=== PATIENT | male | born 1940 | race Caucasian/White ===

== ENCOUNTER → 2018-05-14 14:04 | Outpatient (CLI) | payer MEDICARE ==
[2016-05-23 10:10] VITALS: BMI 33.2
[~2018-05-14 14:04] MED LIST: COZAAR50 MG PO; FISH OIL 1,0001 CA1 PO; FLOMAX0.4 MG PO; HCTZ25 MG PO; LORTAB 7.5/5001 TA1 PO; LYRICA75 MG PO; MOBIC7.5 MG PO; MONISTAT 31 EACH; MUCINEX600 MG PO; NORCO 10/325 TA1 TA1 PO; PLAVIX75 MG PO; PRINIVIL10 MG PO; STRESS TABS PO; VITAMIN B-1000 MCG/M IM; VITAMIN B-121000 MC3 NG; [UNRECOGNIZED DRUG - OTHER] PO
== END | disposition home or self-care (01) ==
LOC: D.MRI 14:04
DX: M54.16 Radiculopathy, lumbar region (principal)

== ENCOUNTER → 2019-04-08 12:07 | Outpatient (CLI) | payer MEDICARE ==
[2016-05-23 10:10] VITALS: BMI 33.2
== END | disposition home or self-care (01) ==
LOC: D.CT 12:07
PROVIDERS: ATTEND Internal Medicine Cardiovascular Disease
DX: I70.213 Atherosclerosis of native arteries of extremities with intermittent claudication, bilateral legs (principal)

== ENCOUNTER 2019-05-30 07:52 | Outpatient (CLI) | payer MEDICARE ==
[~2019-05-30] VITALS: Ht 180.3 cm; Wt 100.0 kg
--- NOTE | ~2019-05-30 | HEMODYNAMI ---
PATIENT:ZAYRA MAO MEDICAL RECORD: [id number] : 38 [id number] ADMISSION DATE: 05/30/19 Generatedon:05/30/201911:36 Patient name: ZAYRA MAO Patient #: [id number] SSN: : Date of study: 05/30/2019 Page: Of Hemodynamic Procedure Report Patient Data Patient Demographics Procedure consent was obtained First Name: ZAYRA Gender: Male Last Name: MAYCO : 1940 [facility] Initial: LG Age: 78 year(s) Patient #: [id number] Race: Unknown Additional ID: [id number] Contact details Address: [facility] [address] State: [place] City: [place] Zip code: [address] Admission Admission Data Admission Date: 05/30/2019 Admission Time: 7:52 Procedure Procedure Types Cath Procedure Peripheral Cath Diagnostic Procedure Abd/Extremity Renal Renal Angiogram Bilateral w/ Branch Procedure Description Procedure Date Procedure Date: 05/30/2019 Procedure Start Time: 10:35 Procedure Staff Name Function Tucker Herrera MD Performing Physician Garland Dumas RT Monitor RICK MALLOY RT Scrub Michelle Jessica RN Nurse Procedure Data Cath Procedure Fluoroscopy Diagnostic fluoroscopy Total fluoroscopy Time: 6.6 time: 6.6 min min Diagnostic fluoroscopy Total fluoroscopy dose: 908 dose: 908 mGy mGy Contrast Material Contrast Material Type Amount (ml) Isovue 300 70 Entry Location Entry Primary Successful Side Size Upsize 1 Upsize Entry Closure Jean Baptiste ccessful Closure Location (Fr) (Fr) 2 (Fr) Remarks Device Remarks Femoral Right 5 Fr 6 Fr Exoseal artery Mid-Length Procedure Medications Medication Administration Route Dosage Heparin Flush Bag added to field 3 bags (1000units/500ml NS) Lidocaine 1% added to field 20 Versed I.V. 0.5 mg Fentanyl I.V. 25 mcg Heparin Bolus I.V. 5000 units Fentanyl I.V. 25 mcg Versed I.V. 0.5 mg Fentanyl I.V. 25 mcg Versed I.V. 0.5 mg Hemodynamics Rest Heart Rate: 63 (bpm) Pressure Samples Time Site Value (mmHg) Purpose Heart Use Rate(bpm) 10:53 R RENAL 48/35(41) Snapshot 64 ART 10:53 R RENAL 48/34(41) Snapshot 63 ART 10:55 AAO 135/52(83) Snapshot 67 10:55 AAO 137/52(83) Snapshot 64 10:55 AAO 136/51(81) Snapshot 62 Snapshots Pre Cath Intra NCS Post Cath Vital Signs Time Heart Resp SPO2 etCO2 NIBP (mmHg) Rhythm Pain Sedation Rate (ipm) (%) (mmHg) Status Level (bpm) 10:14:06 63 9 100 32.2 124/65(100) NSR 0 (11) 10(A) , No pain 10:19:05 63 9 100 37.5 Auto NIBP NSR 0 (11) 10(A) off , No pain 10:24:04 64 10 99 36 Auto NIBP NSR 0 (11) 10(A) off , No pain 10:27:15 64 9 99 36.7 122/57(101) NSR 0 (11) 10(A) , No pain 10:32:14 58 8 99 34.5 Auto NIBP NSR 0 (11) 10(A) off , No pain 10:37:13 63 8 98 37.5 Auto NIBP NSR 0 (11) 10(A) off , No pain 10:37:48 62 9 99 33.7 127/58(105) NSR 0 (11) 10(A) , No pain 10:40:56 62 12 97 36.7 119/54(99) NSR 0 (11) 8(A) , No pain 10:45:55 65 10 97 37.5 Auto NIBP NSR 0 (11) 8(A) off , No pain 10:47:40 66 10 97 30.7 Auto NIBP NSR 0 (11) 8(A) off , No pain 10:48:25 62 9 95 37.5 109/54(90) NSR 0 (11) 8(A) , No pain 10:53:24 61 11 96 39 Auto NIBP NSR 0 (11) 8(A) off , No pain 10:55:02 62 10 97 37.5 114/55(90) NSR 0 (11) 8(A) , No pain 10:58:58 59 9 97 33 114/58(94) NSR 0 (11) 8(A) , No pain 11:03:57 60 10 96 33.7 Auto NIBP NSR 0 (11) 8(A) off , No pain 11:05:56 62 10 98 33 110/56(88) NSR 0 (11) 8(A) , No pain 11:10:54 61 11 96 33 Auto NIBP NSR 0 (11) 8(A) off , No pain 11:11:44 63 10 93 36.7 110/53(91) NSR 0 (11) 8(A) , No pain 11:15:27 63 11 96 36.7 105/50(83) NSR 0 (11) 8(A) , No pain 11:20:26 63 11 97 34.4 Auto NIBP NSR 0 (11) 8(A) off , No pain 11:20:28 63 11 97 34.5 112/52(84) NSR 0 (11) 8(A) , No pain 11:25:27 65 10 96 38.9 Auto NIBP NSR 0 (11) 8(A) off , No pain 11:29:49 62 10 92 39 108/53(90) NSR 0 (11) 8(A) , No pain 11:34:48 0 Auto NIBP NSR 0 (11) 8(A) off , No pain Medications Time Medication Route Dose Verified Delivered Reason Notes Effec tiveness by by 10:27:56 Heparin Flush added 3 Tucker Ceballos used for Bag to bags Javier Herrera MD procedure (1000units/500ml field TALBERT NS) 10:28:36 Lidocaine 1% added 20ml Tucker Ceballos used for to vial Javier Herrera MD procedure field TALBERT 10:39:21 Versed I.V. 0.5 Tucker Martinez used for mg Jaskaran Herrera RN procedure 10:39:36 Fentanyl I.V. 25 Tucker Martinez used for mcg Jaskaran Herrera RN procedure 11:00:17 Heparin Bolus I.V. 5000 Tucker Martinez used for units Jaskaran Herrera RN procedure 11:04:36 Fentanyl I.V. 25 Tucker Martinez used for mcg BurdJaskaran nunez RN, MD 11:04:45 Versed I.V. 0.5 Tucker Martinez used for mg Jaskaran Herrera RN, MD 11:18:57 Fentanyl I.V. 25 Tucker Martinez used for mcg Jaskaran Herrera RN, MD 11:19:08 Versed I.V. 0.5 Tucker Haquei used for mg Jaskaran Herrera RN, MD Procedure Log Time Note 10:01:16 Michelle Jessica RN sent for patient. Start room use. 10:01:47 Time tracking: Regular hours (M-F 7:00 - 5:00) 10:01:53 Plan of Care:Hemodynamics will remain stable., Cardiac rhythm will remain stable., Comfort level will be maintained., Respiratory function will remain adequate., Patient/ family verbilizes understanding of procedure., Procedure tolerated without complication., Recovers from procedure without complications.. 10:01:57 Use device set IR Diagnostic 10:01:58 ACIST Syringe (55029) opened to sterile field. 10:01:59 ACIST Hand Control (71106) opened to sterile field. 10:01:59 ACIST Manifold (61185) opened to sterile field. 10:01:59 Bag Decanter (2002S) opened to sterile field. 10:02:00 Sterile Angiographic Pack opened to sterile field. 10:02:01 Tegaderm 4 x 4 (1626W) opened to sterile field. 10:02:10 Patient received from Outpatients to IR Alert and oriented. Tansferred to table in Supine position. 10:02:11 Correct patient and procedure confirmed by team. 10:02:13 Signed procedure consent form obtained from patient. 10:02:15 ECG and BP/O2 sat monitors applied to patient. 10:02:16 Full Disclosure recording started 10:02:16 - 10:02:21 H&P Date Dictated: 05/30/2019 H&P Addendum completed by physician on day of procedure. (MUST COMPLETE FOR ALL OUTPATIENTS). 10:02:21 Pre-procedure instructions explained to patient. 10:02:22 Pre-op teaching completed and patient verbalized understanding. 10:02:23 Family in waiting room. 10:02:27 Patient NPO since Midnight. 10:02:30 Is the patient allergic to Iodine/contrast media? No. 10:02:32 Is patient on blood thinner?Yes 10:02:44 ACC The patient was administered the following blood thiners within the last 24 hours: ACCAspirin 10:02:49 Patient diabetic? Yes. 10:02:55 - 10:02:56 ----Pre-sedation anethsthesia assessment.---- 10:02:59 Previous problem with sedation/anesthesia? No ? 10:03:00 Snore? Yes 10:03:02 Sleep apnea? No 10:03:03 Deviated septum? No 10:03:05 Opens mouth fully? Yes 10:03:06 Sticks out tongue? Yes 10:03:14 Dentures? Yes patial out 10:12:45 Pre procedure: right dorsailis pedis pulse Doppler 10:12:51 Pre procedure: right posterior tibial pulse Doppler 10:12:57 Patient pain scale 0/10 no pain. 10:13:12 Vital chart was started 10:13:34 IV patent on arrival in left antecubital with 0.9% NaCl at O. 10:25:46 Baseline sample Acquired. 10:25:50 Sharps counted by scrub and verified by R.N. 10:25:54 Right groin area was prepped with chlora-prep and draped in sterile fashion 10:27:56 Heparin Flush Bag (1000units/500ml NS) 3 bags added to field was administered by Tucker Herrera MD; used for procedure; 10:28:36 Lidocaine 1% 20ml vial added to field was administered by Tucker Herrera MD; used for procedure; 10:34:07 Physician arrived 10:34:08 --------ALL STOP TIME OUT------ 10:34:08 Final Timeout: patient, procedure, and site verified with staff and physician. All members of the team are in agreement. 10:34:10 Right groin site verified by team. 10:34:14 Fire Safety Assessment: A--An alcohol-based skin anteseptic being used preoperatively., C--Open oxygen or nitrous oxide is being used. 10:34:25 Sedation plan: IV Moderate Sedation Medication:Versed, Fentanyl 10:35:02 Procedure started. 10:35:07 Local anesthetic to right femoral artery with Lidocaine 1% by Tucker Herrera MD.INITIAL ACCESS ONLY 10:35:42 Micropuncture VSI 4FR kit opened to sterile field. 10:35:42 SHEATH 5FR Dunreith (JQG005) opened to sterile field. 10:35:43 DOC .035 wire (W99693) opened to sterile field. 10:35:43 Angiodynamics Omniflush 5Fr 65cm (77472711) opened to sterile field. 10:35:49 Access obtained with 4Fr micropunture. 10:35:58 A 5 Fr sheath was inserted into the Right Femoral artery 10:39:21 Versed 0.5 mg I.V. was administered by Michelle Jessica RN; used for procedure; 10:39:36 Fentanyl 25 mcg I.V. was administered by Michelle Jessica RN; used for procedure; 10:44:50 GLIDE CATHETER 5FR ANGLED 65cm (CG507) opened to sterile field. 10:44:50 GLIDE WIRE ANGLE 180cm (TR2044) opened to sterile field. 10:45:02 TORQUE DEVICE PLASTIC .038 ( TD01) opened to sterile field. 10:45:35 GLIDE CATHETER 5FR COBRA 65cm (CG502) opened to sterile field. 10:49:34 BENTSON 145cm wire (N99607) opened to sterile field. 10:50:[address] 1 6FR. Guide sheath opened to sterile field. 10:50:27 Sheath upsized to a 6 Fr Mid-Length. 10:53:08 Zero performed for pressure channel P1 10:55:01 Zero performed for pressure channel P1 10:55:07 Zero performed for pressure channel P1 11:00:17 Heparin Bolus 5000 units I.V. was administered by Michelle Jessica RN; used for procedure; 11:04:36 Fentanyl 25 mcg I.V. was administered by Michelle Jessica RN; used for procedure; 11:04:45 Versed 0.5 mg I.V. was administered by Michelle Jessica RN; used for procedure; 11:06:52 Inflate balloon Inflation number: 1 A Evercross 3 x 2 x 135 Balloon ([id number]) was prepped and advanced across the Undefined1 , then inflated to 8 BIANCA for 0:01 (min:sec) . 11:13:04 BOJORQUEZ 260 wire (H46061) opened to sterile field. 11:13:33 Place stent Inflation Number: 2 A Visipro 6 x 27 x 135 Stent ([id number]) was prepped and advanced across the Undefined1 . The stent was deployed at 8 BIANCA for 0:03 (min:sec) . 11:17:06 SHEATH 6FR Dunreith (FBZ903) opened to sterile field. 11:18:57 Fentanyl 25 mcg I.V. was administered by Michelle Jessica RN; used for procedure; 11:19:08 Versed 0.5 mg I.V. was administered by Michelle Jessica RN; used for procedure; 11:21:19 EXOSEAL 6Fr (EX600) opened to sterile field. 11:21:29 Sheath removed intact; hemostasis achieved with Exoseal to the Right Femoral artery. 11:21:32 Procedure ended.(Physican Out) 11:22:01 Fluoroscopy time 06.60 minutes. 11:26:34 Fluoroscopy dose: 908 mGy 11::34 Flurop Dose total: 908 11:26:37 Sharps counted by scrub and verified by R.N. 11:26:38 Insertion/operative site no bleeding no hematoma. 11:26:46 Contrast amount:Isovue 300 70ml. 11:28:18 Post-op/insertion site Right Femoral artery dressed using a 4 x 4 and Tegaderm. 11:28:29 Post right femoral artery:stable 11:28:31 Post Procedure Pulses reassessed and unchanged 11:35:32 Post procedure instruction explained to patient.Patient verbalizes understanding. 11:35:33 Procedure and supply charges have been captured, reviewed, submitted an d are correct. 11:35:37 Report given to Outpatients. 11:35:42 Patient transfered to Outpatients with Stretcher. 11:36:16 Vital chart was stopped Intervention Summary Intervention Notes Time ActionType Lesion and Equipment Used Action# Pressure Duration Attributes 11:06:52 Inflate Undefined1 Evercross 3 x 2 x 1 8 00:01 balloon 135 Balloon ([id number]) 11:13:33 Place stent Undefined1 Visipro 6 x 27 x 2 8 00:03 135 Stent ([id number]) Device Usage Item Name Manufacture Quantity Catalog Number Hospital Part Curr ent Minimal Lot# / Charge Number Stock Stock Serial# Code ACIST Syringe Acist Medical 1 09342 641889 013938 0070 98 20 (11498) Systems Inc ACIST Hand Acist Medical 1 55374 230577 243663 0017 26 5 Control (59693) Systems Inc ACIST Manifold Acist Medical 1 56533 328984 530403 0415 43 5 (94010) Systems Inc Bag Decanter Microtek 1 2001S 401055 74610 9865 68 5 (2001S) Medical Inc. Sterile Cardinal 1 [id number] 792216 1098 94 5 Angiographic Pack Health Tegaderm 4 x 4 3M 1 1626W 666938 984719 2906 45 5 (1626W) Micropuncture VSI VSI VASCULAR 1 7266V 624365 0879 95 5 4FR kit SOLUTIONS SHEATH 5FR Terumo 1 FTO784 855212 606054 1525 26 5 Dunreith (UHD079) DOC .035 wire Cook Medical 1 H14131 194243 3729 69 5 (R97722) Angiodynamics Angiodynamics 1 75411064 864401 388634 2863 35 5 Omniflush 5Fr 65cm (68253294) GLIDE CATHETER Terumo 1 CG507 474794 3394 03 5 5FR ANGLED 65cm (CG507) GLIDE WIRE ANGLE Terumo 1 GV4799 160000 884376 7684 03 5 180cm (ES3003) TORQUE DEVICE Windsor 1 TD01 910568 557037 5099 13 5 PLASTIC .038 ( Scientific TD01) GLIDE CATHETER Terumo 1 CG502 899992 6292 15 5 5FR COBRA 65cm (CG502) BENTSON 145cm Cook Medical 1 A27767 436405 2619 65 5 wire (R17680) Cook KEY 1 6FR. Pledge51 Medical 1 F46070 041594 5500 68 5 0146769 Guide sheath Evercross 3 x 2 x Medtronic 1 [id number] 558447 488735 4561 94 5 S368208 135 Balloon ([id number]) BOJORQUEZ 260 wire Cook Medical 1 N27228 609617 66648 9995 63 5 (I14700) Visipro 6 x 27 x Medtronic 1 [id number] 624016 524848 6824 97 5 F224177 135 Stent ([id number]) SHEATH 6FR Terumo 1 VYD440 265098 051538 8863 22 40 Dunreith (UDP472) EXOSEAL 6Fr Cardinal 1 EX600 715943 626318 1603 74 10 [id number] (EX600) Health Signature Audit [place] Stage Time Signature Unsigned Intra-Procedure 05/30/2019 Garland 11:36:12 AM Alesia RT (R) (CV) Signatures Monitor : Garland Signature : Alesia RT Date : Time : [address] [address]
[2019-05-30 08:27] LABS: EOSINOPHILS 6.5 % (0-7); HEMATOCRIT 30.5 % (42.0-54.0); HEMOGLOBIN 10.2 g/dL (13.5-17.5); IMMATURE GRANULOCYTES 0.2 % (0-5); MCH 29.7 pg (26.0-34.0); MCHC 33.4 g/dL (31.0-37.0); MCV 88.7 fL (80.0-100.0); MEAN PLATELET VOLUME 8.9 fL (7.4-10.4); MONOCYTES 11.8 % (2-11); NEUTROPHILS 66.5 % (40-80); PLATELET COUNT 137 10x3/uL (130-400); RBC 3.44 10x6/uL (4.20-6.10); RDW 22.6 % (11.5-14.5); WBC 4.9 10x3/uL (4.8-10.8)
[2019-05-30 08:31] LABS: ANION GAP 10.1 mmol/L (8-16); CALCIUM 9.5 mg/dL (8.5-10.1); CARBON DIOXIDE 28.6 mmol/L (21.0-32.0); CREATININE - SERUM 1.4 mg/dL (0.6-1.3); POTASSIUM - SERUM 4.7 mmol/L (3.5-5.1)
[2019-05-30 08:37] LABS: APTT 27.4 SECONDS (22.8-39.4); INR 1.17 (0.85-1.17); PROTIME 14.4 SECONDS (11.6-15.0)
--- NOTE | 2019-05-30 08:43 | NUR ---
0811-ARRIVED TO OUTPATIENT, SQE WITH PATIENT. HE IS DEAF/HEARING IMPAIRED.
[2019-05-30] MEDS ORDERED: BAYER CHEWABLE81 MG PO (09:41)
[2019-05-30 09:42] VITALS: BP 130/56; Ht 180.3 cm; Wt 100.0 kg
--- NOTE | 2019-05-30 14:39 | NUR ---
1145 VITAL SIGNS ARE BEING RECORDED ON POST PROCEDURE CHECKLIST AND IN PAPER CHART.
--- NOTE | 2019-05-30 15:17 | NUR ---
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 TATA SANCHEZ HERE TO ADDRESS THOSE QUESTIONS USING THE INTERPETOR TO RELAY THE INFORMATION. NOTHING OVER 5 LBS FOR 5 DAYS.
--- NOTE | 2019-05-30 15:19 | NUR ---
1430 IV DC'D. CATHETER INTACT. NO BLEEDING AT SITE. BANDAID APPLIED.
== END 2019-05-30 14:50 | disposition home or self-care (01) ==
LOC: D.SP 07:52 → D.RAD 10:00 → D.SP 14:50
PROVIDERS: ATTEND General Practice
DX: I70.1 Atherosclerosis of renal artery (principal); Z01.812 Encounter for preprocedural laboratory examination; I12.9 Hypertensive chronic kidney disease with stage 1 through stage 4 chronic kidney disease, or unspecified chronic kidney disease; N18.9 Chronic kidney disease, unspecified

== ENCOUNTER → 2019-07-19 08:00 | Outpatient (CLI) | payer MEDICARE ==
[2019-05-30 09:42] VITALS: BMI 30.7
[~2019-07-19 08:00] MED LIST changes: +BAYER CHEWABLE81 MG PO
== END | disposition home or self-care (01) ==
LOC: D.CT 08:00
PROVIDERS: ATTEND General Practice
DX: I73.9 Peripheral vascular disease, unspecified (principal)

== ENCOUNTER → 2019-08-26 09:05 | Outpatient (CLI) | payer MEDICARE ==
[2019-05-30 09:42] VITALS: BMI 30.7
[~2019-08-26 09:05] MED LIST changes: +ALDACTONE25 MG PO; +GABAPENTIN100 MG PO; +GLUCOTROL ER2.5 MG PO; +LASIX40 MG PO; +REQUIP0.25 MG PO; +SINGULAIR10 MG PO; +TOPROL XL25 MG PO; +ZOFRAN4 MG PO
== END | disposition home or self-care (01) ==
LOC: D.MRI 09:05
PROVIDERS: ATTEND Internal Medicine Cardiovascular Disease
DX: K76.89 Other specified diseases of liver (principal)

== ENCOUNTER 2019-10-24 13:18 | Inpatient (IN) | payer MEDICARE ==
[~2019-10-24] VITALS: Ht 180.3 cm; Wt 104.3 kg
[~2019-10-24 13:18] MED LIST changes: -ALDACTONE25 MG PO; -GABAPENTIN100 MG PO; -GLUCOTROL ER2.5 MG PO; -LASIX40 MG PO; -REQUIP0.25 MG PO; -SINGULAIR10 MG PO; -TOPROL XL25 MG PO; -ZOFRAN4 MG PO
[2019-10-24] MEDS ORDERED: GABAPENTIN100 MG PO (14:07)
[2019-10-24] MEDS ORDERED: GLUCOTROL ER2.5 MG PO (14:09)
[2019-10-24] MEDS ORDERED: TOPROL XL25 MG PO (14:10)
[2019-10-24] MEDS ORDERED: SINGULAIR10 MG PO (14:12)
[2019-10-24] MEDS ORDERED: ZOFRAN4 MG PO (14:14)
[2019-10-24] MEDS ORDERED: REQUIP0.25 MG PO (14:15)
[2019-10-24 14:23] LABS: BASOPHILS 0.4 % (0-2); EOSINOPHILS 3.6 % (0-7); HEMATOCRIT 28.2 % (42.0-54.0); HEMOGLOBIN 9.1 g/dL (13.5-17.5); IMMATURE GRANULOCYTES 0.2 % (0-5); LYMPHOCYTES 14.5 % (15-50); MCH 30.2 pg (26.0-34.0); MCHC 32.3 g/dL (31.0-37.0); MCV 93.7 fL (80.0-100.0); MONOCYTES 13.9 % (2-11); NEUTROPHILS 67.4 % (40-80); RBC 3.01 10x6/uL (4.20-6.10); RDW 18.8 % (11.5-14.5); WBC 5.3 10x3/uL (4.8-10.8)
[2019-10-24 14:24] LABS: PLATELET COUNT 174 10x3/uL (130-400)
[2019-10-24 14:32] LABS: ANION GAP 11.4 mmol/L (8-16); CALCIUM 9.3 mg/dL (8.5-10.1); CARBON DIOXIDE 25.3 mmol/L (21.0-32.0); CREATININE - SERUM 1.6 mg/dL (0.6-1.3); POTASSIUM - SERUM 3.7 mmol/L (3.5-5.1)
[2019-10-24 14:38] LABS: ALBUMIN 2.8 g/dL (3.4-5.0); BILIRUBIN - TOTAL 1.22 mg/dL (0.2-1.3); PROTEIN - SERUM 7.7 g/dL (6.4-8.2)
[2019-10-24 16:39] LABS: INR 1.26 (0.85-1.17); PROTIME 15.2 SECONDS (11.6-15.0)
[2019-10-24 16:43] VITALS: BP 118/50
[2019-10-24 16:50] LABS: % SATURATION 23 % (15-55); IRON 39 ug/dl (35-150); TOTAL IRON BIND CAPACITY 163 ug/dl (260-445); UNSAT IRON BIND CAPACITY 124 ug/dl (150-375)
[2019-10-24 18:50] VITALS: BP 115/50; BMI 32.1
[2019-10-24 20:20] VITALS: BP 120/53
--- NOTE | 2019-10-24 23:23 | NUR ---
PT IS DEAF/HARD OF HEARING. NOTED PAD AND PEN SET IN ROOM TO FACILITATE COMMUNICATION. PTs ABDOMEN IS DISTENDED, BUT PT DENIES PAIN/NEEDS AT THIS TIME, WILL CONTINUE TO MONITOR.
[2019-10-25] VITALS (10 sets, daily range): BP systolic 97–125; BP diastolic 40–66; Ht 180.3 cm; Wt 104.3 kg
[2019-10-25 01:44] LABS: APPEARANCE CLEAR (CLEAR); BILIRUBIN NEGATIVE (NEGATIVE); COLOR YELLOW (YELLOW); GLUCOSE NEGATIVE (NEGATIVE); KETONE NEGATIVE (NEGATIVE); NITRITE NEGATIVE (NEGATIVE); PROTEIN NEGATIVE (NEGATIVE); SPECIFIC GRAVITY 1.015 (1.005-1.020); UROBILINOGEN NORMAL (NORMAL)
--- NOTE | 2019-10-25 04:36 | NUR ---
I have reviewed this patient and I concur with the Shift Assessment completed by the Licensed Practical Nurse today this shift.
[2019-10-25 06:47] LABS: BASOPHILS 0.3 % (0-2); EOSINOPHILS 4.6 % (0-7); HEMATOCRIT 25.7 % (42.0-54.0); HEMOGLOBIN 8.2 g/dL (13.5-17.5); LYMPHOCYTES 15.5 % (15-50); MCH 29.3 pg (26.0-34.0); MCHC 31.9 g/dL (31.0-37.0); MCV 91.8 fL (80.0-100.0); MEAN PLATELET VOLUME 9.4 fL (7.4-10.4); MONOCYTES 15.8 % (2-11); NEUTROPHILS 63.8 % (40-80); PLATELET COUNT 153 10x3/uL (130-400); RDW 18.5 % (11.5-14.5)
[2019-10-25 07:05] LABS: INR 1.31 (0.85-1.17); PROTIME 15.8 SECONDS (11.6-15.0)
[2019-10-25 07:22] LABS: ALBUMIN 2.6 g/dL (3.4-5.0); ANION GAP 12.1 mmol/L (8-16); BILIRUBIN - TOTAL 1.01 mg/dL (0.2-1.3); CALCIUM 9.2 mg/dL (8.5-10.1); CARBON DIOXIDE 25.9 mmol/L (21.0-32.0); CREATININE - SERUM 1.4 mg/dL (0.6-1.3); PROTEIN - SERUM 6.8 g/dL (6.4-8.2)
--- NOTE | 2019-10-25 07:30 | NUR ---
PT RESTING IN BED WITH SPOUSE AT BEDSIDE. PT AWAKE ALERT AND ORIENTED X 4. PT IS ABLE TO COMMUNICATE WITH STAFF HE IS ABLE TO READ LIPS AND WRITE NOTES AND IS ABLE TO VERBALIZE ORALLY NEEDS. PT REPORTS PAIN 4/10 AT THIS TIME IN HIS BACK "FROM THE BED". HE VOICES ANTICIPATIONS OF UPCOMING PROCEDURE. PT VOICES BEING NPO SINCE MIDNIGHT. SALINE LOC TO LEFT WRIST, SITE WITHOUT REDNESS OR EDEMA. ABDOMEN DISTENDED AND FIRM, BS ACTIVE X 4. DENIES FURTHER NEEDS AT THIS TIME. CL WITHIN REACH. ENCOURAGED TO CALL WITH NEEDS. CONTINUE POC
[2019-10-25 07:55] LABS: WBC 3.5 10x3/uL (4.8-10.8)
--- NOTE | 2019-10-25 13:05 | NUR ---
PT TAKEN VIA BED TO IR FOR PROCEDURE.
--- NOTE | 2019-10-25 13:26 | MORECARE ---
CASE MANAGEMENT DISCHARGE SUMMARY PATIENT: ZAYRA MAO LG UNIT: [id number] ADM DATE: 10/24/19 AGE: 78 : 39 SEX: M ROOM/BED: D.2233 AUTHOR: FREDY COBURN PHYSICIAN: REFERRING PHYSICIAN: OCTAVIA GALLAGHER MD DATE OF SERVICE: 10/25/19 Discharge Plan Patient Name: ZAYRA MAO [facility] [facility] 1940 Planned Disposition: Inpatient Rehab Anticipated Discharge Date: Discharge Date: Expected LOS: Initial Reviewer: [email or web address] Initial Review Date: 10/25/2019 Generated: 10/25/19 2:25 pm Patient Name: ZAYRA AMO Page 66352 at 1326 All edits/amendments must be made on the electronic document DICTATION DATE: 10/25/19 1325 ICU STAFF NURSE: SUJIT 10/25/19 1325 RPT#: [id number] DC DATE: STATUS: ADM IN [facility] [address] [place] [address] END OF REPORT
--- NOTE | 2019-10-25 13:36 | MORECARE ---
CASE MANAGEMENT DISCHARGE SUMMARY PATIENT: ZAYRA CASTELLANOS LG UNIT: [id number] ADM DATE: 10/24/19 AGE: 78 : 39 SEX: M ROOM/BED: D.2233 AUTHOR: FREDY COBURN PHYSICIAN: REFERRING PHYSICIAN: OCTAVIA GALLAGHER MD DATE OF SERVICE: 10/25/19 Discharge Plan Patient Name: ZAYRA CASTELLANOS [facility] [facility] 1940 Planned Disposition: Inpatient Rehab Anticipated Discharge Date: Discharge Date: Expected LOS: Initial Reviewer: [email or web address] Initial Review Date: 10/25/2019 Generated: 10/25/19 2:35 pm DCPIA - Discharge Planning Initial Assessment Updated by [email or web address]: Emilee Lilly on 10/25/19 1:34 pm * Is the patient Alert and Oriented? Yes * How many steps to enter\exit or inside your home? Ramp/0 * PCP Karen Proctor * [facility] * Preadmission Environment Home with Family * ADLs Partial Dependent * Partial ADLs (Assistance needed) Ambulation * Equipment Grab Bars Shower Chair Walker * Other Equipment Rollator Walker * List name and contact numbers for known caregivers / representatives who currently or will assist patient after discharge: Jade Castellanos - spouse - [phone] - Must text...she is deaf * Verbal permission to speak to the caregivers and representatives has been obtained from the patient. Yes * Community resources currently utilized None * Additional services required to return to the preadmission environment? Yes * Can the patient safely return to the preadmission environment? Yes * Has this patient been hospitalized within the prior 30 days at any hospital? No Last DP export: 10/25/19 12:26 p Patient Name: ZAYRA CASTELLANOS Page 59259 at 1336 All edits/amendments must be made on the electronic document DICTATION DATE: 10/25/19 1335 TOBACCO CONDITIONER: SUJIT 10/25/19 1335 RPT#: [id number] DC DATE: STATUS: ADM IN [facility] [address] [place] [address] END OF REPORT
--- NOTE | 2019-10-25 13:51 | MORECARE ---
CASE MANAGEMENT DISCHARGE SUMMARY PATIENT: ZAYRA CASTELLANOS UNIT: [id number] ADM DATE: 10/24/19 AGE: 78 : 39 SEX: M ROOM/BED: D.2233 AUTHOR: FREDY COBURN PHYSICIAN: REFERRING PHYSICIAN: OCTAVIA GALLAGHER MD DATE OF SERVICE: 10/25/19 Discharge Plan Patient Name: ZAYRA CASTELLANOS Facility: [facility]:[place] : 1940 Planned Disposition: Inpatient Rehab Anticipated Discharge Date: Discharge Date: Expected LOS: Initial Reviewer: [email or web address] Initial Review Date: 10/25/2019 Generated: 10/25/19 2:51 pm Comments DCP- Discharge Planning Updated by [email or web address]: Emilee Lilly on 10/25/19 12:[address] Patient Name: ZAYRA CASTELLANOS Admission Status: Elective Accout number: [id number] Admission Date: 10-24-2019 : 1940 Admission Diagnosis: Attending: OCTAVIA GALLAGHER Current LOS: 1 Anticipated DC Date: Planned Disposition: Inpatient Rehab Primary Insurance: [employer] CHO[employer] PPO MCR ADVANT Discharge Planning Comments: CM met with patient and his spouse to discuss discharge planning/needs. drama critic is present in the room for assessment. He lives with his in a one level mobile home. He has a ramp to get into the home. He has a rollator walker in the room that is his. He states he has become very weak. He states he would like some rehab prior to going home. I gave him the [facility] list for inpatient rehab and SNF and explained the differences. He would like to stay here and have inpatient rehab if possible. He states his choice for SNF would be [facility] if insurance does not authorize inpatient rehab. I will get an PT and OT eval to see what referral may be more appropriate. I discussed the availability of home health and DME as well, denies need for DME at this time. CM will continue to follow and assist with discharge planning/needs. Senior Technical Architect: Emilee Lilly DCPIA - Discharge Planning Initial Assessment Updated by [email or web address]: Emilee Lilly on 10/25/19 1:34 pm * Is the patient Alert and Oriented? Yes * How many steps to enter\exit or inside your home? Ramp/0 * PCP Karen Proctor * [facility] * Preadmission Environment Home with Family * ADLs Partial Dependent * Partial ADLs (Assistance needed) Ambulation * Equipment Grab Bars Shower Chair Walker * Other Equipment Rollator Walker * List name and contact numbers for known caregivers / representatives who currently or will assist patient after discharge: Jade Castellanos - spouse - [phone] - Must text...she is deaf * Verbal permission to speak to the caregivers and representatives has been obtained from the patient. Yes * Community resources currently utilized None * Additional services required to return to the preadmission environment? Yes * Can the patient safely return to the preadmission environment? Yes * Has this patient been hospitalized within the prior 30 days at any hospital? No Coverage Notice Reviewer: [email or web address] Dale Lilly Notice Issued Date-Time: 10/25/2019 13:44 Notice Type: Patient Choice Letter Notice Delivered To: Patient Relationship to Patient: Self Photograph Inspector Name: Delivery Method: HAND - Hand Delivered Vita Days: Prior Verbal Notification: Recipient Understood Notice: Yes Recipient Signature: Yes Med Rec Note Co-signed by Attending: Coverage Notice Comment: [facility] for Inpatient rehab at [facility] and [place] for SNF Last DP export: 10/25/19 12:36 p Patient Name: ZAYRA CASTELLANOS Page 05789 at 1351 All edits/amendments must be made on the electronic document DICTATION DATE: 10/25/19 1351 OYSTER CULLER: SUJIT 10/25/19 1351 RPT#: [id number] DC DATE: STATUS: ADM IN [facility] [address] [place] [address] END OF REPORT
[2019-10-25 17:19] LABS: PROTEIN - BODY FLUID 2.3 G/DL
[2019-10-25 19:27] LABS: EOS BF 1 %; MACROPHAGES BF 48 %; MESOTHELIALS BF 3 %; NEUT - BF 16 %
--- NOTE | 2019-10-25 23:17 | NUR ---
LYING IN BED WITH EYES CLOSED, AROUSED TO TOUCH. PLEASANTRIES EXCHANGED VIA GESTURES AND LIP READING, NO S/S OF ANY ACUTE DISTRESS. ABLE TO MAKE ALL NEEDS. KNOWN. WILL NOTE ANY CHANGE.
--- NOTE | 2019-10-25 23:19 | NUR ---
I have reviewed this patient and I concur with the Shift Assessment completed by the Licensed Practical Nurse today this shift.
[2019-10-26 01:04] VITALS: BP 112/50
[2019-10-26 05:50] VITALS: BP 151/80
[2019-10-26 06:41] LABS: CALCIUM 9.3 mg/dL (8.5-10.1); CARBON DIOXIDE 25.1 mmol/L (21.0-32.0); CREATININE - SERUM 1.1 mg/dL (0.6-1.3); POTASSIUM - SERUM 4.1 mmol/L (3.5-5.1)
[2019-10-26 06:50] LABS: BASOPHILS 0.6 % (0-2); EOSINOPHILS 5.3 % (0-7); HEMATOCRIT 25.2 % (42.0-54.0); HEMOGLOBIN 8.2 g/dL (13.5-17.5); LYMPHOCYTES 17.6 % (15-50); MCH 29.6 pg (26.0-34.0); MCHC 32.5 g/dL (31.0-37.0); MEAN PLATELET VOLUME 9.1 fL (7.4-10.4); MONOCYTES 13.8 % (2-11); NEUTROPHILS 62.7 % (40-80); PLATELET COUNT 132 10x3/uL (130-400); RBC 2.77 10x6/uL (4.20-6.10); RDW 18.4 % (11.5-14.5); WBC 3.2 10x3/uL (4.8-10.8)
--- NOTE | 2019-10-26 08:00 | NUR ---
PT IS WITHOUT NEEDS.CALL LIGHT IN REACH
[2019-10-26 08:36] VITALS: BP 113/56
[2019-10-26 12:32] VITALS: BP 118/62
--- NOTE | 2019-10-26 13:11 | NUR ---
PT SITTING UP WITH FAMILY AT BEDSIDE, PT IS EATING LUNCH, QUESTIONED LUNG BIOPSY RESULTS ADVISED WILL RELAY MESSAGE TO OR TEJAS. NO OTHER NEEDS VOICED, CONTINUE WITH PLAN OF CARE
[2019-10-26 14:09] LABS: SPE - A/G RATIO 0.8 (0.7-1.7); SPE - ALBUMIN 2.8 g/dL (2.9-4.4); SPE - ALPHA-1 GLOBULIN 0.3 g/dL (0.0-0.4); SPE - ALPHA-2 GLOBULIN 0.7 g/dL (0.4-1.0); SPE - BETA GLOBULIN 0.7 g/dL (0.7-1.3); SPE - M-SPIKE 1.6 g/dL (Not Observed); SPE - TOTAL PROTEIN 6.5 g/dL (6.0-8.5)
--- NOTE | 2019-10-26 15:24 | NUR ---
Rehab Note- Acute Inpatient Rehab prescreen order received. The patient has [employer] insurance and will require a PreAuth. OT Eval is pending, will need for PreAuth process. Will begin the PreAuth process & follow at this time. Thank you for this referral! Alena Schulz RN Clinical Liaison, [facility] Rehab
[2019-10-26 15:33] LABS: CEA 1.7 ng/mL (0.0-4.7)
[2019-10-26 16:28] VITALS: BP 113/41
--- NOTE | 2019-10-26 18:54 | NUR ---
OT NOTE: PT COMPLETED BED MOB TASKS WITH CGA. PT COMPLETED SIT TO STAND WITH CGA. PT COMPLETED BUE AROM EXS. PT COMPLETED HYGIENE TASK WITH SET UP. PT IS MOTIVATED. THANK YOU,MEHDI CHENG
--- NOTE | 2019-10-26 19:35 | NUR ---
LYING IN BED WITH TELEVISION ON, MOOD AND AFFECT PLEASANT, CRACKING JOKES WITH STAFF, ABLE TO COMMUNICATE ALL NEEDS. DENIES ANY PAIN AT THIS TIME. WILL NOTE ANY CHANGE.
[2019-10-26 20:00] VITALS: BP 117/46
--- NOTE | 2019-10-27 01:44 | NUR ---
I have reviewed this patient and I concur with the Shift Assessment completed by the Licensed Practical Nurse today this shift.
[2019-10-27 04:00] VITALS: BP 117/78
[2019-10-27 06:39] LABS: INR 1.3 (0.85-1.17); PROTIME 15.6 SECONDS (11.6-15.0)
[2019-10-27 06:41] LABS: ALBUMIN 2.7 g/dL (3.4-5.0); ANION GAP 9.4 mmol/L (8-16); BILIRUBIN - TOTAL 0.94 mg/dL (0.2-1.3); CALCIUM 9.3 mg/dL (8.5-10.1); CARBON DIOXIDE 25.6 mmol/L (21.0-32.0); CREATININE - SERUM 1.1 mg/dL (0.6-1.3); PROTEIN - SERUM 6.8 g/dL (6.4-8.2)
[2019-10-27 07:10] LABS: HEMATOCRIT 25.4 % (42.0-54.0); HEMOGLOBIN 8.3 g/dL (13.5-17.5); LYMPHOCYTES 19.4 % (15-50); MCH 30.4 pg (26.0-34.0); MCHC 32.7 g/dL (31.0-37.0); MEAN PLATELET VOLUME 8.9 fL (7.4-10.4); PLATELET COUNT 114 10x3/uL (130-400); RBC 2.73 10x6/uL (4.20-6.10); RDW 19.7 % (11.5-14.5)
--- NOTE | 2019-10-27 07:52 | NUR ---
PT CURRENTLY IN SHOWER. WILL COME BACK AND ASSESS.
[2019-10-27 08:36] VITALS: BP 124/57; BP 134/70
--- NOTE | 2019-10-27 11:27 | NUR ---
Rehab Note- Per OT & PT Evals the patient is noted to be too physically functional for the need of inpatient acute rehab. Discussed in IDT meeting. Thank you for this referral! Alena Schulz RN Clinical Liaison, [facility] Rehab
--- NOTE | 2019-10-27 14:19 | NUR ---
PT RTECIEVED FROM BIOPSY VIA BED. RR EVEN AND UNLABORED. DIET SPRITE GIVEN PER REQUEST. DENIES FURTHER NEEDS OR PAIN AT THIS TIME. VSS. RESTING COMFORTABLY. SOFTWARE APPLICATIONS ARCHITECT @ BEDSIDE.
[2019-10-27 14:44] VITALS: BP 107/55
[2019-10-27 16:36] VITALS: BP 122/49
--- NOTE | 2019-10-27 17:24 | NUR ---
I have reviewed this patient and I concur with the Shift Assessment completed by the Licensed Practical Nurse today this shift.
--- NOTE | 2019-10-27 19:20 | NUR ---
IN BED WITH TV ON, SHOWS NO S/S OF ANY ACUTE DISTRESS. DENIES PAIN AT THIS TIME. WILL NOTE ANY CHANGE.
[2019-10-27 21:00] VITALS: BP 106/50
--- NOTE | 2019-10-28 01:16 | NUR ---
I have reviewed this patient and I concur with the Shift Assessment completed by the Licensed Practical Nurse today this shift.
[2019-10-28 05:14] VITALS: BP 104/54
[2019-10-28 07:13] LABS: ALBUMIN 2.6 g/dL (3.4-5.0); ANION GAP 11.2 mmol/L (8-16); BILIRUBIN - DIRECT 0.24 mg/dL (0.00-0.30); BILIRUBIN - INDIRECT 0.6 mg/dL (0.00-1.00); BILIRUBIN - TOTAL 0.84 mg/dL (0.2-1.3); CARBON DIOXIDE 26.7 mmol/L (21.0-32.0); CREATININE - SERUM 1.2 mg/dL (0.6-1.3); POTASSIUM - SERUM 3.9 mmol/L (3.5-5.1); PROTEIN - SERUM 6.8 g/dL (6.4-8.2)
[2019-10-28 07:24] LABS: BASOPHILS 0.6 % (0-2); EOSINOPHILS 5.2 % (0-7); HEMATOCRIT 26.8 % (42.0-54.0); HEMOGLOBIN 8.6 g/dL (13.5-17.5); LYMPHOCYTES 14.5 % (15-50); MCH 29.4 pg (26.0-34.0); MCHC 32.1 g/dL (31.0-37.0); MCV 91.5 fL (80.0-100.0); MEAN PLATELET VOLUME 9.4 fL (7.4-10.4); MONOCYTES 13.4 % (2-11); NEUTROPHILS 66.3 % (40-80); RBC 2.93 10x6/uL (4.20-6.10); RDW 18.5 % (11.5-14.5); WBC 3.4 10x3/uL (4.8-10.8)
[2019-10-28 07:25] LABS: PLATELET COUNT 143 10x3/uL (130-400)
[2019-10-28 08:46] VITALS: BP 122/51
--- NOTE | 2019-10-28 10:00 | NUR ---
ALERT AND ORIENTED X4. PT IS HEARING IMPAIRED BUT CAN READ LIPS. DENIES ANY PAIN OR DISCOMFORT AT THIS TIME.IV S/L TO LEFT HAND WITH NO S/S OF INFECTION/INFILTRATION. LUNGS DIMINISHED TO BLQ POSTERIOR W/O DYSPNEA. DENEIS ANY PAIN OR DISCOMFORT AND ENCOURAGED TO USE CALL LIGHT FOR ASSIST.
--- NOTE | 2019-10-28 12:21 | MORECARE ---
CASE MANAGEMENT DISCHARGE SUMMARY PATIENT: ZAYRA CASTELLANOS UNIT: [id number] ADM DATE: 10/24/19 AGE: 78 : 39 SEX: M ROOM/BED: D.2233 AUTHOR: FREDY COBURN PHYSICIAN: REFERRING PHYSICIAN: OCTAVIA GALLAGHER MD DATE OF SERVICE: 10/28/19 Discharge Plan Patient Name: ZAYRA CASTELLANOS Facility: [facility]:[place] : 1940 Planned Disposition: Inpatient Rehab Anticipated Discharge Date: Discharge Date: Expected LOS: Initial Reviewer: [id number] Initial Review Date: 10/25/2019 Generated: 10/28/19 1:21 pm Comments DCP- Discharge Planning Updated by [id number]: Emilee Lilly on 10/28/19 11:[address] CM met with patient to discuss home health. He declines home health. States "I don't need it." States is walking well, "I just get a catch in my hip sometimes." States he has received a walker 2 weeks ago from insurance. Denies need for rehab or home health. Anticipate discharge home today. CM will continue to follow and assist with discharge planning/needs. DCP- Discharge Planning Updated by [id number]: Emilee Lilly on 10/25/19 12:[address] Patient Name: ZAYRA CASTELLANOS Admission Status: Elective Accout number: [id number] Admission Date: 10-24-2019 : 1940 Admission Diagnosis: Attending: OCTAVIA GALLAGHER Current LOS: 1 Anticipated DC Date: Planned Disposition: Inpatient Rehab Primary Insurance: HUMANA CHOICE PPO [facility] Discharge Planning Comments: CM met with patient and his spouse to discuss discharge planning/needs. hospital nurse liaison is present in the room for assessment. He lives with his in a one level mobile home. He has a ramp to get into the home. He has a rollator walker in the room that is his. He states he has become very weak. He states he would like some rehab prior to going home. I gave him the KARELY list for inpatient rehab and SNF and explained the differences. He would like to stay here and have inpatient rehab if possible. He states his choice for SNF would be [facility] if insurance does not authorize inpatient rehab. I will get an PT and OT eval to see what referral may be more appropriate. I discussed the availability of home health and DME as well, denies need for DME at this time. CM will continue to follow and assist with discharge planning/needs. Medical Director/Head Team Physician: Emilee Lilly DCPIA - Discharge Planning Initial Assessment Updated by [email or web address]: Emilee Lilly on 10/25/19 1:34 pm * Is the patient Alert and Oriented? Yes * How many steps to enter\\exit or inside your home? Ramp/0 * PCP Karen Proctor * [facility] * Preadmission Environment Home with Family * ADLs Partial Dependent * Partial ADLs (Assistance needed) Ambulation * Equipment Grab Bars Shower Chair Walker * Other Equipment Rollator Walker * List name and contact numbers for known caregivers / representatives who currently or will assist patient after discharge: Jade Castellanos - spouse - [phone] - Must text...she is deaf * Verbal permission to speak to the caregivers and representatives has been obtained from the patient. Yes * Community resources currently utilized None * Additional services required to return to the preadmission environment? Yes * Can the patient safely return to the preadmission environment? Yes * Has this patient been hospitalized within the prior 30 days at any hospital? No Coverage Notice Reviewer: [id number] Dale Lilly Notice Issued Date-Time: 10/25/2019 13:44 Notice Type: Patient Choice Letter Notice Delivered To: Patient Relationship to Patient: Self Counselor At Law Name: Delivery Method: HAND - Hand Delivered Vita Days: Prior Verbal Notification: Recipient Understood Notice: Yes Recipient Signature: Yes Med Rec Note Co-signed by Attending: Coverage Notice Comment: [facility] for Inpatient rehab at [facility] and [place] for SNF Reviewer: [id number] Dale Lilly Notice Issued Date-Time: 10/28/2019 12:15 Notice Type: IM Discharge Notice Notice Delivered To: Patient Relationship to Patient: Self Counselor At Law Name: Delivery Method: HAND - Hand Delivered Vita Days: Prior Verbal Notification: Recipient Understood Notice: Yes Recipient Signature: Yes Med Rec Note Co-signed by Attending: Coverage Notice Comment: IMM delivered, explained, signed, copy placed in MR Reviewer: [id number] Dale Lilly Notice Issued Date-Time: 10/28/2019 12:16 Notice Type: Patient Choice Letter Notice Delivered To: Patient Relationship to Patient: Self Counselor At Law Name: Delivery Method: HAND - Hand Delivered Vita Days: Prior Verbal Notification: Recipient Understood Notice: Yes Recipient Signature: Yes Med Rec Note Co-signed by Attending: Coverage Notice Comment: Signed refusal for home health. Last DP export: 10/25/19 12:51 p Patient Name: ZAYRA CASTELLANOS Page [phone] at 1221 All edits/amendments must be made on the electronic document DICTATION DATE: 10/28/19 1221 MACHINE ADJUSTER LEADER: SUJIT 10/28/19 1221 RPT#: [id number] DC DATE: STATUS: ADM IN [facility] [address] [place] [address] END OF REPORT
[2019-10-28] MEDS ORDERED: ALDACTONE25 MG PO (12:47)
[2019-10-28] MEDS ORDERED: LASIX40 MG PO (12:48)
--- NOTE | 2019-10-28 13:58 | NUR ---
PATIENT TO REFUSE FLU SHOT WHEN ASKED IF HE WANTED ONE BY WRITING ON PAPER, HE IS DEAF.
[2019-10-28 14:03] VITALS: BP 117/55
--- NOTE | 2019-10-28 15:13 | NUR ---
OT NOTE: PT COMPLETED ADL MOB WIT SPV.PT COMPLETED ORAL HYGIENE AND HAND WASHING WHILE STANDING AT SINK WITH SPV. PT COMPLETED BED MOB TASKS WTIH MOD I. THANK YOU, MEHDI CHENG
--- NOTE | 2019-10-28 15:30 | NUR ---
IV DISCONTINUED AND VERBALIZED UNDERSTANDING OF DISCHARGE INSTRUCTIONS. STABLE AT TIME OF DISCHARGE.
--- NOTE | 2019-10-31 13:54 | MORECARE ---
CASE MANAGEMENT DISCHARGE SUMMARY PATIENT: ZAYRA CASTELLANOS UNIT: [id number] ADM DATE: 10/24/19 AGE: 78 : 39 SEX: M ROOM/BED: D.2233 AUTHOR: FREDY COBURN PHYSICIAN: REFERRING PHYSICIAN: OCTAVIA GALLAGHER MD DATE OF SERVICE: 10/31/19 Discharge Plan Patient Name: ZAYRA CASTELLANOS Facility: [facility]:[place] : 1940 Planned Disposition: Inpatient Rehab Anticipated Discharge Date: Discharge Date: 10/28/2019 Expected LOS: Initial Reviewer: [email or web address] Initial Review Date: 10/25/2019 Generated: 10/31/19 2:54 pm Comments DCP- Discharge Planning Updated by [id number]: Emilee Lilly on 10/28/19 11:[address] CM met with patient to discuss home health. He declines home health. States "I don't need it." States is walking well, "I just get a catch in my hip sometimes." States he has received a walker 2 weeks ago from insurance. Denies need for rehab or home health. Anticipate discharge home today. CM will continue to follow and assist with discharge planning/needs. DCP- Discharge Planning Updated by [id number]: Emilee Lilly on 10/25/19 12:[address] Patient Name: ZAYRA CASTELLANOS Admission Status: Elective Accout number: [id number] Admission Date: 10-24-2019 : 1940 Admission Diagnosis: Attending: OCTAVIA GALLAGHER Current LOS: 1 Anticipated DC Date: Planned Disposition: Inpatient Rehab Primary Insurance: HUMANA CHOICE PPO [facility] Discharge Planning Comments: CM met with patient and his spouse to discuss discharge planning/needs. warehouse delivery manager is present in the room for assessment. He lives with his in a one level mobile home. He has a ramp to get into the home. He has a rollator walker in the room that is his. He states he has become very weak. He states he would like some rehab prior to going home. I gave him the [facility]AR[facility] list for inpatient rehab and SNF and explained the differences. He would like to stay here and have inpatient rehab if possible. He states his choice for SNF [facility] if insurance does not authorize inpatient rehab. I will get an PT and OT eval to see what referral may be more appropriate. I discussed the availability of home health and DME as well, denies need for DME at this time. CM will continue to follow and assist with discharge planning/needs. Baby Sitter: Emilee Lilly DCPIA - Discharge Planning Initial Assessment Updated by [id number]: Emilee Lilly on 10/25/19 1:34 pm * Is the patient Alert and Oriented? Yes * How many steps to enter\\exit or inside your home? Ramp/0 * PCP Karen Proctor * [facility] * Preadmission Environment Home with Family * ADLs Partial Dependent * Partial ADLs (Assistance needed) Ambulation * Equipment Grab Bars Shower Chair Walker * Other Equipment Rollator Walker * List name and contact numbers for known caregivers / representatives who currently or will assist patient after discharge: Jade Castellanos - spouse - [phone] - Must text...she is deaf * Verbal permission to speak to the caregivers and representatives has been obtained from the patient. Yes * Community resources currently utilized None * Additional services required to return to the preadmission environment? Yes * Can the patient safely return to the preadmission environment? Yes * Has this patient been hospitalized within the prior 30 days at any hospital? No Coverage Notice Reviewer: [id number] Dale Lilly Notice Issued Date-Time: 10/25/2019 13:44 Notice Type: Patient Choice Letter Notice Delivered To: Patient Relationship to Patient: Self Senior Foreman Name: Delivery Method: HAND - Hand Delivered Vita Days: Prior Verbal Notification: Recipient Understood Notice: Yes Recipient Signature: Yes Med Rec Note Co-signed by Attending: Coverage Notice Comment: [facility]ELY for Inpatient rehab at [facility] and [place] for SNF Reviewer: [email or web address] Dale Lilly Notice Issued Date-Time: 10/28/2019 12:15 Notice Type: IM Discharge Notice Notice Delivered To: Patient Relationship to Patient: Self Senior Foreman Name: Delivery Method: HAND - Hand Delivered Vita Days: Prior Verbal Notification: Recipient Understood Notice: Yes Recipient Signature: Yes Med Rec Note Co-signed by Attending: Coverage Notice Comment: IMM delivered, explained, signed, copy placed in MR Reviewer: [id number] Dale Lilly Notice Issued Date-Time: 10/28/2019 12:16 Notice Type: Patient Choice Letter Notice Delivered To: Patient Relationship to Patient: Self Senior Foreman Name: Delivery Method: HAND - Hand Delivered Vita Days: Prior Verbal Notification: Recipient Understood Notice: Yes Recipient Signature: Yes Med Rec Note Co-signed by Attending: Coverage Notice Comment: Signed refusal for home health. Last DP export: 10/28/19 11:21 a Patient Name: ZAYRA CASTELLANOS Page [phone] at 1354 All edits/amendments must be made on the electronic document DICTATION DATE: 10/31/19 1354 TUNNELING MACHINE OPERATOR: SUJIT 10/31/19 1354 RPT#: [id number] DC DATE:10/28/19 STATUS: DIS IN [facility] [address] [place] [address] END OF REPORT
--- NOTE | 2019-11-03 10:39 | EC ---
PATIENT:ZAYRA MAO DATE OF SERVICE: 10/24/19 SEX: M MEDICAL RECORD: [id number] DATE OF : [birth year] LOCATION:D.MS Perez223 AGE OF PATIENT: 78 ADMISSION DATE: 10/24/19 REFERRING PHYSICIAN: INTERPRETING PHYSICIAN: HUMBERTO REVELES MD ECHOCARDIOGRAM REPORT ECHO CHARGES 4 ECHO COMPLETE Date: 10/25/19 CLINICAL DIAGNOSIS: WEAKNESS/ SOB/ ASCITES, H/O HTN ECHOCARDIOGRAPHIC MEASUREMENTS (adult normal given) AC root (d.<3.7cm) 3.4 cm LV Septum d (<1.2 cm> 0.9 cm Valve Excursion 1.5 cm LV Septum (systole) 1.1 cm Left Atria (s.<4.0cm> 3.8 cm LVPW d(<1.2cm) 1.2 cm RV (d.<2.3cm) 4.5 cm LVPW (sytole) 1.3 cm LV diastole(<5.6CM) 4.7 cm MV E-F(>70mm/sec) cm LV systole 3.8 cm LVOT Diameter 2.3 cm MV exc.(>10mm) cm Est.ejection fraction (50-75%) % DOPPLER: LVIT cm/sec A 48 cm/sec E 85 cm/sec LA cm/sec RVSP 39.9 mmHg LVOT 112 cm/sec AOP1/2T m/s Asc. Ao 140 cm/sec RVOT 66 cm/sec RA cm/sec PA 85 cm/sec AV Gradient Peak 7.9 mmHg AV Mean 3.6 mmHg AV Area 4.2 cm MV Gradient Peak 8.0 mmHg MV Mean 2.0 mmHg MV Area cm COMMENTS: Research Associate Professor: Junior JACQUES Log Processor Operator: 1 Dr. Reveles TAPE# PACS Pericardial Effusion N DATE OF SERVICE: ECHOCARDIOGRAM FINDINGS: 1. Left ventricular chamber size is within normal limits. Left ventricular systolic function is normal. Overall ejection fraction estimated at 55%. 2. Left atrium is within normal limits. Right atrium and right ventricular chamber sizes are mildly dilated. 3. Valvular structures have normal structure and motion. ECHOCARDIOGRAM REPORT [id number] ZAYRA MAO 4. Doppler interrogation reveals [id number] mitral regurgitation, no other valvular insufficiency or stenosis. Pulmonary systolic pressure estimated 39 mmHg. 5. No evidence of pericardial effusion or left ventricular thrombus. TRANSINT:[id number] Voice Confirmation ID: [id number] DOCUMENT ID: [id number] HUMBERTO REVELES MD at 1039 CC: [id number] DICTATION DATE: 10/26/19 1106 SPECIAL EDUCATION SECRETARY: 10/26/19 1310 DIS IN 10/28/19 [place] [id number] [place] [id number]
== END 2019-10-28 15:30 | disposition home or self-care (01) | DRG 433 ==
LOC: D.MS 13:18
PROVIDERS: General Practice; Internal Medicine Gastroenterology; Internal Medicine Nephrology; Specialist; ADMIT Emergency Medicine; ATTEND Emergency Medicine
PROC: 0W9G30Z Drainage of Peritoneal Cavity with Drainage Device, Percutaneous Approach (ICD-10-PCS; principal; 2019-10-25 13:29)
PROC: 0W9G3ZZ Drainage of Peritoneal Cavity, Percutaneous Approach (ICD-10-PCS; 2019-10-27)
PROC: 0FB13ZX Excision of Right Lobe Liver, Percutaneous Approach, Diagnostic (ICD-10-PCS; 2019-10-27)
DX: K74.60 Unspecified cirrhosis of liver (principal); N17.9 Acute kidney failure, unspecified; E87.1 Hypo-osmolality and hyponatremia; K76.6 Portal hypertension; I85.10 Secondary esophageal varices without bleeding; D64.9 Anemia, unspecified; D47.2 Monoclonal gammopathy; I10 Essential (primary) hypertension; J44.9 Chronic obstructive pulmonary disease, unspecified; G47.33 Obstructive sleep apnea (adult) (pediatric); M19.90 Unspecified osteoarthritis, unspecified site; R19.00 Intra-abdominal and pelvic swelling, mass and lump, unspecified site; E11.40 Type 2 diabetes mellitus with diabetic neuropathy, unspecified; I34.0 Nonrheumatic mitral (valve) insufficiency; R16.2 Hepatomegaly with splenomegaly, not elsewhere classified

== ENCOUNTER 2019-11-02 17:20 | Observation (INO) | payer MEDICARE ==
[~2019-11-02] VITALS: Ht 180.3 cm; Wt 89.8 kg
[~2019-11-02 17:20] MED LIST changes: +ALDACTONE25 MG PO; +GABAPENTIN100 MG PO; +GLUCOTROL ER2.5 MG PO; +LASIX40 MG PO; +REQUIP0.25 MG PO; +SINGULAIR10 MG PO; +TOPROL XL25 MG PO; +ZOFRAN4 MG PO
[2019-11-02] MEDS ORDERED: PROTONIX40 MG PO (17:30)
[2019-11-02] MEDS ORDERED: PLAVIX75 MG PO (17:31)
[2019-11-02] MEDS ORDERED: FLOMAX0.4 MG PO (17:32)
[2019-11-02] MEDS ORDERED: LACTULOSE PO (17:35)
[2019-11-02 18:10] LABS: BASOPHILS 0.5 % (0-2); EOSINOPHILS 5.7 % (0-7); HEMATOCRIT 30.1 % (42.0-54.0); HEMOGLOBIN 9.8 g/dL (13.5-17.5); IMMATURE GRANULOCYTES 0.3 % (0-5); LYMPHOCYTES 14.4 % (15-50); MCH 29.6 pg (26.0-34.0); MCHC 32.6 g/dL (31.0-37.0); MCV 90.9 fL (80.0-100.0); MEAN PLATELET VOLUME 9.4 fL (7.4-10.4); MONOCYTES 13.6 % (2-11); NEUTROPHILS 65.5 % (40-80); RBC 3.31 10x6/uL (4.20-6.10); RDW 19.5 % (11.5-14.5); WBC 6.1 10x3/uL (4.8-10.8)
[2019-11-02 18:13] LABS: PLATELET COUNT 189 10x3/uL (130-400)
[2019-11-02 18:22] LABS: ANION GAP 10.4 mmol/L (8-16); CALCIUM 9.5 mg/dL (8.5-10.1); CREATININE - SERUM 1.9 mg/dL (0.6-1.3); POTASSIUM - SERUM 4.4 mmol/L (3.5-5.1)
[2019-11-02 18:29] LABS: ALBUMIN 2.9 g/dL (3.4-5.0); BILIRUBIN - TOTAL 0.59 mg/dL (0.2-1.3); PROTEIN - SERUM 7.7 g/dL (6.4-8.2)
--- NOTE | 2019-11-02 19:05 | NUR ---
BS REPORT TO CALI QUINN
[2019-11-02 19:08] VITALS: BP 104/48
[2019-11-02 20:10] VITALS: BP 111/46
--- NOTE | 2019-11-02 21:49 | NUR ---
URINE SENT TO LAB
--- NOTE | 2019-11-02 22:00 | NUR ---
RECIEVED TO FLOOR ACCOMPANIED BY STAFF AND RETAIL MERCHANDISER. PT IS ALERT AND ORIENTED. REPORTS DIFFICULTY URINATING. DENIES PAIN, OTHER THAN OCCASIONAL PAIN IN LEFT SHOULDER BLADE. REQUESTS SANDWICH TRAY AND DIET [place]. NO FURTHER NEEDS ADDRESSED AT THIS TIME. PT GIVEN A PICTURE PACKET TO HELP ADDRESS HIS NEEDS. BED ALARM ON, BED IN LOW POSITION. WILL CONTINUE TO MONITOR.
[2019-11-02 22:12] LABS: APPEARANCE CLEAR (CLEAR); BILIRUBIN NEGATIVE (NEGATIVE); COLOR YELLOW (YELLOW); GLUCOSE NEGATIVE (NEGATIVE); KETONE NEGATIVE (NEGATIVE); NITRITE NEGATIVE (NEGATIVE); PROTEIN NEGATIVE (NEGATIVE); UROBILINOGEN NORMAL (NORMAL)
[2019-11-02 22:17] VITALS: BP 117/61
[2019-11-03 06:35] VITALS: BP 121/50
[2019-11-03 07:47] LABS: BASOPHILS 0.6 % (0-2); EOSINOPHILS 6.5 % (0-7); HEMATOCRIT 26.8 % (42.0-54.0); HEMOGLOBIN 8.9 g/dL (13.5-17.5); IMMATURE GRANULOCYTES 0.4 % (0-5); LYMPHOCYTES 15.4 % (15-50); MCH 29.7 pg (26.0-34.0); MCHC 33.2 g/dL (31.0-37.0); MCV 89.3 fL (80.0-100.0); MEAN PLATELET VOLUME 9.2 fL (7.4-10.4); MONOCYTES 14.4 % (2-11); NEUTROPHILS 62.7 % (40-80); PLATELET COUNT 157 10x3/uL (130-400); RDW 19.4 % (11.5-14.5); WBC 4.9 10x3/uL (4.8-10.8)
--- NOTE | 2019-11-03 08:02 | NUR ---
AWAKE AND ALERT. ORIENTED X3. NO C/O AT THIS TIME. LUNGS ARE CLEAR BILATERALLY, NO COUGH NOTED. SKIN IS INTACT WITHOUT REDNESS. DENIES NEEDS.
[2019-11-03 08:11] LABS: ALBUMIN 2.5 g/dL (3.4-5.0); ANION GAP 10.3 mmol/L (8-16); BILIRUBIN - TOTAL 0.77 mg/dL (0.2-1.3); CALCIUM 8.9 mg/dL (8.5-10.1); CARBON DIOXIDE 27.2 mmol/L (21.0-32.0); CREATININE - SERUM 1.7 mg/dL (0.6-1.3); MAGNESIUM - SERUM 1.8 mg/dL (1.8-2.4); PHOSPHOROUS 3.7 mg/dL (2.5-4.9); POTASSIUM - SERUM 4.5 mmol/L (3.5-5.1); PROTEIN - SERUM 6.8 g/dL (6.4-8.2)
[2019-11-03 08:40] VITALS: BP 110/50
[2019-11-03 08:53] LABS: INR 1.22 (0.85-1.17); PROTIME 14.9 SECONDS (11.6-15.0)
--- NOTE | 2019-11-03 09:30 | NUR ---
ATE MOST OF BREAKFAST. IN ROOM. DENIES NEEDS. AMBULATED IN HALLWAY WITH PT.
[2019-11-03 10:47] VITALS: Ht 180.3 cm; Wt 89.8 kg
--- NOTE | 2019-11-03 11:45 | NUR ---
FSBS 104. NO COVERAGE REQUIRED. DENIES NEEDS.
[2019-11-03 13:00] VITALS: BP 108/48
[2019-11-03 16:45] VITALS: BP 106/51
--- NOTE | 2019-11-03 18:40 | NUR ---
ATE ALL OF SUPPER. RESTING QUIETLY IN BED. DENIES NEEDS. NO CHANGES NOTED.
[2019-11-03 20:00] VITALS: BP 124/52
--- NOTE | 2019-11-03 21:00 | NUR ---
FSBS 126 NO COVERAGE NEEDED AT THIS TIME PER SS.
[2019-11-04] VITALS: BP 128/54
--- NOTE | 2019-11-04 01:51 | NUR ---
I have reviewed this patient and I concur with the Shift Assessment completed by the Licensed Practical Nurse today this shift.
--- NOTE | 2019-11-04 02:57 | NUR ---
PT RESTING IN BED. EYES CLOSED. NO SIGNS OF DISTRESS. BREATHING EVEN AND UNLABORED. IV SITE LT HAND DRESSING CLEAN DRY AND INTACT. NO SIGNS OF INFECITON OR INFULTRATION. SKIN CLEAN DRY AND INTACT. LUNG SOUNDS CLEAR. BOWEL SOUNDS ACTIVE. WILL CONTINUE PLAN OF CARE. CALL LIGHT IN REACH. BED LOWERED AND LOCKED. BED RAILS UPX2.
[2019-11-04 04:00] VITALS: BP 119/56
[2019-11-04 04:50] LABS: BASOPHILS 0.7 % (0-2); EOSINOPHILS 6.2 % (0-7); HEMATOCRIT 26.8 % (42.0-54.0); HEMOGLOBIN 8.8 g/dL (13.5-17.5); IMMATURE GRANULOCYTES 0.2 % (0-5); LYMPHOCYTES 14.6 % (15-50); MCH 29.4 pg (26.0-34.0); MCHC 32.8 g/dL (31.0-37.0); MCV 89.6 fL (80.0-100.0); MEAN PLATELET VOLUME 9.8 fL (7.4-10.4); NEUTROPHILS 63.3 % (40-80); PLATELET COUNT 162 10x3/uL (130-400); RBC 2.99 10x6/uL (4.20-6.10); RDW 19.6 % (11.5-14.5); WBC 4.2 10x3/uL (4.8-10.8)
[2019-11-04 05:27] LABS: ANION GAP 8.3 mmol/L (8-16); CALCIUM 8.7 mg/dL (8.5-10.1); CARBON DIOXIDE 27.2 mmol/L (21.0-32.0); CREATININE - SERUM 1.5 mg/dL (0.6-1.3); MAGNESIUM - SERUM 1.8 mg/dL (1.8-2.4); PHOSPHOROUS 3.2 mg/dL (2.5-4.9); POTASSIUM - SERUM 4.5 mmol/L (3.5-5.1)
--- NOTE | 2019-11-04 07:43 | NUR ---
ROUSES TO TACTILE STIMULATION. LUNGS ARE CLEAR BILATERALLY, NO COUGH NOTED. SKIN IS INTACT WITHOUT REDNESS. IV TO LEFT HAND IS PATENT WTIHOUT REDNESS AT INSERTION SITE. DENIES NEEDS.
[2019-11-04 08:02] VITALS: BP 120/57
--- NOTE | 2019-11-04 10:09 | NUR ---
RESTING QUIETLY IN BED. ATE MOST OF BREAKFAST. DENIES NEEDS.
--- NOTE | 2019-11-04 13:10 | MORECARE ---
CASE MANAGEMENT DISCHARGE SUMMARY PATIENT: ZAYRA MAO UNIT: [id number] ADM DATE: 11/02/19 AGE: 78 : 39 SEX: M ROOM/BED: D.2204 AUTHOR: FREDY COBURN PHYSICIAN: REFERRING PHYSICIAN: EITAN GANT MD DATE OF SERVICE: 11/04/19 Discharge Plan Patient Name: ZAYRA MAO [facility] [facility] 1940 Planned Disposition: Home with Home Health Anticipated Discharge Date: Discharge Date: Expected LOS: Initial Reviewer: [email or web address] Initial Review Date: 11/02/2019 Generated: 11/04/19 2:09 pm Comments DCP- Discharge Planning Updated by [id number]: Candy Smith on 11/03/19 4:[address] GALARZA SERVED AND EXPLAINED, COPY PLACED IN CHART External Providers External Provider: [facility] Next Contact Date: Service Request Date: Service Type: Resolution: Reviewer: Comments: External Provider: OTHER-OTHER Next Contact Date: Service Request Date: Service Type: Resolution: Reviewer: Comments: Coverage Notice Reviewer: [id number] Dale Isabel Notice Issued Date-Time: 11/03/2019 17:55 Notice Type: Medicare Outpatient Observation Notice Notice Delivered To: Patient Relationship to Patient: Renal Dialysis Technician Name: Delivery Method: HAND - Hand Delivered Vita Days: Prior Verbal Notification: Recipient Understood Notice: Yes Recipient Signature: Yes Med Rec Note Co-signed by Attending: Coverage Notice Comment: Patient Name: ZAYRA MAO Page 10162 at 1310 All edits/amendments must be made on the electronic document DICTATION DATE: 11/04/19 1309 EKG TECHNICIAN: SUJIT 11/04/19 1309 RPT#: [id number] DC DATE: STATUS: ADM IN [facility] [address] [place] [address] END OF REPORT
--- NOTE | 2019-11-04 13:27 | MORECARE ---
CASE MANAGEMENT DISCHARGE SUMMARY PATIENT: ZAYRA MAO UNIT: [id number] ADM DATE: 11/02/19 AGE: 78 : 39 SEX: M ROOM/BED: D.2204 AUTHOR: ALMAS,DOC PHYSICIAN: REFERRING PHYSICIAN: EITAN GANT MD DATE OF SERVICE: 11/04/19 Discharge Plan Patient Name: ZAYRA MAO Facility: [facility]:[place] : 1940 Planned Disposition: Home with Home Health Anticipated Discharge Date: Discharge Date: Expected LOS: Initial Reviewer: [email or web address] Initial Review Date: 11/02/2019 Generated: 11/04/19 2:27 pm Comments DCP- Discharge Planning Updated by [email or web address]: Candy Smith on 11/04/19 12:[address] Patient Name: ZAYRA MAO Admission Status: ER Accout number: [id number] Admission Date: 11-02-2019 : 1940 Admission Diagnosis: Attending: KENIA GANT Current LOS: 2 Anticipated DC Date: Planned Disposition: Home with Home Health Primary Insurance: HUMANA CHOICE PPO [employer]ANT Discharge Planning Comments: CM met with patient to complete initial dc planning assessment. CM educated patient on the CM role and verbal consent given by patient to complete assessment. Code Number Stamper here and present for assessment. Patient lives at home with his spouse. At discharge patient plans to return home with home health and feels this is a safe discharge. CM discussed availability of home health, rehab services, and medical equipment. He has a walker, shower chair, grab bars rollator, & a video sign phone. I sent the referral to [facility], but they are out of network. Second choice is [facility] , Sent referral. Patient denied known discharge needs at this time. CM will continue to follow and will assist as needed with dc plans/needs. Salvage Inspector Wood Parts: Candy Smith DCP- Discharge Planning Updated by [email or web address]: Candy Smith on 11/03/19 4:[address] GALARZA SERVED AND EXPLAINED, COPY PLACED IN CHART DCPIA - Discharge Planning Initial Assessment Updated by [email or web address]: Candy Smith on 11/04/19 1:20 pm * Is the patient Alert and Oriented? Yes * How many steps to enter\exit or inside your home? RAMP/0 * PCP CHEYENNE CABRERA * [facility] * Preadmission Environment Home with Family * ADLs Partial Dependent * Partial ADLs (Assistance needed) Toileting * Equipment Grab Bars Rolling Walker Shower Chair * List name and contact numbers for known caregivers / representatives who currently or will assist patient after discharge: JOSE LUIS MAO ()[phone] * Verbal permission to speak to the caregivers and representatives has been obtained from the patient. Yes * Community resources currently utilized None * Additional services required to return to the preadmission environment? Yes * Can the patient safely return to the preadmission environment? Yes * Has this patient been hospitalized within the prior 30 days at any hospital? Yes Coverage Notice Reviewer: [id number] Dale Isabel Notice Issued Date-Time: 11/03/2019 17:55 Notice Type: Medicare Outpatient Observation Notice Notice Delivered To: Patient Relationship to Patient: Pneumatic Tube Repairer Name: Delivery Method: HAND - Hand Delivered Vita Days: Prior Verbal Notification: Recipient Understood Notice: Yes Recipient Signature: Yes Med Rec Note Co-signed by Attending: Coverage Notice Comment: Last DP export: 11/04/19 12:09 Patient Name: ZAYRA MAO Page [phone] at 1327 All edits/amendments must be made on the electronic document DICTATION DATE: 11/04/19 1326 MANAGED CARE COORDINATOR: SUJIT 11/04/19 1326 RPT#: [id number] DC DATE: STATUS: ADM IN [facility] [address] [place] [address] END OF REPORT
[2019-11-04 13:47] VITALS: BP 117/65
--- NOTE | 2019-11-04 14:49 | MORECARE ---
CASE MANAGEMENT DISCHARGE SUMMARY PATIENT: ZAYRA MAO UNIT: [id number] ADM DATE: 11/02/19 AGE: 78 : 39 SEX: M ROOM/BED: D.2204 AUTHOR: FREDY COBURN PHYSICIAN: REFERRING PHYSICIAN: EITAN GANT MD DATE OF SERVICE: 11/04/19 Discharge Plan Patient Name: ZAYRA MAO Facility: [facility]:[place] : 1940 Planned Disposition: Home with Home Health Anticipated Discharge Date: Discharge Date: Expected LOS: Initial Reviewer: [email or web address] Initial Review Date: 11/02/2019 Generated: 11/04/19 3:49 pm Comments DCP- Discharge Planning Updated by [email or web address]: Candy Smith on 11/04/19 1:[address] PATIENT WILL BE DISCHARGED HOME TODAY WITH [facility] [place] I SPOKE WITH [place] FROM [facility] [place] [facility] DCP- Discharge Planning Updated by [id number]: Candy Smith on 11/04/19 12:[address] Patient Name: ZAYRA MAO Admission Status: ER Accout number: [id number] Admission Date: 11-02-2019 : 1940 Admission Diagnosis: Attending: KENIA GANT Current LOS: 2 Anticipated DC Date: Planned Disposition: Home with Home Health Primary Insurance: HUMANA CHOICE PPO [employer] Discharge Planning Comments: CM met with patient to complete initial dc planning assessment. CM educated patient on the CM role and verbal consent given by patient to complete assessment. Brass And Wind Instrument Repairer here and present for assessment. Patient lives at home with his spouse. At discharge patient plans to return home with home health and feels this is a safe discharge. CM discussed availability of home health, rehab services, and medical equipment. He has a walker, shower chair, grab bars rollator, & a video sign phone. I sent the referral to [facility], but they are out of network. Second choice is [facility], Sent referral. Patient denied known discharge needs at this time. CM will continue to follow and will assist as needed with dc plans/needs. Manufacturing Team Leader: Candy Smith DCP- Discharge Planning Updated by [email or web address]: Candy Smith on 11/03/19 4:[address] MICHELL SERVED AND EXPLAINED, COPY PLACED IN CHART DCPIA - Discharge Planning Initial Assessment Updated by [id number]: Candy Luis on 11/04/19 1:20 pm * Is the patient Alert and Oriented? Yes * How many steps to enter\exit or inside your home? RAMP/0 * PCP CHEYENNE CABRERA * [facility] * Preadmission Environment Home with Family * ADLs Partial Dependent * Partial ADLs (Assistance needed) Toileting * Equipment Grab Bars Rolling Walker Shower Chair * List name and contact numbers for known caregivers / representatives who currently or will assist patient after discharge: JOSE LUIS MAO ()[phone] * Verbal permission to speak to the caregivers and representatives has been obtained from the patient. Yes * Community resources currently utilized None * Additional services required to return to the preadmission environment? Yes * Can the patient safely return to the preadmission environment? Yes * Has this patient been hospitalized within the prior 30 days at any hospital? Yes Coverage Notice Reviewer: [id number] Dale Isabel Notice Issued Date-Time: 11/03/2019 17:55 Notice Type: Medicare Outpatient Observation Notice Notice Delivered To: Patient Relationship to Patient: Physicist Solid State Name: Delivery Method: HAND - Hand Delivered Vita Days: Prior Verbal Notification: Recipient Understood Notice: Yes Recipient Signature: Yes Med Rec Note Co-signed by Attending: Coverage Notice Comment: Last DP export: 11/04/19 12:27 Patient Name: ZAYRA MAO Page [phone] at 1449 All edits/amendments must be made on the electronic document DICTATION DATE: 11/04/191448 COMPOSITION INSTRUCTOR: SUJIT 11/04/191448 RPT#: [id number] DC DATE: STATUS: ADM IN [facility] [address] [place] [address] END OF REPORT
--- NOTE | 2019-11-06 14:07 | MORECARE ---
CASE MANAGEMENT DISCHARGE SUMMARY PATIENT: ZAYRA MAO UNIT: [id number] ADM DATE: 11/02/19 AGE: 78 : 39 SEX: M ROOM/BED: D.2204 AUTHOR: FREDY COBURN PHYSICIAN: REFERRING PHYSICIAN: EITAN GANT MD DATE OF SERVICE: 11/06/19 Discharge Plan Patient Name: ZAYRA MAO Facility: [facility]:[place] : 1940 Planned Disposition: Home with Home Health Anticipated Discharge Date: Discharge Date: 11/04/2019 Expected LOS: Initial Reviewer: [id number] Initial Review Date: 11/02/2019 Generated: 11/06/19 3:06 pm Comments DCP- Discharge Planning Updated by [email or web address]: Candy Smith on 11/04/19 1:[address] PATIENT WILL BE DISCHARGED HOME TODAY WITH [facility] [place] I SPOKE WITH [place] FROM [facility] [place] OFFICE DCP- Discharge Planning Updated by [email or web address]: Candy Smith on 11/04/19 12:[address] Patient Name: ZAYRA MAO Admission Status: ER Accout number: [id number] Admission Date: 11-02-2019 : 1940 Admission Diagnosis: Attending: KENIA GANT Current LOS: 2 Anticipated DC Date: Planned Disposition: Home with Home Health Primary Insurance: [employer] CHOICE PPO MCR ADVANT Discharge Planning Comments: CM met with patient to complete initial dc planning assessment. CM educated patient on the CM role and verbal consent given by patient to complete assessment. Development Writer here and present for assessment. Patient lives at home with his spouse. At discharge patient plans to return home with home health and feels this is a safe discharge. CM discussed availability of home health, rehab services, and medical equipment. He has a walker, shower chair, grab bars rollator, & a video sign phone. I sent the referral to [facility], but they are out of network. Second choice is [facility], Sent referral. Patient denied known discharge needs at this time. CM will continue to follow and will assist as needed with dc plans/needs. Service Worker: Candy Smith DCP- Discharge Planning Updated by [id number]: Candy Smith on 11/03/19 4:[address] MICHELL SERVED AND EXPLAINED, COPY PLACED IN CHART DCPIA - Discharge Planning Initial Assessment Updated by [id number]: Candy Smith on 11/04/19 1:20 pm * Is the patient Alert and Oriented? Yes * How many steps to enter\exit or inside your home? RAMP/0 * PCP CHEYENNE CABRERA * [facility] * Preadmission Environment Home with Family * ADLs Partial Dependent * Partial ADLs (Assistance needed) Toileting * Equipment Grab Bars Rolling Walker Shower Chair * List name and contact numbers for known caregivers / representatives who currently or will assist patient after discharge: JOSE LUIS MAO ()[phone] * Verbal permission to speak to the caregivers and representatives has been obtained from the patient. Yes * Community resources currently utilized None * Additional services required to return to the preadmission environment? Yes * Can the patient safely return to the preadmission environment? Yes * Has this patient been hospitalized within the prior 30 days at any hospital? Yes Coverage Notice Reviewer: [id number] Dale Isabel Notice Issued Date-Time: 11/03/2019 17:55 Notice Type: Medicare Outpatient Observation Notice Notice Delivered To: Patient Relationship to Patient: Surgical First Assistant Name: Delivery Method: HAND - Hand Delivered Vita Days: Prior Verbal Notification: Recipient Understood Notice: Yes Recipient Signature: Yes Med Rec Note Co-signed by Attending: Coverage Notice Comment: Last DP export: 11/04/19 1:49 Patient Name: ZAYRA MAO Page 46831 at 1407 All edits/amendments must be made on the electronic document DICTATION DATE: 11/06/191405 CREAM RIPENER: SUJIT 11/06/191405 RPT#: [id number] DC DATE:11/04/19 STATUS: DIS IN [facility] [address] [place] [address] END OF REPORT
== END 2019-11-04 15:46 | disposition home health service (06) ==
LOC: D.ER 17:20 → D.MS 20:55 → OBSVTIME 20:55 → D.MS 11-04 15:46
PROVIDERS: Family Medicine; ADMIT Emergency Medicine; ATTEND Emergency Medicine
DX: N17.9 Acute kidney failure, unspecified (principal); E87.1 Hypo-osmolality and hyponatremia; E86.0 Dehydration; D64.9 Anemia, unspecified; I10 Essential (primary) hypertension; J44.9 Chronic obstructive pulmonary disease, unspecified; J45.909 Unspecified asthma, uncomplicated; G47.33 Obstructive sleep apnea (adult) (pediatric); E11.9 Type 2 diabetes mellitus without complications; K74.60 Unspecified cirrhosis of liver; D47.2 Monoclonal gammopathy; M19.90 Unspecified osteoarthritis, unspecified site; G72.81 Critical illness myopathy; R53.1 Weakness

== ENCOUNTER → 2019-12-06 10:11 | Outpatient (CLI) | payer MEDICARE ==
[2019-11-03 10:47] VITALS: BMI 27.6
[~2019-12-06 10:11] MED LIST changes: +LACTULOSE PO; +PROTONIX40 MG PO
[2019-12-06 11:40] LABS: ALBUMIN 2.9 g/dL (3.4-5.0); ANION GAP 7.4 mmol/L (8-16); BILIRUBIN - DIRECT 0.42 mg/dL (0.00-0.30); BILIRUBIN - INDIRECT 1.17 mg/dL (0.00-1.00); BILIRUBIN - TOTAL 1.59 mg/dL (0.2-1.3); CALCIUM 9.1 mg/dL (8.5-10.1); CARBON DIOXIDE 30.9 mmol/L (21.0-32.0); CREATININE - SERUM 1.4 mg/dL (0.6-1.3); POTASSIUM - SERUM 4.3 mmol/L (3.5-5.1); PROTEIN - SERUM 7.8 g/dL (6.4-8.2)
== END | disposition home or self-care (01) ==
LOC: D.LAB 10:11
PROVIDERS: ATTEND Internal Medicine Gastroenterology
DX: K74.60 Unspecified cirrhosis of liver (principal)

== ENCOUNTER → 2019-12-20 09:03 | Outpatient (CLI) | payer MEDICARE ==
[2019-11-03 10:47] VITALS: BMI 27.6
== END | disposition home or self-care (01) ==
LOC: D.US 12-14 11:30
PROVIDERS: ATTEND Internal Medicine Gastroenterology
DX: K74.60 Unspecified cirrhosis of liver (principal)

== ENCOUNTER → 2020-01-31 14:36 | Outpatient (CLI) | payer MEDICARE ==
[2020-01-11 10:34] VITALS: BMI 27.9
[2020-02-01 19:08] LABS: IMMUNOFIXATION Note: (()); IMMUNOFIXATION - URINE Note: (()); IMMUNOGLOBULIN A 74 mg/dL (61-437); IMMUNOGLOBULIN G 3059 mg/dL (700-1600); IMMUNOGLOBULIN M 40 mg/dL (15-143)
== END | disposition home or self-care (01) ==
LOC: D.LAB 14:36
PROVIDERS: ATTEND Nurse Practitioner Family
DX: N18.3 Chronic kidney disease, stage 3 (moderate) (principal); E11.22 Type 2 diabetes mellitus with diabetic chronic kidney disease; R89.9 Unspecified abnormal finding in specimens from other organs, systems and tissues

== ENCOUNTER 2020-02-03 16:55 | Inpatient (IN) | payer MEDICARE ==
[~2020-02-03] VITALS: Ht 180.3 cm; Wt 84.6 kg
--- NOTE | 2020-02-03 17:45 | NUR ---
CONT. TO WAIT ON MAINTENANCE PLANNING CLERK
[2020-02-03 18:35] LABS: BASOPHILS 0.7 % (0-2); EOSINOPHILS 2.5 % (0-7); HEMATOCRIT 33.6 % (42.0-54.0); HEMOGLOBIN 11.1 g/dL (13.5-17.5); IMMATURE GRANULOCYTES 0.4 % (0-5); LYMPHOCYTES 11.2 % (15-50); MCH 32.1 pg (26.0-34.0); MCV 97.1 fL (80.0-100.0); MEAN PLATELET VOLUME 8.5 fL (7.4-10.4); MONOCYTES 12.8 % (2-11); NEUTROPHILS 72.4 % (40-80); PLATELET COUNT 194 10x3/uL (130-400); RBC 3.46 10x6/uL (4.20-6.10); RDW 18.6 % (11.5-14.5); WBC 7.6 10x3/uL (4.8-10.8)
[2020-02-03 18:51] LABS: ANION GAP 8.2 mmol/L (8-16); CALCIUM 9.6 mg/dL (8.5-10.1); CARBON DIOXIDE 28.3 mmol/L (21.0-32.0); CREATININE - SERUM 1.4 mg/dL (0.6-1.3); POTASSIUM - SERUM 4.5 mmol/L (3.5-5.1)
[2020-02-03 19:03] LABS: ALBUMIN 2.6 g/dL (3.4-5.0); BILIRUBIN - TOTAL 1.18 mg/dL (0.2-1.3)
[2020-02-03 19:17] LABS: APTT 25.3 SECONDS (22.8-39.4); INR 1.15 (0.85-1.17); PROTIME 14.6 SECONDS (11.6-15.0)
[2020-02-03] MEDS ORDERED: FLOMAX0.4 MG PO (23:23)
[2020-02-03] MEDS ORDERED: CHRONULAC30 ML PO (23:25)
[2020-02-03] MEDS ORDERED: CYANOCOBAL1000 MCG/4 SC (23:30)
[2020-02-03 23:55] VITALS: BP 122/73; BMI 31.1
[2020-02-04 01:16] VITALS: BP 113/64
[2020-02-04 01:21] VITALS: BP 122/73
[2020-02-04 05:13] LABS: BASOPHILS 0.6 % (0-2); EOSINOPHILS 3.3 % (0-7); HEMATOCRIT 30.5 % (42.0-54.0); HEMOGLOBIN 9.9 g/dL (13.5-17.5); IMMATURE GRANULOCYTES 0.2 % (0-5); LYMPHOCYTES 11.5 % (15-50); MCH 31.3 pg (26.0-34.0); MCHC 32.5 g/dL (31.0-37.0); MCV 96.5 fL (80.0-100.0); MEAN PLATELET VOLUME 8.5 fL (7.4-10.4); MONOCYTES 13.3 % (2-11); NEUTROPHILS 71.1 % (40-80); RBC 3.16 10x6/uL (4.20-6.10); RDW 18.2 % (11.5-14.5)
[2020-02-04 05:14] LABS: PLATELET COUNT 145 10x3/uL (130-400); WBC 5.4 10x3/uL (4.8-10.8)
[2020-02-04 05:28] LABS: APTT 28.6 SECONDS (22.8-39.4); INR 1.25 (0.85-1.17); PROTIME 15.6 SECONDS (11.6-15.0)
[2020-02-04 05:39] LABS: ALBUMIN 2.2 g/dL (3.4-5.0); ANION GAP 8.2 mmol/L (8-16); BILIRUBIN - TOTAL 1.51 mg/dL (0.2-1.3); CALCIUM 9.2 mg/dL (8.5-10.1); CARBON DIOXIDE 28.6 mmol/L (21.0-32.0); CREATININE - SERUM 1.3 mg/dL (0.6-1.3); MAGNESIUM - SERUM 2.1 mg/dL (1.8-2.4); PHOSPHOROUS 3.6 mg/dL (2.5-4.9); POTASSIUM - SERUM 4.8 mmol/L (3.5-5.1); PROTEIN - SERUM 6.9 g/dL (6.4-8.2)
[2020-02-04 05:45] VITALS: BP 130/70
--- NOTE | 2020-02-04 07:00 | NUR ---
RECEIVED REPORT. ASSUMED CARE OF PATIENT. CALL LIGHT WITHIN REACH. PATIENT RESTING WITH EYES CLOSED. RESP EVEN AND UNLABORED. NO DISTRESS.
--- NOTE | 2020-02-04 09:00 | NUR ---
SCDs PATENT TO BILATERAL LOWER EXTREMITIES.
[2020-02-04 09:04] VITALS: BP 125/67
--- NOTE | 2020-02-04 09:51 | NUR ---
CONSENTS SIGNED AND ON THE CHART FOR PROCEDURE THIS AM.
--- NOTE | 2020-02-04 09:57 | NUR ---
PATIENT IS NPO, WILL ADMINISTER MEDICATIONS WHEN RETURNS FROM PROCEDURE.
--- NOTE | 2020-02-04 10:02 | NUR ---
IR STAFF HERE TO TAKE PATIENT FOR PARACENTESIS
--- NOTE | 2020-02-04 10:09 | NUR ---
PATIENTS CALLED THE UNIT WITH ASSISTANCE FROM SHOWPLACE MANAGER TO CHECK ON THE PATIENT. INFORMED THE THAT THE PATIENT HAS JUST LEFT THE UNIT FOR PROCEDURE AND WOULD LET THE PATIENT KNOW THAT SHE CALLED TO CHECK ON HIM ONCE HE RETURNED TO THE UNIT.
--- NOTE | 2020-02-04 11:00 | NUR ---
PATIENT RETURNED TO UNIT VIA BED FROM IR AFTER PARCENTESIS. 14,500 ML DRAINED FROM ABD. PATIENT AWAKE, ALERT. PATIENT FAMILY AT BEDSIDE. PATIENT FAMILY QUESTIONING THIS BRIDGE ATTACHER ABOUT WHY AN SENIOR DEVELOPER IS NOT HERE WITH THE PATIENT AND THAT THE PATIENT IS SUPPOSED TO HAVE AN SENIOR DEVELOPER 15/06 FOR THE ENTIRE TIME HE IS IN THE HOSPITAL. THIS BRIDGE ATTACHER UNAWARE. CALLED SENIOR DEVELOPER LINE PROVIDED IN SHIFT REPORT, [id number]. THEY HAVE NOT RECEIVED A REQUEST FROM THE MOVIE STUNT PERFORMER. CALLED GARRY AND PROVIDED THE NUMBER TO GARRY. WAITING FOR CLARIFICIATION OF WHAT THE AGREEMENT IS WITH [facility] AND THE SENIOR DEVELOPER SERVICE.
--- NOTE | 2020-02-04 11:05 | NUR ---
DRESSING TO RIGHT LATERAL SIDE OF ABDOMEN CLEAN, DRY AND INTACT. CLEAR TEGADERM DRESSING COVERING 2X2 GAUZE WITH NO S/S OF BLEEDING. NO HEMATOMA FORMATION TO SURROUNDING AREA. VS STABLE.
[2020-02-04 11:26] LABS: % SATURATION 35 % (15-55); IRON 52 ug/dl (35-150); TOTAL IRON BIND CAPACITY 148 ug/dl (260-445); UNSAT IRON BIND CAPACITY 96 ug/dl (150-375)
--- NOTE | 2020-02-04 11:55 | NUR ---
SPOKE WITH AGENT BASED MODELER TO CLARIFY [facility] PROTOCOL AND AGREEMENT FOR INTERPRETERS.
[2020-02-04 12:00] LABS: FERRITIN 352 ng/mL (3-244)
--- NOTE | 2020-02-04 12:03 | NUR ---
FSBS 114. NO INSULIN PER SLIDING SCALE.
--- NOTE | 2020-02-04 12:22 | NUR ---
SPOKE WITH AUDIT CLERK FAMILY IS WANTING TO KNOW WHEN PATIENT CAN GO HOME. WAITING FOR TO DECIDE WHEN PATIENT CAN BE DISCHARGED.
--- NOTE | 2020-02-04 12:35 | NUR ---
PATIENT FISHING LINE WINDING MACHINE OPERATOR LIGHT AFTER LEFT ROOM. VERY TIME CONSUMING WITH THE PATIENT PATIENT AND ALL FAMILY PRESENT ARE DEAF AND THE ONLY WAY TO COMMUNICATE AT THIS TIME IS VIA WRITTEN CONVERSATION.
[2020-02-04 13:33] VITALS: BP 124/53
--- NOTE | 2020-02-04 14:49 | NUR ---
RESTING IN BED. NO DISTRESS. CALL LIGHT WITHIN REACH. AT BEDSIDE.
--- NOTE | 2020-02-04 16:22 | NUR ---
GARRY, FACILITIES SUPERVISOR, TO UNIT AT THIS TIME PATIENTS SON AT NURSING STATION AND IS REQUESTING VRI- VIDEO PAINTER HAND SERVICES. EXPLAINED WE DO NOT HAVE VIDEO PAINTER HAND AND PATIENT SON WRITES THAT PER ADA LAW WE ARE REQUIRED TO PROVIDE THIS SERVICE. EXPLAINED THAT WE CAN BRING A REAL PERSON IN TO SERVE AN PAINTER HAND. PATIENT SON WRITES THAT HE IS GOING TO REPORT THIS HOSPITAL. HAVE EXPLAINED AND HAVE IN WRITING THAT WE CAN BRING AN PAINTER HAND IN TO ANSWER QUESTIONS, FOR PHYSICIANS ROUNDS, ASSESSMENTS, BUT NOT TO JUST SIT WITH THE PATIENT AROUND THE CLOCK. THIS IS THE SAME ISSUE THAT THE SON WAS UPSET WITH THIS MORNING AND SAID THEY WERE TOLD HE WOULD BE PROVIDED WITH AN PAINTER HAND THE ENTIRE TIME HE WAS HERE. THIS PERFORMANCE MAKEUP ARTIST INFORMED THE HOSPITAL DOES NOT HAVE A CONTRACT TO PROVIDE 15/06 PAINTER HAND SERVICES FOR AN PAINTER HAND TO REMAIN AT BEDSIDE. WAITING ON PAINTER HAND NOW.
--- NOTE | 2020-02-04 16:36 | NUR ---
FSBS 133. NO INSULIN PER SLIDING SCALE.
--- NOTE | 2020-02-04 18:07 | NUR ---
45 MINUTES SPENT IN THE PATIENT ROOM WITH AN REFLEXOLOGIST AT THIS TIME ANSWERING ALL PATIENT QUESTIONS. PATIENT HAS AGREED TO STAY UNTIL THURSDAY. PATIENT WOULD LIKE AN REFLEXOLOGIST BECAUSE THE WRITTEN LANGUAGE IS NOT THE SAME ASL (LAO SIGN LANGUAGE) AND HE DOES NOT UNDERSTAND IT WELL, LIKE VERY BROKEN HUNGARIAN TO HIM. PATIENTS DAUGHTER PHONE NUMBER IS ON THE BOARD IF AN REFLEXOLOGIST IS NOT AVAILABLE WHEN A PHYSICIAN NEEDS TO URGENTLY COMMUNICATE WITH THE PATIENT. PER REQUEST OF THE PATIENT, THE PHYSICIAN NEEDS TO SET A TIME THAT HE WILL DO ROUNDS WITH HIM SO THAT AN REFLEXOLOGIST CAN BE AVAILABLE. PATIENT AND FAMILY ARE SATISFIED AT THIS TIME THE REFLEXOLOGIST HAS HELPED TO COMMUNICATE ALL NEEDS AND CLEARED UP MANY ISSUES.
[2020-02-04 20:00] VITALS: BP 117/52
[2020-02-05] VITALS: BP 125/54
[2020-02-05 04:00] VITALS: BP 111/57
[2020-02-05 04:35] LABS: BASOPHILS 0.7 % (0-2); EOSINOPHILS 3.5 % (0-7); HEMATOCRIT 30.7 % (42.0-54.0); HEMOGLOBIN 9.8 g/dL (13.5-17.5); IMMATURE GRANULOCYTES 0.2 % (0-5); LYMPHOCYTES 11.8 % (15-50); MCH 30.8 pg (26.0-34.0); MCHC 31.9 g/dL (31.0-37.0); MCV 96.5 fL (80.0-100.0); MEAN PLATELET VOLUME 8.4 fL (7.4-10.4); MONOCYTES 13.1 % (2-11); NEUTROPHILS 70.7 % (40-80); PLATELET COUNT 142 10x3/uL (130-400); RBC 3.18 10x6/uL (4.20-6.10); RDW 18.2 % (11.5-14.5); WBC 5.7 10x3/uL (4.8-10.8)
[2020-02-05 05:55] LABS: ALBUMIN 2.4 g/dL (3.4-5.0); ANION GAP 10.3 mmol/L (8-16); BILIRUBIN - TOTAL 1.18 mg/dL (0.2-1.3); CALCIUM 9.1 mg/dL (8.5-10.1); CARBON DIOXIDE 27.1 mmol/L (21.0-32.0); CREATININE - SERUM 1.3 mg/dL (0.6-1.3); PHOSPHOROUS 3.2 mg/dL (2.5-4.9); POTASSIUM - SERUM 4.4 mmol/L (3.5-5.1); PROTEIN - SERUM 6.4 g/dL (6.4-8.2)
--- NOTE | 2020-02-05 07:00 | NUR ---
RECEIVED REPORT. ASSUMED CARE OF PATIENT. CALL LIGHT WITHIN REACH. PATIENT RESTING WITH EYES CLOSED. RESP EVEN AND UNLABORED. NO DISTRESS. SR, RATE OF 91 ON TELEMETRY.
--- NOTE | 2020-02-05 07:45 | NUR ---
OOB TO RESTROOM. NO DISTRESS.
--- NOTE | 2020-02-05 08:00 | NUR ---
CALLED ALARM MECHANIC, ARNIE, TO REQUEST HOME SERVICE DIRECTOR BE HERE AT 1400 FOR MD VISIT THIS DINING SERVICE SUPERVISOR HAS SCHEUDLED MD VISIT FOR THIS TIME.
--- NOTE | 2020-02-05 09:00 | NUR ---
PATIENT NOTIFIED AND STATES THAT HE UNDERSTANDS THAT THE VISUALIZER WILL BE HERE AT 1400 FOR THE PHYSICIAN VISIT.
[2020-02-05 10:04] VITALS: BP 121/47
--- NOTE | 2020-02-05 10:25 | NUR ---
PROCESSING SUPERVISOR NOTIFIED THIS COST ACCOUNTING CLERK THAT PROJECT ANALYST WILL ARRIVE AT 1400 FOR MD VISIT.
--- NOTE | 2020-02-05 11:49 | NUR ---
FSBS 140. NO INSULIN PER SLIDING SCALE.
--- NOTE | 2020-02-05 12:25 | NUR ---
NOTIFIED REESE LAZARO, OF PATIENT SPIKE A TEMP OF 102.0, REQUESTED TYLENOL. NEW ORDERS RECEIVED.
--- NOTE | 2020-02-05 12:41 | NUR ---
MEDICATED FOR FEVER OF 102.0 AT THIS TIME. NO DISTRESS.
--- NOTE | 2020-02-05 12:42 | NUR ---
STONE CUTTER CALLED PATIENTS ROOM AT THIS TIME. PATIENTS DID VIDEO STONE CUTTER SO SHE COULD CALL PT ROOM AND ASK QUESTIONS TO SEE HOW THE PATIENT IS DOING. NOTIFIED OF FEVER AND REMINDED THE THAT THE STONE CUTTER AND PHYSICIAN APPOINTMENT AT 1400.
--- NOTE | 2020-02-05 13:15 | NUR ---
PATIENTS FAMILY IS NOW AT BEDSIDE WAITING FOR 1400 APPT WITH DOCUMENT EXAMINER AND PHYSICIAN.
[2020-02-05 13:48] VITALS: BP 140/74
--- NOTE | 2020-02-05 13:56 | NUR ---
MOLECULAR PATHOLOGIST HERE. MAMMOGRAPHY TECH NOTIFIED FOR THE NEED OF TO ROOM 2110 FOR MEETING WITH MOLECULAR PATHOLOGIST. BODY ART TECHNICIAN NOTIFIED THAT MOLECULAR PATHOLOGIST HERE ON UINIT FOR SCHEDULED 1400 MEETING.
--- NOTE | 2020-02-05 14:01 | NUR ---
AT BEDSIDE FOR MEETING WITH PATIENT AND COPY DIRECTOR.
--- NOTE | 2020-02-05 14:16 | NUR ---
NUT ROASTER MEETING COMPLETE. ALL QUESTIONS ANSWERED. PATIENT RESTING WITH EYES CLOSED. FAMILY AT BEDSIDE BUT SAYS THEY ARE LEAVING SOON SINCE NO OTHER PHYSICIAN IS COMING TODAY. PATIENT IN NO ACUTE DISRESS.
--- NOTE | 2020-02-05 16:04 | NUR ---
FSBS 123. NO INSULIN COVERAGE PER SLIDING SCALE.
--- NOTE | 2020-02-05 17:34 | NUR ---
CALL PLACED TO , PATIENT CONTINUES WITH ELEVATED TEMP, MANUAL BP 84/43, O2 SAT 93% WITH OXYGEN AT 3L, PULSE 82. WAITING FOR ORDERS.
[2020-02-05 17:38] VITALS: BP 82/43
--- NOTE | 2020-02-05 18:00 | NUR ---
NEW ORDERS RECEIVED TO BOLUS WITH 500 OF NS AND START LEVAQUIN 750MG IV DAILY. ALL ORDERS HAVE BEEN CARRIED OUT. PATIENT IS BEING BOLUSED AT THIS TIME. PATIENT IS EASILY AROUSED, RESP EVEN AND UNLABORED, NO ACUTE DISTRESS. PATIENT REMAINS ALERT/ORIENTED. IV LEVAQUIN TO INFUSE AFTER BOLUS FLUID IS TRANSFUSED.
--- NOTE | 2020-02-05 19:20 | NUR ---
REPORT RECEIVED. BEDSIDE SHIFT REPORT COMPLETE. PT UP SITTING ON SIDE OF BED EATING. NO C/O OR CONCERNS EXPRESSED. AFEBRILE AT THIS TIME. NO S/SX OF DISTERSS OBSERVED. CALL LIGHT IN REACH. WILL CTM.
--- NOTE | 2020-02-05 20:00 | NUR ---
PTS CALLED USING AN FERN GATHERER CHECKING ON PT. ALL QUESTIONS ANSWERED.
[2020-02-06] VITALS: BP 116/52
[2020-02-06 04:00] VITALS: BP 115/76
--- NOTE | 2020-02-06 05:14 | NUR ---
ASSTED PT TO RESTROOM X1 ASSIST DURING THE NIGHT. PT REMAINS AFEBRILE WITH NO COMPLAINTS. PT UTALIZES CALL LIGHT FOR ASSISTANCE. WILL CTM.
[2020-02-06 06:39] LABS: BASOPHILS 0.1 % (0-2); EOSINOPHILS 0.1 % (0-7); HEMATOCRIT 29.2 % (42.0-54.0); HEMOGLOBIN 9.6 g/dL (13.5-17.5); IMMATURE GRANULOCYTES 0.2 % (0-5); LYMPHOCYTES 4.2 % (15-50); MCH 31.4 pg (26.0-34.0); MCHC 32.9 g/dL (31.0-37.0); MCV 95.4 fL (80.0-100.0); MEAN PLATELET VOLUME 8.6 fL (7.4-10.4); NEUTROPHILS 83.4 % (40-80); RBC 3.06 10x6/uL (4.20-6.10); RDW 18.1 % (11.5-14.5)
[2020-02-06 06:49] LABS: PLATELET COUNT 107 10x3/uL (130-400); WBC 12.4 10x3/uL (4.8-10.8)
[2020-02-06 07:18] LABS: MAGNESIUM - SERUM 1.9 mg/dL (1.8-2.4); PHOSPHOROUS 3.1 mg/dL (2.5-4.9)
--- NOTE | 2020-02-06 10:58 | NUR ---
SPOKE WITH VOICE ABOUT CONSULT FOR 2109 DRAIN. HE STATES HE WILL BE IN TODAY. PT CONFUSED AND UNDER IMPRESSION DR. BERTRAND HAD SET THIS UP. WILL CONTINUE TO MONITOR.
[2020-02-06 11:00] VITALS: BP 130/62
[2020-02-06 13:37] VITALS: Ht 180.3 cm; Wt 84.6 kg
--- NOTE | 2020-02-06 18:45 | NUR ---
I have reviewed this patient and I concur with the Shift Assessment completed by the Licensed Practical Nurse today this shift.
--- NOTE | 2020-02-06 19:15 | NUR ---
REPORT RECEIVED, WILL CONTINUE POC. PATIENT IS AAOX4, LYING IN SEMI-FOWLERS POSITION. NO S/S OF DISTRESS OBSERVED, RR EVEN AND UNLABORED ON 3L O2 VIA NC. PIV TO RT FA, PATENT, INFUSING LEVAQUIN, DRSG C/D/I. PATIENT IS DEAF BUT ABLE TO UNDERSTAND HANDWRITING AND GESTURES. PATIENT DENIES NEEDS AT THIS TIME. CL IN REACH, BED LOCKED AND LOWERED. WILL CTM.
[2020-02-06 20:00] VITALS: BP 145/79
--- NOTE | 2020-02-06 20:45 | NUR ---
ADMINISTERED HS MEDS. ASSISTED PATIENT WITH URINAL, VOIDED VERY LITTLE.
--- NOTE | 2020-02-06 21:18 | NUR ---
PATIENT NITROGLYCERIN NEUTRALIZER LIGHT TO USE THE BATHROOM, HEAVY FORGING MACHINE OPERATOR ASSISTED PT TO BATHROOM AND BACK TO BED.
--- NOTE | 2020-02-07 00:28 | NUR ---
PATIENT HAS TEMP OF 100.6 PRN TYLENOL ADMINISTERED PER ORDERS. WILL CTM.
[2020-02-07 01:22] VITALS: BP 146/64
[2020-02-07 05:13] LABS: BASOPHILS 0.3 % (0-2); EOSINOPHILS 0.3 % (0-7); HEMATOCRIT 29.2 % (42.0-54.0); HEMOGLOBIN 9.4 g/dL (13.5-17.5); IMMATURE GRANULOCYTES 0.3 % (0-5); MCH 31.1 pg (26.0-34.0); MCHC 32.2 g/dL (31.0-37.0); MCV 96.7 fL (80.0-100.0); MEAN PLATELET VOLUME 8.6 fL (7.4-10.4); MONOCYTES 19.1 % (2-11); PLATELET COUNT 109 10x3/uL (130-400); RBC 3.02 10x6/uL (4.20-6.10); RDW 17.6 % (11.5-14.5)
--- NOTE | 2020-02-07 05:15 | NUR ---
PIV INFILTRATED. NEW PIV TO LT FA 20G X2 ATTEMPTS. GOOD BLOOD RETURN, FLUSHED WITH EASE, SL. PATIENT TOLERATED WELL.
[2020-02-07 05:20] LABS: WBC 7.6 10x3/uL (4.8-10.8)
--- NOTE | 2020-02-07 05:37 | NUR ---
I have reviewed this patient and I concur with the Shift Assessment completed by the Licensed Practical Nurse today this shift.
[2020-02-07 05:38] LABS: ANION GAP 35.4 mmol/L (8-16); BILIRUBIN - TOTAL 1.74 mg/dL (0.2-1.3); CALCIUM 8.9 mg/dL (8.5-10.1); CREATININE - SERUM 1.6 mg/dL (0.6-1.3); MAGNESIUM - SERUM 1.9 mg/dL (1.8-2.4); POTASSIUM - SERUM 4.9 mmol/L (3.5-5.1); PROTEIN - SERUM 6.2 g/dL (6.4-8.2)
[2020-02-07 05:50] LABS: CARBON DIOXIDE 24.3 mmol/L (21.0-32.0)
--- NOTE | 2020-02-07 07:00 | NUR ---
RECEIVED REPORT. ASSUMED CARE OF PATIENT. CALL LIGHT WITHIN REACH. RESP EVEN AND UNLABORED. NO DISTRESS.
--- NOTE | 2020-02-07 08:45 | NUR ---
CALLED PHARMACOEPIDEMIOLOGIST TO REQUEST TOOL CRIB MANAGER BE HERE TODAY AT 1PM FOR TO COME AND SPEAK TO THE PATIENT ABOUT HIS OPTIONS WITH TUBE PLACEMENT, ETC. JOSSUE ESTRADAPHARMACOEPIDEMIOLOGIST STATES SHE WILL CALL AND HAVE THE TOOL CRIB MANAGER HERE AT 1PM.
--- NOTE | 2020-02-07 09:00 | NUR ---
ASSISTED PATIENT OOB TO RESTROOM AND BACK TO BED. INCONTINENT CARES PROVIDED. PATIENT WITH NEW BRIEF ON AT THIS TIME. NO DISTRESS.
--- NOTE | 2020-02-07 09:03 | NUR ---
PATIENT MADE AWARE TRANSFERRER WILL BE HERE AT 1PM TODAY AND PATIENT GAVE THUMBS UP AND "SIGNED" TO PATIENT ON PHONE THAT TRANSFERRER WILL BE HERE AT 1PM TODAY. THIS METER READER CHIEF ABLE TO READ HIS LIPS HE IS SIGNING. NO DISTRESS. PATIENT REFUSED LACTULOSE AT THIS TIME.
--- NOTE | 2020-02-07 09:15 | NUR ---
PATIENT PLACED IN CONTACT ISOLATION FOR ESBL IN BLOOD CULTURES. MICRO CALLED TO REPORT FINDINGS.
[2020-02-07 09:41] VITALS: BP 106/64
--- NOTE | 2020-02-07 11:30 | NUR ---
FSBS 138. NO INSULIN ADMINISTERED PER SLIDING SCALE.
--- NOTE | 2020-02-07 11:31 | NUR ---
AT BEDSIDE. THIS SALES EXEC CALLED SOFTWARE DEVELOPMENT COORDINATOR TO MAKE SURE DANCING MASTER WILL BE HERE AT 1PM AND THE DANCING MASTER HAS BEEN SCHEDULED.
--- NOTE | 2020-02-07 12:30 | NUR ---
PATIENT RESTING IN BED. AT BEDSIDE. PATIENT REQUESTING TO BE SHAVED. UNABLE TO FULFILL REQUEST AT THIS MOMENT. WILL FULFILL REQUEST AFTER COOK DINNER / MD HAVE HAD THEIR MEETING AT 1300.
--- NOTE | 2020-02-07 12:56 | NUR ---
SENIOR INTERIOR DESIGNER HERE (JAKE), DIRECTOR ADULT NOTIFIED. CURRENTLY AWAITING FOR TO ARRIVE.
[2020-02-07 14:01] VITALS: BP 122/61
--- NOTE | 2020-02-07 14:16 | NUR ---
1400 INTERRETER LEFT. MEETING COMPLETE WITH , PATIENT AND HIS . NO DISTRESS.
--- NOTE | 2020-02-07 16:21 | NUR ---
FSBS 122. NO INSULIN PER SLIDING SCALE.
[2020-02-07 18:10] VITALS: BP 120/63
--- NOTE | 2020-02-07 19:20 | NUR ---
REPORT RECEIVED, WILL CONTINUE POC. PATIENT IS AAOX4, LYING IN SEMI-FOWLERS POSITION. NO S/S OF DISTRESS OBSERVED, RR EVEN AND UNLABORED ON 3L O2 VIA NC. PATIENT IS DEAF, ESCROW SECRETARY AVAILABLE. PIV TO LT WRIST PATENT, SL, DRSG C/D/I. PATIENT ABDOMEN DISTENDED. PATIENT DENIES NEEDS AT THIS TIME. CL IN REACH, BED LOCKED AND LOWERED. CONTACT PRECAUTIONS MAINTAINED. WILL CTM.
[2020-02-07 20:00] VITALS: BP 120/52
[2020-02-08 00:16] VITALS: BP 125/55
[2020-02-08 05:15] VITALS: BP 118/63
[2020-02-08 05:22] LABS: HEMATOCRIT 29.9 % (42.0-54.0); HEMOGLOBIN 9.6 g/dL (13.5-17.5); MCH 30.7 pg (26.0-34.0); MCHC 32.1 g/dL (31.0-37.0); MCV 95.5 fL (80.0-100.0); MEAN PLATELET VOLUME 9.1 fL (7.4-10.4); PLATELET COUNT 106 10x3/uL (130-400); RBC 3.13 10x6/uL (4.20-6.10); RDW 17.2 % (11.5-14.5)
[2020-02-08 05:34] LABS: WBC 4.3 10x3/uL (4.8-10.8)
[2020-02-08 05:52] LABS: ALBUMIN 1.9 g/dL (3.4-5.0); ANION GAP 8.1 mmol/L (8-16); BILIRUBIN - TOTAL 0.87 mg/dL (0.2-1.3); CALCIUM 8.8 mg/dL (8.5-10.1); CARBON DIOXIDE 26.1 mmol/L (21.0-32.0); MAGNESIUM - SERUM 1.9 mg/dL (1.8-2.4); PHOSPHOROUS 2.8 mg/dL (2.5-4.9); POTASSIUM - SERUM 4.2 mmol/L (3.5-5.1); PROTEIN - SERUM 6.1 g/dL (6.4-8.2)
[2020-02-08 05:54] LABS: CREATININE - SERUM 1.1 mg/dL (0.6-1.3)
[2020-02-08 06:12] LABS: EOSINOPHILS 3 % (0-7); LYMPHOCYTES 14 % (15-50); MONOCYTES 1 % (2-11); NEUTROPHILS 82 % (40-80)
[2020-02-08 06:13] LABS: PLATELET ESTIMATE NORMAL
[2020-02-08 06:14] LABS: TARGET CELLS OCC
--- NOTE | 2020-02-08 06:24 | NUR ---
I have reviewed this patient and I concur with the Shift Assessment completed by the Licensed Practical Nurse today this shift.
[2020-02-08 07:59] VITALS: BP 134/68
--- NOTE | 2020-02-08 08:00 | NUR ---
AM ROUNDS COMPLETED. INTRODUCED MYSELF TO PT PRIMARY RN FOR TODAYS SHIFT. PT IS A&O SITTING UP IN BED RESTING QUIETLY. PT IS DEAF SO THEIRS A SLIGHT COMMUNICATION BARRIER HOWEVER RESOURCES ARE AVAILABLE AND PT CAN READ LIPS VERY WELL ALONG WITH NOTES. SHIFT ASSESSMENT COMPLETED. PTS ABDOMEN DISTENDED AND TIGHT BUT BS ARE ACTIVE X4. PT HAS OLD DRSG TO R.SIDE OF ABD THAT IS PEELING OFF, REMOVED COMPLETELY AND THERE IS A SKIN TEAR FROM TEGADERM, SPOT IS SORE TO PT. WILL LEAVE VIDEO PRODUCTION INTERN FOR NOW AND SEE IF IT CAN DRY AND NOT HAVE IRRITANTS ON IT SKIN IS SENSITIVE. PT DENIES ANY CURRENT PAIN OR NEEDS AT THIS TIME. NO FAMILY PRESENT. RR NONLABORED WITH NC @2L IN PLACE. CL IN REACH. WILL CTM.
[2020-02-08 11:42] VITALS: BP 109/60
--- NOTE | 2020-02-08 13:06 | NUR ---
Nutrition Follow-up: Chart reviewed. Overall fair PO intake. Diet: Diabetic PO intake: 58% avg (02/06) Wt: 207# (02/07); 201# (02/05) Last BM: 02/06 per chart Labs noted: Na 128, Glu 130, Alb 1.9 Meds noted: Protonix -May consider low Na diabetic diet. -Encourage PO intake and honor food preferences within diet restrictions. -Monitor wt. -RD following.
--- NOTE | 2020-02-08 15:00 | NUR ---
PTS ABDOMEN IS SLIGHTLY BIGGER COMPARED TO THIS MORNINGS ASSESSMENT AND TIGHTER WELL. PT STATES HE CAN TELL ALSO. PT APPEARS SOB WHEN GETTING IN AND OUT OF BED BUT HE STATES ITS R/T THE PRESSURE IN HIS ABDOMEN. PULSE OX 100% WITH NC @2L. WILL DISCUSS WITH PRIMARY ABOUT PTS ACITES HE MAY NEED ANOTHER PARACENTESIS PRIOR TO DISCHARGE WE ARE WAITING ON HIS CULTURES TO HAVE NO GROWTH FOR IR TO PLACE DRAIN. PT VERBALIZED UNDERSTANDING AND I UPDATED HIS WELL. PT DENIES ANY CURRENT PAIN OR NEEDS AT THIS TIME. CL IN REACH, BED IN LOWEST, SIDE RAILS X2. WILL CPOC.
[2020-02-08 15:38] VITALS: BP 161/79
[2020-02-08 17:31] LABS: BILIRUBIN NEGATIVE (NEGATIVE); GLUCOSE NEGATIVE (NEGATIVE); KETONE NEGATIVE (NEGATIVE); NITRITE NEGATIVE (NEGATIVE); SPECIFIC GRAVITY 1.015 (1.005-1.020); UROBILINOGEN NORMAL (NORMAL)
--- NOTE | 2020-02-08 18:45 | NUR ---
ASSISTED PT UP TO BR WITH MINIMAL ASSIST. PT IS PRETTY WEAK THOUGH AND STATES "ITS MY KNEES, THEY'RE OLD" WILL SEE ABOUT GETTING THERAPY ORDERED. PT VOICED THANKS AND WAS ASSISTED BACK INTO BED. NO FURTHER NEEDS AT THIS TIME. WILL CPOC.
--- NOTE | 2020-02-08 19:23 | NUR ---
REPORT RECEIVED, WILL CONTINUE POC. PATIENT IS RESTING WITH EYES CLOSED. NO S/S OF DISTRESS OBSERVED, RR EVEN AND UNLABORED ON 2L O2 VIA NC. PIV TO LT FA, PATENT, SL, DRSG C/D/I. PATIENT DENIES NEEDS AT THIS TIME. CL IN REACH, BED LOCKED AND LOWERED. WILL CTM.
[2020-02-08 20:18] VITALS: BP 128/58
[2020-02-09] VITALS (7 sets, daily range): BP systolic 103–133; BP diastolic 53–73
[2020-02-09 05:17] LABS: ALBUMIN 1.9 g/dL (3.4-5.0); ANION GAP 5.4 mmol/L (8-16); BILIRUBIN - TOTAL 0.84 mg/dL (0.2-1.3); CALCIUM 8.9 mg/dL (8.5-10.1); CREATININE - SERUM 1.2 mg/dL (0.6-1.3); MAGNESIUM - SERUM 1.9 mg/dL (1.8-2.4); PHOSPHOROUS 2.9 mg/dL (2.5-4.9); POTASSIUM - SERUM 4.4 mmol/L (3.5-5.1)
[2020-02-09 06:46] LABS: HEMATOCRIT 30.2 % (42.0-54.0); HEMOGLOBIN 9.8 g/dL (13.5-17.5); MCH 30.8 pg (26.0-34.0); MCHC 32.5 g/dL (31.0-37.0); MEAN PLATELET VOLUME 8.9 fL (7.4-10.4); PLATELET COUNT 122 10x3/uL (130-400); RBC 3.18 10x6/uL (4.20-6.10); RDW 16.8 % (11.5-14.5)
[2020-02-09 06:53] LABS: WBC 2.5 10x3/uL (4.8-10.8)
--- NOTE | 2020-02-09 07:24 | NUR ---
RECIEVED REPORT. PATIENT IS ALERT AND ORIENTED. DENIES ANY NEEDS AT THIS TIME.
[2020-02-09 09:47] LABS: EOSINOPHILS 1 % (0-7); LYMPHOCYTES 14 % (15-50); MONOCYTES 30 % (2-11); NEUTROPHILS 53 % (40-80); PLATELET ESTIMATE NORMAL
--- NOTE | 2020-02-09 14:35 | NUR ---
PATIENT IS RESTING QUIETLY AT THIS TIME. HE ATE BREAKFAST AND LUNCH. HE IS ALERT AND DENIES ANY NEEDS.
--- NOTE | 2020-02-09 20:00 | NUR ---
ALERT SITTING UP IN BED, DENIES PAIN OR NEEDS AT THIS TIME, SEE SHIFT ASSESSMENT, CALL LETICIA ODEN
[2020-02-10] VITALS (7 sets, daily range): BP systolic 111–125; BP diastolic 48–65
[2020-02-10 04:44] LABS: BASOPHILS 0.9 % (0-2); HEMATOCRIT 29.7 % (42.0-54.0); HEMOGLOBIN 9.6 g/dL (13.5-17.5); IMMATURE GRANULOCYTES 0.3 % (0-5); MCH 30.6 pg (26.0-34.0); MCHC 32.3 g/dL (31.0-37.0); MCV 94.6 fL (80.0-100.0); MONOCYTES 39.6 % (2-11); NEUTROPHILS 40.2 % (40-80); PLATELET COUNT 112 10x3/uL (130-400); RBC 3.14 10x6/uL (4.20-6.10); RDW 16.6 % (11.5-14.5)
[2020-02-10 04:56] LABS: ANION GAP 6.9 mmol/L (8-16); CARBON DIOXIDE 28.5 mmol/L (21.0-32.0); CREATININE - SERUM 1.2 mg/dL (0.6-1.3); POTASSIUM - SERUM 4.4 mmol/L (3.5-5.1)
[2020-02-10 04:58] LABS: WBC 3.3 10x3/uL (4.8-10.8)
[2020-02-10 07:29] LABS: APTT 28.9 SECONDS (22.8-39.4); INR 1.09 (0.85-1.17); PROTIME 14.1 SECONDS (11.6-15.0)
--- NOTE | 2020-02-10 09:59 | NUR ---
Nutrition Follow-up: NPO for paracentesis. PO intake: 54% avg x 6 meals No new wt; last wt: 207# (02/07) Last BM: 02/07 per chart Labs noted: Na 129, Glu 132 Meds noted: Lasix, Lactulose, Protonix -Rec resume diet following procedure as medically feasible. -Need new wt; noted daily wts ordered. -RD following.
--- NOTE | 2020-02-10 16:27 | MORECARE ---
CASE MANAGEMENT DISCHARGE SUMMARY PATIENT: ZAYRA MAO UNIT: [id number] ADM DATE: 02/04/20 AGE: 79 : 39 SEX: M ROOM/BED: D.2110 AUTHOR: FREDY COBURN PHYSICIAN: REFERRING PHYSICIAN: ELAYNE PONCE MD DATE OF SERVICE: 02/10/20 Discharge Plan Patient Name: ZAYRA MAO [facility] [facility] 1940 Planned Disposition: Home Anticipated Discharge Date: 02/11/20 Discharge Date: Expected LOS: 7 Initial Reviewer: [email or web address] Initial Review Date: 02/10/2020 Generated: 02/10/20 5:27 pm External Providers External Provider: OTHER-OTHER Next Contact Date: Service Request Date: Service Type: Resolution: Reviewer: Comments: Patient Name: ZAYRA MAO Page [id number] at 1627 All edits/amendments must be made on the electronic document DICTATION DATE: 02/10/201626 MACHINE TOOL TECHNICIAN INSTRUCTOR: SUJIT 02/10/20 1627 RPT#: [id number] DC DATE: STATUS: ADM IN [facility] [address] [place] [address] END OF REPORT
--- NOTE | 2020-02-10 16:35 | MORECARE ---
CASE MANAGEMENT DISCHARGE SUMMARY PATIENT: ZAYRA MAO LG UNIT: [id number] ADM DATE: 02/04/20 AGE: 79 : 39 SEX: M ROOM/BED: D.2110 AUTHOR: FREDY COBURN PHYSICIAN: REFERRING PHYSICIAN: ELAYNE PONCE MD DATE OF SERVICE: 02/10/20 Discharge Plan Patient Name: ZAYRA MAO Facility: [facility]:[place] : 1940 Planned Disposition: Home Anticipated Discharge Date: 02/11/20 Discharge Date: Expected LOS: 7 Initial Reviewer: [email or web address] Initial Review Date: 02/10/2020 Generated: 02/10/20 5:34 pm DCPIA - Discharge Planning Initial Assessment Updated by [id number]: Zenon Winters on 02/10/20 4:31 pm * Is the patient Alert and Oriented? Yes * How many steps to enter\exit or inside your home? RAMP * PCP DR. GALLAGHER * [facility] [place] * Preadmission Environment Home with Family * ADLs Independent * Equipment Rolling Walker * Other Equipment ROLLATOR WALKER FROM [facility] * List name and contact numbers for known caregivers / representatives who currently or will assist patient after discharge: SHASHI MAO, SPOUSE, OR VIDEO/INTERPETER PHONE [phone] PRATIBHA BHAT, DTR, * Verbal permission to speak to the caregivers and representatives has been obtained from the patient. N/A * Community resources currently utilized Other * Please name any agencies selected above. [employer] N[facility]SE [facility]IS[facility] AT HOME * Additional services required to return to the preadmission environment? No * Can the patient safely return to the preadmission environment? Yes * Has this patient been hospitalized within the prior 30 days at any hospital? No Last DP export: 02/10/20 3:27 p Patient Name: ZAYRA MAO Page [id number] at 1636 All edits/amendments must be made on the electronic document DICTATION DATE: 02/10/20 1634 DIRECTOR IMAGING: SUJIT 02/10/20 1634 RPT#: [id number] DC DATE: STATUS: ADM IN [facility] [address] [facility] [place] [address] END OF REPORT
--- NOTE | 2020-02-10 16:48 | MORECARE ---
CASE MANAGEMENT DISCHARGE SUMMARY PATIENT: ZAYRA MAO UNIT: [id number] ADM DATE: 02/04/20 AGE: 79 : 39 SEX: M ROOM/BED: D.2114 AUTHOR: ALMAS,DOC PHYSICIAN: REFERRING PHYSICIAN: ELAYNE PONCE MD DATE OF SERVICE: 02/10/20 Discharge Plan Patient Name: ZAYRA MAO Facility: [facility]:[place] : 1940 Planned Disposition: Home Anticipated Discharge Date: 02/11/20 Discharge Date: Expected LOS: 7 Initial Reviewer: [id number] Initial Review Date: 02/10/2020 Generated: 02/10/20 5:48 pm Comments DCP- Discharge Planning Updated by [id number]: Zenon Winters on 02/10/20 3:[address] Patient Name: ZAYRA MAO Admission Status: ER Accout number: [id number] Admission Date: 02-04-2020 : 1940 Admission Diagnosis:UNSPECIFIED ABDOMINAL PAIN Attending: ELAYNE PONCE Current LOS: 6 Anticipated DC Date: 02-11-2020 Planned Disposition: Home Primary Insurance: [employer] CHOICE PPO MCR ADVANT Discharge Planning Comments: CM MET WITH PT, SPOUSE AND OPERATIONS PLANT ATTENDANT BUCK FROM [employer] IN ROOM TO DISCUSS DISCHARGE PLANNING AND NEEDS. ZAYRA MAO provided verbal consent to discuss current and ongoing needs with/in the presence of: SPOUSE AND OPERATIONS PLANT ATTENDANT BUCK. PT'S SPOUSE CALLED OPERATIONS PLANT ATTENDANT TO COME TO HOSPITAL. PT REPORTS LIVING AT HOME INDEPENDENTLY WITH HIS . PT HAS ROLLATOR WALKER FROM [employer] PT HAS NURSE FROM [employer] COMING TO THE HOUSE. PT'S SPOUSE THINKS THEY HAVE HOME HEALTH, COMPANY UNKNOWN. CM DISCUSSED AVAILABILITY OF HOME HEALTH, REHAB SERVICES AND MEDICAL EQUIPMENT. PT DENIES DISCHARGE NEEDS FOR DISCHARGE HOME, REPORTS HIS WILL PICK HIM UP FOR DISCHARGE HOME.. BUCK ASKED THAT CM NOTIFY [employer] THAT CM USED HER FOR SIGN LANGUAGE INTERPRETATION. CM NOTIFIED HOG BUYER ARNIE OF OPERATIONS PLANT ATTENDANT PRESENCE IN ROOM AND THAT CM USED BUCK FOR INTERPRETATION FROM APPROXIMATELY 1605 HOURS TO APPROXIMATELY 1615 HOURS. CM RETURNED TO ROOM, IMPORTANT MESSAGE FROM MEDICARE PROVIDED AND EXPLAINED. Community Health Nurse Staff: Zenon Winters DCPIA - Discharge Planning Initial Assessment Updated by [id number]: Zenon Winters on 02/10/20 4:31 pm * Is the patient Alert and Oriented? Yes * How many steps to enter\exit or inside your home? RAMP * PCP DR. GALLAGHER * Pharmacy [facility] IN [place] * Preadmission Environment Home with Family * ADLs Independent * Equipment Rolling Walker * Other Equipment ROLLATOR WALKER FROM [facility] * List name and contact numbers for known caregivers / representatives who currently or will assist patient after discharge: SHASHI MAO, SPOUSE, OR VIDEO/INTERPETER PHONE [phone] PRATIBHA GRIMESTTON, DTR, * Verbal permission to speak to the caregivers and representatives has been obtained from the patient. N/A * Community resources currently utilized Other * Please name any agencies selected above. [employer] NURSE VISITS AT HOME * Additional services required to return to the preadmission environment? No * Can the patient safely return to the preadmission environment? Yes * Has this patient been hospitalized within the prior 30 days at any hospital? No Coverage Notice Reviewer: [id number] - Zenon Winters Notice Issued Date-Time: 02/10/2020 16:30 Notice Type: IM Discharge Notice Notice Delivered To: Patient Relationship to Patient: Glue Mill Operator Name: Delivery Method: HAND - Hand Delivered Vita Days: Prior Verbal Notification: Recipient Understood Notice: Yes Recipient Signature: Yes Med Rec Note Co-signed by Attending: Coverage Notice Comment: Last DP export: 02/10/20 3:35 p Patient Name: ZAYRA MAO Page [phone] at 1648 All edits/amendments must be made on the electronic document DICTATION DATE: 02/10/201647 SALES ENGINEER: SUJIT 02/10/201647 RPT#: [id number] DC DATE: STATUS: ADM IN [facility] [address] [place] [address] END OF REPORT
--- NOTE | 2020-02-10 19:50 | NUR ---
REPRORT RECEIVED. BEDSIDE SHIFT REPORT COMPLETE. PT RESTING IN BED WATCHING TV. RR EVEN AND UNLABORED ON RA. SNACK PROVIDED PER REQUEST. NO FURTHER NEEDS EXPRESSED. NO S/SX OF DISTRESS OBSERVED AT THIS TIME. CALL LIGHT IN REACH. WILL CTM.
[2020-02-11] VITALS: BP 116/52; BP 116/70
[2020-02-11 04:30] VITALS: BP 110/56
[2020-02-11 04:41] LABS: BASOPHILS 0.5 % (0-2); EOSINOPHILS 3.7 % (0-7); HEMATOCRIT 29.5 % (42.0-54.0); HEMOGLOBIN 9.5 g/dL (13.5-17.5); IMMATURE GRANULOCYTES 0.5 % (0-5); LYMPHOCYTES 16.4 % (15-50); MCH 30.7 pg (26.0-34.0); MCHC 32.2 g/dL (31.0-37.0); MCV 95.5 fL (80.0-100.0); MEAN PLATELET VOLUME 9.2 fL (7.4-10.4); MONOCYTES 20.1 % (2-11); NEUTROPHILS 58.8 % (40-80); PLATELET COUNT 116 10x3/uL (130-400); RBC 3.09 10x6/uL (4.20-6.10); RDW 16.6 % (11.5-14.5); WBC 3.8 10x3/uL (4.8-10.8)
[2020-02-11 04:54] LABS: CALC OSMOLALITY 268 mosm/kg (275-300); CALCIUM 9.3 mg/dL (8.5-10.1); CARBON DIOXIDE 29.4 mmol/L (21.0-32.0); CHLORIDE - SERUM 98 mmol/L (98-107); GLUCOSE 134 mg/dL (74-106); MAGNESIUM - SERUM 2.1 mg/dL (1.8-2.4); POTASSIUM - SERUM 4.4 mmol/L (3.5-5.1); SODIUM 130 mmol/L (136-145); UREA NITROGEN 28 mg/dL (7-18); eGFR NON AFRICAN AMERICAN 76 mL/min (90-120)
--- NOTE | 2020-02-11 07:30 | NUR ---
RECEIVED REPORT. ASSUMED CARE OF PATIENT. CALL LIGHT WITHIN REACH. PATIENT RESTING WITH EYES CLOSED. RESP EVEN AND UNLABORED. PATIENT REMAINS IN CONTACT ISOLATION. NO DISTRESS.
[2020-02-11 08:21] VITALS: BP 114/54
--- NOTE | 2020-02-11 10:30 | NUR ---
WOUND CARE TO RIGHT SIDE OF ABD COMPLETED AT THIS TIME. BACTROBAN APPLIED AND COVERED WITH NON-STICK TELFA DRESSING. PATIENT TOLERATED WOUND CARE WELL. NO DISTRESS.
--- NOTE | 2020-02-11 11:21 | NUR ---
FSBS 138. NO INSULIN PER SLIDING SCALE.
--- NOTE | 2020-02-11 12:21 | NUR ---
SITTING TO SIDE OF BED WITH ATTENTION TO CELLPHONE. NO DISTRESS.
[2020-02-11 12:58] VITALS: BP 113/53
--- NOTE | 2020-02-11 15:30 | NUR ---
PATIENT REFUSED LACTULOSE. NO DISTRESS. CALL LIGHT WITHIN REACH.
[2020-02-11 17:16] VITALS: BP 116/55
--- NOTE | 2020-02-11 17:44 | NUR ---
PATIENT CONSUMED PM MEAL. CALL LIGHT WITHIN REACH. PATIENTS NOW AT BEDSIDE. DENIES NEEDS. NO DISTRESS.
--- NOTE | 2020-02-11 19:42 | NUR ---
REPORT RECEIVED. BEDSIDE SHIFT REPORT COMPLETE. PT LAYING IN BED. RR EVEN AND UNLABORED. NO S/SX OF DISTRESS OBSERVED AT THIS TIME. NO NEEDS EXPRESSED. CALL LIGHT IN REACH. WILL CTM.
[2020-02-11 20:00] VITALS: BP 114/59
[2020-02-12 04:00] VITALS: BP 121/60
[2020-02-12 04:48] LABS: BASOPHILS 0.7 % (0-2); EOSINOPHILS 4.7 % (0-7); HEMATOCRIT 30.7 % (42.0-54.0); HEMOGLOBIN 9.9 g/dL (13.5-17.5); IMMATURE GRANULOCYTES 0.4 % (0-5); LYMPHOCYTES 16.9 % (15-50); MCH 30.7 pg (26.0-34.0); MCHC 32.2 g/dL (31.0-37.0); MONOCYTES 16.9 % (2-11); NEUTROPHILS 60.4 % (40-80); PLATELET COUNT 127 10x3/uL (130-400); RBC 3.23 10x6/uL (4.20-6.10); RDW 16.5 % (11.5-14.5); WBC 4.5 10x3/uL (4.8-10.8)
[2020-02-12 05:03] LABS: CALC OSMOLALITY 269 mosm/kg (275-300); CALCIUM 9.1 mg/dL (8.5-10.1); CARBON DIOXIDE 28.7 mmol/L (21.0-32.0); CHLORIDE - SERUM 98 mmol/L (98-107); GLUCOSE 130 mg/dL (74-106); MAGNESIUM - SERUM 2.1 mg/dL (1.8-2.4); POTASSIUM - SERUM 4.8 mmol/L (3.5-5.1); SODIUM 130 mmol/L (136-145); UREA NITROGEN 31 mg/dL (7-18); eGFR NON AFRICAN AMERICAN 76 mL/min (90-120)
[2020-02-12 08:08] VITALS: BP 127/64
--- NOTE | 2020-02-12 09:02 | NUR ---
PATIENT SITTING ON SIDE OF BED FOR AM MEAL. NO NEEDS VIOCED. RESPRATIONS REGULAR AND NONLABORED. ABD DISTENDED BUT SOFT. PATIENT REFUSES LACTULOSE STATING THAT HE HAD LG BM THIS AM. CL IN REACH
[2020-02-12 11:44] VITALS: BP 120/59
[2020-02-12 16:04] VITALS: BP 99/45
--- NOTE | 2020-02-12 19:10 | NUR ---
BEDSIDE REPORT RECEIEVED FROM DAY SHIFT, PT CARE ASSUMED. INTRODUCED SELF AND WROTE NAME ON BOARD. PT SITTING UP IN BED, WATCHING TV, AAOX4. REQUESTING LIZZY, PROVIDED. DENIES ANY OTHER NEEDS AT THIS TIME. BED IN LOWEST POSITION, SRX2, CALL LIGHT WITHIN REACH. WILL CONTINUE TO MONITOR.
[2020-02-12 20:00] VITALS: BP 128/59
[2020-02-13] VITALS: BP 122/56
[2020-02-13 04:00] VITALS: BP 118/59
[2020-02-13 05:21] LABS: BASOPHILS 0.6 % (0-2); EOSINOPHILS 4.8 % (0-7); HEMATOCRIT 31.6 % (42.0-54.0); HEMOGLOBIN 10.4 g/dL (13.5-17.5); IMMATURE GRANULOCYTES 0.6 % (0-5); LYMPHOCYTES 17.5 % (15-50); MCH 30.8 pg (26.0-34.0); MCHC 32.9 g/dL (31.0-37.0); MCV 93.5 fL (80.0-100.0); MEAN PLATELET VOLUME 9.1 fL (7.4-10.4); MONOCYTES 17.3 % (2-11); NEUTROPHILS 59.2 % (40-80); PLATELET COUNT 149 10x3/uL (130-400); RBC 3.38 10x6/uL (4.20-6.10); RDW 16.4 % (11.5-14.5); WBC 4.8 10x3/uL (4.8-10.8)
[2020-02-13 05:53] LABS: CALC OSMOLALITY 268 mosm/kg (275-300); CALCIUM 8.8 mg/dL (8.5-10.1); CARBON DIOXIDE 29.1 mmol/L (21.0-32.0); CHLORIDE - SERUM 98 mmol/L (98-107); GLUCOSE 123 mg/dL (74-106); MAGNESIUM - SERUM 2.1 mg/dL (1.8-2.4); POTASSIUM - SERUM 5.1 mmol/L (3.5-5.1); SODIUM 130 mmol/L (136-145); UREA NITROGEN 32 mg/dL (7-18); eGFR NON AFRICAN AMERICAN 76 mL/min (90-120)
[2020-02-13 08:40] VITALS: BP 124/59
[2020-02-13 11:54] VITALS: BP 117/53
[2020-02-13 17:09] VITALS: BP 116/55
--- NOTE | 2020-02-13 19:30 | NUR ---
PT SITTING UP IN BED WITHOUT DISTRESS, AOX4. PT ABLE TO COMMUNICATE READING LIPS OR READING NOTES ON PAPER. PT STATES HE WANTS INTERPRETOR TOMORROW MORNING TO COME ASSIST HIM IN SPEAKING WITH DOCTOR, TOLD PT WE WOULD GET ONE IN AM. DENIES NEEDS AT THIS TIME. CL IN REACH, WILL CTM
[2020-02-13 20:14] VITALS: BP 130/54
--- NOTE | 2020-02-13 20:30 | NUR ---
FSBS 152, REFUSED COVERAGED. JUST ATE JELLO. REFUSES LACTULOSE. DENIES OTHER NEEDS, WILL CTM
[2020-02-14 00:08] VITALS: BP 101/52
[2020-02-14 03:52] VITALS: BP 106/54
[2020-02-14 05:52] LABS: HEMATOCRIT 31.1 % (42.0-54.0); HEMOGLOBIN 10.3 g/dL (13.5-17.5); MCH 30.9 pg (26.0-34.0); MCHC 33.1 g/dL (31.0-37.0); MCV 93.4 fL (80.0-100.0); MEAN PLATELET VOLUME 8.4 fL (7.4-10.4); NEUTROPHILS 59.5 % (40-80); RBC 3.33 10x6/uL (4.20-6.10); RDW 17.3 % (11.5-14.5); WBC 4.1 10x3/uL (4.8-10.8)
[2020-02-14 05:53] LABS: PLATELET COUNT 198 10x3/uL (130-400)
[2020-02-14 06:13] LABS: ANION GAP 6.3 mmol/L (8-16); CALCIUM 8.6 mg/dL (8.5-10.1); CARBON DIOXIDE 31.5 mmol/L (21.0-32.0); CREATININE - SERUM 1.2 mg/dL (0.6-1.3); MAGNESIUM - SERUM 1.9 mg/dL (1.8-2.4); POTASSIUM - SERUM 4.8 mmol/L (3.5-5.1)
[2020-02-14 08:08] VITALS: BP 139/64
--- NOTE | 2020-02-14 08:27 | NUR ---
TALKED WITH KAMILA LEIVA FROM [facility] PERTAINING TO POSSIBLE TIPS PROCEDURE. STATES SHE WILL TALK WITH DR OLSON, UPDATED ON MERREM DOSING, KEEP NPO FOR NOW. STATES DR OLSON HAS ALREADY DISCUSSED WITH PT USING INTERPRETOR, HOWEVER PT STILL WANTING UPDATE PRIOR TO SIGNING CONSENTS. IN ROOM ALSO.
--- NOTE | 2020-02-14 09:59 | NUR ---
Nutrition Follow-up: Nursing reports pt has been eating well. NPO after breakfast today for possible TIPS. Noted paracentesis done 02/09 (-11 L). PO intake: 100% x 3 yesterday Wt: 182.9# (02/13); 207# (02/07); 228.1# (02/03) Last BM: 02/11 per chart Labs noted: Na 129, Glu 113 Meds noted: Lasix, Protonix -Rec resume diet when medically feasible. -Encourage PO intake and honor food preferences within diet restrictions. -Monitor wt; noted daily wts ordered. -RD following.
--- NOTE | 2020-02-14 10:31 | NUR ---
WHEN DECISION MADE REGARDING TIPS PROCEDURE, PT AND FAMILY WANT DOCTOR AND INTERPETOR AVAILABLE FOR UPDATE AND Q/A. NUMBER . CALL WHEN MEETING ARRANGED AND SHE WILL COME FROM HOME.
[2020-02-14 12:02] VITALS: BP 97/55
--- NOTE | 2020-02-14 13:35 | NUR ---
DR OLSON AND KAMILA RN IN ROOM TALKING/WRITING WITH PT REGARDING TIPS PROCEDURE FOR THURSDAY. NO INTERPRETOR IN ROOM. WILL TRY AND UPDATE FAMILY. WHEN ASKED ABOUT PT STAYING OR GOING, DR OLSON STATES HE IS FINE WITH PT GOING HOME AND RETURNING FOR PROCEDURE THURSDAY WITH PLANS ON HAVING TO STAY OVERNIGHT.
[2020-02-14 17:33] VITALS: BP 101/49
--- NOTE | 2020-02-14 19:55 | NUR ---
REPORT RECIVED AND ROUNDING COMPLETE. LAYING IN BD IN LOW FOWLERS POSITION, PATIENT IS DEAF BUT CAN READ LIPS WELL AND COMMUNITCATE HIS NEEDS. LEFT FOREARM PIV THAT IS SALINE LOCKED BUT PATENT AND FLUSHES WELL. PATIENT HOPE IS D/C IN THE MORNING. NO DISTRESS NOTED. NO NEEDS AT THIS TIME. CALL LIGHT WITHIN REACH AND BED IN LOWEST LOCKED POSITION.
[2020-02-14 20:36] VITALS: BP 114/53
--- NOTE | 2020-02-14 20:37 | NUR ---
PATIENT NOT WEARIMG 02 AT THIS TIME STATES HIS NOSE IS SORE, O2 STAT IS 98% ROOM AIR.
[2020-02-15 00:33] VITALS: BP 119/54
--- NOTE | 2020-02-15 04:48 | NUR ---
I have reviewed this patient and I concur with the Shift Assessment completed by the Licensed Practical Nurse today this shift.
[2020-02-15 04:56] VITALS: BP 119/57
[2020-02-15 08:23] VITALS: BP 110/56
[2020-02-15] MEDS ORDERED: ALDACTONE50 MG PO (14:10)
[2020-02-15] MEDS ORDERED: LASIX40 MG PO (14:11)
--- NOTE | 2020-02-15 14:59 | MORECARE ---
CASE MANAGEMENT DISCHARGE SUMMARY PATIENT: ZAYRA MAO UNIT: [id number] ADM DATE: 02/04/20 AGE: 79 : 39 SEX: M ROOM/BED: D.2109 AUTHOR: ALMAS,DOC PHYSICIAN: REFERRING PHYSICIAN: ELAYNE PONCE MD DATE OF SERVICE: 02/15/20 Discharge Plan Patient Name: ZAYRA MAO Facility: [facility]:[place] : 1940 Planned Disposition: Home Anticipated Discharge Date: 02/15/20 Discharge Date: Expected LOS: 11 Initial Reviewer: [id number] Initial Review Date: 02/10/2020 Generated: 02/15/20 3:58 pm Comments DCP- Discharge Planning Updated by [id number]: Zenon Winters on 02/15/20 1:[address] Patient Name: ZAYRA MAO Encounter No: [id number] : 1940 Primary Insurance: [employer] CHOICE PPO MCR ADVANT Anticipated DC Date: 02-15-2020 Planned Disposition: Home DCP follow-up note: CM RECEIVED DISCHARGE ORDER, MET WITH PT IN ROOM, PROVIDED AND DISCUSSED IMPORTANT MESSAGE FROM MEDICARE. PT WANTED TO KNOW WHY HE COULDN'T JUST STAY IN THE HOSPITAL UNTIL HIS PROCEDURE THURSDAY, CM EXPLAINED THAT PT IS STABLE FOR DISCHARGE TODAY AND THAT HIS PROCEDURE MAY BE BILLED DIFFERENTLY, SUCH OUTPATIENT, AND THAT MEDICARE WILL NOT CONTINUE TO PAY FOR STAY NOW. PT REPORTS UNDERSTANDING, FAMILY TO TRANSPORT HOME, PT DENIES NEEDS. ALL COMMUNICIATION DONE IN WRITING, PT REQUESTED NOTES BE LEFT WITH HIM IN ROOM. BEDSIDE NURSE PERFORMING WALK TEST FOR POSSIBLE OXYGEN NEEDS AT HOME. CM TO CONTINUE TO FOLLOW AND ASSIST IF NEEDED. Zenon Winters, CASE MANAGEMENT DCP- Discharge Planning Updated by [id number]: Zenon Winters on 02/10/20 3:[address] Patient Name: ZAYRA MAO Admission Status: ER Accout number: [id number] Admission Date: 02-04-2020 : 1940 Admission Diagnosis:UNSPECIFIED ABDOMINAL PAIN Attending: ELAYNE PONCE Current LOS: 6 Anticipated DC Date: 02-11-2020 Planned Disposition: Home Primary Insurance: [employer] CHOICE PPO MCR ADVANT Discharge Planning Comments: CM MET WITH PT, SPOUSE AND SOFTWARE PERFORMANCE ENGINEER BUCK FROM [employer] IN ROOM TO DISCUSS DISCHARGE PLANNING AND NEEDS. ZAYRA MAO provided verbal consent to discuss current and ongoing needs with/in the presence of: SPOUSE AND SOFTWARE PERFORMANCE ENGINEER BUCK. PT'S SPOUSE CALLED SOFTWARE PERFORMANCE ENGINEER TO COME TO HOSPITAL. PT REPORTS LIVING AT HOME INDEPENDENTLY WITH HIS . PT HAS ROLLATOR WALKER FROM [employer]. PT HAS NURSE FROM [employer] COMING TO THE HOUSE. PT'S SPOUSE THINKS THEY HAVE HOME HEALTH, COMPANY UNKNOWN. CM DISCUSSED AVAILABILITY OF HOME HEALTH, REHAB SERVICES AND MEDICAL EQUIPMENT. PT DENIES DISCHARGE NEEDS FOR DISCHARGE HOME, REPORTS HIS WILL PICK HIM UP FOR DISCHARGE HOME.. BUCK ASKED THAT CM NOTIFY [employer] THAT CM USED HER FOR SIGN LANGUAGE INTERPRETATION. CM NOTIFIED MANAGER INTEGRATED ARNIE OF SOFTWARE PERFORMANCE ENGINEER PRESENCE IN ROOM AND THAT CM USED BUCK FOR INTERPRETATION FROM APPROXIMATELY 1605 HOURS TO APPROXIMATELY 1615 HOURS. CM RETURNED TO ROOM, IMPORTANT MESSAGE FROM MEDICARE PROVIDED AND EXPLAINED. Railroad Commissioner: Zenon Winters DCPIA - Discharge Planning Initial Assessment Updated by [id number]: Zenon Winters on 02/10/20 4:31 pm * Is the patient Alert and Oriented? Yes * How many steps to enter\exit or inside your home? RAMP * PCP DR. GALLAGHER * Pharm[facility] IN [place] * Preadmission Environment Home with Family * ADLs Independent * Equipment Rolling Walker * Other Equipment ROLLATOR WALKER FROM [facility] * List name and contact numbers for known caregivers / representatives who currently or will assist patient after discharge: SHASHI MAO, SPOUSE, OR VIDEO/INTERPETER PHONE [phone] PRATIBHA BHAT DTR, * Verbal permission to speak to the caregivers and representatives has been obtained from the patient. N/A * Community resources currently utilized Other * Please name any agencies selected above. [employer] NURSE VISITS AT HOME * Additional services required to return to the preadmission environment? No * Can the patient safely return to the preadmission environment? Yes * Has this patient been hospitalized within the prior 30 days at any hospital? No Coverage Notice Reviewer: [id number] - Zenon Winters Notice Issued Date-Time: 02/10/2020 16:30 Notice Type: IM Discharge Notice Notice Delivered To: Patient Relationship to Patient: Air Crew Member Name: Delivery Method: HAND - Hand Delivered Vita Days: Prior Verbal Notification: Recipient Understood Notice: Yes Recipient Signature: Yes Med Rec Note Co-signed by Attending: Coverage Notice Comment: Reviewer: [id number] - Zenon Winters Notice Issued Date-Time: 02/15/2020 14:50 Notice Type: IM Discharge Notice Notice Delivered To: Patient Relationship to Patient: Air Crew Member Name: Delivery Method: HAND - Hand Delivered Vita Days: Prior Verbal Notification: Recipient Understood Notice: Yes Recipient Signature: Yes Med Rec Note Co-signed by Attending: Coverage Notice Comment: Last DP export: 02/10/20 3:48 p Patient Name: ZAYRA MAO Page 49589 at 1459 All edits/amendments must be made on the electronic document DICTATION DATE: 02/15/201457 FRONT COUNTER ATTENDANT: SUJIT 02/15/201457 RPT#: [id number] DC DATE: STATUS: ADM IN [facility] [address] [place] [address] END OF REPORT
--- NOTE | 2020-02-15 15:02 | NUR ---
WALK TEST DONE. 99% ON ROOM AIR AMBULATING.
[2020-02-15 15:03] VITALS: BP 146/98
--- NOTE | 2020-02-15 17:10 | NUR ---
IV AND TELEMETRY DCD. DC PLANS GIVEN. UNDERSTANDING VOICED. ESCORTED TO CAR BY W/C.
== END 2020-02-15 17:11 | disposition home or self-care, planned readmission (81) | DRG 441 ==
LOC: D.ER 16:55 → D.M2 21:01 → OBSVTIME 21:01 → D.M2 21:01
PROVIDERS: Emergency Medicine; Family Medicine; Radiology Diagnostic Radiology; Radiology Vascular & Interventional Radiology; ADMIT Internal Medicine Nephrology; ATTEND Internal Medicine Nephrology
PROC: 0W9G3ZZ Drainage of Peritoneal Cavity, Percutaneous Approach (ICD-10-PCS; principal; 2020-02-04 11:15)
PROC: 0W9G3ZZ Drainage of Peritoneal Cavity, Percutaneous Approach (ICD-10-PCS; 2020-02-10)
DX: K72.00 Acute and subacute hepatic failure without coma (principal); I50.33 Acute on chronic diastolic (congestive) heart failure; N17.9 Acute kidney failure, unspecified; R18.8 Other ascites; E87.1 Hypo-osmolality and hyponatremia; D61.818 Other pancytopenia; K74.60 Unspecified cirrhosis of liver; D47.2 Monoclonal gammopathy; J44.9 Chronic obstructive pulmonary disease, unspecified; D64.9 Anemia, unspecified; G47.33 Obstructive sleep apnea (adult) (pediatric); E11.40 Type 2 diabetes mellitus with diabetic neuropathy, unspecified; I11.0 Hypertensive heart disease with heart failure

== ENCOUNTER 2020-02-17 05:16 | Inpatient (IN) | payer MEDICARE ==
[~2020-02-17] VITALS: Ht 180.3 cm
[2020-02-17] VITALS (7 sets, daily range): BP systolic 88–108; BP diastolic 48–57; BMI 26.1; BMI 26.0
--- NOTE | ~2020-02-17 | HEMODYNAMI ---
PATIENT:ZAYRA MAO MEDICAL RECORD: [id number] : 38 [facility] [id number] ADMISSION DATE: 02/17/20 Generatedon:02/17/202012:25 Patient name: ZAYRA MAO Patient #: [id number] SSN: : Date of study: 02/17/2020 Page: Of Hemodynamic Procedure Report Patient Data Patient Demographics Procedure consent was obtained First Name: ZAYRA Gender: Male Last Name: MAYCO : 1940 [facility] Initial: LG Age: 79 year(s) Patient #: [id number] Race: Unknown Additional ID: [id number] Contact details Address: [facility] [address] State: [place] City: [place] Zip code: [address] Past Medical History Allergies Allergen Reaction Date Comments Reported Other allergy 02/17/2020 influenza virus vaccine Admission Admission Data Admission Date: 02/17/2020 Admission Time: 5:16 Procedure Procedure Types Cath Procedure Peripheral Cath Diagnostic Procedure Liver TIPSS Procedure Description Procedure Date Procedure Date: 02/17/2020 Procedure Start Time: 9:47 Procedure End Time: 12:24 Procedure Staff Name Function Tucker Herrera MD Performing Physician Sathish Spangler MD Performing Physician RICK MALLOY RT Monitor Garland Dumas RT Scrub Radha Brown RN Nurse Pradeep Williamson CRNA Additional personnel Procedure Data Cath Procedure Fluoroscopy Diagnostic fluoroscopy Total fluoroscopy Time: time: 54.2 min 54.2 min Diagnostic fluoroscopy Total fluoroscopy dose: dose: 2713 mGy 2713 mGy Contrast Material Contrast Material Type Amount (ml) Isovue 300 165 Entry Location Entry Primary Successful Side Size Upsize Upsize Entry Closure Succes sful Closure Location (Fr) 1 (Fr) 2 (Fr) Remarks Device Remarks Jugular Right 6 Fr vein Short Abdominal Right 5 Fr area Diagnostic catheters Device Type Used For End Catheter Placement Merit Impress COBRA 2 5Fr 65CM catheter ([id number]) DIAGNOSTIC MPA-2 5Fr catheter ([id number]) Procedure Medications Medication Administration Route Dosage Rocephin I.V. 2 g Heparin Flush Bag added to field 3 bags (1000units/500ml NS) Lidocaine 1% added to field 20 unlisted medication 50 Hemodynamics Rest Pre Cath Intra NCS Post Cath Medications Time Medication Route Dose Verified Delivered Reason Notes Effe ctiveness by by 9:34:16 Rocephin I.V. 2 g Tucker Garcia Per Kevin Herrera RN protocol 9:34:35 Heparin Flush added 3 Tucker Ceballos used for Bag to bags Javier Herrera MD procedure (1000units/500ml field TALBERT NS) 9:34:50 Lidocaine 1% added 20ml Tucker Ceballos for local to vial Javier Herrera MD anesthetic field 10:18:02 albumin iv 50gm Tucker Spangler Per MD Javier physician Procedure Log Time Note 9:13:45 Garland Alesia RT (R) (CV) sent for patient. Start room use. 9:13:47 Time tracking: Regular hours (M-F 7:00 - 5:00) 9:13:52 Plan of Care:Hemodynamics will remain stable., Cardiac rhythm will remain stable., Comfort level will be maintained., Respiratory function will remain adequate., Patient/ family verbilizes understanding of procedure., Procedure tolerated without complication., Recovers from procedure without complications.. 9:14:06 Patient received from Outpatients to IR Alert and oriented. Tansferred to table in Supine position. 9:14:08 Signed procedure consent form obtained from patient. 9:14:09 Warm blankets applied, and christa hugger turned on for patient comfort. 9:14:10 Correct patient and procedure confirmed by team. 9:14:12 ECG and BP/O2 sat monitors applied to patient. 9:14:16 - 9:14:23 H&P Date Dictated: 02/17/2020 H&P Addendum completed by physician on day of procedure. (MUST COMPLETE FOR ALL OUTPATIENTS). 9:14:26 Pre-procedure instructions explained to patient. 9:14:26 Pre-op teaching completed and patient verbalized understanding. 9:15:15 Family in waiting room. 9:15:20 Patient NPO since Midnight. 9:15:42 Patient allergic to Other allergyinfluenza virus vaccine 9:15:44 Is the patient allergic to Iodine/contrast media? No. 9:16:03 Is patient on blood thinner?No 9:16:06 Patient diabetic? Yes. 9:16:09 - 9:16:14 ----see anesthesia note for Pre-sedation anethsthesia assessment.---- 9:16:41 - 9:34:16 Rocephin 2 g I.V. was administered by Radha Brown RN; Per protocol; Verbal order read back and verified. 9:34:35 Heparin Flush Bag (1000units/500ml NS) 3 bags added to field was administered by Tucker Herrera MD; used for procedure; Verbal order read back and verified. 9:34:50 Lidocaine 1% 20ml vial added to field was administered by Tucker Herrera MD; for local anesthetic; Verbal order read back and verified. 9:45:14 Physician arrived 9:45:14 --------ALL STOP TIME OUT------ 9:45:47 KIT, TRANSJUGULAR LIVER ACCESS R opened to sterile field. 9:46:59 Pradeep Williamson CONSTRUCTION SALES MANAGER present and monitoring patient for TIVA. 9:47:09 Procedure started. 9:47:10 Full Disclosure recording started 9:47:30 Local anesthetic to Left Abdomen with Lidocaine 1% by Tucker Herrera MD.INITIAL ACCESS ONLY 9:47:53 - 9:47:57 Use device set IR Diagnostic 9:47:58 ACIST Syringe (71639) opened to sterile field. 9:47:58 ACIST Hand Control (35198) opened to sterile field. 9:47:58 ACIST Manifold (57239) opened to sterile field. 9:47:59 Bag Decanter () opened to sterile field. 9:47:59 Sterile Angiographic Pack opened to sterile field. 9:48:00 Tegaderm 4 x 4 (1626W) opened to sterile field. 9:48:02 - 9:54:54 Local anesthetic to right IJ vein with Lidocaine 1% by Tucker Herrera MD.ADDITIONAL ACCESS 9:55:10 A 6 Fr Short sheath was inserted into the Right Jugular vein 9:57:45 GLIDE CATHETER 5FR ANGLED 65cm (CG507) opened to sterile field. 9:57:46 GLIDE WIRE .038 180cm ANGLED (NM6696) opened to sterile field. 9:58:10 A 5 Fr sheath was inserted into the Right Abdominal area 10:02:40 A Merit Impress COBRA 2 5Fr 65CM catheter ([id number]) was advanced over the wire. 10:06:07 TORQUE DEVICE PLASTIC .038 ( TD01) opened to sterile field. 10:09:09 A DIAGNOSTIC MPA-2 5Fr catheter ([id number]) was advanced over the wire. 10:18:02 albumin 50gm iv was administered by Sathish Spangler MD; Per physician; Verbal order read back and verified. 10:36:35 AMPLATZ Super stiff 180cm wire ([id number]) opened to sterile field. 10:37:34 Angel 5Fr embolectomy catheter opened to sterile field. 10:57:09 BENTSON 145cm wire (X30431) opened to sterile field. 11:21:15 CHIBA 18 X 15 needle opened to sterile field. 11:21:15 NITINOL .018 80cm wire ([id number]) opened to sterile field. 11:37:44 BENTSON 145cm wire (G78924) opened to sterile field. 12:04:57 AMPLATZ Super stiff 180cm wire ([id number]) opened to sterile field. 12:07:09 KIT, TRANSJUGULAR LIVER ACCESS R opened to sterile field. 12:21:33 Procedure ended.(Physican Out) 12:21:53 Fluoroscopy time 54.20 minutes. 12:22:00 Flurop Dose total: 2713 12:22:00 Fluoroscopy dose: 2713 mGy 12:22:04 Contrast amount:Isovue 300 165ml. 12:23:05 Insertion/operative site no bleeding no hematoma. 12:23:09 Post procedure instruction explained to patient.Patient verbalizes understanding. 12:23:24 Procedure and supply charges have been captured, reviewed, submitted an d are correct. 12:24:48 Operative report dictated upon procedure completion. 12:24:49 See physician's report for complete and final results. 12:24:51 Procedure ended. 12:24:51 Full Disclosure recording stopped Device Usage Item Name Manufacture Quantity Catalog Hospital Part Current Minimal Lot# / Number Charge Number Stock Stock Serial# Code SUZI, D1G 2 [id number] [id number] 5 TRANSJUGULAR LIVER ACCESS R ACIST Acist 1 94965 280337 529793 100655 20 Syringe Medical (38357) Systems Inc ACIST Hand Acist 1 23007 559399 820320 881806 5 Control Medical (66100) Systems Inc ACIST Acist 1 18273 240415 998076 846492 5 Manifold Medical (07273) Systems Inc Bag Decanter Microtek 1 2001S 537561 09615 793151 5 () Medical Inc. Sterile Cardinal 1 [id number] 209672 912010 5 Angiographic Health Pack Tegaderm 4 x 3M 1 1626W 117604 335061 004353 5 4 (1626W) GLIDE Terumo 1 CG507 542213 864686 5 CATHETER 5FR ANGLED 65cm (CG507) GLIDE WIRE Terumo 1 QY7884 998567 510086 5 .038 180cm ANGLED (YF3939) GLIDE Terumo 1 CG503 771873 244174 5 CATHETER 5FR COBRA 100cm (CG503) Merit Merit 1 [id number] 218913 808837 762853 5 Impress Medical COBRA 2 5Fr 65CM catheter ([id number]) TORQUE [place] 1 TD01 475514 503964 168453 5 DEVICE Scientific PLASTIC .038 ( TD01) DIAGNOSTIC Cardinal 1 [id number] 625252 997742 677922 5 MPA-2 5Fr Health catheter (672129P) DIAGNOSTIC Cardinal 1 533548 998674 355336 232905 5 Supertotrque Health MPA-2 5Fr (232823) AMPLATZ [place] 2 [id number] 445910 026332 677244 5 Super stiff Scientific 180cm wire ([id number]) Angel 5Fr Patel 1 [id number] 296297 278689 5 embolectomy Lifesciences catheter BENTSON Cook Medical 2 E35611 679137 978953 5 145cm wire (N58370) CHIBA 18 X Cook Medical 1 J79052 862331 036941 5 15 needle NITINOL .018 Medtronic 1 E315500 842962 634018 5 80cm wire (U255984) Signature Audit [place] Stage Time Signature Unsigned Intra-Procedure 02/17/2020 RICK MALLOY RT 12:25:38 PM (R) [id number] [place] [address]
[~2020-02-17 05:16] MED LIST changes: +ALDACTONE50 MG PO; +CHRONULAC30 ML PO; +CYANOCOBAL1000 MCG/4 SC
[2020-02-17 05:56] LABS: BASOPHILS 0.5 % (0-2); EOSINOPHILS 2.9 % (0-7); HEMATOCRIT 31.8 % (42.0-54.0); HEMOGLOBIN 10.4 g/dL (13.5-17.5); IMMATURE GRANULOCYTES 0.8 % (0-5); LYMPHOCYTES 13.5 % (15-50); MCH 30.1 pg (26.0-34.0); MCHC 32.7 g/dL (31.0-37.0); MCV 91.9 fL (80.0-100.0); MEAN PLATELET VOLUME 8.7 fL (7.4-10.4); NEUTROPHILS 66.3 % (40-80); RBC 3.46 10x6/uL (4.20-6.10); RDW 16.5 % (11.5-14.5); WBC 5.9 10x3/uL (4.8-10.8)
[2020-02-17 05:58] LABS: PLATELET COUNT 253 10x3/uL (130-400)
[2020-02-17 06:06] LABS: CALCIUM 9.3 mg/dL (8.5-10.1); CARBON DIOXIDE 29.9 mmol/L (21.0-32.0); CREATININE - SERUM 1.4 mg/dL (0.6-1.3); POTASSIUM - SERUM 4.9 mmol/L (3.5-5.1)
[2020-02-17 06:11] LABS: APTT 27.5 SECONDS (22.8-39.4); INR 1.09 (0.85-1.17); PROTIME 14.1 SECONDS (11.6-15.0)
[2020-02-17 07:26] LABS: ALBUMIN 2.7 g/dL (3.4-5.0); BILIRUBIN - DIRECT 0.51 mg/dL (0.00-0.30); BILIRUBIN - INDIRECT 1.05 mg/dL (0.00-1.00); BILIRUBIN - TOTAL 1.56 mg/dL (0.2-1.3)
--- NOTE | 2020-02-17 12:35 | NUR ---
8607-PAVILION CUTTER HERE, HEARING IMPAIRED.
--- NOTE | 2020-02-17 16:06 | NUR ---
1600- STATES ABD HURTING, PATIENT SHAKING. IVF EMPTY. BP IS NOW 77/41. 2ND LITER OF IVF HUNG. ORAL TEMP 97.5. O2 SAT IS 90, O2 PER NC INCREASED TO 3L. ERASMO HINES.
[2020-02-17 16:34] LABS: BASOPHILS 0.3 % (0-2); EOSINOPHILS 0.9 % (0-7); HEMOGLOBIN 11.4 g/dL (13.5-17.5); IMMATURE GRANULOCYTES 0.4 % (0-5); LYMPHOCYTES 11.3 % (15-50); MCH 30.4 pg (26.0-34.0); MCHC 32.6 g/dL (31.0-37.0); MCV 93.3 fL (80.0-100.0); MEAN PLATELET VOLUME 8.8 fL (7.4-10.4); MONOCYTES 3.1 % (2-11); RBC 3.75 10x6/uL (4.20-6.10); RDW 16.5 % (11.5-14.5)
--- NOTE | 2020-02-17 16:35 | NUR ---
1625 PT C/O KONSTANTIN ACHE, IS SHIVERING AND BP DOWN TO 87/42. FLUID BOLUS BEGUN. DR. OLSON AT BEDSIDE. CBC DRAWN. 25 MG DEMEROL GIVENIV AND SHIVERING CEASED. BP NOW 97/52, HR 88, AND SAT 96 ON 4L NOW. INFORMED IN WRITING OF PROCEDURES AND PLAN TO KEEP OVERNIGHT
[2020-02-17 16:40] LABS: PLATELET COUNT 307 10x3/uL (130-400); WBC 12.1 10x3/uL (4.8-10.8)
--- NOTE | 2020-02-17 18:04 | NUR ---
PT ARRIVED TO UNIT IN OUTPATIENT BED. TRANSFERRED OVER TO ICU BED WITHOUT COMPLICATION. PT ON 2L NC SATTING 94%. HOOKED UP TO ICU MONITOR. HEART RATE 91 AND BP 108/54. DRESSINGS NOTED ON RT NECK AND RT LATERAL SIDE. BOTH CDI. PIV LEFT HAND. NORMAL SALINE GOING AT KVO RATE OF 5. PT DEAF BUT CAN COMMUNICATE WITH WHITE BOARD. PT RESTING IN BED. NO COMPLAINTS NOTED. WILL CONTINUE TO MONITOR
--- NOTE | 2020-02-17 19:00 | NUR ---
ASSESSMENT COMPLETED. LAYING IN BED. EYES CLOSED. EASILY WAKES. STATES HE IS SLEEPY. DENIES ANY NEEDS. O2 AT 2L VIA NC. DRESSING CDI TO RIGHT NECK AND RIGHT LATERAL ABD. CALL LIGHT IN REACH
--- NOTE | 2020-02-17 21:00 | NUR ---
EASILY WAKES. SBP IN 90'S. DENIES ANY NEEDS.
[2020-02-17 22:19] LABS: HEMATOCRIT 35.2 % (42.0-54.0); HEMOGLOBIN 11.8 g/dL (13.5-17.5)
--- NOTE | 2020-02-17 23:00 | NUR ---
BP 88/49, MAP 61. NOTIFIED DR. EVERETT, [employer] ADVANCED OPERATOR MAINTAINER FOR RADIOLOGY. ORDER FOR H&H AND CALL DR. PONCE. CALL DR. PONCE AND ORDER FOR 500 ML BOLUS NOW
[2020-02-18] VITALS (17 sets, daily range): BP systolic 85–130; BP diastolic 47–70
--- NOTE | 2020-02-18 01:00 | NUR ---
BP CONT TO FLUCTUATE. DENIES ANY NEEDS.
--- NOTE | 2020-02-18 01:50 | NUR ---
BP 85/48, MAP 57. CALLED DR. PONCE, NEW ORDER FOR ANOTHER 500 ML BOLUS NOW.
--- NOTE | 2020-02-18 03:00 | NUR ---
RE-ASSESSMENT COMPLETED. NO CHANGES SINCE LAST ASSESSMENT
[2020-02-18 03:30] LABS: HEMATOCRIT 34.1 % (42.0-54.0); HEMOGLOBIN 11.6 g/dL (13.5-17.5); MCH 31.4 pg (26.0-34.0); MCV 92.4 fL (80.0-100.0); MEAN PLATELET VOLUME 8.7 fL (7.4-10.4); PLATELET COUNT 296 10x3/uL (130-400); RBC 3.69 10x6/uL (4.20-6.10); RDW 16.5 % (11.5-14.5); WBC 22.6 10x3/uL (4.8-10.8)
[2020-02-18 03:41] LABS: APTT 31.7 SECONDS (22.8-39.4)
[2020-02-18 03:46] LABS: INR 1.4 (0.85-1.17); PROTIME 17.1 SECONDS (11.6-15.0)
[2020-02-18 03:47] LABS: LYMPHOCYTES 8 % (15-50); MONOCYTES 6 % (2-11); NEUTROPHILS 86 % (40-80); PLATELET ESTIMATE NORMAL
[2020-02-18 03:48] LABS: ALBUMIN 2.4 g/dL (3.4-5.0); ANION GAP 11.5 mmol/L (8-16); CALCIUM 8.7 mg/dL (8.5-10.1); CARBON DIOXIDE 23.9 mmol/L (21.0-32.0); MAGNESIUM - SERUM 1.9 mg/dL (1.8-2.4); PHOSPHOROUS 4.3 mg/dL (2.5-4.9); POTASSIUM - SERUM 5.4 mmol/L (3.5-5.1); PROTEIN - SERUM 5.9 g/dL (6.4-8.2)
[2020-02-18 03:49] LABS: CREATININE - SERUM 1.8 mg/dL (0.6-1.3)
--- NOTE | 2020-02-18 05:00 | NUR ---
VSS. CALL LIGHT IN REACH. DENIES ANY NEEDS. ORAL CARE AND REPOSITIONED
--- NOTE | 2020-02-18 10:12 | NUR ---
0700 REPORT RECIEVED AND CARE ASSUMED OF PATIENT.. PT IS DEAF.. COMMUNICATION THRU WRITING AND PT RESPONDS APPROPRIATLY... PATIENT STATES THAT PAIN IS AN 8-9 ON 1-10 SCALE ... DR ROSARIO LAZARO NOTIFIED OF PAIN ISSUE.. 0800 MIRIANKOFI PONCE IN TO SEE PT.. UPDATE IS GIVEN.. NOTES WRITTEN TO PATIENT EXPLAINING HIS CARE.. 08 DR EVERETT IR CALLED INTO UNIT PT UPDATE IS GIVEN AND CT SCAN ORDERED FOR ABDOMINAL PAIN AND ANTIBIOTICS ORDERED FOR INCREASED WBC... NOTES WRITTEN TO TO INFORM HIM, PT IS WITHOUT QUESTIONS..PT IS HELD NPO AT THIS TIME PENDING THE CT SCAN..
--- NOTE | 2020-02-18 13:57 | NUR ---
0900 CT STAFF IN AND BROUGHT PT CONTRAST TO DRINK.. COMMUNICATING WITH PATIENT VIA WRITTEN NOTES.. 0930 PT HAS CONSUMED ALL OF CONTRAST.. 1010 DR EVERETT IN TO SEE PT.. HE IS ALSO COMMUNICATIN G WITH PT VIA WRITTEN NOTES.. PT UNDERSTANDS CT SCAN PT STATES HE CAN USE THE INTERPURTER IF NECESSARY.. 1015 HOUSE SUPER CALLED AND INFORMED OF POSSIBLE PATIENT NEED FOR INTERPRETURE WILL NOTIFY IF NECESSARY POST CT SCAN [address] SCAN VIA BED.. 1110 CT SCAN IS NORMAL PER DR EVERETT... VOICE ORDER RECIEVED OK TO TRANSFER TO THE FLOOR AND OK TO EAT 1200 PT NOT WANTING TRAY DID ACCEPT FULL LIQUIDS.. TAKEN WITHOUT DIFFICULTY.. FSBS WNL NO INSULIN COVER 1300 DR PONCE IN TO SEE PT.. OK TO TRANSFER TO THE FLOOR.. IR DOC IS THE ADMITTING 1400 PT IS SLEEPING AT TIS TIME.. 1410 ALLED USING AN INTERPRETUR LINE AND UP DATE IS CHALO
--- NOTE | 2020-02-18 16:12 | NUR ---
1540 ROOM 2107 OBTAINED ON THE FLOOR.. REPORT CALLED TO KIMBERLY MUELLER LPN.. 1600 MED GIVEN AND PT INFORMED OF ROOM TRANSFER NUMBER..
--- NOTE | 2020-02-18 16:40 | NUR ---
1630 FSBS DONE WITH INSULIN COVER.. DIET SERVED FEEDING SELF.. FLOOR CALLED THEY ARE READY FOR THE PATIENT WILL WAIT UNTIL PT FINISHES DINNER..
--- NOTE | 2020-02-18 17:00 | NUR ---
PT ARRIVED FROM ICU VIA BED. TRANSFERED WITH ASSIST TO OTHER BED. TAVAREZ NOTED WITH DARK NITA URINE. WATER RECIEVED PER REQUEST. DENIES FURTHER NEEDS OR PAIN AT THIS TIME. BED IN LOWEST POSITION. PT ORIENTED TO ROOM. CALL LIGHT WTIHIN REACH. WILL CONTINUE TO MONITOR.
--- NOTE | 2020-02-18 19:30 | NUR ---
RECEIVED REPORT, WILL ASSUME CARE OF PT, DENIES ANY NEEDS AT THIS TIME, BED IS LOW, SRX2, CALL LIGHT IN REACH, WILL CONTINUE PLAN OF CARE
--- NOTE | 2020-02-18 21:00 | NUR ---
BS-146-NO COVERAGE NEEDED
--- NOTE | 2020-02-19 01:11 | NUR ---
I have reviewed this patient and I concur with the Shift Assessment completed by the Licensed Practical Nurse today this shift.
[2020-02-19 04:53] LABS: BASOPHILS 0 % (0-2); EOSINOPHILS 0 % (0-7); HEMATOCRIT 30.2 % (42.0-54.0); IMMATURE GRANULOCYTES 0.5 % (0-5); LYMPHOCYTES 2.4 % (15-50); MCH 30.4 pg (26.0-34.0); MCHC 33.1 g/dL (31.0-37.0); MCV 91.8 fL (80.0-100.0); MEAN PLATELET VOLUME 8.6 fL (7.4-10.4); MONOCYTES 10.5 % (2-11); NEUTROPHILS 86.6 % (40-80); PLATELET COUNT 209 10x3/uL (130-400); RBC 3.29 10x6/uL (4.20-6.10); RDW 16.3 % (11.5-14.5); WBC 20.2 10x3/uL (4.8-10.8)
[2020-02-19 04:58] LABS: PROTIME 20.1 SECONDS (11.6-15.0)
[2020-02-19 05:01] LABS: INR 1.74 (0.85-1.17)
[2020-02-19 05:04] LABS: ANION GAP 14.5 mmol/L (8-16); BILIRUBIN - TOTAL 3.04 mg/dL (0.2-1.3); CALCIUM 8.9 mg/dL (8.5-10.1); CARBON DIOXIDE 21.6 mmol/L (21.0-32.0); CREATININE - SERUM 1.6 mg/dL (0.6-1.3); MAGNESIUM - SERUM 2.1 mg/dL (1.8-2.4); POTASSIUM - SERUM 5.1 mmol/L (3.5-5.1)
--- NOTE | 2020-02-19 07:55 | NUR ---
ASSISTED SITTING UP FOR BREAKFAST. RR EVEN AND UNLABORED. DENIES NEEDS OR PAIN AT THIS TIME. CALL LIGHT WITHIN REACH. BED IN LOWEST POSITION. WILL CONTINUE TO MONITOR.
--- NOTE | 2020-02-19 08:40 | MORECARE ---
CASE MANAGEMENT DISCHARGE SUMMARY PATIENT: ZAYRA MAO UNIT: [id number] ADM DATE: 02/17/20 AGE: 79 : 39 SEX: M ROOM/BED: D.210 AUTHOR: FREDY COBURN PHYSICIAN: REFERRING PHYSICIAN: EITAN OLSON MD DATE OF SERVICE: 02/19/20 Discharge Plan Patient Name: [facility]AY[facility]O [facility] 1940 Planned Disposition: Anticipated Discharge Date: Discharge Date: Expected LOS: 0 Initial Reviewer: [email or web address] Initial Review Date: 02/19/2020 Generated: 02/19/20 9:39 am DCP- Discharge Planning Updated by [email or web address]: Kaleigh Saini on 02/18/20 2:[address] GALARZA EXPLAINED ORIGINAL PROVIDED. COPY PLACED ON CHART. External Providers External Provider: OTHER-OTHER Next Contact Date: Service Request Date: Service Type: Resolution: Reviewer: Comments: Coverage Notice Reviewer: [email or web address] - Kaleigh Saini Notice Issued Date-Time: 02/18/2020 8:30 Notice Type: Medicare Outpatient Observation Notice Notice Delivered To: Patient Relationship to Patient: Claims Sorter Name: Delivery Method: HAND - Hand Delivered Vita Days: Prior Verbal Notification: Recipient Understood Notice: Yes Recipient Signature: Yes Med Rec Note Co-signed by Attending: Coverage Notice Comment: GALARZA EXPLAINED ORIGINAL PROVIDED. COPY PLACED ON CHART. Patient Name: ZAYRA MAO Page [phone] at 0840 All edits/amendments must be made on the electronic document DICTATION DATE: 02/19/20838 RIVET DRIVER: SUJIT 02/19/20 0839 RPT#: [id number] DC DATE: STATUS: REG [facility] [address] [place] [address] END OF REPORT
[2020-02-19 09:12] VITALS: BP 117/53
--- NOTE | 2020-02-19 11:08 | NUR ---
PT HAD LARGE BM X1. BED BATH RECIEVED. LINENS AND GOWN CHANGED. ICE WATER RECIEVED PER REQUEST. TAVAREZ CARE PERFORMED. DENIES FURTHER NEEDS OR PAIN AT THIS TIME. CALL LIGHT WITHIN REACH. BED IN LOWEST POSITION. WILL CONTINUE TO MONITOR.
--- NOTE | 2020-02-19 17:43 | NUR ---
LARGE BM X2. LINENS AND GOWN CHANGED. DENIES FURTHER NEEDS OR PAIN AT THIS TIME. CALL LIGHT WITHIN REACH. BED IN LOWEST POSITION. BLANCHABLE REDNESS TO COCCYX, MEPILEX APPLIED. WILL CONTINUE TO MONITOR.
--- NOTE | 2020-02-19 17:46 | NUR ---
I have reviewed this patient and I concur with the Shift Assessment completed by the Licensed Practical Nurse today this shift.
--- NOTE | 2020-02-19 19:10 | NUR ---
BEDSIDE REPORT RECEIVED, PT CARE ASSUMED. INTRODUCED SELF AND WROTE NAME ON BOARD. PT SITTING UP IN BED, WATCHING TV, AAOX4. DENIES ANY NEEDS AT THIS TIME. BED IN LOWEST POSITION, SR X2, CALL LIGHT WITHIN REACH. WILL CONTINUE TO MONITOR.
[2020-02-19 20:00] VITALS: BP 125/63
[2020-02-20 06:24] LABS: BASOPHILS 0.1 % (0-2); EOSINOPHILS 0.1 % (0-7); HEMOGLOBIN 8.9 g/dL (13.5-17.5); IMMATURE GRANULOCYTES 0.4 % (0-5); LYMPHOCYTES 2.2 % (15-50); MCH 30.3 pg (26.0-34.0); MCV 91.8 fL (80.0-100.0); MEAN PLATELET VOLUME 8.8 fL (7.4-10.4); MONOCYTES 7.1 % (2-11); NEUTROPHILS 90.1 % (40-80); PLATELET COUNT 192 10x3/uL (130-400); RBC 2.94 10x6/uL (4.20-6.10); RDW 16.1 % (11.5-14.5); WBC 18.6 10x3/uL (4.8-10.8)
[2020-02-20 06:30] LABS: ALBUMIN 1.8 g/dL (3.4-5.0); ANION GAP 14.8 mmol/L (8-16); BILIRUBIN - TOTAL 3.98 mg/dL (0.2-1.3); CALCIUM 8.5 mg/dL (8.5-10.1); CARBON DIOXIDE 21.8 mmol/L (21.0-32.0); CREATININE - SERUM 1.3 mg/dL (0.6-1.3); MAGNESIUM - SERUM 1.9 mg/dL (1.8-2.4); PHOSPHOROUS 3.7 mg/dL (2.5-4.9); POTASSIUM - SERUM 4.6 mmol/L (3.5-5.1)
[2020-02-20 06:35] LABS: INR 1.42 (0.85-1.17); PROTIME 17.2 SECONDS (11.6-15.0)
[2020-02-20 07:36] VITALS: BP 121/63
[2020-02-20 09:24] VITALS: BMI 26.5
--- NOTE | 2020-02-20 09:51 | NUR ---
GAVE PT ZOFRAN IV AND AM MEDS. PT THEN VOMITED ALL MEDS WITH 600C OF BROWN AND RED TINTED LIQUID. PT ATE RED JELLO AND ALL OF BREAKSFAST THIS AM. SHOWED BLUE VOMIT BAG TO VANITA OLIVA.
[2020-02-20 11:55] VITALS: BP 138/68
[2020-02-20 13:15] LABS: BILIRUBIN NEGATIVE (NEGATIVE); GLUCOSE NEGATIVE (NEGATIVE); KETONE NEGATIVE (NEGATIVE); NITRITE NEGATIVE (NEGATIVE); UROBILINOGEN NORMAL (NORMAL)
[2020-02-20 13:16] LABS: BACTERIA MODERATE /hpf (NEGATIVE); EPITHELIAL CELLS 0-5 /hpf (0-5); GRANULAR CAST 0-5 /lpf (NONE SEEN); WHITE CELLS - URINE 0-5 /hpf (NEGATIVE)
[2020-02-20 13:32] VITALS: BP 123/66
--- NOTE | 2020-02-20 15:47 | MORECARE ---
CASE MANAGEMENT DISCHARGE SUMMARY PATIENT: ZAYRA MAO UNIT: [id number] ADM DATE: 02/19/20 AGE: 79 : 39 SEX: M ROOM/BED: D.2101 AUTHOR: FREDY COBURN PHYSICIAN: REFERRING PHYSICIAN: EITAN OLSON MD DATE OF SERVICE: 02/20/20 Discharge Plan Patient Name: [facility] 1940 Planned Disposition: Home Anticipated Discharge Date: Discharge Date: Expected LOS: 0 Initial Reviewer: [email or web address] Initial Review Date: 02/19/2020 Generated: 02/20/20 4:47 pm DCP- Discharge Planning Updated by [email or web address]: Kaleigh Saini on 02/18/20 2:[address] MICHELL EXPLAINED ORIGINAL PROVIDED. COPY PLACED ON CHART. Coverage Notice Reviewer: [id number] - Kaleigh Saini Notice Issued Date-Time: 02/18/2020 8:30 Notice Type: Medicare Outpatient Observation Notice Notice Delivered To: Patient Relationship to Patient: Product Management Intern Name: Delivery Method: HAND - Hand Delivered Vita Days: Prior Verbal Notification: Recipient Understood Notice: Yes Recipient Signature: Yes Med Rec Note Co-signed by Attending: Coverage Notice Comment: MICHELL EXPLAINED ORIGINAL PROVIDED. COPY PLACED ON CHART. Last DP export: 02/19/20 7:40 a Patient Name: ZAYRA MAO Page [phone] at 1547 All edits/amendments must be made on the electronic document DICTATION DATE: 02/20/20 1547 METAL CONTROL WORKER: SUJIT 02/20/20 1547 RPT#: [id number] DC DATE: STATUS: ADM IN [facility] [address] [place] [address] END OF REPORT
--- NOTE | 2020-02-20 15:55 | MORECARE ---
CASE MANAGEMENT DISCHARGE SUMMARY PATIENT: ZAYRA MAO UNIT: [id number] ADM DATE: 02/19/20 AGE: 79 : 39 SEX: M ROOM/BED: D.2103 AUTHOR: ALMAS,DOC PHYSICIAN: REFERRING PHYSICIAN: EITAN OLSON MD DATE OF SERVICE: 02/20/20 Discharge Plan Patient Name: ZAYRA MAO Facility: [facility]:[place] : 1940 Planned Disposition: Home Anticipated Discharge Date: Discharge Date: Expected LOS: 0 Initial Reviewer: [email or web address] Initial Review Date: 02/19/2020 Generated: 02/20/20 4:55 pm Comments DCP- Discharge Planning Updated by [email or web address]: Zenon Winters on 02/20/20 2:[address] Patient Name: ZAYRA MAO Admission Status: Elective Accout number: [id number] Admission Date: 02-19-2020 : 1940 Admission Diagnosis: Attending: EITAN OLSON Current LOS: 1 Anticipated DC Date: Planned Disposition: Home Primary Insurance: [employer] CHOICE PPO MCR ADVANT Discharge Planning Comments: CM MET WITH PT IN ROOM TO DISCUSS DISCHARGE PLANNING AND NEEDS. CM COMMUNICATED IN WRITING, PT VERBALLY RESPONDED. PT REPORTS LIVING AT HOME INDEPENDENTLY WITH HIS . PT HAS A ROLLATOR WALKER FROM [email or web address]. PT HAS A NURSE FROM HIS INSURANCE COMPANY THAT COMES OUT TO CHECK ON HIM. CM DISCUSSED AVAILABILITY OF HOME HEALTH, REHAB SERVICES AND MEDICAL EQUIPMENT. PT DENIES DISCHARGE NEEDS, REPORTS HIS WILL PICK HIM UP FOR DISCHARGE HOME PT PLANS TO DISCHARGE HOME WITH , HAS NO ANTICIPATED DISCHARGE NEEDS. FAMILY TO TRANSPORT HOME AT DISCHARGE. CM TO FOLLOW AND ASSIST IF NEEDED. Lumber Press Operator: Zenon Winters DCP- Discharge Planning Updated by [id number]: Kaleigh Saini on 02/18/20 2:[address] GALARZA EXPLAINED ORIGINAL PROVIDED. COPY PLACED ON CHART. DCPIA - Discharge Planning Initial Assessment Updated by [email or web address]: Zenon Winters on 02/20/20 3:47 pm * Is the patient Alert and Oriented? Yes * How many steps to enter\exit or inside your home? RAMP * PCP DR. OCTAVIA GALLAGHER * [facility]acy [facility] [place] * Preadmission Environment Home with Family * ADLs Independent * Equipment Rolling Walker * Other Equipment ROLLATOR WALKER FROM [employer] * List name and contact numbers for known caregivers / representatives who currently or will assist patient after discharge: SHASHI MAO, SPOUSE, OR VIDEO/LINEN SORTER PHONE [phone] PRATIBHA BHAT, DTR, * Verbal permission to speak to the caregivers and representatives has been obtained from the patient. N/A * Community resources currently utilized None * Please name any agencies selected above. NONE * Additional services required to return to the preadmission environment? No * Can the patient safely return to the preadmission environment? Yes * Has this patient been hospitalized within the prior 30 days at any hospital? Yes Coverage Notice Reviewer: [email or web address] Dale Saini Notice Issued Date-Time: 02/18/2020 8:30 Notice Type: Medicare Outpatient Observation Notice Notice Delivered To: Patient Relationship to Patient: Supervisor Pyrotechnic Loading Name: Delivery Method: HAND - Hand Delivered Vita Days: Prior Verbal Notification: Recipient Understood Notice: Yes Recipient Signature: Yes Med Rec Note Co-signed by Attending: Coverage Notice Comment: MICHELL EXPLAINED ORIGINAL PROVIDED. COPY PLACED ON CHART. Last DP export: 02/20/20 2:47 p Patient Name: ZAYRA MAO Page [phone] at 1555 All edits/amendments must be made on the electronic document DICTATION DATE: 02/20/20 1555 DISPATCH CLERK: SUJIT 02/20/20 1559 RPT#: [id number] DC DATE: STATUS: ADM IN [facility] [address] [place] [address] END OF REPORT
--- NOTE | 2020-02-20 17:10 | NUR ---
SPOKE WITH DR. BOCANEGRA THAT PT'S TEMP. IS NOW 99.1. HE STATES TO GIVE TYLENOL NOW AND AGAIN IN 8 HOURS. I VERBALIZED UNDERSTANDING. I ALSO STATED TO HIM PT HAS BEEN BELCHING AND STILL VERY NAUSEATED BUT HAS NOT VOMITED IN A COUPLE HOURS AND THAT I'M NOT SURE IF THE ZOFRAN IS WORKING FOR PT. HE STATES TO WATCH OVERNIGHT AND SEE IF THE ZOFRAN STARTS WORKING. I VERBALIZED UNDERSTANDING.
[2020-02-20 19:39] VITALS: BP 130/62
--- NOTE | 2020-02-21 03:32 | NUR ---
I have reviewed this patient and I concur with the Shift Assessment completed by the Licensed Practical Nurse today this shift.
[2020-02-21 04:55] VITALS: BP 115/59
[2020-02-21 06:20] LABS: BASOPHILS 0 % (0-2); EOSINOPHILS 0.2 % (0-7); HEMATOCRIT 25.2 % (42.0-54.0); HEMOGLOBIN 8.2 g/dL (13.5-17.5); IMMATURE GRANULOCYTES 0.6 % (0-5); MCH 30.1 pg (26.0-34.0); MCHC 32.5 g/dL (31.0-37.0); MCV 92.6 fL (80.0-100.0); MEAN PLATELET VOLUME 8.6 fL (7.4-10.4); MONOCYTES 10.8 % (2-11); NEUTROPHILS 86.4 % (40-80); PLATELET COUNT 176 10x3/uL (130-400); RBC 2.72 10x6/uL (4.20-6.10); RDW 15.8 % (11.5-14.5)
[2020-02-21 06:24] LABS: WBC 12.8 10x3/uL (4.8-10.8)
[2020-02-21 06:33] LABS: ALBUMIN 1.6 g/dL (3.4-5.0); ANION GAP 11.2 mmol/L (8-16); BILIRUBIN - TOTAL 3.88 mg/dL (0.2-1.3); CALCIUM 8.8 mg/dL (8.5-10.1); CARBON DIOXIDE 25.2 mmol/L (21.0-32.0); CREATININE - SERUM 1.4 mg/dL (0.6-1.3); MAGNESIUM - SERUM 1.8 mg/dL (1.8-2.4); PHOSPHOROUS 3.4 mg/dL (2.5-4.9); POTASSIUM - SERUM 4.4 mmol/L (3.5-5.1)
--- NOTE | 2020-02-21 07:29 | NUR ---
RECIEVED REPORT FROM FIXED INCOME PORTFOLIO MANAGER. PATIENT IS AWAKE AND ALERT AND DENIES ANY NEEDS AT THIS TIME.
[2020-02-21 08:45] VITALS: BP 114/58
--- NOTE | 2020-02-21 10:10 | NUR ---
PATIENT IS IN CT NOW.
[2020-02-21 12:46] VITALS: Ht 180.3 cm
[2020-02-21 13:53] LABS: % SATURATION 40 % (15-55); IRON 28 ug/dl (35-150); TOTAL IRON BIND CAPACITY 69 ug/dl (260-445)
[2020-02-21 13:55] LABS: UNSAT IRON BIND CAPACITY 41 ug/dl (150-375)
--- NOTE | 2020-02-21 14:30 | NUR ---
Rehab Note- Acute Inpatient Rehab prescreen order received. The patient has [employer] insurance and will require a PreAuth. He needs an OT Eval for PreAuth process, spoke w/ RAJI Connelly to obtain an OT Eval. Will follow at this time and initiate PreAuth when OT Eval is available. Thank you for this referral! Alena Schulz RN Clinical Liaison, [facility] Rehab
[2020-02-21 14:33] LABS: LDH 145 U/L (85-227)
[2020-02-21 14:36] LABS: FERRITIN 1336 ng/mL (3-244)
--- NOTE | 2020-02-21 15:03 | MORECARE ---
CASE MANAGEMENT DISCHARGE SUMMARY PATIENT: ZAYRA MAO UNIT: [id number] ADM DATE: 02/19/20 AGE: 79 : 39 SEX: M ROOM/BED: D.2100 AUTHOR: ALMAS,DOC PHYSICIAN: REFERRING PHYSICIAN: EITAN OLSON MD DATE OF SERVICE: 02/21/20 Discharge Plan Patient Name: ZAYRA MAO Facility: [facility]:[place] : 1940 Planned Disposition: Home with Home Health Anticipated Discharge Date: 02/22/20 Discharge Date: Expected LOS: 3 Initial Reviewer: [id number] Initial Review Date: 02/19/2020 Generated: 02/21/20 4:02 pm DCP- Discharge Planning Updated by [id number]: Zenon Winters on 02/20/20 2:[address] Patient Name: ZAYRA MAO Admission Status: Elective Accout number: [id number] Admission Date: 02-19-2020 : 1940 Admission Diagnosis: Attending: EITAN OLSON Current LOS: 1 Anticipated DC Date: Planned Disposition: Home Primary Insurance: HUMANA CHOICE PPO MCR ADVANT Discharge Planning Comments: CM MET WITH PT IN ROOM TO DISCUSS DISCHARGE PLANNING AND NEEDS. CM COMMUNICATED IN WRITING, PT VERBALLY RESPONDED. PT REPORTS LIVING AT HOME INDEPENDENTLY WITH HIS . PT HAS A ROLLATOR WALKER FROM [employer]. PT HAS A NURSE FROM HIS INSURANCE COMPANY THAT COMES OUT TO CHECK ON HIM. CM DISCUSSED AVAILABILITY OF HOME HEALTH, REHAB SERVICES AND MEDICAL EQUIPMENT. PT DENIES DISCHARGE NEEDS, REPORTS HIS WILL PICK HIM UP FOR DISCHARGE HOME PT PLANS TO DISCHARGE HOME WITH , HAS NO ANTICIPATED DISCHARGE NEEDS. FAMILY TO TRANSPORT HOME AT DISCHARGE. CM TO FOLLOW AND ASSIST IF NEEDED. Die Storage Clerk: Zenon Winters DCP- Discharge Planning Updated by [email or web address]: Kaleigh Saini on 02/18/20 2:[address] GALARZA EXPLAINED ORIGINAL PROVIDED. COPY PLACED ON CHART. DCPIA - Discharge Planning Initial Assessment Updated by [id number]: Zenon Winters on 02/20/20 3:47 pm * Is the patient Alert and Oriented? Yes * How many steps to enter\exit or inside your home? RAMP * PCP DR. OCTAVIA GALLAGHER * [facility] IN [place] * Preadmission Environment Home with Family * ADLs Independent * Equipment Rolling Walker * Other Equipment ROLLATOR WALKER FROM [employer] * List name and contact numbers for known caregivers / representatives who currently or will assist patient after discharge: SHASHI MAO, SPOUSE, OR VIDEO/HOT STONE SETTER PHONE [phone] PRATIBHA BHAT, DTR, * Verbal permission to speak to the caregivers and representatives has been obtained from the patient. N/A * Community resources currently utilized None * Please name any agencies selected above. NONE * Additional services required to return to the preadmission environment? No * Can the patient safely return to the preadmission environment? Yes * Has this patient been hospitalized within the prior 30 days at any hospital? Yes External Providers External Provider: [facility] Next Contact Date: 02/21/2020 Service Request Date: Service Type: Resolution: Reviewer: Comments: External Provider: OTHER-OTHER Next Contact Date: Service Request Date: Service Type: Resolution: Reviewer: Comments: Coverage Notice Reviewer: [id number] Dale Saini Notice Issued Date-Time: 02/18/2020 8:30 Notice Type: Medicare Outpatient Observation Notice Notice Delivered To: Patient Relationship to Patient: Insulation Batting Machine Operator Name: Delivery Method: HAND - Hand Delivered Vita Days: Prior Verbal Notification: Recipient Understood Notice: Yes Recipient Signature: Yes Med Rec Note Co-signed by Attending: Coverage Notice Comment: MICHELL EXPLAINED ORIGINAL PROVIDED. COPY PLACED ON CHART. Last DP export: 02/20/20 2:55 p Patient Name: ZAYRA MAO Page 77730 at 1503 All edits/amendments must be made on the electronic document DICTATION DATE: 02/21/20 1502 PUBLIC INFORMATION COORDINATOR: SUJIT 02/21/20 1502 RPT#: [id number] DC DATE: STATUS: ADM IN [facility] [address] [place] [address] END OF REPORT
--- NOTE | 2020-02-21 15:45 | MORECARE ---
CASE MANAGEMENT DISCHARGE SUMMARY PATIENT: ZAYRA MAO UNIT: [id number] ADM DATE: 02/19/20 AGE: 79 : 39 SEX: M ROOM/BED: D.2104 AUTHOR: ALMAS,DOC PHYSICIAN: REFERRING PHYSICIAN: EITAN OLSON MD DATE OF SERVICE: 02/21/20 Discharge Plan Patient Name: ZAYRA MAO Facility: [facility]:[place] : 1940 Planned Disposition: Home with Home Health Anticipated Discharge Date: 02/22/20 Discharge Date: Expected LOS: 3 Initial Reviewer: [id number] Initial Review Date: 02/19/2020 Generated: 02/21/20 4:45 pm Comments DCP- Discharge Planning Updated by [id number]: Zenon Winters on 02/21/20 2:[address] Patient Name: ZAYRA MAO Encounter No: [id number] : 1940 Primary Insurance: HUMANA CHOICE PPO MCR ADVANT Anticipated DC Date: 02-22-2020 Planned Disposition: Home with Home Health External Planned Provider[facility] DCP follow-up note: CM RECEIVED INPATIENT REHAB PRESCREENING ORDER, MET WITH PT IN ROOM TO DISCUSS REHAB OPTIONS, LOCATIONS AND PROVIDERS. ALL COMMUNICATION DONE IN WRITING, PT'S SPOUSE VIDEO CONFERENCED IN WITH PT DURING CONVERSATION. PT DECLINED INPATIENT REHAB AND GROUP HOME REHAB SERVICES. PT WANTS TO GO HOME WITH HOME HEALTH. PT'S PROVIDED CM WITH [employer] [facility] PHONE NUMBER, . CHOICE COMPLETED. CM CALLED AND SPOKE TO LYN OF [employer] [facility], , PROVIDED HOME HEALTH REFERRAL, CM [facility] AT [phone]. FOR DISCHARGE HOME WITH HOME HEALTH, NOTIFY [facility] AT [phone], FAX DISCHARGE INFORMATION TO [facility] AT [phone]. FAMILY TO TRANSPORT HOME. Zenon Winters CASE MANAGEMENT DCP- Discharge Planning Updated by [id number]: Zenon Winters on 02/20/20 2:[address] Patient Name: ZAYRA MAO Admission Status: Elective Accout number: [id number] Admission Date: 02-19-2020 : 1940 Admission Diagnosis: Attending: EITAN OLSON Current LOS: 1 Anticipated DC Date: Planned Disposition: Home Primary Insurance: HUMANA CHOICE PPO MCR ADVANT Discharge Planning Comments: CM MET WITH PT IN ROOM TO DISCUSS DISCHARGE PLANNING AND NEEDS. CM COMMUNICATED IN WRITING, PT VERBALLY RESPONDED. PT REPORTS LIVING AT HOME INDEPENDENTLY WITH HIS . PT HAS A ROLLATOR WALKER FROM [employer]. PT HAS A NURSE FROM HIS INSURANCE COMPANY THAT COMES OUT TO CHECK ON HIM. CM DISCUSSED AVAILABILITY OF HOME HEALTH, REHAB SERVICES AND MEDICAL EQUIPMENT. PT DENIES DISCHARGE NEEDS, REPORTS HIS WILL PICK HIM UP FOR DISCHARGE HOME PT PLANS TO DISCHARGE HOME WITH , HAS NO ANTICIPATED DISCHARGE NEEDS. FAMILY TO TRANSPORT HOME AT DISCHARGE. CM TO FOLLOW AND ASSIST IF NEEDED. Flour Tester: Zenon Winters DCP- Discharge Planning Updated by [id number]: Kaleigh Saini on 02/18/20 2:[address] GALARZA EXPLAINED ORIGINAL PROVIDED. COPY PLACED ON CHART. DCPIA - Discharge Planning Initial Assessment Updated by [id number]: Zenon Winters on 02/20/20 3:47 pm * Is the patient Alert and Oriented? Yes * How many steps to enter\exit or inside your home? RAMP * PCP DR. OCTAVIA GALLAGHER * [facility]acy [facility] IN [place] * Preadmission Environment Home with Family * ADLs Independent * Equipment Rolling Walker * Other Equipment ROLLATOR WALKER FROM [employer] * List name and contact numbers for known caregivers / representatives who currently or will assist patient after discharge: SHASHI MAO, SPOUSE, OR VIDEO/RIP MACHINE OPERATOR PHONE [phone] PRATIBHA BHAT DTR, * Verbal permission to speak to the caregivers and representatives has been obtained from the patient. N/A * Community resources currently utilized None * Please name any agencies selected above. NONE * Additional services required to return to the preadmission environment? No * Can the patient safely return to the preadmission environment? Yes * Has this patient been hospitalized within the prior 30 days at any hospital? Yes Coverage Notice Reviewer: [id number] - Kaleigh Saini Notice Issued Date-Time: 02/18/2020 8:30 Notice Type: Medicare Outpatient Observation Notice Notice Delivered To: Patient Relationship to Patient: Gis Professor Name: Delivery Method: HAND - Hand Delivered Vita Days: Prior Verbal Notification: Recipient Understood Notice: Yes Recipient Signature: Yes Med Rec Note Co-signed by Attending: Coverage Notice Comment: MICHELL EXPLAINED ORIGINAL PROVIDED. COPY PLACED ON CHART. Reviewer: [id number] Dale Winters Notice Issued Date-Time: 02/21/2020 14:50 Notice Type: IM Discharge Notice Notice Delivered To: Patient Relationship to Patient: Gis Professor Name: Delivery Method: HAND - Hand Delivered Vita Days: Prior Verbal Notification: Recipient Understood Notice: Yes Recipient Signature: Yes Med Rec Note Co-signed by Attending: Coverage Notice Comment: Reviewer: [id number] Winters Notice Issued Date-Time: 02/21/2020 14:30 Notice Type: Patient Choice Letter Notice Delivered To: Patient Relationship to Patient: Gis Professor Name: Delivery Method: HAND - Hand Delivered Vita Days: Prior Verbal Notification: Recipient Understood Notice: Yes Recipient Signature: Yes Med Rec Note Co-signed by Attending: Coverage Notice Comment: ACCEPTANCE: [facility] SAMINA REFUSAL: INPATIENT REHAB AND SNF REHAB Last DP export: 02/21/20 2:03 p Patient Name: ZAYRA MAO Page 98053 at 1545 All edits/amendments must be made on the electronic document DICTATION DATE: 02/21/201544 MOLD REPAIRER: SUJIT 02/21/201544 RPT#: [id number] DC DATE: STATUS: ADM IN [facility] [address] [place] [address] END OF REPORT
--- NOTE | 2020-02-21 15:52 | MORECARE ---
CASE MANAGEMENT DISCHARGE SUMMARY PATIENT: ZAYRA MAO UNIT: [id number] ADM DATE: 02/19/20 AGE: 79 : 39 SEX: M ROOM/BED: D.2100 AUTHOR: ALMAS,DOC PHYSICIAN: REFERRING PHYSICIAN: EITAN OLSON MD DATE OF SERVICE: 02/21/20 Discharge Plan Patient Name: ZAYRA MAO Facility: [facility]:[place] : 1940 Planned Disposition: Home with Home Health Anticipated Discharge Date: 02/22/20 Discharge Date: Expected LOS: 3 Initial Reviewer: [id number] Initial Review Date: 02/19/2020 Generated: 02/21/20 4:51 pm Comments DCP- Discharge Planning Updated by [email or web address]: Zenon Winters on 02/21/20 2:[address] Patient Name: ZAYRA MAO Encounter No: [id number] : 1940 Primary Insurance: HUMANA CHOICE PPO MCR ADVANT Anticipated DC Date: 02-22-2020 Planned Disposition: Home with Home Health External Planned Provider[facility] DCP follow-up note: CM RECEIVED INPATIENT REHAB PRESCREENING ORDER, MET WITH PT IN ROOM TO DISCUSS REHAB OPTIONS, LOCATIONS AND PROVIDERS. ALL COMMUNICATION DONE IN WRITING, PT'S SPOUSE VIDEO CONFERENCED IN WITH PT DURING CONVERSATION. PT DECLINED INPATIENT REHAB AND NURSING HOME REHAB SERVICES. PT WANTS TO GO HOME WITH HOME HEALTH. PT'S PROVIDED CM WITH [employer] IN [place] PHONE NUMBER, . CHOICE COMPLETED. IMPORTANT MESSAGE FROM MEDICARE PROVIDED AND EXPLAINED. CM CALLED AND SPOKE TO LYN OF [employer], , PROVIDED HOME HEALTH REFERRAL, CM FAXED REF[facility]AL TO [facility] AT [phone]. FOR DISCHARGE HOME WITH HOME HEALTH, NOTIFY [facility] AT [phone], FAX DISCHARGE INFORMATION TO [facility] AT [phone]. FAMILY TO TRANSPORT HOME. Zenon Winters CASE MANAGEMENT DCP- Discharge Planning Updated by [id number]: Zenon Winters on 02/20/20 2:[address] Patient Name: ZAYRA MAO Admission Status: Elective Accout number: [id number] Admission Date: 02-19-2020 : 1940 Admission Diagnosis: Attending: EITAN OLSON Current LOS: 1 Anticipated DC Date: Planned Disposition: Home Primary Insurance: HUMANA CHOICE PPO MCR ADVANT Discharge Planning Comments: CM MET WITH PT IN ROOM TO DISCUSS DISCHARGE PLANNING AND NEEDS. CM COMMUNICATED IN WRITING, PT VERBALLY RESPONDED. PT REPORTS LIVING AT HOME INDEPENDENTLY WITH HIS . PT HAS A ROLLATOR WALKER FROM [employer]. PT HAS A NURSE FROM HIS INSURANCE COMPANY THAT COMES OUT TO CHECK ON HIM. CM DISCUSSED AVAILABILITY OF HOME HEALTH, REHAB SERVICES AND MEDICAL EQUIPMENT. PT DENIES DISCHARGE NEEDS, REPORTS HIS WILL PICK HIM UP FOR DISCHARGE HOME PT PLANS TO DISCHARGE HOME WITH , HAS NO ANTICIPATED DISCHARGE NEEDS. FAMILY TO TRANSPORT HOME AT DISCHARGE. CM TO FOLLOW AND ASSIST IF NEEDED. Senior Hris Analyst: Zenon Winters DCP- Discharge Planning Updated by [email or web address]: Kaleigh Saini on 02/18/20 2:[address] GALARZA EXPLAINED ORIGINAL PROVIDED. COPY PLACED ON CHART. DCPIA - Discharge Planning Initial Assessment Updated by [id number]: Zenon Winters on 02/20/20 3:47 pm * Is the patient Alert and Oriented? Yes * How many steps to enter\exit or inside your home? RAMP * PCP DR. OCTAVIA GALLAGHER * [facility] IN [place] * Preadmission Environment Home with Family * ADLs Independent * Equipment Rolling Walker * Other Equipment ROLLATOR WALKER FROM [employer] * List name and contact numbers for known caregivers / representatives who currently or will assist patient after discharge: SHASHI LOVE, SPOUSE, OR VIDEO/CEMENT FINISHING SUPERVISOR PHONE [phone] PRATIBHA BHAT DTR, * Verbal permission to speak to the caregivers and representatives has been obtained from the patient. N/A * Community resources currently utilized None * Please name any agencies selected above. NONE * Additional services required to return to the preadmission environment? No * Can the patient safely return to the preadmission environment? Yes * Has this patient been hospitalized within the prior 30 days at any hospital? Yes Coverage Notice Reviewer: [id number] Dale Winters Notice Issued Date-Time: 02/21/2020 14:30 Notice Type: Patient Choice Letter Notice Delivered To: Patient Relationship to Patient: Commissioner Of Officials Name: Delivery Method: HAND - Hand Delivered Vita Days: Prior Verbal Notification: Recipient Understood Notice: Yes Recipient Signature: Yes Med Rec Note Co-signed by Attending: Coverage Notice Comment: ACCEPTANCE: SAMINA GOEL REFUSAL: INPATIENT REHAB AND SNF REHAB Reviewer: [id number] Dale Saini Notice Issued Date-Time: 02/18/2020 8:30 Notice Type: Medicare Outpatient Observation Notice Notice Delivered To: Patient Relationship to Patient: Commissioner Of Officials Name: Delivery Method: HAND - Hand Delivered Vita Days: Prior Verbal Notification: Recipient Understood Notice: Yes Recipient Signature: Yes Med Rec Note Co-signed by Attending: Coverage Notice Comment: MICHELL EXPLAINED ORIGINAL PROVIDED. COPY PLACED ON CHART. Reviewer: [id number] Dale Winters Notice Issued Date-Time: 02/21/2020 14:50 Notice Type: IM Discharge Notice Notice Delivered To: Patient Relationship to Patient: Commissioner Of Officials Name: Delivery Method: HAND - Hand Delivered Vita Days: Prior Verbal Notification: Recipient Understood Notice: Yes Recipient Signature: Yes Med Rec Note Co-signed by Attending: Coverage Notice Comment: Last DP export: 02/21/20 2:45 p Patient Name: ZAYRA MAO Page 83052 at 1552 All edits/amendments must be made on the electronic document DICTATION DATE: 02/21/201550 CLINICAL PRODUCT MANAGER: SUJIT 02/21/201550 RPT#: [id number] DC DATE: STATUS: ADM IN [facility] [address] [place] [address] END OF REPORT
[2020-02-21 16:30] VITALS: BP 110/57
[2020-02-21 20:15] VITALS: BP 121/64
--- NOTE | 2020-02-21 21:34 | NUR ---
PT LYING IN BED AWAKE ALERT AND ORIENTED x4NO SIGNS OR SYMPTOMS OF DISTRESS NOTED. RESPIRATIONS EVEN SND UNLSBORED. PT REQUEST APPLE JUICE. NO COMPLAINTS AT THIS TIME. PT ENCOURAGED TO CALL FOR HELP WHEN GETTING IN AND OUT OF BED AND NEEDED. CALL LIGHT WITH IN REACH AND BED IS IN LOWEST POSITION. WILL CONTINUE TO MONITOR
[2020-02-21 23:05] VITALS: BP 133/63
--- NOTE | 2020-02-21 23:07 | NUR ---
REPOSITIONED PT. PT TOLERATED WELL. NO COMPLAINTS AT THIS TIME. CALL LIGHT WITH IN REACH WILL CONTINUE TO MONITOR
[2020-02-22 05:22] VITALS: BP 119/59
--- NOTE | 2020-02-22 05:24 | NUR ---
I have reviewed this patient and I concur with the Shift Assessment completed by the Licensed Practical Nurse today this shift.
[2020-02-22 06:09] LABS: BASOPHILS 0.1 % (0-2); EOSINOPHILS 0.4 % (0-7); HEMATOCRIT 27.4 % (42.0-54.0); HEMOGLOBIN 8.8 g/dL (13.5-17.5); LYMPHOCYTES 2.6 % (15-50); MCH 29.9 pg (26.0-34.0); MCHC 32.1 g/dL (31.0-37.0); MCV 93.2 fL (80.0-100.0); MEAN PLATELET VOLUME 8.9 fL (7.4-10.4); MONOCYTES 11.1 % (2-11); NEUTROPHILS 84.8 % (40-80); PLATELET COUNT 155 10x3/uL (130-400); RBC 2.94 10x6/uL (4.20-6.10); RDW 15.6 % (11.5-14.5); WBC 11.4 10x3/uL (4.8-10.8)
[2020-02-22 06:36] LABS: ALBUMIN 1.6 g/dL (3.4-5.0); ANION GAP 11.7 mmol/L (8-16); BILIRUBIN - TOTAL 4.48 mg/dL (0.2-1.3); CALCIUM 9.4 mg/dL (8.5-10.1); CARBON DIOXIDE 23.7 mmol/L (21.0-32.0); CREATININE - SERUM 1.6 mg/dL (0.6-1.3); MAGNESIUM - SERUM 1.9 mg/dL (1.8-2.4); PHOSPHOROUS 3.4 mg/dL (2.5-4.9); POTASSIUM - SERUM 4.4 mmol/L (3.5-5.1); PROTEIN - SERUM 6.2 g/dL (6.4-8.2)
--- NOTE | 2020-02-22 08:09 | NUR ---
PATIENT IS RESTING QUIETLY AT THIS TIME. RECIEVED REPORT. HE DENIOES ANY NEEDS AT THIS TIME.
[2020-02-22 09:30] VITALS: BP 117/60
[2020-02-22 13:44] VITALS: BP 114/59
[2020-02-22 17:08] LABS: SPE - A/G RATIO 0.6 (0.7-1.7); SPE - ALBUMIN 1.9 g/dL (2.9-4.4); SPE - ALPHA-1 GLOBULIN 0.5 g/dL (0.0-0.4); SPE - ALPHA-2 GLOBULIN 0.8 g/dL (0.4-1.0); SPE - BETA GLOBULIN 0.5 g/dL (0.7-1.3); SPE - GAMMA GLOBULIN 1.2 g/dL (0.4-1.8); SPE - M-SPIKE 1.1 g/dL (Not Observed); SPE - TOTAL PROTEIN 4.9 g/dL (6.0-8.5)
--- NOTE | 2020-02-22 19:10 | NUR ---
REPORT RECEIVED, WILL CONTINUE POC. PATIENT IS AAOX4, LYING IN SEMI-FOWLERS POSITION. INTRODUCED SELF, UPDATED WHITE BOARD FOR COMMUNICATION. OFFERED ICE WATER. NO S/S OF DISTRESS OBSERVED, RR EVEN AND UNLABORED ON 3L O2 VIA NC. PIV TO LT HAND INFUSING NS @ 75ML/HR. F/C TO RT SIDE OF BED, PATENT, DRAINING NITA COLORED URINE BY GRAVITY. PATIETN DENIES NEEDS AT THIS TIME. CL IN REACH, BED LOCKED AND LOWERED. WILL CTM.
[2020-02-22 20:00] VITALS: BP 124/61
[2020-02-23] VITALS: BP 108/65
--- NOTE | 2020-02-23 01:30 | NUR ---
I have reviewed this patient and I concur with the Shift Assessment completed by the Licensed Practical Nurse today this shift.
[2020-02-23 04:00] VITALS: BP 120/59
--- NOTE | 2020-02-23 05:00 | NUR ---
BED BATH GIVEN, LINENS CHANGED. 450CC NITA COLORED URINE EMPTIED FROM TAVAREZ. PATIENT HAD MEDIUM INCONTINENT LOOSE BM.
[2020-02-23 05:09] LABS: BASOPHILS 0.1 % (0-2); EOSINOPHILS 0.6 % (0-7); HEMATOCRIT 26.3 % (42.0-54.0); HEMOGLOBIN 8.4 g/dL (13.5-17.5); IMMATURE GRANULOCYTES 1.1 % (0-5); LYMPHOCYTES 2.2 % (15-50); MCH 29.4 pg (26.0-34.0); MCHC 31.9 g/dL (31.0-37.0); MEAN PLATELET VOLUME 8.7 fL (7.4-10.4); MONOCYTES 14.6 % (2-11); NEUTROPHILS 81.4 % (40-80); PLATELET COUNT 151 10x3/uL (130-400); RBC 2.86 10x6/uL (4.20-6.10); RDW 15.4 % (11.5-14.5); WBC 12.2 10x3/uL (4.8-10.8)
[2020-02-23 05:45] LABS: ALBUMIN 1.5 g/dL (3.4-5.0); ANION GAP 12.1 mmol/L (8-16); BILIRUBIN - TOTAL 4.54 mg/dL (0.2-1.3); CALCIUM 9.1 mg/dL (8.5-10.1); CARBON DIOXIDE 21.4 mmol/L (21.0-32.0); CREATININE - SERUM 1.7 mg/dL (0.6-1.3); MAGNESIUM - SERUM 1.7 mg/dL (1.8-2.4); PHOSPHOROUS 3.4 mg/dL (2.5-4.9); POTASSIUM - SERUM 4.5 mmol/L (3.5-5.1)
--- NOTE | 2020-02-23 05:56 | NUR ---
GLUCOSE 132, NO INSULIN NEEDED. PO MEDS WITH HELD DUE TO NPO STATUS.
--- NOTE | 2020-02-23 07:42 | NUR ---
PT SITTING UP IN BED, DENIES NEEDS OR PAIN AT THIS TIME. CALL LIGHT WITHIN REACH. RR EVEN AND UNLABORED ON 3L. BED IN LOWEST POSITION. WILL CONTINUE TO MONITOR.
[2020-02-23 08:24] VITALS: BP 112/63
--- NOTE | 2020-02-23 08:32 | MORECARE ---
CASE MANAGEMENT DISCHARGE SUMMARY PATIENT: ZAYRA MAO UNIT: [id number] ADM DATE: 02/19/20 AGE: 79 : 39 SEX: M ROOM/BED: D.2108 AUTHOR: ALMAS,DOC PHYSICIAN: REFERRING PHYSICIAN: EITAN OLSON MD DATE OF SERVICE: 02/23/20 Discharge Plan Patient Name: ZAYRA MAO Facility: [facility]:[place] : 1940 Planned Disposition: Home with Home Health Anticipated Discharge Date: 02/22/20 Discharge Date: Expected LOS: 3 Initial Reviewer: [id number] Initial Review Date: 02/19/2020 Generated: 02/23/20 9:32 am Comments DCP- Discharge Planning Updated by [id number]: Zenon Winters on 02/21/20 2:[address] Patient Name: ZAYRA MAO Encounter No: [id number] : 1940 Primary Insurance: HUMANA CHOICE PP MCR ADVANT Anticipated DC Date: 02-22-2020 Planned Disposition: Home with Home Health External Planned Provider: [facility] DCP follow-up note: CM RECEIVED INPATIENT REHAB PRESCREENING ORDER, MET WITH PT IN ROOM TO DISCUSS REHAB OPTIONS, LOCATIONS AND PROVIDERS. ALL COMMUNICATION DONE IN WRITING, PT'S SPOUSE VIDEO CONFERENCED IN WITH PT DURING CONVERSATION. PT DECLINED INPATIENT REHAB AND JAIL REHAB SERVICES. PT WANTS TO GO HOME WITH HOME HEALTH. PT'S PROVIDED CM WITH [employer] IN [place] PHONE NUMBER, . CHOICE COMPLETED. IMPORTANT MESSAGE FROM MEDICARE PROVIDED AND EXPLAINED. CM CALLED AND SPOKE TO LYN OF [employer], , PROVIDED HOME HEALTH REFERRAL, CM FAXED REFERRAL TO [facility] AT [phone]. FOR DISCHARGE HOME WITH HOME HEALTH, NOTIFY [employer] AT [phone], FAX DISCHARGE INFORMATION TO [employer] AT [phone]. FAMILY TO TRANSPORT HOME. Zenon Winters CASE MANAGEMENT DCP- Discharge Planning Updated by [id number]: Zenon Winters on 02/20/20 2:[address] Patient Name: ZAYRA MAO Admission Status: Elective Accout number: [id number] Admission Date: 02-19-2020 : 1940 Admission Diagnosis: Attending: EITAN OLSON Current LOS: 1 Anticipated DC Date: Planned Disposition: Home Primary Insurance: HUMANA CHOICE PPO MCR ADVANT Discharge Planning Comments: CM MET WITH PT IN ROOM TO DISCUSS DISCHARGE PLANNING AND NEEDS. CM COMMUNICATED IN WRITING, PT VERBALLY RESPONDED. PT REPORTS LIVING AT HOME INDEPENDENTLY WITH HIS . PT HAS A ROLLATOR WALKER FROM [employer]. PT HAS A NURSE FROM HIS INSURANCE COMPANY THAT COMES OUT TO CHECK ON HIM. CM DISCUSSED AVAILABILITY OF HOME HEALTH, REHAB SERVICES AND MEDICAL EQUIPMENT. PT DENIES DISCHARGE NEEDS, REPORTS HIS WILL PICK HIM UP FOR DISCHARGE HOME PT PLANS TO DISCHARGE HOME WITH , HAS NO ANTICIPATED DISCHARGE NEEDS. FAMILY TO TRANSPORT HOME AT DISCHARGE. CM TO FOLLOW AND ASSIST IF NEEDED. Bill Clerk: Zenon Winters DCP- Discharge Planning Updated by [id number]: Kaleigh Saini on 02/18/20 2:[address] GALARZA EXPLAINED ORIGINAL PROVIDED. COPY PLACED ON CHART. DCPIA - Discharge Planning Initial Assessment Updated by [id number]: Zenon Winters on 02/20/20 3:47 pm * Is the patient Alert and Oriented? Yes * How many steps to enter\exit or inside your home? RAMP * PCP DR. OCTAVIA GALLAGHER * [facility] IN [place] * Preadmission Environment Home with Family * ADLs Independent * Equipment Rolling Walker * Other Equipment ROLLATOR WALKER FROM [employer] * List name and contact numbers for known caregivers / representatives who currently or will assist patient after discharge: SHASHI LOVE, SPOUSE, OR VIDEO/MEAT CARRIER PHONE [phone] PRATIBHA BHAT, DTR, * Verbal permission to speak to the caregivers and representatives has been obtained from the patient. N/A * Community resources currently utilized None * Please name any agencies selected above. NONE * Additional services required to return to the preadmission environment? No * Can the patient safely return to the preadmission environment? Yes * Has this patient been hospitalized within the prior 30 days at any hospital? Yes Coverage Notice Reviewer: [id number] - Kaleigh Saini Notice Issued Date-Time: 02/18/2020 8:30 Notice Type: Medicare Outpatient Observation Notice Notice Delivered To: Patient Relationship to Patient: Water Jet Operator Name: Delivery Method: HAND - Hand Delivered Vita Days: Prior Verbal Notification: Recipient Understood Notice: Yes Recipient Signature: Yes Med Rec Note Co-signed by Attending: Coverage Notice Comment: MICHELL EXPLAINED ORIGINAL PROVIDED. COPY PLACED ON CHART. Reviewer: [id number] Dale Winters Notice Issued Date-Time: 02/21/2020 14:50 Notice Type: IM Discharge Notice Notice Delivered To: Patient Relationship to Patient: Water Jet Operator Name: Delivery Method: HAND - Hand Delivered Vita Days: Prior Verbal Notification: Recipient Understood Notice: Yes Recipient Signature: Yes Med Rec Note Co-signed by Attending: Coverage Notice Comment: Reviewer: [id number] Dale Winters Notice Issued Date-Time: 02/21/2020 14:30 Notice Type: Patient Choice Letter Notice Delivered To: Patient Relationship to Patient: Water Jet Operator Name: Delivery Method: HAND - Hand Delivered Vita Days: Prior Verbal Notification: Recipient Understood Notice: Yes Recipient Signature: Yes Med Rec Note Co-signed by Attending: Coverage Notice Comment: ACCEPTANCE: [facility] SAMINA REFUSAL: INPATIENT REHAB AND SNF REHAB Last DP export: 02/21/20 2:52 p Patient Name: ZAYRA MAO Page 77087 at 0832 All edits/amendments must be made on the electronic document DICTATION DATE: 02/23/20831 COMPUTER SYSTEMS DESIGN ANALYST: SUJIT 02/23/20831 RPT#: [id number] DC DATE: STATUS: ADM IN [facility] [address] [place] [address] END OF REPORT
[2020-02-23 12:00] VITALS: BP 117/61
[2020-02-23 12:55] LABS: MACROPHAGES BF 2 %; MESOTHELIALS BF 3 %; NEUT - BF 93 %
--- NOTE | 2020-02-23 13:11 | NUR ---
Nutrition Follow-up: NPO for paracentesis today. PO intake: 60-100% No new wt; last wt: 190# (02/19) Last BM: 02/22 per chart Labs noted: Na 124, Glu 132, Mg 1.7, Alb 1.5, elev LFTs Meds noted: Miralax, Lactulose, Lasix, Protonix, Humalog, NS @ 75 -Rec resume diet following procedure as medically feasible. -Monitor wt. -RD following.
--- NOTE | 2020-02-23 13:11 | NUR ---
I have reviewed this patient and I concur with the Shift Assessment completed by the Licensed Practical Nurse today this shift.
--- NOTE | 2020-02-23 14:54 | NUR ---
OT NOTE: PT COMPLETED SIDE ROLLING WITH SBA. PT COMPLETED FACE AND HAND HYGIENE TASKS WITH SETUP. PT COMPLETED BUE AROM EXS. [phone] THANK YOU,MEHDI CHENG
[2020-02-23 16:00] VITALS: BP 119/60
--- NOTE | 2020-02-23 19:20 | NUR ---
REPORT RECEIVED, WILL CONTINUE POC. PATIENT IS RESTING WITH EYES CLOSED. NO S/S OF DISTRESS OBSERVED, RR EVEN AND UNLABORED ON 3L O2 VIA NC. PIV TO LT HAND, HARD TO FLUSH. WILL RESITE IV IN ORDER TO CONTINUE ABX AND THEN START IRON. PATIENT DENIES NEEDS AT THIS TIME. CL IN REACH, BED LOCKED AND LOWERED. WILL CTM.
[2020-02-23 20:00] VITALS: BP 119/58
[2020-02-24] VITALS: BP 105/52
[2020-02-24 04:00] VITALS: BP 107/53
--- NOTE | 2020-02-24 04:00 | NUR ---
I have reviewed this patient and I concur with the Shift Assessment completed by the Licensed Practical Nurse today this shift.
[2020-02-24 05:07] LABS: ANION GAP 12.1 mmol/L (8-16); BILIRUBIN - TOTAL 4.65 mg/dL (0.2-1.3); CALCIUM 9.1 mg/dL (8.5-10.1); CARBON DIOXIDE 22.3 mmol/L (21.0-32.0); CREATININE - SERUM 1.8 mg/dL (0.6-1.3); POTASSIUM - SERUM 4.4 mmol/L (3.5-5.1); PROTEIN - SERUM 5.8 g/dL (6.4-8.2)
[2020-02-24 05:10] LABS: ALBUMIN 2.1 g/dL (3.4-5.0)
[2020-02-24 05:40] LABS: BASOPHILS 0 % (0-2); HEMATOCRIT 24.4 % (42.0-54.0); IMMATURE GRANULOCYTES 0.7 % (0-5); LYMPHOCYTES 3.7 % (15-50); MCH 30.2 pg (26.0-34.0); MCHC 32.8 g/dL (31.0-37.0); MCV 92.1 fL (80.0-100.0); MEAN PLATELET VOLUME 8.9 fL (7.4-10.4); MONOCYTES 11.5 % (2-11); NEUTROPHILS 83.1 % (40-80); PLATELET COUNT 122 10x3/uL (130-400); RBC 2.65 10x6/uL (4.20-6.10); RDW 15.4 % (11.5-14.5); WBC 9.7 10x3/uL (4.8-10.8)
[2020-02-24 09:00] VITALS: BP 129/59
[2020-02-24 12:00] VITALS: BP 116/55
--- NOTE | 2020-02-24 13:21 | NUR ---
OT NOTE: PT COMPLETED SIDE ROLLING WITH MIN/MOD A. PT COMPLETED SUPINE TO SIT WITH MIN/MOD A. PT COMPLETED SIT TO STAND WITH MIN/MOD A. PT COMPLETED FACE WASH WITH SETUP. [phone] THANK YOU, MEHDI CHENG
--- NOTE | 2020-02-24 13:36 | NUR ---
I have reviewed this patient and I concur with the Shift Assessment completed by the Licensed Practical Nurse today this shift.
--- NOTE | 2020-02-24 14:53 | NUR ---
LEFT FA 20G IV INSERTED.
--- NOTE | 2020-02-24 19:10 | NUR ---
BEDSIDE REPORT RECEIVED, PT CARE ASSUMED. WROTE NAME ON BOARD. PT SITTING UP IN BED WATCHING TV, AAOX4. REQUESTING JELL-0, PROVIDED. DENIES ANY OTHER NEEDS AT THIS TIME. BED IN LOWEST POSITION, SR X2, CALL LIGHT WITHIN REACH. WILL CONTINUE TO MONITOR.
[2020-02-24 20:30] VITALS: BP 104/56
[2020-02-25] VITALS: BP 118/52
[2020-02-25 04:38] LABS: BASOPHILS 0.1 % (0-2); EOSINOPHILS 1.2 % (0-7); HEMATOCRIT 25.8 % (42.0-54.0); HEMOGLOBIN 8.5 g/dL (13.5-17.5); IMMATURE GRANULOCYTES 1.2 % (0-5); MCH 30.2 pg (26.0-34.0); MCHC 32.9 g/dL (31.0-37.0); MCV 91.8 fL (80.0-100.0); MONOCYTES 11.1 % (2-11); NEUTROPHILS 79.4 % (40-80); PLATELET COUNT 136 10x3/uL (130-400); RBC 2.81 10x6/uL (4.20-6.10); RDW 15.7 % (11.5-14.5); WBC 11.2 10x3/uL (4.8-10.8)
[2020-02-25 05:00] LABS: ALBUMIN 1.9 g/dL (3.4-5.0); ANION GAP 9.5 mmol/L (8-16); BILIRUBIN - TOTAL 3.68 mg/dL (0.2-1.3); CREATININE - SERUM 1.9 mg/dL (0.6-1.3); POTASSIUM - SERUM 4.5 mmol/L (3.5-5.1); PROTEIN - SERUM 5.8 g/dL (6.4-8.2)
--- NOTE | 2020-02-25 08:00 | NUR ---
PT ALERT AND OREITNED WHEN I ENTERED ROOM. NO COMPLAINTS OR CONCERNS AT THIS TIME. CL IN REACH, [id number]
--- NOTE | 2020-02-25 12:16 | NUR ---
ASSITED WITH FINDING APPROPRIATE NUMBERS FOR TRANSLATORS. PT LIZ USING HIS PRIVATE MINE SUPERINTENDENT TO JHONY WITH NO COMPLAINTS OR CONCERNS AT THIS TIME. CL IN REACH, SRX2.
--- NOTE | 2020-02-25 15:07 | NUR ---
OT NOTE: RESISTANT TO OT SECONDARY TO JUST GETTING BACK IN BED. REPORTS THAT HES TIRED. REA TOUSSAINT, OTR/L
[2020-02-25 16:49] VITALS: BP 112/59
--- NOTE | 2020-02-25 19:10 | NUR ---
BEDSIDE REPORT RECEIVED FROM DAY SHIFT, PT CARE ASSUMED. WROTE NAME ON BOARD. PT LYING IN BED, WATCHING TV, AAOX4. DENIES ANY NEEDS AT THIS TIME. BED IN LOWEST POSITION, SR X2, CALL LIGHT WITHIN REACH. WILL CONTINUE TO MONITOR.
[2020-02-25 20:00] VITALS: BP 106/56
[2020-02-26 04:53] LABS: BASOPHILS 0 % (0-2); EOSINOPHILS 1.1 % (0-7); HEMATOCRIT 25.1 % (42.0-54.0); HEMOGLOBIN 8.3 g/dL (13.5-17.5); IMMATURE GRANULOCYTES 1.7 % (0-5); LYMPHOCYTES 5.9 % (15-50); MCH 30.2 pg (26.0-34.0); MCHC 33.1 g/dL (31.0-37.0); MCV 91.3 fL (80.0-100.0); MEAN PLATELET VOLUME 8.9 fL (7.4-10.4); MONOCYTES 13.8 % (2-11); NEUTROPHILS 77.5 % (40-80); PLATELET COUNT 140 10x3/uL (130-400); RBC 2.75 10x6/uL (4.20-6.10); RDW 15.8 % (11.5-14.5); WBC 9.9 10x3/uL (4.8-10.8)
[2020-02-26 05:36] LABS: ANION GAP 11.6 mmol/L (8-16); BILIRUBIN - TOTAL 2.79 mg/dL (0.2-1.3); CARBON DIOXIDE 22.8 mmol/L (21.0-32.0); CREATININE - SERUM 1.8 mg/dL (0.6-1.3); POTASSIUM - SERUM 4.4 mmol/L (3.5-5.1); PROTEIN - SERUM 5.7 g/dL (6.4-8.2)
[2020-02-26 09:50] LABS: BACTERIA MODERATE /hpf (NEGATIVE); BILIRUBIN NEGATIVE (NEGATIVE); EPITHELIAL CELLS 0-5 /hpf (0-5); GLUCOSE NEGATIVE (NEGATIVE); KETONE NEGATIVE (NEGATIVE); NITRITE NEGATIVE (NEGATIVE); RED CELLS - URINE >50 /hpf (0-5); UROBILINOGEN NORMAL (NORMAL); WHITE CELLS - URINE OCC /hpf (NEGATIVE)
--- NOTE | 2020-02-26 17:15 | NUR ---
I have reviewed this patient and I concur with the Shift Assessment completed by the Licensed Practical Nurse today this shift.
--- NOTE | 2020-02-26 19:10 | NUR ---
BEDSIDE REPORT RECEIVED, PT CARE ASSUMED. WROTE NAME ON BOARD. PT LYING IN BED WATCHING TV, AAOX4. DENIES ANY NEEDS AT THIS TIME. BED IN LOWEST POSITION, SR X2, CALL LIGHT WITHIN REACH. WILL CONTINUE TO MONITOR.
[2020-02-26 20:00] VITALS: BP 109/51
[2020-02-27 05:06] LABS: BASOPHILS 0.1 % (0-2); EOSINOPHILS 1.6 % (0-7); HEMATOCRIT 27.2 % (42.0-54.0); HEMOGLOBIN 8.9 g/dL (13.5-17.5); IMMATURE GRANULOCYTES 1.4 % (0-5); LYMPHOCYTES 5.6 % (15-50); MCH 29.9 pg (26.0-34.0); MCHC 32.7 g/dL (31.0-37.0); MCV 91.3 fL (80.0-100.0); MONOCYTES 15.1 % (2-11); NEUTROPHILS 76.2 % (40-80); PLATELET COUNT 139 10x3/uL (130-400); RBC 2.98 10x6/uL (4.20-6.10); WBC 8.6 10x3/uL (4.8-10.8)
[2020-02-27 05:29] LABS: ALBUMIN 2.5 g/dL (3.4-5.0); ANION GAP 13.8 mmol/L (8-16); BILIRUBIN - TOTAL 2.48 mg/dL (0.2-1.3); CALCIUM 9.2 mg/dL (8.5-10.1); CARBON DIOXIDE 22.3 mmol/L (21.0-32.0); CREATININE - SERUM 1.9 mg/dL (0.6-1.3); POTASSIUM - SERUM 4.1 mmol/L (3.5-5.1); PROTEIN - SERUM 5.6 g/dL (6.4-8.2)
[2020-02-27 08:43] VITALS: BP 102/45
--- NOTE | 2020-02-27 12:27 | NUR ---
OT NOTE: PT REMAINS VERY WEAK. ASSISTED TO EOB WITH MOD ASSIST; SIT TO STAND WITH MIN/MOD ASSIST AND USE OF WALKER; STANDING TOLERANCE X 2 MIN WHILE PERINEAL CARE WAS PERFORMED. TRANSFERRED TO CHAIR WITH GAIT BELT AND MOD ASSIST X 2. PT WEAK AND HAVING DIFFICULTY HOLDING HIS HEAD UP WHILE SITTING UP. SET UP FOR WASHING FACE AND HANDS WITH CLOTH; MIN ASSIST TO CECILE SLIPPERS; MAX ASSIST WITH TOILET HYGIENE. PT ONLY TOLERATED SITTING UP IN CHAIR FOR APPROX 1-1.5 HRS. PT WAS VERY FATIGUED AND REQUIRED INCREASED ASSIST TO RETURN BACK TO BED. MET WITH CM TO DISCUSS PTS WEAKNESS..RECOMMEND PT GO TO IP REHAB PRIOR TO RETURN HOME. REA TOUSSAINT,OTR/L [phone]; [phone]
--- NOTE | 2020-02-27 14:27 | NUR ---
Nutrition follow-up: Diet: ADA consistent CHO PO intake ~25% average of last 6 meals 10 liters removed with paracenteis over the weekend Na: 129 Wt: 189# PO Intake poor Will order Glucerna Shake breakfast, dinner and monitor labs closely RDN following.
[2020-02-27 20:43] VITALS: BP 93/46
--- NOTE | 2020-02-28 00:53 | NUR ---
RESTING WITH EYES CLOSED, RESPERATIONS EVEN, NO S/S DISTRESS NOTED.
[2020-02-28 05:28] LABS: BASOPHILS 0.1 % (0-2); EOSINOPHILS 1.2 % (0-7); HEMATOCRIT 25.5 % (42.0-54.0); HEMOGLOBIN 8.5 g/dL (13.5-17.5); IMMATURE GRANULOCYTES 1.3 % (0-5); LYMPHOCYTES 4.4 % (15-50); MCH 30.5 pg (26.0-34.0); MCHC 33.3 g/dL (31.0-37.0); MCV 91.4 fL (80.0-100.0); MEAN PLATELET VOLUME 9.1 fL (7.4-10.4); MONOCYTES 14.7 % (2-11); NEUTROPHILS 78.3 % (40-80); PLATELET COUNT 148 10x3/uL (130-400); RBC 2.79 10x6/uL (4.20-6.10); RDW 16.5 % (11.5-14.5); WBC 9.1 10x3/uL (4.8-10.8)
[2020-02-28 06:01] LABS: ALBUMIN 2.4 g/dL (3.4-5.0); ANION GAP 15.3 mmol/L (8-16); BILIRUBIN - TOTAL 2.21 mg/dL (0.2-1.3); CALCIUM 9.2 mg/dL (8.5-10.1); CREATININE - SERUM 1.9 mg/dL (0.6-1.3); PHOSPHOROUS 3.6 mg/dL (2.5-4.9); POTASSIUM - SERUM 4.3 mmol/L (3.5-5.1); THYROID STIMULATING HORMONE 2.6 uIU/mL (0.36-3.74)
--- NOTE | 2020-02-28 07:10 | NUR ---
REPORT RECEIVED FROM WELCOME HOSTESS AND PATIENT CARE ASSUMED. PATIENT LAYING IN BED WITH EYES CLOSED AND BREATHING EVENLY. WILL CONTINUE WITH PLAN OF CARE. SR UP X 2 BED IN LOW POSITION AND CALL LIGHT IN REACH.
[2020-02-28 09:42] VITALS: BP 99/52
--- NOTE | 2020-02-28 09:47 | NUR ---
ADMINISTERED MEDICATION AT THIS TIME, NO DIFFICULTY SWALLOWING. COMMUNICATED EFFECTIVELY WITH PATIENT VIA PEN AND PAPER. DENIES ANY NEEDS. PT ENTERING THE ROOM UPON LEAVING. WILL CONTINUE TO MONITOR.
--- NOTE | 2020-02-28 12:04 | NUR ---
HUNG IV MEDICATION. ASSESSED BLOOD SUGAR. SUGAR WAS 238, REQUIRED 4 UNITS OF HUMALOG PER SLIDING SCALE. PT IS UP RIGHT IN BED EATING LUNCH. DENIES ANY NEEDS AT THIS TIME. WILL CONTINUE TO MONITOR.
--- NOTE | 2020-02-28 13:14 | NUR ---
OT NOTE: PT NOT DOING WELL PHYSICALLY. PT DID NOT WANT TO GET UP TODAY STATING THAT HE DIDNT FEEL GOOD. PT CONTINUALLY ASKING ABOUT HIS WEIGHT AND WANTS TO GET WEIGHED. WITH ASSIST OF PHYS THERAPY, WE ATTEMPTED TO GET PT ONTO SCALES. HE IS SO WEAK THAT HE CANT HOLD HIS HEAD UP WHILE IN STANDING.. REQUIRED MAX ASSIST TO GET ON TO SCALE, BUT UNABLE TO MAINTAIN POSITION WITHOUT MAX ASSIST, THEREFORE, PROPER WEIGHT COULD NOT BE IDENTIFIED. PT ALSO UNABLE TO STEP BACK TO BED AND HAD TO BE LIFTED BY BOTH THERAPIST. TRANSFERRED PT BACK IN BED WITH MAX ASSIST; ROLLING SIDE TO SIDE WITH MAX ASSIST FOR PERINEAL CARE AND CHANGING PADS. REPOSITIONED BACK INTO BED. REA TOUSSAINT,OTR/L [phone]
--- NOTE | 2020-02-28 15:06 | NUR ---
ATTEMPTED TO HANG ALBUMIN, UNABLE TO SCAN IN COMPUTER OR TYPE IN. PHARMACY NOTIFIED AND CAME UP HERE. DID NOT KNOW WHAT WAS WRONG. RETURNED TO PHARMACY TO FIX IT. AWAITING INSTRUCTIONS TO CONTINUE. PT IS RESTING SUPINE IN BED WITH EYES CLOSED. PROVIDED PT WITH JELLO PER REQUEST. DENIES ANY OTHER NEEDS AT THIS TIME. CALL LIGHT WITHIN REACH. WILL CONTINUE TO MONITOR.
--- NOTE | 2020-02-28 15:23 | NUR ---
RECEIVED PATIENT SPECIFIC STICKER FOR ALBUMIN, FIXED THE PROBLEM AND WAS ABLE TO SCAN AND HANG MEDICATION. PT IS RESTING IN BED WITH EYES CLOSED. BREATHING EVEN AND UNLABORED. NO S/S OF DISTRESS NOTED AT THIS TIME. CALL LIGHT WITHIN REACH. WILL CONTINUE TO MONITOR.
--- NOTE | 2020-02-28 15:33 | NUR ---
OT NOTE: (DOS 02/27/2020) PT COMPLETED BED MOB TASKS WITH MAX A. PT EXHIBITED DECREASED AX TOLERANCE. PT REQUIRED MAX A WITH LB HYGIENE TASKS. PT COMPLETED FACE AND HAND HYGIENE WITH SET UP. [phone] THANK YOU,MEHDI CHENG
--- NOTE | 2020-02-28 16:11 | NUR ---
PT RESTING IN BED SUPINE. JAYMIE AND DR. PONCE IN ROOM AT THIS TIME. BED IN LOWEST POSITION, BED RAILS X2, CALL LIGHT WITHIN REACH. WILL CONTINUE TO MONITOR.
--- NOTE | 2020-02-28 16:42 | NUR ---
ASSESSED BLOOD SUGAR, 168. REQUIRED 2 UNITS OF HUMALOG PER SLIDING SCALE, GAVE INSULIN IN LEFT ARM. HUNG NEW BAG OF IV FLUIDS. PT IS RESTING WITH EYES CLOSED. DENIES ANY NEEDS. WILL CONTINUE TO MONITOR.
--- NOTE | 2020-02-28 17:02 | NUR ---
OT NOTE: PT COMPLETED BED MOB TASK WITH MOD A. PT COMPLETED SUPINE TO SIT WITH MOD A. PT COMPLETED UE AROM EXS TOLERATED. PT EXHIBITED POOR AX TOLERANCE. [phone] THANK YOU,MEHDI CHENG
[2020-02-28 17:39] VITALS: BP 104/52
[2020-02-28 20:00] VITALS: BP 96/49
[2020-02-29] VITALS: BP 103/57
--- NOTE | 2020-02-29 00:36 | NUR ---
SECOND MATE AT BED SIDE TO OBTAIN VITALS.
[2020-02-29 04:00] VITALS: BP 99/54
[2020-02-29 05:22] LABS: BASOPHILS 0.1 % (0-2); EOSINOPHILS 1.2 % (0-7); HEMATOCRIT 24.2 % (42.0-54.0); IMMATURE GRANULOCYTES 0.9 % (0-5); LYMPHOCYTES 4.4 % (15-50); MCH 30.2 pg (26.0-34.0); MCHC 33.1 g/dL (31.0-37.0); MCV 91.3 fL (80.0-100.0); MEAN PLATELET VOLUME 9.1 fL (7.4-10.4); MONOCYTES 16.6 % (2-11); NEUTROPHILS 76.8 % (40-80); PLATELET COUNT 159 10x3/uL (130-400); RBC 2.65 10x6/uL (4.20-6.10); RDW 16.9 % (11.5-14.5)
[2020-02-29 05:37] LABS: ANION GAP 11.4 mmol/L (8-16); CALCIUM 8.9 mg/dL (8.5-10.1); CARBON DIOXIDE 23.1 mmol/L (21.0-32.0); POTASSIUM - SERUM 4.5 mmol/L (3.5-5.1)
[2020-02-29 08:11] VITALS: BP 102/57
--- NOTE | 2020-02-29 11:27 | NUR ---
OT NOTE: PT REMAINS VERY WEAK.. PT INITIALLY RESISTANT TO SIT UP IN CHAIR; EXPLAINED TO PT THE IMPORTANCE OF HIM SITTING UP TO IMPROVE STRENGTH, SHAWANDA NECK MUSCLES, HE HAS SEVERE DIFFICULTY HOLDING HIS HEAD UP DUE TO WEAKNESS. BED MOB WITH MOD ASSIST; SIT TO STAND WITH MOD ASSIST; MOD ASSIST X 2 FOR STEPS TO CHAIR. ATTEMPTED EXS FOR HEAD/NECK BUT PT ONLY ABLE TO PERFORM 3-4.. ATTEMPTED UE EXS WITH SAME RESULT. PT ABLE TO TOLERATE SITTING UP IN CHAIR APPROX 45 MIN BEFORE HAVING TO RETURN TO BED. REA TOUSSAINT,OTR/L [phone]
[2020-02-29 12:38] LABS: ALBUMIN 2.5 g/dL (3.4-5.0); BILIRUBIN - DIRECT 1.04 mg/dL (0.00-0.30); BILIRUBIN - INDIRECT 1.12 mg/dL (0.00-1.00); BILIRUBIN - TOTAL 2.16 mg/dL (0.2-1.3); PROTEIN - SERUM 5.9 g/dL (6.4-8.2)
[2020-02-29 12:49] VITALS: BP 99/54
--- NOTE | 2020-02-29 16:27 | NUR ---
FIRST UNIT BLOOD FINISHED, SECOND UNIT STARTED.
--- NOTE | 2020-02-29 19:30 | NUR ---
PT IN BED, AAO X 3, RESP EVEN AND UNLABORED. NO DISTRESS NOTED, CL IN REACH, SR UP X 2.
[2020-02-29 20:00] VITALS: BP 99/61
[2020-03-01] VITALS (13 sets, daily range): BP systolic 94–118; BP diastolic 52–66
--- NOTE | 2020-03-01 03:49 | NUR ---
I have reviewed this patient and I concur with the Shift Assessment completed by the Licensed Practical Nurse today this shift.
[2020-03-01 06:02] LABS: INR 1.27 (0.85-1.17); PROTIME 15.8 SECONDS (11.6-15.0)
[2020-03-01 06:17] LABS: ALBUMIN 2.9 g/dL (3.4-5.0); ANION GAP 14.3 mmol/L (8-16); BILIRUBIN - DIRECT 1.16 mg/dL (0.00-0.30); BILIRUBIN - INDIRECT 1.96 mg/dL (0.00-1.00); BILIRUBIN - TOTAL 3.12 mg/dL (0.2-1.3); CALCIUM 9.2 mg/dL (8.5-10.1); CARBON DIOXIDE 22.9 mmol/L (21.0-32.0); POTASSIUM - SERUM 4.2 mmol/L (3.5-5.1); PROTEIN - SERUM 6.1 g/dL (6.4-8.2)
[2020-03-01 06:22] LABS: BASOPHILS 0.2 % (0-2); EOSINOPHILS 1.4 % (0-7); IMMATURE GRANULOCYTES 2.2 % (0-5); LYMPHOCYTES 9.6 % (15-50); MCH 30.4 pg (26.0-34.0); MCHC 33.7 g/dL (31.0-37.0); MCV 90.3 fL (80.0-100.0); MEAN PLATELET VOLUME 9.2 fL (7.4-10.4); MONOCYTES 16.1 % (2-11); NEUTROPHILS 70.5 % (40-80); PLATELET COUNT 141 10x3/uL (130-400); RDW 16.3 % (11.5-14.5); WBC 11.3 10x3/uL (4.8-10.8)
[2020-03-01 06:40] LABS: HEMATOCRIT 29.7 % (42.0-54.0); RBC 3.29 10x6/uL (4.20-6.10)
--- NOTE | 2020-03-01 07:40 | NUR ---
RECIEVED REPORT. PATIENT IS RESTING QUIETLY AT THIS TIME. DENIES ANY NEEDS AT THIS TIME. PATIENT WILL BE GOING TO INTERVENTIONAL RADIOLOGY TO HAVE A PARACENTISIS AND ILIAC MASS BIOPSY. CONSENTS HAVE BEEN SIGNED AN DARE IN THE CHART.
--- NOTE | 2020-03-01 10:27 | NUR ---
IR CAME TO COLLECT THE PATIENT FOR HIS PROCEDURE AND HE HAD JUST HAD A BM. THE AID AND I CLEANED HIM UP AND HE IS NOW READY . CALLED IR AND THEY SAID IT WOULD BE ABOUT TWO HOURS BEFORE THEY COME GET HIM.
--- NOTE | 2020-03-01 10:44 | NUR ---
DENTAL SPECIALIST WILL BE HERE AT 11:30
--- NOTE | 2020-03-01 12:58 | NUR ---
OT NOTE: PT CONTINUING TO DECLINE PHYSICALLY. HE IS RESISTANT TO GET UP ON EOB OR INTO CHAIR ANYMORE. ASSISTED PT TO EOB WITH MOD ASSIST. SITTING BALANCE NOW WITH MIN ASSIST. NUMEROUS ATTEMPTS TO HAVE PT HOLD HEAD UP DUE TO CERVICAL WEAKNESS... HE IS ONLY ABLE TO HOLD UP FOR SEVERAL SECONDS AT A TIME. ATTEMPTED UE/LE EXS WHILE ON EOB, HOWEVER, REQUIRES MOD ASSIST FOR TRUNK SUPPORT WITH ATTEMPTS FOR UE AROM DUE TO CORE WEAKNESS. PERFORMED SIT TO STAND WITH MOD ASSIST X 2.. PT ONLY ABLE TO REMAIN STANDING FOR APPROX 10 SECS..PROVIDED PT WRITTEN INFORMATION REGARDING THE IMPORTANCE OF TRYING TO SIT UP IN CHAIR BUT PT WAS UNINTERESTED. HE STATED THAT HE WAS TOO WEAK...PT NEEDS REHAB, HOWEVER, UNSURE IF HE WILL BE ABLE TO TOLERATE IT AT THIS TIME. REA TOUSSAINT, OTR/L [phone]
--- NOTE | 2020-03-01 13:18 | NUR ---
PATIENT IS IN HIS PROCEDURE NOW.
--- NOTE | 2020-03-01 14:29 | NUR ---
PATIENT IS COMING BACK FROM HIS PROCEDURE.
--- NOTE | 2020-03-01 19:45 | NUR ---
REPORT RECIEVED AND ROUNDING COMPLETE. PATIENT LAYING IN BED EYES CLOSED BREATHING EVEN AND UNLABORED. WEARING NASAL CANNULA WITH O2 AT 3L. NO DISTRESS NOTED. PIV TO THE LEFT HAND AND FOREARM, NO S/SX OF INFILTRATION. CALL LIGHT WITHIN REACH AND BED IN LOWEST LOCKED POSITION.
[2020-03-02] VITALS: BP 122/57
[2020-03-02 03:54] LABS: BASOPHILS 0.2 % (0-2); EOSINOPHILS 0.9 % (0-7); HEMATOCRIT 31.5 % (42.0-54.0); HEMOGLOBIN 10.5 g/dL (13.5-17.5); IMMATURE GRANULOCYTES 1.1 % (0-5); LYMPHOCYTES 9.4 % (15-50); MCH 30.5 pg (26.0-34.0); MCHC 33.3 g/dL (31.0-37.0); MCV 91.6 fL (80.0-100.0); MEAN PLATELET VOLUME 9.3 fL (7.4-10.4); MONOCYTES 11.4 % (2-11); PLATELET COUNT 140 10x3/uL (130-400); RBC 3.44 10x6/uL (4.20-6.10); RDW 17.4 % (11.5-14.5); WBC 10.2 10x3/uL (4.8-10.8)
[2020-03-02 04:00] VITALS: BP 103/57
[2020-03-02 04:18] LABS: ALBUMIN 3.2 g/dL (3.4-5.0); ANION GAP 15.3 mmol/L (8-16); BILIRUBIN - DIRECT 1.06 mg/dL (0.00-0.30); BILIRUBIN - INDIRECT 1.85 mg/dL (0.00-1.00); BILIRUBIN - TOTAL 2.91 mg/dL (0.2-1.3); CALCIUM 9.5 mg/dL (8.5-10.1); CARBON DIOXIDE 22.7 mmol/L (21.0-32.0); PROTEIN - SERUM 6.4 g/dL (6.4-8.2)
--- NOTE | 2020-03-02 05:34 | NUR ---
I have reviewed this patient and I concur with the Shift Assessment completed by the Licensed Practical Nurse today this shift.
--- NOTE | 2020-03-02 08:11 | NUR ---
ASSESSMENT DONE. DENIES NEEDS
[2020-03-02 10:08] VITALS: BP 109/59
--- NOTE | 2020-03-02 13:40 | NUR ---
Coccyx has deep tissue injury measuring 6cm x 6cm. It has a small amount of bloody drainage. It is being covered for protection with mepilex. Pt has been placed on an air overlay mattress and is being turned/repositioned q 2 hours. He is incontinent and having diarrhea. Calmoseptine cream has been ordered for protection of perineal area. Wound care continues to monitor.
--- NOTE | 2020-03-02 14:04 | NUR ---
I have reviewed this patient and I concur with the Shift Assessment completed by the Licensed Practical Nurse today this shift.
--- NOTE | 2020-03-02 15:49 | MORECARE ---
CASE MANAGEMENT DISCHARGE SUMMARY PATIENT: ZAYRA MAO UNIT: [id number] ADM DATE: 02/19/20 AGE: 79 : 39 SEX: M ROOM/BED: D.2102 AUTHOR: ALMAS,DOC PHYSICIAN: REFERRING PHYSICIAN: LUMA BOCANEGRA MD DATE OF SERVICE: 03/02/20 Discharge Plan Patient Name: ZAYRA MAO Facility: [facility]:[place] : 1940 Planned Disposition: Shelter Facility Anticipated Discharge Date: 02/22/20 Discharge Date: Expected LOS: 3 Initial Reviewer: [id number] Initial Review Date: 02/19/2020 Generated: 03/02/20 4:49 pm DCP- Discharge Planning Updated by [id number]: Zenon Winters on 02/21/20 2:[address] Patient Name: ZAYRA MAO Encounter No: [id number] : 1940 Primary Insurance: HUMANA CHOICE O [facility] Anticipated DC Date: 02-22-2020 Planned Disposition: Home with Home Health External Planned Provider[facility] DCP follow-up note: CM RECEIVED INPATIENT REHAB PRESCREENING ORDER, MET WITH PT IN ROOM TO DISCUSS REHAB OPTIONS, LOCATIONS AND PROVIDERS. ALL COMMUNICATION DONE IN WRITING, PT'S SPOUSE VIDEO CONFERENCED IN WITH PT DURING CONVERSATION. PT DECLINED INPATIENT REHAB AND [facility]P REHAB SERVICES. PT WANTS TO GO HOME WITH HOME HEALTH. PT'S PROVIDED CM WITH [facility] IN [place] PHONE NUMBER, . CHOICE COMPLETED. IMPORTANT MESSAGE FROM MEDICARE PROVIDED AND EXPLAINED. CM CALLED AND SPOKE TO LYN OF [facility], , PROVIDED HOME HEALTH REFERRAL, CM FAXED REFERRAL TO [facility] AT [phone]. FOR DISCHARGE HOME WITH HOME HEALTH, NOTIFY [facility] AT [phone], FAX DISCHARGE INFORMATION TO [facility] AT [phone]. FAMILY TO TRANSPORT HOME. Zenon Winters CASE NOE DCP- Discharge Planning Updated by [id number]: Zenon Winters on 02/20/20 2:[address] Patient Name: ZAYRA MAO Admission Status: Elective Accout number: [id number] Admission Date: 02-19-2020 : 1940 Admission Diagnosis: Attending: EITAN OLSON Current LOS: 1 Anticipated DC Date: Planned Disposition: Home Primary Insurance: HUMANA CHOICE PPO MCR ADVANT Discharge Planning Comments: CM MET WITH PT IN ROOM TO DISCUSS DISCHARGE PLANNING AND NEEDS. CM COMMUNICATED IN WRITING, PT VERBALLY RESPONDED. PT REPORTS LIVING AT HOME INDEPENDENTLY WITH HIS . PT HAS A ROLLATOR WALKER FROM [employer]. PT HAS A NURSE FROM HIS INSURANCE COMPANY THAT COMES OUT TO CHECK ON HIM. CM DISCUSSED AVAILABILITY OF HOME HEALTH, REHAB SERVICES AND MEDICAL EQUIPMENT. PT DENIES DISCHARGE NEEDS, REPORTS HIS WILL PICK HIM UP FOR DISCHARGE HOME PT PLANS TO DISCHARGE HOME WITH , HAS NO ANTICIPATED DISCHARGE NEEDS. FAMILY TO TRANSPORT HOME AT DISCHARGE. CM TO FOLLOW AND ASSIST IF NEEDED. Accounts Supervisor: Zenon Winters DCP- Discharge Planning Updated by [id number]: Kaleigh Saini on 02/18/20 2:[address] GALARZA EXPLAINED ORIGINAL PROVIDED. COPY PLACED ON CHART. DCPIA - Discharge Planning Initial Assessment Updated by [id number]: Zenon Winters on 02/20/20 3:47 pm * Is the patient Alert and Oriented? Yes * How many steps to enter\exit or inside your home? RAMP * PCP DR. OCTAVIA GALLAGHER * [facility] [place] * Preadmission Environment Home with Family * ADLs Independent * Equipment Rolling Walker * Other Equipment ROLLATOR WALKER FROM [employer] * List name and contact numbers for known caregivers / representatives who currently or will assist patient after discharge: SHASHI LOVE, SPOUSE, OR VIDEO/MINER ASSISTANT PHONE [phone] PRATIBHA BHAT, DTR, * Verbal permission to speak to the caregivers and representatives has been obtained from the patient. N/A * Community resources currently utilized None * Please name any agencies selected above. NONE * Additional services required to return to the preadmission environment? No * Can the patient safely return to the preadmission environment? Yes * Has this patient been hospitalized within the prior 30 days at any hospital? Yes Coverage Notice Reviewer: [id number] - Kaleigh Saini Notice Issued Date-Time: 02/18/2020 8:30 Notice Type: Medicare Outpatient Observation Notice Notice Delivered To: Patient Relationship to Patient: Records Administrator Name: Delivery Method: HAND - Hand Delivered Vita Days: Prior Verbal Notification: Recipient Understood Notice: Yes Recipient Signature: Yes Med Rec Note Co-signed by Attending: Coverage Notice Comment: MICHELL EXPLAINED ORIGINAL PROVIDED. COPY PLACED ON CHART. Reviewer: JESSIE Winters Notice Issued Date-Time: 02/21/2020 14:50 Notice Type: IM Discharge Notice Notice Delivered To: Patient Relationship to Patient: Records Administrator Name: Delivery Method: HAND - Hand Delivered Vita Days: Prior Verbal Notification: Recipient Understood Notice: Yes Recipient Signature: Yes Med Rec Note Co-signed by Attending: Coverage Notice Comment: Reviewer: JESSIE Winters Notice Issued Date-Time: 02/21/2020 14:30 Notice Type: Patient Choice Letter Notice Delivered To: Patient Relationship to Patient: Records Administrator Name: Delivery Method: HAND - Hand Delivered Vita Days: Prior Verbal Notification: Recipient Understood Notice: Yes Recipient Signature: Yes Med Rec Note Co-signed by Attending: Coverage Notice Comment: ACCEPTANCE: [facility] REFUSAL: INPATIENT REHAB AND SNF REHAB Reviewer: JESSIE Winters Notice Issued Date-Time: 03/02/2020 14:37 Notice Type: IM Discharge Notice Notice Delivered To: Patient Relationship to Patient: Records Administrator Name: Delivery Method: HAND - Hand Delivered Vita Days: Prior Verbal Notification: Recipient Understood Notice: Yes Recipient Signature: Yes Med Rec Note Co-signed by Attending: Coverage Notice Comment: Last DP export: 02/23/20 7:32 am Patient Name: ZAYRA MAO Page [id number] at 1549 All edits/amendments must be made on the electronic document DICTATION DATE: 03/02/20 1549 BB SHOT PACKER: SUJIT 03/02/20 1549 RPT#: [id number] DC DATE: STATUS: ADM IN [facility] [address] [place] [address] END OF REPORT
--- NOTE | 2020-03-02 16:15 | MORECARE ---
CASE MANAGEMENT DISCHARGE SUMMARY PATIENT: ZAYRA MAO UNIT: [id number] ADM DATE: 02/19/20 AGE: 79 : 39 SEX: M ROOM/BED: D.2105 AUTHOR: ALMAS,DOC PHYSICIAN: REFERRING PHYSICIAN: LUMA BOCANEGRA MD DATE OF SERVICE: 03/02/20 Discharge Plan Patient Name: ZAYRA MAO Facility: [facility]:[place] : 1940 Planned Disposition: Correction Facility Anticipated Discharge Date: 02/22/20 Discharge Date: Expected LOS: 3 Initial Reviewer: [id number] Initial Review Date: 02/19/2020 Generated: 03/02/20 5:15 pm Comments DCP- Discharge Planning Updated by [id number]: Ty Sesay on 03/02/20 3:[address] Patient Name: ZAYRA MAO Encounter No: [id number] : 1940 Primary Insurance: HUMANA CHOICE PPO MCR ADVANT Anticipated DC Date: 02-22-2020 Planned Disposition: Correction Facility External Planned Provider: DCP follow-up note: CM RECEIVED DISCHARGE ORDER, SPOKE TO PT IN ROOM WHO INFORMED CM THAT HE IS GOING HOME AND WOULD LIKE HOME HEALTH DISCUSSED. IMPORTANT MESSAGE FROM MEDICARE PROVIDED AND EXPLAINED. CM LATER SPOKE TO PT'S NURSE WHO INFORMED CM THAT PT'S IS NOT ABLE TO TAKE CARE OF PT AT HOME. CM MET WITH PT, DISCUSSED IN WRITING, AVAILABLE REHAB IN [place]AY PT IS NOT ABLE TO TOLERATE THREE HOURS OF PROGRESSIVE THERAPY PER DAY. PT'S ON VIDEO PHONE. PT AND SPOUSE DISCUSSED LIST PROVIDED BY CM. PT REPORTS HIS IS ARGUING WITH HIM AND WANTS TO SPEAK TO CM. CM ATTEMPTED TO CALL VIDEO PHONE, , COULD NOT GET ANSWER. PT CALLED CM AND THROUGH TRUST MANAGER, SPOUSE WAS UPSET THAT PT SIGNED FORM WITHOUT HER BEING TOLD. CM PROVIDED IMPORTANT MESSAGE FROM MEDICARE INFORMATION VIA PHONE. CM DISCUSSED HALF-WAY FACILITY REHAB OPTIONS, INFORMED THAT THERE IS NO CURRENT VISITATION AT THEM EITHER. SHE CONSENTED TO REFERRALS TO [facility] AND [facility]. CHOICE COMPLETED. CM CONTACTED [place], THEY ARE IN NETWORK WITH PT'S INSURANCE. CM FAXED REFERRAL TO [facility] VIA [facility] AT [phone]. CM WAITING ADMISSION DETERMINATION FROM [facility]. TY SESAY CASE MANAGEMENT Ty Sesay DCP- Discharge Planning Updated by [id number]: Ty Sesay on 02/21/20 2:[address] Patient Name: ZAYRA MAO Encounter No: [id number] : 1940 Primary Insurance: HUMANA CHOICE PPO M[employer] ADVANT Anticipated DC Date: 02-22-2020 Planned Disposition: Home with Home Health External Planned Provider: [facility] DCP follow-up note: CM RECEIVED INPATIENT REHAB PRESCREENING ORDER, MET WITH PT IN ROOM TO DISCUSS REHAB OPTIONS, LOCATIONS AND PROVIDERS. ALL COMMUNICATION DONE IN WRITING, PT'S SPOUSE VIDEO CONFERENCED IN WITH PT DURING CONVERSATION. PT DECLINED INPATIENT REHAB AND HALF-WAY REHAB SERVICES. PT WANTS TO GO HOME WITH HOME HEALTH. PT'S PROVIDED CM WITH [facility] IN [place] PHONE NUMBER, . CHOICE COMPLETED. IMPORTANT MESSAGE FROM MEDICARE PROVIDED AND EXPLAINED. CM CALLED AND SPOKE TO LYN OF [facility], , PROVIDED HOME HEALTH REFERRAL, CM FAXED REFERRAL TO [facility] AT [phone]. FOR DISCHARGE HOME WITH HOME HEALTH, NOTIFY [facility] AT [phone], FAX DISCHARGE INFORMATION TO [facility] AT [phone]. FAMILY TO TRANSPORT HOME. TALISHA Vazquez DCP- Discharge Planning Updated by [id number]: Ty Sesay on 02/20/20 2:[address] Patient Name: ZAYRA MAO Admission Status: Elective Accout number: [id number] Admission Date: 02-19-2020 : 1940 Admission Diagnosis: Attending: EITAN OLSON Current LOS: 1 Anticipated DC Date: Planned Disposition: Home Primary Insurance: HUMANA CHOICE PPO MCR ADVANT Discharge Planning Comments: CM MET WITH PT IN ROOM TO DISCUSS DISCHARGE PLANNING AND NEEDS. CM COMMUNICATED IN WRITING, PT VERBALLY RESPONDED. PT REPORTS LIVING AT HOME INDEPENDENTLY WITH HIS . PT HAS A ROLLATOR WALKER FROM [employer]. PT HAS A NURSE FROM HIS INSURANCE COMPANY THAT COMES OUT TO CHECK ON HIM. CM DISCUSSED AVAILABILITY OF HOME HEALTH, REHAB SERVICES AND MEDICAL EQUIPMENT. PT DENIES DISCHARGE NEEDS, REPORTS HIS WILL PICK HIM UP FOR DISCHARGE HOME PT PLANS TO DISCHARGE HOME WITH , HAS NO ANTICIPATED DISCHARGE NEEDS. FAMILY TO TRANSPORT HOME AT DISCHARGE. CM TO FOLLOW AND ASSIST IF NEEDED. Veterinary Surgery Technologist: Ty Sesay DCP- Discharge Planning Updated by [id number]: Kaleigh Saini on 02/18/20 2:[address] MICHELL EXPLAINED ORIGINAL PROVIDED. COPY PLACED ON CHART. DCPIA - Discharge Planning Initial Assessment Updated by [id number]: Ty Sesay on 02/20/20 3:47 pm * Is the patient Alert and Oriented? Yes * How many steps to enter\exit or inside your home? RAMP * PCP DR. OCTAVIA GALLAGHER * [facility] IN [place] * Preadmission Environment Home with Family * ADLs Independent * Equipment Rolling Walker * Other Equipment ROLLATOR WALKER FROM [employer] * List name and contact numbers for known caregivers / representatives who currently or will assist patient after discharge: SHASHI MAO, SPOUSE, OR VIDEO/TRUST MANAGER PHONE [phone] PRATIBHA BHAT, DTR, * Verbal permission to speak to the caregivers and representatives has been obtained from the patient. N/A * Community resources currently utilized None * Please name any agencies selected above. NONE * Additional services required to return to the preadmission environment? No * Can the patient safely return to the preadmission environment? Yes * Has this patient been hospitalized within the prior 30 days at any hospital? Yes External Providers External Provider: [facility] Next Contact Date: 03/02/2020 Service Request Date: Service Type: Resolution: Reviewer: Comments: Coverage Notice Reviewer: [id number] - Kaleigh Saini Notice Issued Date-Time: 02/18/2020 8:30 Notice Type: Medicare Outpatient Observation Notice Notice Delivered To: Patient Relationship to Patient: Air Brake Operator Name: Delivery Method: HAND - Hand Delivered Vita Days: Prior Verbal Notification: Recipient Understood Notice: Yes Recipient Signature: Yes Med Rec Note Co-signed by Attending: Coverage Notice Comment: MICHELL EXPLAINED ORIGINAL PROVIDED. COPY PLACED ON CHART. Reviewer: [id number] - Ty Sesay Notice Issued Date-Time: 02/21/2020 14:50 Notice Type: IM Discharge Notice Notice Delivered To: Patient Relationship to Patient: Air Brake Operator Name: Delivery Method: HAND - Hand Delivered Vita Days: Prior Verbal Notification: Recipient Understood Notice: Yes Recipient Signature: Yes Med Rec Note Co-signed by Attending: Coverage Notice Comment: Reviewer: JESSIE Sesay Notice Issued Date-Time: 02/21/2020 14:30 Notice Type: Patient Choice Letter Notice Delivered To: Patient Relationship to Patient: Air Brake Operator Name: Delivery Method: HAND - Hand Delivered Vita Days: Prior Verbal Notification: Recipient Understood Notice: Yes Recipient Signature: Yes Med Rec Note Co-signed by Attending: Coverage Notice Comment: ACCEPTANCE: [facility] REFUSAL: INPATIENT REHAB AND SNF REHAB Reviewer: JESSIE Sesay Notice Issued Date-Time: 03/02/2020 14:37 Notice Type: IM Discharge Notice Notice Delivered To: Patient Relationship to Patient: Air Brake Operator Name: Delivery Method: HAND - Hand Delivered Vita Days: Prior Verbal Notification: Recipient Understood Notice: Yes Recipient Signature: Yes Med Rec Note Co-signed by Attending: Coverage Notice Comment: Reviewer: JESSIE Sesay Notice Issued Date-Time: 03/02/2020 15:25 Notice Type: Patient Choice Letter Notice Delivered To: Family Member Relationship to Patient: Spouse Air Brake Operator Name: JOSE LUIS MAO Delivery Method: PHONE - Phone Vita Days: Prior Verbal Notification: Recipient Understood Notice: Yes Recipient Signature: Med Rec Note Co-signed by Attending: Coverage Notice Comment: [facility] Last DP export: 03/02/20 2:49 p Patient Name: ZAYRA MAO Page [phone] at 1615 All edits/amendments must be made on the electronic document DICTATION DATE: 03/02/20 161 NUMEROLOGIST: SUJIT 03/02/20 1615 RPT#: [id number] DC DATE: STATUS: ADM IN [facility] [address] [place] [address] END OF REPORT
--- NOTE | 2020-03-02 16:29 | MORECARE ---
CASE MANAGEMENT DISCHARGE SUMMARY PATIENT: ZAYRA MAO UNIT: [id number] ADM DATE: 02/19/20 AGE: 79 : 38 SEX: M ROOM/BED: D.210 AUTHOR: ALMAS,DOC PHYSICIAN: REFERRING PHYSICIAN: LUMA BOCANEGRA MD DATE OF SERVICE: 03/02/20 Discharge Plan Patient Name: ZAYRA MAO Facility: [facility]:[place] : 1940 Planned Disposition: Care Home Facility Anticipated Discharge Date: 02/22/20 Discharge Date: Expected LOS: 3 Initial Reviewer: [id number] Initial Review Date: 02/19/2020 Generated: 03/02/20 5:29 pm Comments DCP- Discharge Planning Updated by [id number]: Ty Sesay on 03/02/20 3:[address] Patient Name: ZAYRA MAO Encounter No: [id number] : 1940 Primary Insurance: HUMANA CHOICE PPO MCR ADVANT Anticipated DC Date: 02-22-2020 Planned Disposition: Care Home Facility External Planned Provider: DCP follow-up note: CM RECEIVED DISCHARGE ORDER, SPOKE TO PT IN ROOM WHO INFORMED CM THAT HE IS GOING HOME AND WOULD LIKE HOME HEALTH DISCUSSED. IMPORTANT MESSAGE FROM MEDICARE PROVIDED AND EXPLAINED. CM LATER SPOKE TO PT'S NURSE WHO INFORMED CM THAT PT'S IS NOT ABLE TO TAKE CARE OF PT AT HOME. CM MET WITH PT, DISCUSSED IN WRITING, AVAILABLE REHAB IN ASSISTED PT IS NOT ABLE TO TOLERATE THREE HOURS OF PROGRESSIVE THERAPY PER DAY. PT'S ON VIDEO PHONE. PT AND SPOUSE DISCUSSED LIST PROVIDED BY CM. PT REPORTS HIS IS ARGUING WITH HIM AND WANTS TO SPEAK TO CM. CM ATTEMPTED TO CALL VIDEO PHONE, , COULD NOT GET ANSWER. PT CALLED CM AND THROUGH BRIM PLATER, SPOUSE WAS UPSET THAT PT SIGNED FORM WITHOUT HER BEING TOLD. CM PROVIDED IMPORTANT MESSAGE FROM MEDICARE INFORMATION VIA PHONE. CM DISCUSSED ASSISTED FACILITY REHAB OPTIONS, INFORMED THAT THERE IS NO CURRENT VISITATION AT THEM EITHER. SHE CONSENTED TO REFERRALS TO [facility]. CHOICE COMPLETED. CM CONTACTED [place] [facility], THEY ARE IN NETWORK WITH PT'S INSURANCE. CM FAXED REFERRAL TO [facility] VIA [facility] AT [phone]. CM WAITING ADMISSION DETERMINATION FROM THE [facility]. TY SESAY CASE MANAGEMENT Ty Sesay DCP- Discharge Planning Updated by [id number]: Ty Sesay on 02/21/20 2:[address] Patient Name: ZAYRA MAO Encounter No: [id number] : 1940 Primary Insurance: HUMANA CHOICE PPO MCR ADVANT Anticipated DC Date: 02-22-2020 Planned Disposition: Home with Home Health External Planned Provider: [facility] [place] OFFICE DCP follow-up note: CM RECEIVED INPATIENT REHAB PRESCREENING ORDER, MET WITH PT IN ROOM TO DISCUSS REHAB OPTIONS, LOCATIONS AND PROVIDERS. ALL COMMUNICATION DONE IN WRITING, PT'S SPOUSE VIDEO CONFERENCED IN WITH PT DURING CONVERSATION. PT DECLINED INPATIENT REHAB AND ASSISTED REHAB SERVICES. PT WANTS TO GO HOME WITH HOME HEALTH. PT'S PROVIDED CM WITH [facility] IN [place] PHONE NUMBER, . CHOICE COMPLETED. IMPORTANT MESSAGE FROM MEDICARE PROVIDED AND EXPLAINED. CM CALLED AND SPOKE TO LYN OF [facility], , PROVIDED HOME HEALTH REFERRAL, CM FAXED REFERRAL TO [facility] AT [phone]. FOR DISCHARGE HOME WITH HOME HEALTH, NOTIFY [facility] AT [phone], FAX DISCHARGE INFORMATION TO [facility] AT [phone]. FAMILY TO TRANSPORT HOME. TALISHA Vazquez DCP- Discharge Planning Updated by [id number]: Ty Sesay on 02/20/20 2:[address] Patient Name: ZAYRA MAO Admission Status: Elective Accout number: [id number] Admission Date: 02-19-2020 : 1940 Admission Diagnosis: Attending: EITAN OLSON Current LOS: 1 Anticipated DC Date: Planned Disposition: Home Primary Insurance: HUMANA CHOICE PPO MCR ADVANT Discharge Planning Comments: CM MET WITH PT IN ROOM TO DISCUSS DISCHARGE PLANNING AND NEEDS. CM COMMUNICATED IN WRITING, PT VERBALLY RESPONDED. PT REPORTS LIVING AT HOME INDEPENDENTLY WITH HIS . PT HAS A ROLLATOR WALKER FROM [employer]. PT HAS A NURSE FROM HIS INSURANCE COMPANY THAT COMES OUT TO CHECK ON HIM. CM DISCUSSED AVAILABILITY OF HOME HEALTH, REHAB SERVICES AND MEDICAL EQUIPMENT. PT DENIES DISCHARGE NEEDS, REPORTS HIS WILL PICK HIM UP FOR DISCHARGE HOME PT PLANS TO DISCHARGE HOME WITH , HAS NO ANTICIPATED DISCHARGE NEEDS. FAMILY TO TRANSPORT HOME AT DISCHARGE. CM TO FOLLOW AND ASSIST IF NEEDED. Grinder Hardboard: Ty Sesay DCP- Discharge Planning Updated by [id number]: Kaleigh Saini on 02/18/20 2:[address] GALARZA EXPLAINED ORIGINAL PROVIDED. COPY PLACED ON CHART. DCPIA - Discharge Planning Initial Assessment Updated by [id number]: Ty Sesay on 02/20/20 3:47 pm * Is the patient Alert and Oriented? Yes * How many steps to enter\exit or inside your home? RAMP * PCP DR. OCTAVIA GALLAGHER * [facility] [place] * Preadmission Environment Home with Family * ADLs Independent * Equipment Rolling Walker * Other Equipment ROLLATOR WALKER FROM [employer] * List name and contact numbers for known caregivers / representatives who currently or will assist patient after discharge: SHASHI MAO, SPOUSE, OR VIDEO/BRIM PLATER PHONE [phone] PRATIBHA BHAT DTR, * Verbal permission to speak to the caregivers and representatives has been obtained from the patient. N/A * Community resources currently utilized None * Please name any agencies selected above. NONE * Additional services required to return to the preadmission environment? No * Can the patient safely return to the preadmission environment? Yes * Has this patient been hospitalized within the prior 30 days at any hospital? Yes Coverage Notice Reviewer: [id number] Dale Sesay Notice Issued Date-Time: 03/02/2020 15:25 Notice Type: Patient Choice Letter Notice Delivered To: Family Member Relationship to Patient: Spouse Tread Tuber Machine Operator Name: JOSE LUIS MAO Delivery Method: PHONE - Phone Vita Days: Prior Verbal Notification: Recipient Understood Notice: Yes Recipient Signature: Med Rec Note Co-signed by Attending: Coverage Notice Comment: [facility] Reviewer: [id number] Dale Sesay Notice Issued Date-Time: 02/21/2020 14:30 Notice Type: Patient Choice Letter Notice Delivered To: Patient Relationship to Patient: Tread Tuber Machine Operator Name: Delivery Method: HAND - Hand Delivered Vita Days: Prior Verbal Notification: Recipient Understood Notice: Yes Recipient Signature: Yes Med Rec Note Co-signed by Attending: Coverage Notice Comment: [facility]: [facility] REH[facility] AND SNF REHAB Reviewer: [id number] Dale Saini Notice Issued Date-Time: 02/18/2020 8:30 Notice Type: Medicare Outpatient Observation Notice Notice Delivered To: Patient Relationship to Patient: Tread Tuber Machine Operator Name: Delivery Method: HAND - Hand Delivered Vita Days: Prior Verbal Notification: Recipient Understood Notice: Yes Recipient Signature: Yes Med Rec Note Co-signed by Attending: Coverage Notice Comment: G[facility] EXPLAINED ORIGINAL PROVIDED. COPY PLACED ON CHART. Reviewer: [id number] Dale Sesay Notice Issued Date-Time: 03/02/2020 14:37 Notice Type: IM Discharge Notice Notice Delivered To: Patient Relationship to Patient: Tread Tuber Machine Operator Name: Delivery Method: HAND - Hand Delivered Vita Days: Prior Verbal Notification: Recipient Understood Notice: Yes Recipient Signature: Yes Med Rec Note Co-signed by Attending: Coverage Notice Comment: Reviewer: [id number] Sesay Notice Issued Date-Time: 02/21/2020 14:50 Notice Type: IM Discharge Notice Notice Delivered To: Patient Relationship to Patient: Tread Tuber Machine Operator Name: Delivery Method: HAND - Hand Delivered Vita Days: Prior Verbal Notification: Recipient Understood Notice: Yes Recipient Signature: Yes Med Rec Note Co-signed by Attending: Coverage Notice Comment: Last DP export: 03/02/20 3:15 p Patient Name: ZAYRA MAO Page [id number] at 1629 All edits/amendments must be made on the electronic document DICTATION DATE: 03/02/201628 GLUE REEL OPERATOR: SUJIT 03/02/201628 RPT#: [id number] DC DATE: STATUS: ADM IN [facility] [address] [place] [address] END OF REPORT
--- NOTE | 2020-03-02 17:27 | NUR ---
WITHOUT CHANGES OR DISTRESS NOTED AT THIOS TIME
--- NOTE | 2020-03-02 19:15 | NUR ---
REPORT RECEIVED. BEDSIDE SHIFT REPORT COMPLETE. PT UP IN BED WATCHING TV. RR EVEN AND UNLABORED. NO S/SX OF DISTRESS OBSERVED. PROVIDED SANDWICH, PT SATES HE DID NOT GET A SUPPER TRAY. NO FURTHER NEEDS EXPRESSD. CALL LIGHT IN REACH. WILL CPOC.
[2020-03-02 20:00] VITALS: BP 100/53
[2020-03-03 00:30] VITALS: BP 102/50
[2020-03-03 04:00] VITALS: BP 98/52
[2020-03-03 05:15] LABS: BASOPHILS 0.2 % (0-2); EOSINOPHILS 0.8 % (0-7); HEMATOCRIT 30.6 % (42.0-54.0); IMMATURE GRANULOCYTES 0.7 % (0-5); LYMPHOCYTES 3.8 % (15-50); MCH 30.2 pg (26.0-34.0); MCHC 32.7 g/dL (31.0-37.0); MCV 92.4 fL (80.0-100.0); MEAN PLATELET VOLUME 9.2 fL (7.4-10.4); MONOCYTES 16.3 % (2-11); NEUTROPHILS 78.2 % (40-80); PLATELET COUNT 137 10x3/uL (130-400); RBC 3.31 10x6/uL (4.20-6.10); RDW 17.6 % (11.5-14.5); WBC 10.8 10x3/uL (4.8-10.8)
[2020-03-03 05:36] LABS: ALBUMIN 2.8 g/dL (3.4-5.0); ANION GAP 10.1 mmol/L (8-16); BILIRUBIN - DIRECT 0.95 mg/dL (0.00-0.30); BILIRUBIN - INDIRECT 1.97 mg/dL (0.00-1.00); BILIRUBIN - TOTAL 2.92 mg/dL (0.2-1.3); CALCIUM 9.2 mg/dL (8.5-10.1); CARBON DIOXIDE 25.9 mmol/L (21.0-32.0); MAGNESIUM - SERUM 2.2 mg/dL (1.8-2.4); PHOSPHOROUS 3.6 mg/dL (2.5-4.9)
[2020-03-03 08:18] VITALS: BP 150/97
--- NOTE | 2020-03-03 10:17 | NUR ---
OT NOTE: PT DID NOT WANT TO GET UP FROM BED TODAY; ENCOURAGED PT TO STAND SO THAT HE COULD BE CLEANED (LARGE AMOUNT OF DIARRHEA)..REQUIRED ASSIST OF 2 TODAY; SIT TO STAND WITH MAX ASSIST AND USE OF WALKER.. REQUIRED 3 SIT DOWN REST BREAKS WHILE BEING CLEANED DUE TO WEAKNESS. PERFORMED NECK EXT EXS, PT IS UNABLE TO HOLD HEAD UP WHILE SITTING ON EOB. PT ABLE TO WASH FACE AND HANDS WITH WASH CLOTH WITH REST BREAK. MOD ASSIST TO CECILE GOWN; MAX ASSIST TO CECILE SOCKS. BED MOB WITH MAX ASSIST INCLUDING ROLLING AND SIT TO SUPINE. REA TOUSSAINT,OTR/L [phone]
--- NOTE | 2020-03-03 10:20 | NUR ---
OT NOTE: PT COMPLETED BED MOB WITH MOD A. PT COMPLETED SIT TO STANDS WITH MOD/MAX A. PT EXHIBITED POOR ENDURANCE. PT REQUIRED TOTAL A FOR LB HYGIENE TASKS. [phone] THANK YOU,MEHDI CHENG
[2020-03-03 11:37] VITALS: BP 151/58; BP 98/50
--- NOTE | 2020-03-03 18:50 | NUR ---
I have reviewed this patient and I concur with the Shift Assessment completed by the Licensed Practical Nurse today this shift.
--- NOTE | 2020-03-03 19:00 | NUR ---
REPORT RECEIVED. BEDISIDE SHIFT REPORT COMPLETE. PT UP IN BED RR EVEN AND UNLABORED. NO S/SX OF DISTRESS OBSERVED. NO NEEDS EXPRESSED. INCONT CARE PROVIDED. MEPILEX ON SACRUM CHANGED. CALL LIGHT IN REACH. WILL CTM.
[2020-03-03 20:00] VITALS: BP 95/56
[2020-03-04] VITALS: BP 95/53
[2020-03-04 04:00] VITALS: BP 103/60
[2020-03-04 05:17] LABS: BASOPHILS 0.2 % (0-2); EOSINOPHILS 1.2 % (0-7); HEMATOCRIT 28.3 % (42.0-54.0); HEMOGLOBIN 9.4 g/dL (13.5-17.5); IMMATURE GRANULOCYTES 0.6 % (0-5); LYMPHOCYTES 6.4 % (15-50); MCH 30.7 pg (26.0-34.0); MCHC 33.2 g/dL (31.0-37.0); MCV 92.5 fL (80.0-100.0); MEAN PLATELET VOLUME 8.8 fL (7.4-10.4); MONOCYTES 13.7 % (2-11); NEUTROPHILS 77.9 % (40-80); PLATELET COUNT 111 10x3/uL (130-400); RBC 3.06 10x6/uL (4.20-6.10); RDW 18.2 % (11.5-14.5); WBC 8.9 10x3/uL (4.8-10.8)
[2020-03-04 05:42] LABS: ALBUMIN 2.7 g/dL (3.4-5.0); ANION GAP 13.2 mmol/L (8-16); BILIRUBIN - DIRECT 0.89 mg/dL (0.00-0.30); BILIRUBIN - INDIRECT 1.9 mg/dL (0.00-1.00); BILIRUBIN - TOTAL 2.79 mg/dL (0.2-1.3); CALCIUM 8.9 mg/dL (8.5-10.1); CARBON DIOXIDE 24.6 mmol/L (21.0-32.0); CREATININE - SERUM 1.8 mg/dL (0.6-1.3); PHOSPHOROUS 3.6 mg/dL (2.5-4.9); POTASSIUM - SERUM 3.8 mmol/L (3.5-5.1)
[2020-03-04 06:13] VITALS: BP 103/60
--- NOTE | 2020-03-04 07:37 | NUR ---
LAYING SUPINE. RR EVEN AND UNLABORED .DENIES NEEDS OR PAIN AT THIS TIME. CALL LIGHT WITHIN REACH. BED IN LOWEST POSITION. WILL CONTINUE TO MONITOR.
[2020-03-04 09:25] VITALS: BP 99/61
[2020-03-04 14:00] VITALS: BP 96/59
--- NOTE | 2020-03-04 18:07 | NUR ---
I have reviewed this patient and I concur with the Shift Assessment completed by the Licensed Practical Nurse today this shift.
--- NOTE | 2020-03-04 19:15 | NUR ---
REPORT RECEIVED. BEDSIDE SHIFT REPORT COMPLETE. PT RESTING IN BED. RR EVEN AND UNLABORED. NO S/SX OF DISTRESS OBSERVED AT THIS TIME. NO NEEDS EXPRESSSED. CALL LIGHT IN REACH. WILL CPOC.
[2020-03-04 20:00] VITALS: BP 91/56
[2020-03-05] VITALS: BP 97/54
[2020-03-05 04:00] VITALS: BP 96/57
[2020-03-05 06:52] LABS: ALBUMIN 2.9 g/dL (3.4-5.0); BILIRUBIN - DIRECT 0.8 mg/dL (0.00-0.30); BILIRUBIN - INDIRECT 1.9 mg/dL (0.00-1.00); BILIRUBIN - TOTAL 2.7 mg/dL (0.2-1.3); PHOSPHOROUS 3.8 mg/dL (2.5-4.9); PROTEIN - SERUM 5.8 g/dL (6.4-8.2)
[2020-03-05 07:11] LABS: BASOPHILS 0.2 % (0-2); EOSINOPHILS 0.8 % (0-7); HEMOGLOBIN 9.2 g/dL (13.5-17.5); IMMATURE GRANULOCYTES 0.4 % (0-5); LYMPHOCYTES 3.5 % (15-50); MCH 31.3 pg (26.0-34.0); MCHC 32.9 g/dL (31.0-37.0); MCV 95.2 fL (80.0-100.0); MEAN PLATELET VOLUME 9.2 fL (7.4-10.4); MONOCYTES 13.5 % (2-11); NEUTROPHILS 81.6 % (40-80); PLATELET COUNT 93 10x3/uL (130-400); RBC 2.94 10x6/uL (4.20-6.10); RDW 18.4 % (11.5-14.5); WBC 10.5 10x3/uL (4.8-10.8)
[2020-03-05 07:39] LABS: ANION GAP 16.5 mmol/L (8-16); CALCIUM 8.9 mg/dL (8.5-10.1); CARBON DIOXIDE 20.6 mmol/L (21.0-32.0); CREATININE - SERUM 1.8 mg/dL (0.6-1.3); POTASSIUM - SERUM 4.1 mmol/L (3.5-5.1)
[2020-03-05 07:45] LABS: ALBUMIN 2.9 g/dL (3.4-5.0); BILIRUBIN - TOTAL 2.56 mg/dL (0.2-1.3); PROTEIN - SERUM 5.9 g/dL (6.4-8.2)
[2020-03-05 09:35] VITALS: BP 94/58
--- NOTE | 2020-03-05 11:44 | NUR ---
PT REFUSING TO TAKE ANY MEDS. PT STATES THAT HE IS GOING TO AND THAT THESE MEDICATIONS ARE NOT WORKING. PT STATES THAT HE WANTS TO GO HOME.
[2020-03-05 12:42] LABS: PLATELET ESTIMATE DECREASED
[2020-03-05 12:44] LABS: ROULEAUX OCC
--- NOTE | 2020-03-05 13:28 | NUR ---
Nutrition follow-up: Pt receiving a diabetic consistent CHO diet PO intake 25-50% of meals Labs reviewed +BM, loose Last wt 190# Pt continues with poor to fair po intake Pt may benefit from an appetite stimulant Will continue to encourage increased po intake and honor all food preferences. RDN following.
--- NOTE | 2020-03-05 14:11 | NUR ---
OT NOTE: PT WITH POOR MOTIVATION; AGREED TO SIT ON EOB BUT DID NOT WANT TO STAND; MOD ASSIST FOR SUPINE TO SIT; ABLE TO PERFORM UE/LE EXS WHILE ON EOB WITH SUPPORT FOR SITTING. CONTINUED TO ENCOURAGE PT TO HOLD HEAD UP, BUT DUE TO WEAKNESS IN CERVICAL MUSCLES, HE IS UNABLE TO HOLD IT UP FOR GREATER THAN A FEW SECONDS. MAX ASSIST TO RETURN TO SUPINE; MAX ASSIST X 2 FOR REPOSITIONING IN BED. REA TOUSSAINT, OTR/L [phone]
[2020-03-05 14:23] VITALS: BP 103/61
[2020-03-05 18:45] VITALS: BP 95/47
[2020-03-05 20:00] VITALS: BP 95/53
[2020-03-06] VITALS: BP 96/54
--- NOTE | 2020-03-06 03:47 | NUR ---
I have reviewed this patient and I concur with the Shift Assessment completed by the Licensed Practical Nurse today this shift.
[2020-03-06 04:00] VITALS: BP 97/51
[2020-03-06 05:10] LABS: BASOPHILS 0.2 % (0-2); EOSINOPHILS 1.8 % (0-7); HEMATOCRIT 26.7 % (42.0-54.0); HEMOGLOBIN 8.6 g/dL (13.5-17.5); IMMATURE GRANULOCYTES 0.4 % (0-5); LYMPHOCYTES 4.2 % (15-50); MCH 30.9 pg (26.0-34.0); MCHC 32.2 g/dL (31.0-37.0); MEAN PLATELET VOLUME 9.4 fL (7.4-10.4); MONOCYTES 12.2 % (2-11); NEUTROPHILS 81.2 % (40-80); PLATELET COUNT 90 10x3/uL (130-400); RBC 2.78 10x6/uL (4.20-6.10); RDW 18.8 % (11.5-14.5); WBC 8.4 10x3/uL (4.8-10.8)
[2020-03-06 05:27] LABS: ALBUMIN 3.1 g/dL (3.4-5.0); ANION GAP 11.4 mmol/L (8-16); BILIRUBIN - DIRECT 0.87 mg/dL (0.00-0.30); BILIRUBIN - INDIRECT 1.68 mg/dL (0.00-1.00); BILIRUBIN - TOTAL 2.55 mg/dL (0.2-1.3); CALCIUM 8.6 mg/dL (8.5-10.1); CREATININE - SERUM 1.9 mg/dL (0.6-1.3); MAGNESIUM - SERUM 2.1 mg/dL (1.8-2.4); PHOSPHOROUS 4.1 mg/dL (2.5-4.9); POTASSIUM - SERUM 4.3 mmol/L (3.5-5.1)
[2020-03-06 05:30] LABS: CARBON DIOXIDE 25.9 mmol/L (21.0-32.0)
--- NOTE | 2020-03-06 07:30 | NUR ---
ASSESSMENT DONE. DENIES NEEDS
[2020-03-06 08:00] VITALS: BP 106/51
--- NOTE | 2020-03-06 11:09 | NUR ---
I have reviewed this patient and I concur with the Shift Assessment completed by the Licensed Practical Nurse today this shift.
[2020-03-06 13:25] VITALS: BP 94/45
--- NOTE | 2020-03-06 13:32 | MORECARE ---
CASE MANAGEMENT DISCHARGE SUMMARY PATIENT: ZAYRA MAO UNIT: [id number] ADM DATE: 02/19/20 AGE: 79 : 39 SEX: M ROOM/BED: D.2103 AUTHOR: ALMAS,DOC PHYSICIAN: REFERRING PHYSICIAN: LUMA BOCANEGRA MD DATE OF SERVICE: 03/06/20 Discharge Plan Patient Name: ZAYRA MAO Facility: [facility]:[place] : 1940 Planned Disposition: Mcfp Facility Anticipated Discharge Date: 02/22/20 Discharge Date: Expected LOS: 3 Initial Reviewer: [id number] Initial Review Date: 02/19/2020 Generated: 03/06/20 2:32 pm DCP- Discharge Planning Updated by [id number]: Ty Sesay on 03/02/20 3:[address] Patient Name: ZAYRA MAO Encounter No: [id number] : 1940 Primary Insurance: HUMANA CHOICE PPO MCR ADVANT Anticipated DC Date: 02-22-2020 Planned Disposition: Mcfp Facility External Planned Provider: DCP follow-up note: CM RECEIVED DISCHARGE ORDER, SPOKE TO PT IN ROOM WHO INFORMED CM THAT HE IS GOING HOME AND WOULD LIKE HOME HEALTH DISCUSSED. IMPORTANT MESSAGE FROM MEDICARE PROVIDED AND EXPLAINED. CM LATER SPOKE TO PT'S NURSE WHO INFORMED CM THAT PT'S IS NOT ABLE TO TAKE CARE OF PT AT HOME. CM MET WITH PT, DISCUSSED IN WRITING, AVAILABLE REHAB IN [facility] PT IS NOT ABLE TO TOLERATE THREE HOURS OF PROGRESSIVE THERAPY PER DAY. PT'S ON VIDEO PHONE. PT AND SPOUSE DISCUSSED LIST PROVIDED BY CM. PT REPORTS HIS IS ARGUING WITH HIM AND WANTS TO SPEAK TO CM. CM ATTEMPTED TO CALL VIDEO PHONE, , COULD NOT GET ANSWER. PT CALLED CM AND THROUGH COMMERCIAL ILLUSTRATOR, SPOUSE WAS UPSET THAT PT SIGNED FORM WITHOUT HER BEING TOLD. CM PROVIDED IMPORTANT MESSAGE FROM MEDICARE INFORMATION VIA PHONE. CM DISCUSSED [facility] FACILITY REHAB OPTIONS, INFORMED THAT THERE IS NO CURRENT VISITATION AT THEM EITHER. SHE CONSENTED TO REFERRALS TO [facility] AND [facility]. CHOICE COMPLETED. CM CONTACTED [facility] [facility], THEY ARE IN NETWORK WITH PT'S INSURANCE. CM FAXED REFERRAL TO THE [facility] VIA [place] AT [phone]. CM WAITING ADMISSION DETERMINATION FROM THE [facility]. TY SESAY CASE MANAGEMENT Ty Sesay DCP- Discharge Planning Updated by [id number]: Ty Sesay on 02/21/20 2:[address] Patient Name: ZAYRA MAO Encounter No: [id number] : 1940 Primary Insurance: HUMANA CHOICE PPO MCR ADVANT Anticipated DC Date: 02-22-2020 Planned Disposition: Home with Home Health External Planned Provider: [facility] DCP follow-up note: CM RECEIVED INPATIENT REHAB PRESCREENING ORDER, MET WITH PT IN ROOM TO DISCUSS REHAB OPTIONS, LOCATIONS AND PROVIDERS. ALL COMMUNICATION DONE IN WRITING, PT'S SPOUSE VIDEO CONFERENCED IN WITH PT DURING CONVERSATION. PT DECLINED INPATIENT REHAB AND [facility] REHAB SERVICES. PT WANTS TO GO HOME WITH HOME HEALTH. PT'S PROVIDED CM WITH [facility] IN [place] PHONE NUMBER, . CHOICE COMPLETED. IMPORTANT MESSAGE FROM MEDICARE PROVIDED AND EXPLAINED. CM CALLED AND SPOKE TO [facility] OF [facility] , PROVIDED HOME HEALTH REFERRAL, CM [facility]ED [facility]AL TO [facility] AT [phone]. FOR DISCHARGE HOME WITH HOME HEALTH, NOTIFY [facility] AT [phone], FAX DISCHARGE INFORMATION TO [facility] AT [phone]. FAMILY TO TRANSPORT HOME. TALISHA Vazquez DCP- Discharge Planning Updated by [id number]: Ty Sesay on 02/20/20 2:[address] Patient Name: ZAYRA MAO Admission Status: Elective Accout number: [id number] Admission Date: 02-19-2020 : 1940 Admission Diagnosis: Attending: EITAN OLSON Current LOS: 1 Anticipated DC Date: Planned Disposition: Home Primary Insurance: HUMANA CHOICE PPO MCR ADVANT Discharge Planning Comments: CM MET WITH PT IN ROOM TO DISCUSS DISCHARGE PLANNING AND NEEDS. CM COMMUNICATED IN WRITING, PT VERBALLY RESPONDED. PT REPORTS LIVING AT HOME INDEPENDENTLY WITH HIS . PT HAS A ROLLATOR WALKER FROM [employer]. PT HAS A NURSE FROM HIS INSURANCE COMPANY THAT COMES OUT TO CHECK ON HIM. CM DISCUSSED AVAILABILITY OF HOME HEALTH, REHAB SERVICES AND MEDICAL EQUIPMENT. PT DENIES DISCHARGE NEEDS, REPORTS HIS WILL PICK HIM UP FOR DISCHARGE HOME PT PLANS TO DISCHARGE HOME WITH , HAS NO ANTICIPATED DISCHARGE NEEDS. FAMILY TO TRANSPORT HOME AT DISCHARGE. CM TO FOLLOW AND ASSIST IF NEEDED. Blocker Hand: Ty Sesay DCP- Discharge Planning Updated by [id number]: Kaleigh Saini on 02/18/20 2:[address] MICHELL EXPLAINED ORIGINAL PROVIDED. COPY PLACED ON CHART. DCPIA - Discharge Planning Initial Assessment Updated by [id number]: Ty Sesay on 02/20/20 3:47 pm * Is the patient Alert and Oriented? Yes * How many steps to enter\exit or inside your home? RAMP * PCP DR. OCTAVIA GALLAGHER * Pharmacy [facility] IN [place] * Preadmission Environment Home with Family * ADLs Independent * Equipment Rolling Walker * Other Equipment ROLLATOR WALKER FROM [employer] * List name and contact numbers for known caregivers / representatives who currently or will assist patient after discharge: SHASHI MAO, SPOUSE, OR VIDEO/COMMERCIAL ILLUSTRATOR PHONE [phone] PRATIBHA BHAT, DTR, * Verbal permission to speak to the caregivers and representatives has been obtained from the patient. N/A * Community resources currently utilized None * Please name any agencies selected above. NONE * Additional services required to return to the preadmission environment? No * Can the patient safely return to the preadmission environment? Yes * Has this patient been hospitalized within the prior 30 days at any hospital? Yes External Providers External Provider: [facility] Next Contact Date: 03/02/2020 Service Request Date: Service Type: Resolution: Reviewer: Comments: Coverage Notice Reviewer: [id number] - Kaleigh Saini Notice Issued Date-Time: 02/18/2020 8:30 Notice Type: Medicare Outpatient Observation Notice Notice Delivered To: Patient Relationship to Patient: Cannery Tender Engineer Name: Delivery Method: HAND - Hand Delivered Vita Days: Prior Verbal Notification: Recipient Understood Notice: Yes Recipient Signature: Yes Med Rec Note Co-signed by Attending: Coverage Notice Comment: MICHELL EXPLAINED ORIGINAL PROVIDED. COPY PLACED ON CHART. Reviewer: [id number] Dale Sesay Notice Issued Date-Time: 02/21/2020 14:50 Notice Type: IM Discharge Notice Notice Delivered To: Patient Relationship to Patient: Cannery Tender Engineer Name: Delivery Method: HAND - Hand Delivered Vita Days: Prior Verbal Notification: Recipient Understood Notice: Yes Recipient Signature: Yes Med Rec Note Co-signed by Attending: Coverage Notice Comment: Reviewer: JESSIE Sesay Notice Issued Date-Time: 02/21/2020 14:30 Notice Type: Patient Choice Letter Notice Delivered To: Patient Relationship to Patient: Cannery Tender Engineer Name: Delivery Method: HAND - Hand Delivered Vita Days: Prior Verbal Notification: Recipient Understood Notice: Yes Recipient Signature: Yes Med Rec Note Co-signed by Attending: Coverage Notice Comment: ACCEPTANCE: [facility] REFUSAL: INPATIENT REHAB AND SNF REHAB Reviewer: JESSIE Sesay Notice Issued Date-Time: 03/02/2020 14:37 Notice Type: IM Discharge Notice Notice Delivered To: Patient Relationship to Patient: Cannery Tender Engineer Name: Delivery Method: HAND - Hand Delivered Vita Days: Prior Verbal Notification: Recipient Understood Notice: Yes Recipient Signature: Yes Med Rec Note Co-signed by Attending: Coverage Notice Comment: Reviewer: JESSIE Sesay Notice Issued Date-Time: 03/02/2020 15:25 Notice Type: Patient Choice Letter Notice Delivered To: Family Member Relationship to Patient: Spouse Cannery Tender Engineer Name: JOSE LUIS MAO Delivery Method: PHONE - Phone Vita Days: Prior Verbal Notification: Recipient Understood Notice: Yes Recipient Signature: Med Rec Note Co-signed by Attending: Coverage Notice Comment: [facility] Last DP export: 03/02/20 3:29 p Patient Name: ZAYRA MAO Page [id number] at 1332 All edits/amendments must be made on the electronic document DICTATION DATE: 03/06/20 1332 SOLAR LAB TECHNICIAN: SUJIT 03/06/20 1332 RPT#: [id number] DC DATE: STATUS: ADM IN [facility] [address] [place] [address] END OF REPORT
--- NOTE | 2020-03-06 13:42 | MORECARE ---
CASE MANAGEMENT DISCHARGE SUMMARY PATIENT: ZAYRA CASTELLANOS UNIT: [id number] ADM DATE: 02/19/20 AGE: 79 : 39 SEX: M ROOM/BED: D.210 AUTHOR: ALMAS,DOC PHYSICIAN: REFERRING PHYSICIAN: LUMA BOCANEGRA MD DATE OF SERVICE: 03/06/20 Discharge Plan Patient Name: ZAYRA CASTELLANOS Facility: [facility]:[place] : 1940 Planned Disposition: Senior Care Facility Anticipated Discharge Date: 02/22/20 Discharge Date: Expected LOS: 3 Initial Reviewer: [id number] Initial Review Date: 02/19/2020 Generated: 03/06/20 2:41 pm Comments DCP- Discharge Planning Updated by [email or web address]: Ani Alonso on 03/06/20 12:[address] CM met with the patient and his at bedside. Patient has an gum worker via face-time in order to communicate with both. informed the patient has chosen [facility] and she is in agreement with this. DC IMM signed per the . CM e-faxed additional information to Amira and also talked with Joy via phone. Joy states they were worried about the patient's H/H and may not accept without a Covid-19 test. Made Joy aware that the patient does not meet criteria for Covid-19 testing. Made aware of planned DC 03/07. Await CB. DCP- Discharge Planning Updated by [id number]: Ty Sesay on 03/02/20 3:[address] Patient Name: ZAYRA CASTELLANOS Encounter No: [id number] : 1940 Primary Insurance: [employer] CHOICE PPO MCR ADVANT Anticipated DC Date: 02-22-2020 Planned Disposition: Senior Care Facility External Planned Provider: DCP follow-up note: CM RECEIVED DISCHARGE ORDER, SPOKE TO PT IN ROOM WHO INFORMED CM THAT HE IS GOING HOME AND WOULD LIKE HOME HEALTH DISCUSSED. IMPORTANT MESSAGE FROM MEDICARE PROVIDED AND EXPLAINED. CM LATER SPOKE TO PT'S NURSE WHO INFORMED CM THAT PT'S IS NOT ABLE TO TAKE CARE OF PT AT HOME. CM MET WITH PT, DISCUSSED IN WRITING, AVAILABLE REHAB IN [place] PT IS NOT ABLE TO TOLERATE THREE HOURS OF PROGRESSIVE THERAPY PER DAY. PT'S ON VIDEO PHONE. PT AND SPOUSE DISCUSSED LIST PROVIDED BY CM. PT REPORTS HIS IS ARGUING WITH HIM AND WANTS TO SPEAK TO CM. CM ATTEMPTED TO CALL VIDEO PHONE, , COULD NOT GET ANSWER. PT CALLED CM AND THROUGH [employer], SPOUSE WAS UPSET THAT PT SIGNED FORM WITHOUT HER BEING TOLD. CM PROVIDED IMPORTANT MESSAGE FROM MEDICARE INFORMATION VIA PHONE. CM DISCUSSED [place] FACILITY REHAB OPTIONS, INFORMED THAT THERE IS NO CURRENT VISITATION AT THEM EITHER. SHE CONSENTED TO REFERRALS TO [facility] AND [facility]. CHOICE COMPLETED. CM CONTACTED [facility], THEY ARE IN NETWORK WITH PT'S INSURANCE. CM FAXED REFERRAL TO THE [facility] VIA [facility] AT [phone]. CM WAITING ADMISSION DETERMINATION FROM THE [facility]. TY SESAY, CASE MANAGEMENT Ty Sesay DCP- Discharge Planning Updated by [id number]: Ty Sesay on 02/21/20 2:[address] Patient Name: ZAYRA CASTELLANOS Encounter No: [id number] : 1940 Primary Insurance: [employer] PPO MCR ADVANT Anticipated DC Date: 02-22-2020 Planned Disposition: Home with Home Health External Planned Provider: [facility] DCP follow-up note: CM RECEIVED INPATIENT REHAB PRESCREENING ORDER, MET WITH PT IN ROOM TO DISCUSS REHAB OPTIONS, LOCATIONS AND PROVIDERS. ALL COMMUNICATION DONE IN WRITING, PT'S SPOUSE VIDEO CONFERENCED IN WITH PT DURING CONVERSATION. PT DECLINED INPATIENT REHAB AND [facility] REHAB SERVICES. PT WANTS TO GO HOME WITH HOME HEALTH. PT'S PROVIDED CM WITH [employer] IN [employer] PHONE NUMBER, . CHOICE COMPLETED. IMPORTANT MESSAGE FROM MEDICARE PROVIDED AND EXPLAINED. CM CALLED AND SPOKE TO LYN OF [employer], , PROVIDED HOME HEALTH REFERRAL, CM FAXED REFERRAL TO [facility] AT [phone]. FOR DISCHARGE HOME WITH HOME HEALTH, NOTIFY [facility] AT [phone], FAX DISCHARGE INFORMATION TO [facility] AT [phone]. FAMILY TO TRANSPORT HOME. Ty Sesay, CASE MANAGEMENT DCP- Discharge Planning Updated by [id number]: Ty Sesay on 02/20/20 2:[address] Patient Name: ZAYRA CASTELLANOS Admission Status: Elective Accout number: [id number] Admission Date: 02-19-2020 : 1940 Admission Diagnosis: Attending: EITAN OLSON Current LOS: 1 Anticipated DC Date: Planned Disposition: Home Primary Insurance: [employer] CHOICE PPO MCR ADVANT Discharge Planning Comments: CM MET WITH PT IN ROOM TO DISCUSS DISCHARGE PLANNING AND NEEDS. CM COMMUNICATED IN WRITING, PT VERBALLY RESPONDED. PT REPORTS LIVING AT HOME INDEPENDENTLY WITH HIS . PT HAS A ROLLATOR WALKER FROM [employer]. PT HAS A NURSE FROM HIS INSURANCE COMPANY THAT COMES OUT TO CHECK ON HIM. CM DISCUSSED AVAILABILITY OF HOME HEALTH, REHAB SERVICES AND MEDICAL EQUIPMENT. PT DENIES DISCHARGE NEEDS, REPORTS HIS WILL PICK HIM UP FOR DISCHARGE HOME PT PLANS TO DISCHARGE HOME WITH , HAS NO ANTICIPATED DISCHARGE NEEDS. FAMILY TO TRANSPORT HOME AT DISCHARGE. CM TO FOLLOW AND ASSIST IF NEEDED. W[employer]ath [employer] Gar[employer] Maker: Ty Sesay DCP- Discharge Planning Updated by [id number]: Kaleigh Saini on 02/18/20 2:[address] GALARZA EXPLAINED ORIGINAL PROVIDED. COPY PLACED ON CHART. DCPIA - Discharge Planning Initial Assessment Updated by [id number]: Ty Sesay on 02/20/20 3:47 pm * Is the patient Alert and Oriented? Yes * How many steps to enter\exit or inside your home? RAMP * PCP DR. OCTAVIA GALLAGHER * Pharmacy [facility] [place] * Preadmission Environment Home with Family * ADLs Independent * Equipment Rolling Walker * Other Equipment ROLLATOR WALKER FROM [employer] * List name and contact numbers for known caregivers / representatives who currently or will assist patient after discharge: ISABELA CASTELLANOS, SPOUSE, OR [employer] PHONE [phone] PRATIBHA BHAT, DTR, * Verbal permission to speak to the caregivers and representatives has been obtained from the patient. N/A * Community resources currently utilized None * Please name any agencies selected above. NONE * Additional services required to return to the preadmission environment? No * Can the patient safely return to the preadmission environment? Yes * Has this patient been hospitalized within the prior 30 days at any hospital? Yes Coverage Notice Reviewer: [id number] - Kaleigh Saini Notice Issued Date-Time: 02/18/2020 8:30 Notice Type: Medicare Outpatient Observation Notice Notice Delivered To: Patient Relationship to Patient: Oyster Culler Name: Delivery Method: HAND - Hand Delivered Vita Days: Prior Verbal Notification: Recipient Understood Notice: Yes Recipient Signature: Yes Med Rec Note Co-signed by Attending: Coverage Notice Comment: GALARZA EXPLAINED ORIGINAL PROVIDED. COPY PLACED ON CHART. Reviewer: JESSIE Sesay Notice Issued Date-Time: 02/21/2020 14:50 Notice Type: IM Discharge Notice Notice Delivered To: Patient Relationship to Patient: Oyster Culler Name: Delivery Method: HAND - Hand Delivered Vita Days: Prior Verbal Notification: Recipient Understood Notice: Yes Recipient Signature: Yes Med Rec Note Co-signed by Attending: Coverage Notice Comment: Reviewer: JESSIE Sesay Notice Issued Date-Time: 02/21/2020 14:30 Notice Type: Patient Choice Letter Notice Delivered To: Patient Relationship to Patient: Oyster Culler Name: Delivery Method: HAND - Hand Delivered Vita Days: Prior Verbal Notification: Recipient Understood Notice: Yes Recipient Signature: Yes Med Rec Note Co-signed by Attending: Coverage Notice Comment: [facility]IENT REH[facility] AND SNF REHAB Reviewer: JESSIE Sesay Notice Issued Date-Time: 03/02/2020 14:37 Notice Type: IM Discharge Notice Notice Delivered To: Patient Relationship to Patient: Oyster Culler Name: Delivery Method: HAND - Hand Delivered Vita Days: Prior Verbal Notification: Recipient Understood Notice: Yes Recipient Signature: Yes Med Rec Note Co-signed by Attending: Coverage Notice Comment: Reviewer: EJSSIE Sesay Notice Issued Date-Time: 03/02/2020 15:25 Notice Type: Patient Choice Letter Notice Delivered To: Family Member Relationship to Patient: Spouse Oyster Culler Name: JOSE LUIS CASTELLANOS Delivery Method: PHONE - Phone Vita Days: Prior Verbal Notification: Recipient Understood Notice: Yes Recipient Signature: Med Rec Note Co-signed by Attending: Coverage Notice Comment: [facility] Reviewer: [id number] Dale Alonso Notice Issued Date-Time: 03/06/2020 13:37 Notice Type: IM Discharge Notice Notice Delivered To: Family Member Relationship to Patient: Spouse Oyster Culler Name: Isabela Castellanos Delivery Method: HAND - Hand Delivered Vita Days: Prior Verbal Notification: Recipient Understood Notice: Yes Recipient Signature: Yes Med Rec Note Co-signed by Attending: Coverage Notice Comment: DC IMM signed by and placed on the chart. did not want a coopy. Last DP export: 03/06/20 12:32 p Patient Name: ZAYRA CASTELLANOS Page [phone] at 1342 All edits/amendments must be made on the electronic document DICTATION DATE: 03/06/20 1342 CONVEYANCER: SUJIT 03/06/20 1342 RPT#: [id number] DC DATE: STATUS: ADM IN [facility] [address] [place] [address] END OF REPORT
--- NOTE | 2020-03-06 14:50 | MORECARE ---
CASE MANAGEMENT DISCHARGE SUMMARY PATIENT: ZAYRA MAO UNIT: [id number] ADM DATE: 02/19/20 AGE: 79 : 39 SEX: M ROOM/BED: D.2109 AUTHOR: ALMAS,DOC PHYSICIAN: REFERRING PHYSICIAN: LUMA BOCANEGRA MD DATE OF SERVICE: 03/06/20 Discharge Plan Patient Name: ZAYRA MAO Facility: [facility]:[place] : 1940 Planned Disposition: Assisted Facility Anticipated Discharge Date: 02/22/20 Discharge Date: Expected LOS: 3 Initial Reviewer: [id number] Initial Review Date: 02/19/2020 Generated: 03/06/20 3:49 pm Comments DCP- Discharge Planning Updated by [id number]: Kaleigh Guzmán on 03/06/20 1:[address] CM received communication from [facility] stating they will not accept the patient without a COVID test being done due to "fever and cough". CM notified Ashley Olvera. DCP- Discharge Planning Updated by [id number]: Ani Alonso on 03/06/20 12:[address] CM met with the patient and his at bedside. Patient has an team truck driver via face-time in order to communicate with both. informed the patient has chosen [facility] and she is in agreement with this. DC IMM signed per the . CM e-faxed additional information to [facility] and also talked with Joy via phone. Joy states they were worried about the patient's H/H and may not accept without a Covid-19 test. Made Joy aware that the patient does not meet criteria for Covid-19 testing. Made aware of planned DC 03/07. Await CB. DCP- Discharge Planning Updated by [id number]: Ty Sesay on 03/02/20 3:[address] Patient Name: ZAYRA MAO Encounter No: [id number] : 1940 Primary Insurance: [employer] CHOICE PPO MCR ADVANT Anticipated DC Date: 02-22-2020 Planned Disposition: Assisted Facility External Planned Provider: DCP follow-up note: CM RECEIVED DISCHARGE ORDER, SPOKE TO PT IN ROOM WHO INFORMED CM THAT HE IS GOING HOME AND WOULD LIKE HOME HEALTH DISCUSSED. IMPORTANT MESSAGE FROM MEDICARE PROVIDED AND EXPLAINED. CM LATER SPOKE TO PT'S NURSE WHO INFORMED CM THAT PT'S IS NOT ABLE TO TAKE CARE OF PT AT HOME. CM MET WITH PT, DISCUSSED IN WRITING, AVAILABLE REHAB [place] PT IS NOT ABLE TO TOLERATE THREE HOURS OF PROGRESSIVE THERAPY PER DAY. PT'S ON VIDEO PHONE. PT AND SPOUSE DISCUSSED LIST PROVIDED BY CM. PT REPORTS HIS IS ARGUING WITH HIM AND WANTS TO SPEAK TO CM. CM ATTEMPTED TO CALL VIDEO PHONE, , COULD NOT GET ANSWER. PT CALLED CM AND THROUGH REEL CART OPERATOR, SPOUSE WAS UPSET THAT PT SIGNED FORM WITHOUT HER BEING TOLD. CM PROVIDED IMPORTANT MESSAGE FROM MEDICARE INFORMATION VIA PHONE. CM DISCUSSED [place] F[facility]ILITY REHAB OPTIONS, INFORMED THAT THERE IS NO CURRENT VISITATION AT THEM EITHER. SHE CONSENTED TO REFERRALS TO THE [facility] AND [facility]. CHOICE COMPLETED. CM CONTACTED [facility], THEY ARE IN NETWORK WITH PT'S INSURANCE. CM FAXED REFERRAL TO THE [facility] VIA [facility] AT [phone]. CM WAITING ADMISSION DETERMINATION FROM THE [facility]. TY SESAY, CASE MANAGEMENT Ty Sesay DCP- Discharge Planning Updated by [id number]: Ty Sesay on 02/21/20 2:[address] Patient Name: ZAYRA MAO Encounter No: [id number] : 1940 Primary Insurance: [employer] CHOICE PPO MCR ADVANT Anticipated DC Date: 02-22-2020 Planned Disposition: Home with Home Health External Planned Provider[facility] DCP follow-up note: CM RECEIVED INPATIENT REHAB PRESCREENING ORDER, MET WITH PT IN ROOM TO DISCUSS REHAB OPTIONS, LOCATIONS AND PROVIDERS. ALL COMMUNICATION DONE IN WRITING, PT'S SPOUSE VIDEO CONFERENCED IN WITH PT DURING CONVERSATION. PT DECLINED INPATIENT REHAB AND [place] RE[facility] SERVICES. PT WANTS TO GO HOME WITH HOME HEALTH. PT'S PROVIDED CM WITH [employer] IN [employer] PHONE NUMBER, . CHOICE COMPLETED. IMPORTANT MESSAGE FROM MEDICARE PROVIDED AND EXPLAINED. CM CALLED AND SPOKE TO LYN OF [employer], , PROVIDED HOME HEALTH REFERRAL, CM FAXED REFERRAL TO [facility] AT [phone]. FOR DISCHARGE HOME WITH HOME HEALTH, [facility] AT [phone], FAX DISCHARGE INFORMATION TO [facility] AT [phone]. FAMILY TO TRANSPORT HOME. Ty Sesay, CASE MANAGEMENT DCP- Discharge Planning Updated by [id number]: Ty Sesay on 02/20/20 2:[address] Patient Name: ZAYRA MAO Admission Status: Elective Accout number: [id number] Admission Date: 02-19-2020 : 1940 Admission Diagnosis: Attending: EITAN OLSON Current LOS: 1 Anticipated DC Date: Planned Disposition: Home Primary Insurance: [employer] CHOICE PPO MCR ADVANT Discharge Planning Comments: CM MET WITH PT IN ROOM TO DISCUSS DISCHARGE PLANNING AND NEEDS. CM COMMUNICATED IN WRITING, PT VERBALLY RESPONDED. PT REPORTS LIVING AT HOME INDEPENDENTLY WITH HIS . PT HAS A ROLLATOR WALKER FROM [employer]. PT HAS A NURSE FROM HIS INSURANCE COMPANY THAT COMES OUT TO CHECK ON HIM. CM DISCUSSED AVAILABILITY OF HOME HEALTH, REHAB SERVICES AND MEDICAL EQUIPMENT. PT DENIES DISCHARGE NEEDS, REPORTS HIS WILL PICK HIM UP FOR DISCHARGE HOME PT PLANS TO DISCHARGE HOME WITH , HAS NO ANTICIPATED DISCHARGE NEEDS. FAMILY TO TRANSPORT HOME AT DISCHARGE. CM TO FOLLOW AND ASSIST IF NEEDED. Review Trainer: Ty Sesay DCP- Discharge Planning Updated by [id number]: Kaleigh Saini on 02/18/20 2:[address] GALARZA EXPLAINED ORIGINAL PROVIDED. COPY PLACED ON CHART. DCPIA - Discharge Planning Initial Assessment Updated by [id number]: Ty Sesay on 02/20/20 3:47 pm * Is the patient Alert and Oriented? Yes * How many steps to enter\\exit or inside your home? RAMP * PCP DR. OCTAVIA GALLAGHER * Pharmacy [facility] IN [place] * Preadmission Environment Home with Family * ADLs Independent * Equipment Rolling Walker * Other Equipment ROLLATOR WALKER FROM [employer] * List name and contact numbers for known caregivers / representatives who currently or will assist patient after discharge: ISABELA MAO, SPOUSE, OR VIDEO/REEL CART OPERATOR PHONE [phone] PRATIBHA BHAT, DTR, * Verbal permission to speak to the caregivers and representatives has been obtained from the patient. N/A * Community resources currently utilized None * Please name any agencies selected above. NONE * Additional services required to return to the preadmission environment? No * Can the patient safely return to the preadmission environment? Yes * Has this patient been hospitalized within the prior 30 days at any hospital? Yes Coverage Notice Reviewer: [id number] Dale LeonKaleigh Edds Notice Issued Date-Time: 02/18/2020 8:30 Notice Type: Medicare Outpatient Observation Notice Notice Delivered To: Patient Relationship to Patient: Art Objects Supervisor Name: Delivery Method: HAND - Hand Delivered Vita Days: Prior Verbal Notification: Recipient Understood Notice: Yes Recipient Signature: Yes Med Rec Note Co-signed by Attending: Coverage Notice Comment: MICHELL EXPLAINED ORIGINAL PROVIDED. COPY PLACED ON CHART. Reviewer: [id number] Sesay Notice Issued Date-Time: 02/21/2020 14:50 Notice Type: IM Discharge Notice Notice Delivered To: Patient Relationship to Patient: Art Objects Supervisor Name: Delivery Method: HAND - Hand Delivered Vita Days: Prior Verbal Notification: Recipient Understood Notice: Yes Recipient Signature: Yes Med Rec Note Co-signed by Attending: Coverage Notice Comment: Reviewer: JESSIE Sesay Notice Issued Date-Time: 02/21/2020 14:30 Notice Type: Patient Choice Letter Notice Delivered To: Patient Relationship to Patient: Art Objects Supervisor Name: Delivery Method: HAND - Hand Delivered Vita Days: Prior Verbal Notification: Recipient Understood Notice: Yes Recipient Signature: Yes Med Rec Note Co-signed by Attending: Coverage Notice Comment: [facility]PATIENT [facility] AND SNF REHAB Reviewer: JESSIE Sesay Notice Issued Date-Time: 03/02/2020 14:37 Notice Type: IM Discharge Notice Notice Delivered To: Patient Relationship to Patient: Art Objects Supervisor Name: Delivery Method: HAND - Hand Delivered Vita Days: Prior Verbal Notification: Recipient Understood Notice: Yes Recipient Signature: Yes Med Rec Note Co-signed by Attending: Coverage Notice Comment: Reviewer: JESSIE Sesay Notice Issued Date-Time: 03/02/2020 15:25 Notice Type: Patient Choice Letter Notice Delivered To: Family Member Relationship to Patient: Spouse Art Objects Supervisor Name: JOSE LUIS MAO Delivery Method: PHONE - Phone Vita Days: Prior Verbal Notification: Recipient Understood Notice: Yes Recipient Signature: Med Rec Note Co-signed by Attending: Coverage Notice Comment: [facility] Reviewer: [id number] Dale Alonso Notice Issued Date-Time: 03/06/2020 13:37 Notice Type: IM Discharge Notice Notice Delivered To: Family Member Relationship to Patient: Spouse Art Objects Supervisor Name: Isabela Mao Delivery Method: HAND - Hand Delivered Vita Days: Prior Verbal Notification: Recipient Understood Notice: Yes Recipient Signature: Yes Med Rec Note Co-signed by Attending: Coverage Notice Comment: DC IMM signed by and placed on the chart. did not want a coopy. Last DP export: 03/06/20 12:42 p Patient Name: ZAYRA MAO Page [phone] at 1450 All edits/amendments must be made on the electronic document DICTATION DATE: 03/06/201448 ESTHETICIAN AND MANAGER MEDICAL SPA: SUJIT 03/06/20 1449 RPT#: [id number] DC DATE: STATUS: ADM IN [address] [place] [address] END OF REPORT
--- NOTE | 2020-03-06 19:30 | NUR ---
PT IN BED, EYES CLOSED, RESP EVEN AND UNLABORED, NO DISTRESS NOTED, CL IN REACH, SR UP X 2.
[2020-03-06 21:12] VITALS: BP 88/53
[2020-03-07] VITALS: BP 98/60
[2020-03-07 05:17] VITALS: BP 103/60
[2020-03-07 05:59] LABS: BASOPHILS 0.2 % (0-2); EOSINOPHILS 1.5 % (0-7); HEMATOCRIT 28.3 % (42.0-54.0); HEMOGLOBIN 9.1 g/dL (13.5-17.5); IMMATURE GRANULOCYTES 0.5 % (0-5); LYMPHOCYTES 5.5 % (15-50); MCH 30.6 pg (26.0-34.0); MCHC 32.2 g/dL (31.0-37.0); MCV 95.3 fL (80.0-100.0); MEAN PLATELET VOLUME 9.4 fL (7.4-10.4); MONOCYTES 9.4 % (2-11); NEUTROPHILS 82.9 % (40-80); PLATELET COUNT 87 10x3/uL (130-400); RBC 2.97 10x6/uL (4.20-6.10); RDW 19.1 % (11.5-14.5); WBC 8.4 10x3/uL (4.8-10.8)
[2020-03-07 07:05] LABS: ALBUMIN 3.3 g/dL (3.4-5.0); ANION GAP 12.2 mmol/L (8-16); BILIRUBIN - DIRECT 0.84 mg/dL (0.00-0.30); BILIRUBIN - INDIRECT 1.58 mg/dL (0.00-1.00); BILIRUBIN - TOTAL 2.42 mg/dL (0.2-1.3); CALCIUM 8.7 mg/dL (8.5-10.1); CARBON DIOXIDE 25.3 mmol/L (21.0-32.0); CREATININE - SERUM 1.5 mg/dL (0.6-1.3); MAGNESIUM - SERUM 2.1 mg/dL (1.8-2.4); PHOSPHOROUS 3.5 mg/dL (2.5-4.9); PLATELET ESTIMATE DECREASED; POTASSIUM - SERUM 4.5 mmol/L (3.5-5.1); PROTEIN - SERUM 6.3 g/dL (6.4-8.2)
[2020-03-07 08:03] VITALS: BP 99/51
--- NOTE | 2020-03-07 09:20 | NUR ---
pt transported to room 8 pending a covid-19 test . pt is a/ox4. no s/s of distress. vss. will contact family of room status. bed low call light within reach. will continue to monitor.
--- NOTE | 2020-03-07 10:24 | MORECARE ---
CASE MANAGEMENT DISCHARGE SUMMARY PATIENT: ZAYRA MAO UNIT: [id number] ADM DATE: 02/19/20 AGE: 79 : 38 SEX: M ROOM/BED: D.0030 AUTHOR: ALMAS,DOC PHYSICIAN: REFERRING PHYSICIAN: LUMA BOCANEGRA MD DATE OF SERVICE: 03/07/20 Discharge Plan Patient Name: ZAYRA MAO Facility: [facility]:[place] : 1940 Planned Disposition: Detention Facility Anticipated Discharge Date: 02/22/20 Discharge Date: Expected LOS: 3 Initial Reviewer: [id number] Initial Review Date: 02/19/2020 Generated: 03/07/20 11:23 am Comments DCP- Discharge Planning Updated by [email or web address]: Kaleigh Guzmán on 03/06/20 1:[address] CM received communication from [facility] stating they will not accept the patient without a COVID test being done due to "fever and cough". CM notified Ashley Olvera. DCP- Discharge Planning Updated by [id number]: Ani Alonso on 03/06/20 12:[address] CM met with the patient and his at bedside. Patient has an historical interpreter via face-time in order to communicate with both. informed the patient has chosen The [facility] and she is in agreement with this. DC IMM signed per the . CM e-faxed additional information to Amira and also talked with Joy via phone. Joy states they were worried about the patient's H/H and may not accept without a Covid-19 test. Made Joy aware that the patient does not meet criteria for Covid-19 testing. Made aware of planned DC 03/07. Await CB. DCP- Discharge Planning Updated by [id number]: Ty Sesay on 03/02/20 3:[address] Patient Name: ZAYRA MAO Encounter No: [id number] : 1940 Primary Insurance: HUMANA CHOICE PPO MCR ADVANT Anticipated DC Date: 02-22-2020 Planned Disposition: Detention Facility External Planned Provider: DCP follow-up note: CM RECEIVED DISCHARGE ORDER, SPOKE TO PT IN ROOM WHO INFORMED CM THAT HE IS GOING HOME AND WOULD LIKE HOME HEALTH DISCUSSED. IMPORTANT MESSAGE FROM MEDICARE PROVIDED AND EXPLAINED. CM LATER SPOKE TO PT'S NURSE WHO INFORMED CM THAT PT'S IS NOT ABLE TO TAKE CARE OF PT AT HOME. CM MET WITH PT, DISCUSSED IN WRITING, AVAILABLE REHAB [place] PT IS NOT ABLE TO TOLERATE THREE HOURS OF PROGRESSIVE THERAPY PER DAY. PT'S ON VIDEO PHONE. PT AND SPOUSE DISCUSSED LIST PROVIDED BY CM. PT REPORTS HIS IS ARGUING WITH HIM AND WANTS TO SPEAK TO CM. CM ATTEMPTED TO CALL VIDEO PHONE, , COULD NOT GET ANSWER. PT CALLED CM AND THROUGH SEAT COVER CUTTER, SPOUSE WAS UPSET THAT PT SIGNED FORM WITHOUT HER BEING TOLD. CM PROVIDED IMPORTANT MESSAGE FROM MEDICARE INFORMATION VIA PHONE. CM DISCUSSED [place] FACILITY REHAB OPTIONS, INFORMED THAT THERE IS NO CURRENT VISITATION AT THEM EITHER. SHE CONSENTED TO REFERRALS TO THE [facility] AND [facility]. CHOICE COMPLETED. CM CONTACTED [facility] OF THE [facility], THEY ARE IN NETWORK WITH PT'S INSURANCE. CM FAXED REFERRAL TO THE [facility] VIA [facility] AT [phone]. CM WAITING ADMISSION DETERMINATION FROM THE [facility]. TY SESAY, CASE MANAGEMENT Ty Sesay DCP- Discharge Planning Updated by [id number]: Ty Sesay on 02/21/20 2:[address] Patient Name: ZAYRA MAO Encounter No: [id number] : 1940 Primary Insurance: HUMANA CHOICE PPO MCR ADVANT Anticipated DC Date: 02-22-2020 Planned Disposition: Home with Home Health External Planned Provider: [facility] DCP follow-up note: CM RECEIVED INPATIENT REHAB PRESCREENING ORDER, MET WITH PT IN ROOM TO DISCUSS REHAB OPTIONS, LOCATIONS AND PROVIDERS. ALL COMMUNICATION DONE IN WRITING, PT'S SPOUSE VIDEO CONFERENCED IN WITH PT DURING CONVERSATION. PT DECLINED INPATIENT REHAB AND [place] REHAB SERVICES. PT WANTS TO GO HOME WITH HOME HEALTH. PT'S PROVIDED CM WITH [employer] IN [place] PHONE NUMBER, . CHOICE COMPLETED. IMPORTANT MESSAGE FROM MEDICARE PROVIDED AND EXPLAINED. CM CALLED AND SPOKE TO LYN OF [employer], , PROVIDED HOME HEALTH REFERRAL, CM FAXED REFERRAL TO [facility] AT [phone]. FOR DISCHARGE HOME WITH HOME HEALTH, [facility] AT [phone], FAX DISCHARGE INFORMATION TO [employer] AT [phone]. FAMILY TO TRANSPORT HOME. Ty Sesay, CASE MANAGEMENT DCP- Discharge Planning Updated by [id number]: Ty Sesay on 02/20/20 2:[address] Patient Name: ZAYRA MAO Admission Status: Elective Accout number: [id number] Admission Date: 02-19-2020 : 1940 Admission Diagnosis: Attending: EITAN OLSON Current LOS: 1 Anticipated DC Date: Planned Disposition: Home Primary Insurance: HUMANA CHOICE PPO MCR ADVANT Discharge Planning Comments: CM MET WITH PT IN ROOM TO DISCUSS DISCHARGE PLANNING AND NEEDS. CM COMMUNICATED IN WRITING, PT VERBALLY RESPONDED. PT REPORTS LIVING AT HOME INDEPENDENTLY WITH HIS . PT HAS A ROLLATOR WALKER FROM [employer]. PT HAS A NURSE FROM HIS INSURANCE COMPANY THAT COMES OUT TO CHECK ON HIM. CM DISCUSSED AVAILABILITY OF HOME HEALTH, REHAB SERVICES AND MEDICAL EQUIPMENT. PT DENIES DISCHARGE NEEDS, REPORTS HIS WILL PICK HIM UP FOR DISCHARGE HOME PT PLANS TO DISCHARGE HOME WITH , HAS NO ANTICIPATED DISCHARGE NEEDS. FAMILY TO TRANSPORT HOME AT DISCHARGE. CM TO FOLLOW AND ASSIST IF NEEDED. Rental Agent: Ty Sesay DCP- Discharge Planning Updated by [id number]: Kaleigh Saini on 02/18/20 2:[address] GALARZA EXPLAINED ORIGINAL PROVIDED. COPY PLACED ON CHART. DCPIA - Discharge Planning Initial Assessment Updated by [id number]: Ty Sesay on 02/20/20 3:47 pm * Is the patient Alert and Oriented? Yes * How many steps to enter\\exit or inside your home? RAMP * PCP DR. OCTAVIA GALLAGHER * [facility]acy [facility] [place] * Preadmission Environment Home with Family * ADLs Independent * Equipment Rolling Walker * Other Equipment ROLLATOR WALKER FROM [employer] * List name and contact numbers for known caregivers / representatives who currently or will assist patient after discharge: ISABELA MAO, SPOUSE, OR VIDEO/SEAT COVER CUTTER PHONE [phone] PRATIBHA BHAT, DTR, * Verbal permission to speak to the caregivers and representatives has been obtained from the patient. N/A * Community resources currently utilized None * Please name any agencies selected above. NONE * Additional services required to return to the preadmission environment? No * Can the patient safely return to the preadmission environment? Yes * Has this patient been hospitalized within the prior 30 days at any hospital? Yes Coverage Notice Reviewer: [id number] Dale LeonKaleigh Edds Notice Issued Date-Time: 02/18/2020 8:30 Notice Type: Medicare Outpatient Observation Notice Notice Delivered To: Patient Relationship to Patient: Ward Clerk Name: Delivery Method: HAND - Hand Delivered Vita Days: Prior Verbal Notification: Recipient Understood Notice: Yes Recipient Signature: Yes Med Rec Note Co-signed by Attending: Coverage Notice Comment: MICHELL EXPLAINED ORIGINAL PROVIDED. COPY PLACED ON CHART. Reviewer: [id number] Sesay Notice Issued Date-Time: 02/21/2020 14:50 Notice Type: IM Discharge Notice Notice Delivered To: Patient Relationship to Patient: Ward Clerk Name: Delivery Method: HAND - Hand Delivered Vita Days: Prior Verbal Notification: Recipient Understood Notice: Yes Recipient Signature: Yes Med Rec Note Co-signed by Attending: Coverage Notice Comment: Reviewer: JESSIE Sesay Notice Issued Date-Time: 02/21/2020 14:30 Notice Type: Patient Choice Letter Notice Delivered To: Patient Relationship to Patient: Ward Clerk Name: Delivery Method: HAND - Hand Delivered Vita Days: Prior Verbal Notification: Recipient Understood Notice: Yes Recipient Signature: Yes Med Rec Note Co-signed by Attending: Coverage Notice Comment: ACCEPTANCE: [facility] REFUSAL: INPATIENT REHAB AND SNF REHAB Reviewer: JESSIE Sesay Notice Issued Date-Time: 03/02/2020 14:37 Notice Type: IM Discharge Notice Notice Delivered To: Patient Relationship to Patient: Ward Clerk Name: Delivery Method: HAND - Hand Delivered Vita Days: Prior Verbal Notification: Recipient Understood Notice: Yes Recipient Signature: Yes Med Rec Note Co-signed by Attending: Coverage Notice Comment: Reviewer: JESSIE Sesay Notice Issued Date-Time: 03/02/2020 15:25 Notice Type: Patient Choice Letter Notice Delivered To: Family Member Relationship to Patient: Spouse Ward Clerk Name: JOSE LUIS MAO Delivery Method: PHONE - Phone Vita Days: Prior Verbal Notification: Recipient Understood Notice: Yes Recipient Signature: Med Rec Note Co-signed by Attending: Coverage Notice Comment: [facility] Reviewer: [id number] Dale Alonso Notice Issued Date-Time: 03/06/2020 13:37 Notice Type: IM Discharge Notice Notice Delivered To: Family Member Relationship to Patient: Spouse Ward Clerk Name: Isabela Mao Delivery Method: HAND - Hand Delivered Vita Days: Prior Verbal Notification: Recipient Understood Notice: Yes Recipient Signature: Yes Med Rec Note Co-signed by Attending: Coverage Notice Comment: DC IMM signed by and placed on the chart. did not want a coopy. Last DP export: 03/06/20 1:50 p Patient Name: ZAYRA MAO Page [id number] at 1024 All edits/amendments must be made on the electronic document DICTATION DATE: 03/07/20 1023 EXECUTIVE ACCOUNT MANAGER: SUJIT 03/07/20 1023 RPT#: [id number] DC DATE: STATUS: ADM IN [facility] [address] [place] [address] END OF REPORT
--- NOTE | 2020-03-07 12:35 | MORECARE ---
CASE MANAGEMENT DISCHARGE SUMMARY PATIENT: ZAYRA MAO UNIT: [id number] ADM DATE: 02/19/20 AGE: 79 : 39 SEX: M ROOM/BED: D.2094 AUTHOR: ALMAS,DOC PHYSICIAN: REFERRING PHYSICIAN: LUMA BOCANEGRA MD DATE OF SERVICE: 03/07/20 Discharge Plan Patient Name: ZAYRA MAO Facility: [facility]:[place] : 1940 Planned Disposition: Half-Way Facility Anticipated Discharge Date: 02/22/20 Discharge Date: Expected LOS: 3 Initial Reviewer: [id number] Initial Review Date: 02/19/2020 Generated: 03/07/20 1:35 pm Comments DCP- Discharge Planning Updated by [id number]: Kaleigh Guzmán on 03/07/20 11:[address] DCM was notified by RAJI Hebert, that Iman, Clinical Liaison with [facility], called and notified her that [facility] had decided not to accept patient to SNF. Emilee states she asked Iman if [facility], another [facility] facility, would accept patient and Iman told her that [facility] had declined the patient as well. DCM spoke with Iman about denial. Voiced dissatisfaction and frustration with facility requesting Negative COVID result prior to admission to facility and now declining patient before the test can even result. [place] also called Padilla Patel, Senior EDUCATIONAL ADMINISTRATOR with [facility], notified Padilla of above information and voiced dissatisfaction / frustration with facilities process of accepting patient. Padilla states he will follow up with Iman and the telecommunications facility examiner about this. States he or Iman will call DCM back with follow up. DCM notified RAJI Hebert of status of declination. DCM will continue to follow. DCP- Discharge Planning Updated by [id number]: Kaleigh Guzmán on 03/06/20 1:[address] CM received communication from [facility] stating they will not accept the patient without a COVID test being done due to "fever and cough". CM notified Ashley Olvera. DCP- Discharge Planning Updated by [id number]: Ani Alonso on 03/06/20 12:[address] CM met with the patient and his at bedside. Patient has an store hand via face-time in order to communicate with both. informed the patient has chosen [facility] and she is in agreement with this. DC IMM signed per the . CM e-faxed additional information to Amira and also talked with Joy via phone. Joy states they were worried about the patient's H/H and may not accept without a Covid-19 test. Made Joy aware that the patient does not meet criteria for Covid-19 testing. Made aware of planned DC 03/07. Await CB. DCP- Discharge Planning Updated by [id number]: Ty Sesay on 03/02/20 3:[address] Patient Name: ZAYRA MAO Encounter No: [id number] : 1940 Primary Insurance: [employer] SARL PPO MCR ADVANT Anticipated DC Date: 02-22-2020 Planned Disposition: Half-Way Facility External Planned Provider: DCP follow-up note: CM RECEIVED DISCHARGE ORDER, SPOKE TO PT IN ROOM WHO INFORMED CM THAT HE IS GOING HOME AND WOULD LIKE HOME HEALTH DISCUSSED. IMPORTANT MESSAGE FROM MEDICARE PROVIDED AND EXPLAINED. CM LATER SPOKE TO PT'S NURSE WHO INFORMED CM THAT PT'S IS NOT ABLE TO TAKE CARE OF PT AT HOME. CM MET WITH PT, DISCUSSED IN WRITING, AVAILABLE REHAB IN [facility] PT IS NOT ABLE TO TOLERATE THREE HOURS OF PROGRESSIVE THERAPY PER DAY. PT'S ON VIDEO PHONE. PT AND SPOUSE DISCUSSED LIST PROVIDED BY CM. PT REPORTS HIS IS ARGUING WITH HIM AND WANTS TO SPEAK TO CM. CM ATTEMPTED TO CALL VIDEO PHONE, , COULD NOT GET ANSWER. PT CALLED CM AND THROUGH FEED ADVISER, SPOUSE WAS UPSET THAT PT SIGNED FORM WITHOUT HER BEING TOLD. CM PROVIDED IMPORTANT MESSAGE FROM MEDICARE INFORMATION VIA PHONE. CM DISCUSSED [facility] FACILITY REHAB OPTIONS, INFORMED THAT THERE IS NO CURRENT VISITATION AT THEM EITHER. SHE CONSENTED TO REFERRALS TO [facility] AND [facility]. CHOICE COMPLETED. CM CONTACTED [facility] OF [facility], THEY ARE IN NETWORK WITH PT'S INSURANCE. CM FAXED REFERRAL TO THE [facility] VIA [facility] AT [phone]. CM WAITING ADMISSION DETERMINATION FROM THE [facility]. TY SESAY, CASE MANAGEMENT Ty Sesay DCP- Discharge Planning Updated by [id number]: Ty Sesay on 02/21/20 2:[address] Patient Name: ZAYRA AMO Encounter No: [id number] : 1940 Primary Insurance: HUMANA CHOICE PPO MCR ADVANT Anticipated DC Date: 02-22-2020 Planned Disposition: Home with Home Health External Planned Provider[facility] DCP follow-up note: CM RECEIVED INPATIENT REHAB PRESCREENING ORDER, MET WITH PT IN ROOM TO DISCUSS REHAB OPTIONS, LOCATIONS AND PROVIDERS. ALL COMMUNICATION DONE IN WRITING, PT'S SPOUSE VIDEO CONFERENCED IN WITH PT DURING CONVERSATION. PT DECLINED INPATIENT REHAB AND [facility] REHAB SERVICES. PT WANTS TO GO HOME WITH HOME HEALTH. PT'S PROVIDED CM WITH [employer] IN [place] PHONE NUMBER, . CHOICE COMPLETED. IMPORTANT MESSAGE FROM MEDICARE PROVIDED AND EXPLAINED. CM CALLED AND SPOKE TO LYN OF [employer] , PROVIDED HOME HEALTH REFERRAL, CM FAXED REFERRAL TO [facility] AT [phone]. FOR DISCHARGE HOME WITH HOME HEALTH, NOTIFY [employer] AT [phone], FAX DISCHARGE INFORMATION TO [employer] AT [phone]. FAMILY TO TRANSPORT HOME. Ty Sesay, CASE MANAGEMENT DCP- Discharge Planning Updated by [id number]: Ty Sesay on 02/20/20 2:[address] Patient Name: ZAYRA MAO Admission Status: Elective Accout number: [id number] Admission Date: 02-19-2020 : 1940 Admission Diagnosis: Attending: EITAN OLSON Current LOS: 1 Anticipated DC Date: Planned Disposition: Home Primary Insurance: HUMANA CHOICE PPO [facility] ADVANT Discharge Planning Comments: CM MET WITH PT IN ROOM TO DISCUSS DISCHARGE PLANNING AND NEEDS. CM COMMUNICATED IN WRITING, PT VERBALLY RESPONDED. PT REPORTS LIVING AT HOME INDEPENDENTLY WITH HIS . PT HAS A ROLLATOR WALKER FROM [facility]. PT HAS A NURSE FROM HIS INSURANCE COMPANY THAT COMES OUT TO CHECK ON HIM. CM DISCUSSED AVAILABILITY OF HOME HEALTH, REHAB SERVICES AND MEDICAL EQUIPMENT. PT DENIES DISCHARGE NEEDS, REPORTS HIS WILL PICK HIM UP FOR DISCHARGE HOME PT PLANS TO DISCHARGE HOME WITH , HAS NO ANTICIPATED DISCHARGE NEEDS. FAMILY TO TRANSPORT HOME AT DISCHARGE. CM TO FOLLOW AND ASSIST IF NEEDED. Appliance Servicer: Ty Sesay DCP- Discharge Planning Updated by [id number]: Kaleigh Saini on 02/18/20 2:[address] GALARZA EXPLAINED ORIGINAL PROVIDED. COPY PLACED ON CHART. DCPIA - Discharge Planning Initial Assessment Updated by [id number]: Ty Sesay on 02/20/20 3:47 pm * Is the patient Alert and Oriented? Yes * How many steps to enter\\exit or inside your home? RAMP * PCP DR. OCTAVIA GALLAGHER * Pharmacy [facility] IN [place] * Preadmission Environment Home with Family * ADLs Independent * Equipment Rolling Walker * Other [facility] * List name and contact numbers for known caregivers / representatives who currently or will assist patient after discharge: ISABELA MAO, SPOUSE, OR VIDEO/FEED ADVISER PHONE [phone] PRATIBHA BHAT DTR, * Verbal permission to speak to the caregivers and representatives has been obtained from the patient. N/A * Community resources currently utilized None * Please name any agencies selected above. NONE * Additional services required to return to the preadmission environment? No * Can the patient safely return to the preadmission environment? Yes * Has this patient been hospitalized within the prior 30 days at any hospital? Yes Coverage Notice Reviewer: [id number] Dale Sesay Notice Issued Date-Time: 03/02/2020 15:25 Notice Type: Patient Choice Letter Notice Delivered To: Family Member Relationship to Patient: Spouse Nut Former Name: JOSE LUIS MAO Delivery Method: PHONE - Phone Vita Days: Prior Verbal Notification: Recipient Understood Notice: Yes Recipient Signature: Med Rec Note Co-signed by Attending: Coverage Notice Comment: [facility] Reviewer: [id number] Dale Alonso Notice Issued Date-Time: 03/06/2020 13:37 Notice Type: IM Discharge Notice Notice Delivered To: Family Member Relationship to Patient: Spouse Nut Former Name: Isabela Mao Delivery Method: HAND - Hand Delivered Vita Days: Prior Verbal Notification: Recipient Understood Notice: Yes Recipient Signature: Yes Med Rec Note Co-signed by Attending: Coverage Notice Comment: DC IMM signed by and placed on the chart. did not want a coopy. Reviewer: [id number] Dale Sesay Notice Issued Date-Time: 02/21/2020 14:30 Notice Type: Patient Choice Letter Notice Delivered To: Patient Relationship to Patient: Nut Former Name: Delivery Method: HAND - Hand Delivered Vita Days: Prior Verbal Notification: Recipient Understood Notice: Yes Recipient Signature: Yes Med Rec Note Co-signed by Attending: Coverage Notice Comment: ACCEPTANCE: [facility] REFUSAL: INPATIENT REHAB AND SNF REHAB Reviewer: [id number] Dale Saini Notice Issued Date-Time: 02/18/2020 8:30 Notice Type: Medicare Outpatient Observation Notice Notice Delivered To: Patient Relationship to Patient: Nut Former Name: Delivery Method: HAND - Hand Delivered Vita Days: Prior Verbal Notification: Recipient Understood Notice: Yes Recipient Signature: Yes Med Rec Note Co-signed by Attending: Coverage Notice Comment: GALARZA EXPLAINED ORIGINAL PROVIDED. COPY PLACED ON CHART. Reviewer: [id number] Dale Sesay Notice Issued Date-Time: 02/21/2020 14:50 Notice Type: IM Discharge Notice Notice Delivered To: Patient Relationship to Patient: Nut Former Name: Delivery Method: HAND - Hand Delivered Vita Days: Prior Verbal Notification: Recipient Understood Notice: Yes Recipient Signature: Yes Med Rec Note Co-signed by Attending: Coverage Notice Comment: Reviewer: [id number] Sesay Notice Issued Date-Time: 03/02/2020 14:37 Notice Type: IM Discharge Notice Notice Delivered To: Patient Relationship to Patient: Nut Former Name: Delivery Method: HAND - Hand Delivered Vita Days: Prior Verbal Notification: Recipient Understood Notice: Yes Recipient Signature: Yes Med Rec Note Co-signed by Attending: Coverage Notice Comment: Last DP export: 03/07/20 9:24 a Patient Name: ZAYRA MAO Page 78457 at 1235 All edits/amendments must be made on the electronic document DICTATION DATE: 03/07/20 1235 HIM ASSISTANT: SUJIT 03/07/20 1235 RPT#: [id number] DC DATE: STATUS: ADM IN [facility] [address] [place] [address] END OF REPORT
--- NOTE | 2020-03-07 13:47 | MORECARE ---
CASE MANAGEMENT DISCHARGE SUMMARY PATIENT: ZAYRA MAO UNIT: [id number] ADM DATE: 02/19/20 AGE: 79 : 39 SEX: M ROOM/BED: D.9324 AUTHOR: ALMAS,DOC PHYSICIAN: REFERRING PHYSICIAN: LUMA BOCANEGRA MD DATE OF SERVICE: 03/07/20 Discharge Plan Patient Name: ZAYRA MAO Facility: [facility]:[place] : 1940 Planned Disposition: Halfway Facility Anticipated Discharge Date: 02/22/20 Discharge Date: Expected LOS: 3 Initial Reviewer: [id number] Initial Review Date: 02/19/2020 Generated: 03/07/20 2:47 pm Comments DCP- Discharge Planning Updated by [id number]: Kaleigh Guzmán on 03/07/20 12:[address] Received call back from Iman with [facility]. States they will accept patient to SNF if/when negative COVID result received. Notified RAJI Hebert. DCP- Discharge Planning Updated by [id number]: Kaleigh Guzmán on 03/07/20 11:[address] DCM was notified by RAJI Hebert, that Iman, Clinical Liaison with [facility], called and notified her that [facility] had decided not to accept patient to SNF. Emilee states she asked Iman if [facility], another [facility] facility, would accept patient and Iman told her that [facility] had declined the patient as well. DCM spoke with Iman about denial. Voiced dissatisfaction and frustration with facility requesting Negative COVID result prior to admission to facility and now declining patient before the test can even result. MARICHUY also called Padilla Patel, Senior SHOT POLISHER with [facility], notified Padilla of above information and voiced dissatisfaction / frustration with facilities process of accepting patient. Padilla states he will follow up with Iman and the facility assistant about this. States he or Iman will call DCM back with follow up. DCM notified RAJI Hebert of status of declination. DCM will continue to follow. DCP- Discharge Planning Updated by [id number]: Kaleigh Guzmán on 03/06/20 1:[address] CM received communication from [facility] stating they will not accept the patient without a COVID test being done due to "fever and cough". CM notified Ashley Olvera. DCP- Discharge Planning Updated by [email or web address]: Ani Alonso on 03/06/20 12:[address] CM met with the patient and his at bedside. Patient has an show worker via face-time in order to communicate with both. informed the patient has chosen [facility] and she is in agreement with this. DC IMM signed per the . CM e-faxed additional information to Amira and also talked with Joy via phone. Joy states they were worried about the patient's H/H and may not accept without a Covid-19 test. Made Joy aware that the patient does not meet criteria for Covid-19 testing. Made aware of planned DC 03/07. Await CB. DCP- Discharge Planning Updated by [id number]: Ty Gilwell on 03/02/20 3:[address] Patient Name: ZAYRA MAO Encounter No: [id number] : 1940 Primary Insurance: [employer] PPO MCR ADVANT Anticipated DC Date: 02-22-2020 Planned Disposition: Halfway Facility External Planned Provider: DCP follow-up note: CM RECEIVED DISCHARGE ORDER, SPOKE TO PT IN ROOM WHO INFORMED CM THAT HE IS GOING HOME AND WOULD LIKE HOME HEALTH DISCUSSED. IMPORTANT MESSAGE FROM MEDICARE PROVIDED AND EXPLAINED. CM LATER SPOKE TO PT'S NURSE WHO INFORMED CM THAT PT'S IS NOT ABLE TO TAKE CARE OF PT AT HOME. CM MET WITH PT, DISCUSSED IN WRITING, AVAILABLE REHAB IN [place] PT IS NOT ABLE TO TOLERATE THREE HOURS OF PROGRESSIVE THERAPY PER DAY. PT'S ON VIDEO PHONE. PT AND SPOUSE DISCUSSED LIST PROVIDED BY CM. PT REPORTS HIS IS ARGUING WITH HIM AND WANTS TO SPEAK TO CM. CM ATTEMPTED TO CALL VIDEO PHONE, , COULD NOT GET ANSWER. PT CALLED CM AND THROUGH BRAND SALES MANAGER, SPOUSE WAS UPSET THAT PT SIGNED FORM WITHOUT HER BEING TOLD. CM PROVIDED IMPORTANT MESSAGE FROM MEDICARE INFORMATION VIA PHONE. CM DISCUSSED [place] FACILITY REHAB OPTIONS, INFORMED THAT THERE IS NO CURRENT VISITATION AT THEM EITHER. SHE CONSENTED TO REFERRALS TO THE [facility] AND [facility]. CHOICE COMPLETED. CM CONTACTED [facility] OF THE [facility], THEY ARE IN NETWORK WITH PT'S INSURANCE. CM FAXED REFERRAL TO THE [facility] VIA [facility] AT [phone]. CM WAITING ADMISSION DETERMINATION FROM THE [facility]. TY WINTERS CASE MANAGEMENT Ty Winters DCP- Discharge Planning Updated by [id number]: Ty Winters on 02/21/20 2:[address] Patient Name: ZAYRA MAO Encounter No: [id number] : 1940 Primary Insurance: HUMANA CHOICE PPO [facility] ADVANT Anticipated DC Date: 02-22-2020 Planned Disposition: Home with Home Health External Planned Provider: [employer] [facility] OFF[facility] DCP follow-up note: CM RECEIVED INPATIENT REHAB PRESCREENING ORDER, MET WITH PT IN ROOM TO DISCUSS REHAB OPTIONS, LOCATIONS AND PROVIDERS. ALL COMMUNICATION DONE IN WRITING, PT'S SPOUSE VIDEO CONFERENCED IN WITH PT DURING CONVERSATION. PT DECLINED INPATIENT REHAB AND [place] REHAB SERVICES. PT WANTS TO GO HOME WITH HOME HEALTH. PT'S PROVIDED CM WITH [employer] IN [place] PHONE NUMBER, . CHOICE COMPLETED. IMPORTANT MESSAGE FROM MEDICARE PROVIDED AND EXPLAINED. CM CALLED AND SPOKE TO LYN OF [employer], , PROVIDED HOME HEALTH REFERRAL, CM FAXED REFERRAL TO [facility] AT [phone]. FOR DISCHARGE HOME WITH HOME HEALTH, NOTIFY [employer] AT [phone], FAX DISCHARGE INFORMATION TO [employer] AT [phone]. FAMILY TO TRANSPORT HOME. TALISHA Vazquez DCP- Discharge Planning Updated by [id number]: Ty Winters on 02/20/20 2:[address] Patient Name: ZAYRA MAO Admission Status: Elective Accout number: [id number] Admission Date: 02-19-2020 : 1940 Admission Diagnosis: Attending: EITAN OLSON Current LOS: 1 Anticipated DC Date: Planned Disposition: Home Primary Insurance: HUMANA CHOICE PPO [facility] ADVANT Discharge Planning Comments: CM MET WITH PT IN ROOM TO DISCUSS DISCHARGE PLANNING AND NEEDS. CM COMMUNICATED IN WRITING, PT VERBALLY RESPONDED. PT REPORTS LIVING AT HOME INDEPENDENTLY WITH HIS . PT HAS A ROLLATOR WALKER FROM [employer]. PT HAS A NURSE FROM HIS INSURANCE COMPANY THAT COMES OUT TO CHECK ON HIM. CM DISCUSSED AVAILABILITY OF HOME HEALTH, REHAB SERVICES AND MEDICAL EQUIPMENT. PT DENIES DISCHARGE NEEDS, REPORTS HIS WILL PICK HIM UP FOR DISCHARGE HOME PT PLANS TO DISCHARGE HOME WITH , HAS NO ANTICIPATED DISCHARGE NEEDS. FAMILY TO TRANSPORT HOME AT DISCHARGE. CM TO FOLLOW AND ASSIST IF NEEDED. Basket Person: Ty Winters DCP- Discharge Planning Updated by [id number]: Kaleigh Saini on 02/18/20 2:[address] GALARZA EXPLAINED ORIGINAL PROVIDED. COPY PLACED ON CHART. DCPIA - Discharge Planning Initial Assessment Updated by [id number]: Ty Winters on 02/20/20 3:47 pm * Is the patient Alert and Oriented? Yes * How many steps to enter\\exit or inside your home? RAMP * PCP DR. OCTAVIA GALLAGHER * [facility] [place] * Preadmission Environment Home with Family * ADLs Independent * Equipment Rolling Walker * Other Equipment ROLLATOR WALKER FROM [employer] * List name and contact numbers for known caregivers / representatives who currently or will assist patient after discharge: ISABELA MAO, SPOUSE, OR VIDEO/BRAND SALES MANAGER PHONE [phone] BRANDON TALAVERAR, * Verbal permission to speak to the caregivers and representatives has been obtained from the patient. N/A * Community resources currently utilized None * Please name any agencies selected above. NONE * Additional services required to return to the preadmission environment? No * Can the patient safely return to the preadmission environment? Yes * Has this patient been hospitalized within the prior 30 days at any hospital? Yes Coverage Notice Reviewer: [id number] - Ty Winters Notice Issued Date-Time: 03/02/2020 15:25 Notice Type: Patient Choice Letter Notice Delivered To: Family Member Relationship to Patient: Spouse Crate Liner Name: JOSE LUIS MAO Delivery Method: PHONE - Phone Vita Days: Prior Verbal Notification: Recipient Understood Notice: Yes Recipient Signature: Med Rec Note Co-signed by Attending: Coverage Notice Comment: [facility] Reviewer: [id number] Dale Alonso Notice Issued Date-Time: 03/06/2020 13:37 Notice Type: IM Discharge Notice Notice Delivered To: Family Member Relationship to Patient: Spouse Crate Liner Name: Isabela Mao Delivery Method: HAND - Hand Delivered Vita Days: Prior Verbal Notification: Recipient Understood Notice: Yes Recipient Signature: Yes Med Rec Note Co-signed by Attending: Coverage Notice Comment: DC IMM signed by and placed on the chart. did not want a coopy. Reviewer: [id number] Dale Winters Notice Issued Date-Time: 02/21/2020 14:30 Notice Type: Patient Choice Letter Notice Delivered To: Patient Relationship to Patient: Crate Liner Name: Delivery Method: HAND - Hand Delivered Vita Days: Prior Verbal Notification: Recipient Understood Notice: Yes Recipient Signature: Yes Med Rec Note Co-signed by Attending: Coverage Notice Comment: ACCEPTANCE: [facility] REFUSAL: INPATIENT REHAB AND SNF REHAB Reviewer: [id number] Dale Saini Notice Issued Date-Time: 02/18/2020 8:30 Notice Type: Medicare Outpatient Observation Notice Notice Delivered To: Patient Relationship to Patient: Crate Liner Name: Delivery Method: HAND - Hand Delivered Vita Days: Prior Verbal Notification: Recipient Understood Notice: Yes Recipient Signature: Yes Med Rec Note Co-signed by Attending: Coverage Notice Comment: [facility] EXPLAINED ORIGINAL PROVIDED. COPY PLACED ON CHART. Reviewer: [id number] Dale Winters Notice Issued Date-Time: 02/21/2020 14:50 Notice Type: IM Discharge Notice Notice Delivered To: Patient Relationship to Patient: Crate Liner Name: Delivery Method: HAND - Hand Delivered Vita Days: Prior Verbal Notification: Recipient Understood Notice: Yes Recipient Signature: Yes Med Rec Note Co-signed by Attending: Coverage Notice Comment: Reviewer: [id number] Winters Notice Issued Date-Time: 03/02/2020 14:37 Notice Type: IM Discharge Notice Notice Delivered To: Patient Relationship to Patient: Crate Liner Name: Delivery Method: HAND - Hand Delivered Vita Days: Prior Verbal Notification: Recipient Understood Notice: Yes Recipient Signature: Yes Med Rec Note Co-signed by Attending: Coverage Notice Comment: Last DP export: 03/07/20 11:35 a Patient Name: ZAYRA MAO Page 72074 at 1347 All edits/amendments must be made on the electronic document DICTATION DATE: 03/07/20 1347 CREATIVE DIRECTOR: SUJIT 03/07/20 1347 RPT#: [id number] DC DATE: STATUS: ADM IN [facility] [address] [place] [address] END OF REPORT
--- NOTE | 2020-03-07 13:58 | NUR ---
OT NOTE: PT REQUIRED MOD/MAX A FOR SUPINE TO SIT . PT REQUIRED CGA FOR EOB SITTING BALANCE . PT COMPLETED UE AROM AX WITH ASSIST OF OTR. PT EXHIBITED DECREASED TRUNK CONTROL WITH REACHING AXS. PT COMPLETED SIT TO SUPINE WITH MOD A. [phone] THANK YOU,MEHDI CHENG
--- NOTE | 2020-03-07 14:01 | NUR ---
OT NOTE: PT AGREEABLE TO SIT UP ON EOB TODAY; MOD ASSIST WITH SUPINE TO SIT; UE/LE EXS WHILE SITTING ON EOB; REQUIRES ASSIST WITH STATIC SITTING WHILE PERFORMING EXS; AGAIN ATTEMPTED SEVERAL NECK EXT EXS..DUE TO WEAKNESS, PT IS UNABLE TO COME TO NEUTRAL POSITION WITH NECK EXTENSION. FEEDING AND SIMPLE GROOMING TASKS WITH SET UP; PT INITIALLY RESISTANT TO BRINGING HOB UP SO HE COULD DRINK HIS JUICE.. JUICE SPILLED AND PT REQUIRED MIN ASSIST WITH USE OF WASH CLOTH TO CLEAN NECK, FACE, CHIN, ETC.. REPOSITIONED WITH MAX ASSIST IN BED. REA TOUSSAINT, OTR/L [phone]
--- NOTE | 2020-03-07 17:26 | MORECARE ---
CASE MANAGEMENT DISCHARGE SUMMARY PATIENT: ZAYRA MAO UNIT: [id number] ADM DATE: 02/19/20 AGE: 79 : 39 SEX: M ROOM/BED: D.3868 AUTHOR: ALMASDOC PHYSICIAN: REFERRING PHYSICIAN: LUMA BOCANEGRA MD DATE OF SERVICE: 03/07/20 Discharge Plan Patient Name: ZAYRA MAO Facility: [facility]:[place] : 1940 Planned Disposition: Shelter Facility Anticipated Discharge Date: 02/22/20 Discharge Date: Expected LOS: 3 Initial Reviewer: [id number] Initial Review Date: 02/19/2020 Generated: 03/07/20 6:26 pm Comments DCP- Discharge Planning Updated by [id number]: Emilee Lilly on 03/07/20 4:[address] I spoke with patient's daughter today to talk to her about alternatives to different SNF. I informed her that both [facility] and [facility] would still be fairly close to [place]. She states she will speak to his about those 2 and call me back. I then received a call that [facility] will accept the patient when his Covid19 test is resulted and negative. I called the daughter back and she agrees with [facility] for discharge placement. Nora Vasques - R - [phone] DCP- Discharge Planning Updated by [id number]: Kaleigh Guzmán on 03/07/20 12:[address] Received call back from Iman with [facility]. States they will accept patient to SNF if/when negative COVID result received. Notified RAJI Hebert. DCP- Discharge Planning Updated by [id number]: Kaleigh Guzmán on 03/07/20 11:[address] DCM was notified by RAJI Hebert, that Iman, Clinical Liaison with [facility], called and notified her that [facility] had decided not to accept patient to SNF. Emilee states she asked Iman if [facility], another [facility] facility, would accept patient and Iman told her that [facility] had declined the patient as well. DCM spoke with Iman about denial. Voiced dissatisfaction and frustration with facility requesting Negative COVID result prior to admission to facility and now declining patient before the test can even result. DCM also called Padilla Patel, Senior COSMETOLOGY EDUCATOR with [facility], notified Padilla of above information and voiced dissatisfaction / frustration with facilities process of accepting patient. Padilla states he will follow up with Iman and the tuber machine operator helper about this. States he or Iman will call DCM back with follow up. DCM notified RAJI Hebert of status of declination. DCM will continue to follow. DCP- Discharge Planning Updated by [id number]: Kaleigh Ramirez on 03/06/20 1:[address] CM received communication from [facility] stating they will not accept the patient without a COVID test being done due to "fever and cough". CM notified Ashley Olvera. DCP- Discharge Planning Updated by [id number]: Ani Alonso on 03/06/20 12:[address] CM met with the patient and his at bedside. Patient has an paraprofessional interpreter via face-time in order to communicate with both. informed the patient has chosen [facility] and she is in agreement with this. DC IMM signed per the . CM e-faxed additional information to Amira and also talked with Joy via phone. Joy states they were worried about the patient's H/H and may not accept without a Covid-19 test. Made Joy aware that the patient does not meet criteria for Covid-19 testing. Made aware of planned DC 03/07. Await CB. DCP- Discharge Planning Updated by [id number]: Ty Winters on 03/02/20 3:[address] Patient Name: ZAYRA MAO Encounter No: [id number] : 1940 Primary Insurance: [employer] CHOICE PPO MCR ADVANT Anticipated DC Date: 02-22-2020 Planned Disposition: Shelter Facility External Planned Provider: DCP follow-up note: CM RECEIVED DISCHARGE ORDER, SPOKE TO PT IN ROOM WHO INFORMED CM THAT HE IS GOING HOME AND WOULD LIKE HOME HEALTH DISCUSSED. IMPORTANT MESSAGE FROM MEDICARE PROVIDED AND EXPLAINED. CM LATER SPOKE TO PT'S NURSE WHO INFORMED CM THAT PT'S IS NOT ABLE TO TAKE CARE OF PT AT HOME. CM MET WITH PT, DISCUSSED IN WRITING, AVAILABLE REHAB IN HALF-WAY PT IS NOT ABLE TO TOLERATE THREE HOURS OF PROGRESSIVE THERAPY PER DAY. PT'S ON VIDEO PHONE. PT AND SPOUSE DISCUSSED LIST PROVIDED BY CM. PT REPORTS HIS IS ARGUING WITH HIM AND WANTS TO SPEAK TO CM. CM ATTEMPTED TO CALL VIDEO PHONE, , COULD NOT GET ANSWER. PT CALLED CM AND THROUGH TIMBER FELLER, SPOUSE WAS UPSET THAT PT SIGNED FORM WITHOUT HER BEING TOLD. CM PROVIDED IMPORTANT MESSAGE FROM MEDICARE INFORMATION VIA PHONE. CM DISCUSSED HALF-WAY FACILITY REHAB OPTIONS, INFORMED THAT THERE IS NO CURRENT VISITATION AT THEM EITHER. SHE CONSENTED TO REFERRALS TO THE [facility] AND [facility]. CHOICE COMPLETED. CM CONTACTED [facility], THEY ARE IN NETWORK WITH PT'S INSURANCE. CM FAXED REFERRAL TO THE [facility]IA [facility] AT [phone]. CM WAITING ADMISSION DETERMINATION FROM THE [facility]. TY WINTERS, CASE MANAGEMENT Ty Winters DCP- Discharge Planning Updated by [email or web address]: Ty Winters on 02/21/20 2:[address] Patient Name: ZAYRA MAO Encounter No: [id number] : 1940 Primary Insurance: [employer] PPO MCR ADVANT Anticipated DC Date: 02-22-2020 Planned Disposition: Home with Home Health External Planned Provider: [employer] [facility] DCP follow-up note: CM RECEIVED INPATIENT REHAB PRESCREENING ORDER, MET WITH PT IN ROOM TO DISCUSS REHAB OPTIONS, LOCATIONS AND PROVIDERS. ALL COMMUNICATION DONE IN WRITING, PT'S SPOUSE VIDEO CONFERENCED IN WITH PT DURING CONVERSATION. PT DECLINED INPATIENT REHAB AND HALF-WAY REHAB SERVICES. PT WANTS TO GO HOME WITH HOME HEALTH. PT'S PROVIDED CM WITH [employer] IN [place] PHONE NUMBER, . CHOICE COMPLETED. IMPORTANT MESSAGE FROM MEDICARE PROVIDED AND EXPLAINED. CM CALLED AND SPOKE TO LYN OF [employer], , PROVIDED HOME HEALTH REFERRAL, CM FAXED REFERRAL TO [facility] AT [phone]. FOR DISCHARGE HOME WITH HOME HEALTH, NOTIFY [facility] AT [phone], FAX DISCHARGE INFORMATION TO [employer] AT [phone]. FAMILY TO TRANSPORT HOME. Ty Winters, CASE MANAGEMENT DCP- Discharge Planning Updated by [id number]: Ty Winters on 02/20/20 2:[address] Patient Name: ZAYRA MAO Admission Status: Elective Accout number: [id number] Admission Date: 02-19-2020 : 1940 Admission Diagnosis: Attending: EITAN OLSON Current LOS: 1 Anticipated DC Date: Planned Disposition: Home Primary Insurance: [employer] CHOICE PPO MCR ADVANT Discharge Planning Comments: CM MET WITH PT IN ROOM TO DISCUSS DISCHARGE PLANNING AND NEEDS. CM COMMUNICATED IN WRITING, PT VERBALLY RESPONDED. PT REPORTS LIVING AT HOME INDEPENDENTLY WITH HIS . PT HAS A ROLLATOR WALKER FROM [employer]. PT HAS A NURSE FROM HIS INSURANCE COMPANY THAT COMES OUT TO CHECK ON HIM. CM DISCUSSED AVAILABILITY OF HOME HEALTH, REHAB SERVICES AND MEDICAL EQUIPMENT. PT DENIES DISCHARGE NEEDS, REPORTS HIS WILL PICK HIM UP FOR DISCHARGE HOME PT PLANS TO DISCHARGE HOME WITH , HAS NO ANTICIPATED DISCHARGE NEEDS. FAMILY TO TRANSPORT HOME AT DISCHARGE. CM TO FOLLOW AND ASSIST IF NEEDED. Inspector Chief: Ty Winters DCP- Discharge Planning Updated by [id number]: Kaleigh Saini on 02/18/20 2:[address] GALARZA EXPLAINED ORIGINAL PROVIDED. COPY PLACED ON CHART. DCPIA - Discharge Planning Initial Assessment Updated by [id number]: Ty Winters on 02/20/20 3:47 pm * Is the patient Alert and Oriented? Yes * How many steps to enter\\exit or inside your home? RAMP * PCP DR. OCTAVIA GALLAGHER * [facility]acy [facility] [place] * Preadmission Environment Home with Family * ADLs Independent * Equipment Rolling Walker * Other Equipment ROLLATOR WALKER FROM [employer] * List name and contact numbers for known caregivers / representatives who currently or will assist patient after discharge: ISABELA MAO, SPOUSE, OR VIDEO/TIMBER FELLER PHONE [phone] BRANDON TALAVERAR, * Verbal permission to speak to the caregivers and representatives has been obtained from the patient. N/A * Community resources currently utilized None * Please name any agencies selected above. NONE * Additional services required to return to the preadmission environment? No * Can the patient safely return to the preadmission environment? Yes * Has this patient been hospitalized within the prior 30 days at any hospital? Yes Coverage Notice Reviewer: [id number] Dale Winters Notice Issued Date-Time: 03/02/2020 15:25 Notice Type: Patient Choice Letter Notice Delivered To: Family Member Relationship to Patient: Spouse Salesperson [employer] Name: JOSE LUIS MAO Delivery Method: PHONE - Phone Vita Days: Prior Verbal Notification: Recipient Understood Notice: Yes Recipient Signature: Med Rec Note Co-signed by Attending: Coverage Notice Comment: [facility] Reviewer: [id number] Dale Alonso Notice Issued Date-Time: 03/06/2020 13:37 Notice Type: IM Discharge Notice Notice Delivered To: Family Member Relationship to Patient: Spouse Salesperson [employer] Name: Isabela Mao Delivery Method: HAND - Hand Delivered Vita Days: Prior Verbal Notification: Recipient Understood Notice: Yes Recipient Signature: Yes Med Rec Note Co-signed by Attending: Coverage Notice Comment: DC IMM signed by and placed on the chart. did not want a coopy. Reviewer: [id number] Winters Notice Issued Date-Time: 02/21/2020 14:30 Notice Type: Patient Choice Letter Notice Delivered To: Patient Relationship to Patient: Salesperson [employer] Name: Delivery Method: HAND - Hand Delivered Vita Days: Prior Verbal Notification: Recipient Understood Notice: Yes Recipient Signature: Yes Med Rec Note Co-signed by Attending: Coverage Notice Comment: [facility]: INPATIENT REHAB AND SNF REHAB Reviewer: [id number] Dale Saini Notice Issued Date-Time: 02/18/2020 8:30 Notice Type: Medicare Outpatient Observation Notice Notice Delivered To: Patient Relationship to Patient: Salesperson [employer] Name: Delivery Method: HAND - Hand Delivered Vita Days: Prior Verbal Notification: Recipient Understood Notice: Yes Recipient Signature: Yes Med Rec Note Co-signed by Attending: Coverage Notice Comment: G[facility] EXPLAINED ORIGINAL PROVIDED. COPY PLACED ON CHART. Reviewer: [id number] Winters Notice Issued Date-Time: 02/21/2020 14:50 Notice Type: IM Discharge Notice Notice Delivered To: Patient Relationship to Patient: Salesperson [employer] Name: Delivery Method: HAND - Hand Delivered Vita Days: Prior Verbal Notification: Recipient Understood Notice: Yes Recipient Signature: Yes Med Rec Note Co-signed by Attending: Coverage Notice Comment: Reviewer: [id number] Winters Notice Issued Date-Time: 03/02/2020 14:37 Notice Type: IM Discharge Notice Notice Delivered To: Patient Relationship to Patient: Salesperson [employer] Name: Delivery Method: HAND - Hand Delivered Vita Days: Prior Verbal Notification: Recipient Understood Notice: Yes Recipient Signature: Yes Med Rec Note Co-signed by Attending: Coverage Notice Comment: Last DP export: 03/07/20 12:47 p Patient Name: ZAYRA MAO Page 90049 at 1726 All edits/amendments must be made on the electronic document DICTATION DATE: 03/07/201725 ASBESTOS WORKER HELPER: SUJIT 03/07/201725 RPT#: [id number] DC DATE: STATUS: ADM IN [facility] [address] [place] [address] END OF REPORT
[2020-03-07 20:15] VITALS: BP 116/55
[2020-03-08 04:15] LABS: BASOPHILS 0.2 % (0-2); EOSINOPHILS 1.7 % (0-7); HEMATOCRIT 28.2 % (42.0-54.0); HEMOGLOBIN 9.1 g/dL (13.5-17.5); IMMATURE GRANULOCYTES 0.3 % (0-5); MCH 30.7 pg (26.0-34.0); MCHC 32.3 g/dL (31.0-37.0); MCV 95.3 fL (80.0-100.0); MEAN PLATELET VOLUME 9.3 fL (7.4-10.4); MONOCYTES 12.3 % (2-11); NEUTROPHILS 79.5 % (40-80); PLATELET COUNT 71 10x3/uL (130-400); RBC 2.96 10x6/uL (4.20-6.10); RDW 19.3 % (11.5-14.5); WBC 6.6 10x3/uL (4.8-10.8)
[2020-03-08 04:40] LABS: ALBUMIN 3.4 g/dL (3.4-5.0); ANION GAP 12.4 mmol/L (8-16); BILIRUBIN - DIRECT 0.68 mg/dL (0.00-0.30); BILIRUBIN - INDIRECT 1.8 mg/dL (0.00-1.00); BILIRUBIN - TOTAL 2.48 mg/dL (0.2-1.3); CALCIUM 9.1 mg/dL (8.5-10.1); CARBON DIOXIDE 27.2 mmol/L (21.0-32.0); CREATININE - SERUM 1.6 mg/dL (0.6-1.3); MAGNESIUM - SERUM 2.3 mg/dL (1.8-2.4); POTASSIUM - SERUM 4.6 mmol/L (3.5-5.1); PROTEIN - SERUM 6.5 g/dL (6.4-8.2)
--- NOTE | 2020-03-08 07:10 | NUR ---
REPORT RECEIVED FROM METER ENGINEER AND PATIENT CARE ASSUMED. PATIENT LAYING IN BED ON BACK WITH EYES CLOSED AND BREATHING EVENLY. WILL CONTINUE WITH PLAN OF CARE. SR UPX 2 BED IN LOW POSITION AND CALL LIGHT IN REACH.
[2020-03-08 08:35] VITALS: BP 102/60
--- NOTE | 2020-03-08 11:57 | NUR ---
OT NOTE: PT C/O BACK PAIN AND TIRED OF LIEING IN BED. PERFORMED EXTENSIVE BED MOB WTIH MOD ASSIST; REPOSITIONED ALL LINENS AND PADS; PT ABLE TO WASH FACE AND HANDS AND CHEST WITH WASH CLOTH; PROVIDED BED BATH FOR REMAINDER OF AREAS. PT ABLE TO PERFORM SIMPLE GROOMING TASKS WITH SET UP. UE AROM EXS WHILE IN BED; PT DID NOT WANT TO SIT UP AT THIS TIME. HOWEVER, APPEARED IN BETTER SPIRITS TODAY. REA TOUSSAINT, OTR/L [phone]
--- NOTE | 2020-03-08 13:37 | NUR ---
PATIENT IS STABLE AND UNCHANGED. COVID TEST PENDING. PATIENT DENIES ANY NEEDS OR PAIN WILL CONTINUE TO MONITOR. SR UP X 2 BED IN LOW POSITION AND CALL LIGHT IN REACH.
--- NOTE | 2020-03-08 14:48 | NUR ---
OT NOTE: PT REQUIRED MOD/MAX A WITH BED MOBILITY. PT EXHIBITED INCREASED DIFFICULTY WITH SIDE ROLLING. PT REQUIRED TOTAL A WITH LB HYGIENE SECONDARY TO BM. PT COMPLETED FACE AND HAND HYGIENE WITH SET UP. PT REPOSITIONED TO REDUCE PRESSURE. [phone] THANK YOU,MEHDI CHENG
--- NOTE | 2020-03-08 19:15 | NUR ---
REPORT RECEIVED, WILL CONTINUE POC. PATIENT IS AAOX4, LYING IN SEMI-FOWLES POSITION. NO S/S OF DISTRESS OBSERVED, RR EVEN AND UNLABORED ON 3L. PATIETN IS RESTING WITH EYES CLOSED. ISOLATION PRECAUTIONS MAINTAINED. WILL CTM.
[2020-03-08 21:45] VITALS: BP 121/60
--- NOTE | 2020-03-09 00:45 | NUR ---
PATIENT HAD LARGE INCONTINENT LOOSE STOOL. COMPLETE BED CHANGED, ERIC CARE, NEW MEPILEX APPLIED TO COCCYX. NEW YELLOW GOWN. COMPLETE SHAVE AND REPOSITIONED IN BED. CATHETER CARE ALSO PERFORMED. CL IN REACH, BED LOCKED AND LOWERED. WILL CTM.
[2020-03-09 04:13] VITALS: BP 118/61
[2020-03-09 05:07] LABS: BASOPHILS 0.5 % (0-2); EOSINOPHILS 0.9 % (0-7); HEMATOCRIT 26.6 % (42.0-54.0); HEMOGLOBIN 8.5 g/dL (13.5-17.5); IMMATURE GRANULOCYTES 0.2 % (0-5); LYMPHOCYTES 7.8 % (15-50); MCH 30.7 pg (26.0-34.0); MEAN PLATELET VOLUME 8.8 fL (7.4-10.4); MONOCYTES 13.2 % (2-11); NEUTROPHILS 77.4 % (40-80); PLATELET COUNT 73 10x3/uL (130-400); RBC 2.77 10x6/uL (4.20-6.10); RDW 19.9 % (11.5-14.5); WBC 6.7 10x3/uL (4.8-10.8)
[2020-03-09 05:24] LABS: ALBUMIN 3.6 g/dL (3.4-5.0); ANION GAP 13.3 mmol/L (8-16); BILIRUBIN - DIRECT 0.59 mg/dL (0.00-0.30); BILIRUBIN - INDIRECT 1.93 mg/dL (0.00-1.00); BILIRUBIN - TOTAL 2.52 mg/dL (0.2-1.3); CALCIUM 9.3 mg/dL (8.5-10.1); CARBON DIOXIDE 25.2 mmol/L (21.0-32.0); CREATININE - SERUM 1.4 mg/dL (0.6-1.3); MAGNESIUM - SERUM 2.4 mg/dL (1.8-2.4); POTASSIUM - SERUM 4.5 mmol/L (3.5-5.1); PROTEIN - SERUM 6.7 g/dL (6.4-8.2)
[2020-03-09 05:25] LABS: PLATELET ESTIMATE DECREASED
--- NOTE | 2020-03-09 07:10 | NUR ---
REPORT RECEIVED FROM MONITORING AND EVALUATION ADVISOR AND PATIENT CARE ASSUMED. PATIENT LAYING IN BED WITH EYES CLOSED AND BREATHING EVENLY. WILL CONTINUE WITH PLAN OF CARE. SR UPX 2 BED IN LOW POSITION AND CALL LIGHT IN REACH.
[2020-03-09 09:38] VITALS: BP 119/63
--- NOTE | 2020-03-09 11:12 | NUR ---
PATIENT SITTING UP IN BED WATCHING MOVIE ON CELL PHONE. PATIENT IS STABLE AND VSS. WROTE ON PAPER AND ASKED PATIENT IF HE NEEDED ANYTHING PATIENT STATED NO. ASSISTANT CREDIT MANAGER ENTERED ROOM TO GIVE PATIENT A BATH. WILL CONTINUE TO MONITOR. SR UPX 2 BED IN LOW POSITION AND CALL LIGHT IN REACH.
--- NOTE | 2020-03-09 11:46 | MORECARE ---
CASE MANAGEMENT DISCHARGE SUMMARY PATIENT: ZAYRA MAO UNIT: [id number] ADM DATE: 02/19/20 AGE: 79 : 39 SEX: M ROOM/BED: D.8285 AUTHOR: ALMAS,DOC PHYSICIAN: REFERRING PHYSICIAN: LUMA BOCANEGRA MD DATE OF SERVICE: 03/09/20 Discharge Plan Patient Name: ZAYRA MAO Facility: [facility]:[place] : 1940 Planned Disposition: Assisted Facility Anticipated Discharge Date: 02/22/20 Discharge Date: Expected LOS: 3 Initial Reviewer: [id number] Initial Review Date: 02/19/2020 Generated: 03/09/20 12:46 pm Comments DCP- Discharge Planning Updated by [email or web address]: Emilee Lilly on 03/09/20 10:[address] Updated clinical faxed to [facility] per request. DCP- Discharge Planning Updated by [id number]: Emilee Lilly on 03/07/20 4:[address] I spoke with patient's daughter today to talk to her about alternatives to different SNF. I informed her that both [facility] would still be fairly close to [place]. She states she will speak to his about those 2 and call me back. I then received a call that [facility] will accept the patient when his Covid19 test is resulted and negative. I called the daughter back and she agrees with [facility] for discharge placement. Pratibha Bhat - R - [phone] DCP- Discharge Planning Updated by [id number]: Kaleigh Guzmán on 03/07/20 12:[address] Received call back from Iman with [facility]. States they will accept patient to SNF if/when negative COVID result received. Notified RAJI Hebert. DCP- Discharge Planning Updated by [id number]: Kaleigh Guzmán on 03/07/20 11:[address] DCM was notified by RAJI Hebert, that Iman, Clinical Liaison with [facility], called and notified her that [facility] decided not to accept patient to SNF. Emilee states she asked Iman if [facility], another [facility] facility, would accept patient and Iman told her that [facility] had declined the patient as well. DCM spoke with Iman about denial. Voiced dissatisfaction and frustration with facility requesting Negative COVID result prior to admission to facility and now declining patient before the test can even result. DCM also called Padilla Patel, Senior MOTOR LODGE CLERK with [facility], notified Padilla of above information and voiced dissatisfaction / frustration with facilities process of accepting patient. Padilla states he will follow up with Iman and the litharge supervisor about this. States he or Iman will call DCM back with follow up. DCM notified RAJI Hebert of status of declination. DCM will continue to follow. DCP- Discharge Planning Updated by [id number]: Kaleigh Ramirez on 03/06/20 1:[address] CM received communication from [facility] stating they will not accept the patient without a COVID test being done due to "fever and cough". CM notified Ashleyfarida Olvera. DCP- Discharge Planning Updated by [id number]: Ani Alonso on 03/06/20 12:[address] CM met with the patient and his at bedside. Patient has an diplomatic interpreter/translator via face-time in order to communicate with both. informed the patient has chosen [facility] and she is in agreement with this. DC IMM signed per the . CM e-faxed additional information to [facility] and also talked with Joy via phone. Joy states they were worried about the patient's H/H and may not accept without a Covid-19 test. Made Joy aware that the patient does not meet criteria for Covid-19 testing. Made aware of planned DC 03/07. Await CB. DCP- Discharge Planning Updated by [id number]: Ty Winters on 03/02/20 3:[address] Patient Name: ZAYRA MAO Encounter No: [id number] : 1940 Primary Insurance: [employer] CHOICE PPO MCR ADVANT Anticipated DC Date: 02-22-2020 Planned Disposition: Assisted Facility External Planned Provider: DCP follow-up note: CM RECEIVED DISCHARGE ORDER, SPOKE TO PT IN ROOM WHO INFORMED CM THAT HE IS GOING HOME AND WOULD LIKE HOME HEALTH DISCUSSED. IMPORTANT MESSAGE FROM MEDICARE PROVIDED AND EXPLAINED. CM LATER SPOKE TO PT'S NURSE WHO INFORMED CM THAT PT'S IS NOT ABLE TO TAKE CARE OF PT AT HOME. CM MET WITH PT, DISCUSSED IN WRITING, AVAILABLE REHAB IN PRISON PT IS NOT ABLE TO TOLERATE THREE HOURS OF PROGRESSIVE THERAPY PER DAY. PT'S ON VIDEO PHONE. PT AND SPOUSE DISCUSSED LIST PROVIDED BY CM. PT REPORTS HIS IS ARGUING WITH HIM AND WANTS TO SPEAK TO CM. CM ATTEMPTED TO CALL VIDEO PHONE, , COULD NOT GET ANSWER. PT CALLED CM AND THROUGH METAL FABRICATING SUPERVISOR, SPOUSE WAS UPSET THAT PT SIGNED FORM WITHOUT HER BEING TOLD. CM PROVIDED IMPORTANT MESSAGE FROM MEDICARE INFORMATION VIA PHONE. CM DISCUSSED PRISON FACILITY REHAB OPTIONS, INFORMED THAT THERE IS NO CURRENT VISITATION AT THEM EITHER. SHE CONSENTED TO REFERRALS TO [facility]. CHOICE COMPLETED. CM CONTACTED [facility], THEY ARE IN NETWORK WITH PT'S INSURANCE. CM FAXED REFERRAL TO [facility] VIA [facility] AT [phone]. CM WAITING ADMISSION DETERMINATION FROM [facility]. TY WINTERS, CASE MANAGEMENT Ty Winters DCP- Discharge Planning Updated by [id number]: Ty Winters on 02/21/20 2:[address] Patient Name: ZAYRA MAO Encounter No: [id number] : 1940 Primary Insurance: [employer] PPO MCR ADVANT Anticipated DC Date: 02-22-2020 Planned Disposition: Home with Home Health External Planned Provider[facility] DCP follow-up note: CM RECEIVED INPATIENT REHAB PRESCREENING ORDER, MET WITH PT IN ROOM TO DISCUSS REHAB OPTIONS, LOCATIONS AND PROVIDERS. ALL COMMUNICATION DONE IN WRITING, PT'S SPOUSE VIDEO CONFERENCED IN WITH PT DURING CONVERSATION. PT DECLINED INPATIENT REHAB AND PRISON REHAB SERVICES. PT WANTS TO GO HOME WITH HOME HEALTH. PT'S PROVIDED CM WITH [facility] IN [email or web address] PHONE NUMBER, . CHOICE COMPLETED. IMPORTANT MESSAGE FROM MEDICARE PROVIDED AND EXPLAINED. CM CALLED AND SPOKE TO LYN OF [facility], , PROVIDED HOME HEALTH REFERRAL, CM FAXED REFERRAL TO [facility] AT [phone]. FOR DISCHARGE HOME WITH HOME HEALTH, NOTIFY [facility] AT [phone], FAX DISCHARGE INFORMATION TO [facility] [employer] [facility] AT [phone]. FAMILY TO TRANSPORT HOME. TALISHA Vazquez DCP- Discharge Planning Updated by [id number]: Ty Winters on 02/20/20 2:[address] Patient Name: ZAYRA MAO Admission Status: Elective Accout number: [id number] Admission Date: 02-19-2020 : 1940 Admission Diagnosis: Attending: EITAN OLSON Current LOS: 1 Anticipated DC Date: Planned Disposition: Home Primary Insurance: [employer] CHOICE PPO MCR ADVANT Discharge Planning Comments: CM MET WITH PT IN ROOM TO DISCUSS DISCHARGE PLANNING AND NEEDS. CM COMMUNICATED IN WRITING, PT VERBALLY RESPONDED. PT REPORTS LIVING AT HOME INDEPENDENTLY WITH HIS . PT HAS A ROLLATOR WALKER FROM [employer]. PT HAS A NURSE FROM HIS INSURANCE COMPANY THAT COMES OUT TO CHECK ON HIM. CM DISCUSSED AVAILABILITY OF HOME HEALTH, REHAB SERVICES AND MEDICAL EQUIPMENT. PT DENIES DISCHARGE NEEDS, REPORTS HIS WILL PICK HIM UP FOR DISCHARGE HOME PT PLANS TO DISCHARGE HOME WITH , HAS NO ANTICIPATED DISCHARGE NEEDS. FAMILY TO TRANSPORT HOME AT DISCHARGE. CM TO FOLLOW AND ASSIST IF NEEDED. Parent Educator: Ty Winters DCP- Discharge Planning Updated by [id number]: Kaleigh Saini on 02/18/20 2:[address] [facility] EXPLAINED ORIGINAL PROVIDED. COPY PLACED ON CHART. DCPIA - Discharge Planning Initial Assessment Updated by [id number]: Ty Winters on 02/20/20 3:47 pm * Is the patient Alert and Oriented? Yes * How many steps to enter\\exit or inside your home? RAMP * PCP DR. OCTAVIA GALLAGHER * [facility] [place] * Preadmission Environment Home with Family * ADLs Independent * Equipment Rolling Walker * Other Equipment ROLLATOR WALKER FROM [employer] * List name and contact numbers for known caregivers / representatives who currently or will assist patient after discharge: ISABELA MAO, SPOUSE, OR VIDEO/METAL FABRICATING SUPERVISOR PHONE [phone] PRATIBHA BHAT, DTR, * Verbal permission to speak to the caregivers and representatives has been obtained from the patient. N/A * Community resources currently utilized None * Please name any agencies selected above. NONE * Additional services required to return to the preadmission environment? No * Can the patient safely return to the preadmission environment? Yes * Has this patient been hospitalized within the prior 30 days at any hospital? Yes Coverage Notice Reviewer: [email or web address] Dale Winters Notice Issued Date-Time: 03/02/2020 15:25 Notice Type: Patient Choice Letter Notice Delivered To: Family Member Relationship to Patient: Spouse It Risk Analyst Name: JOSE LUIS MAO Delivery Method: PHONE - Phone Vita Days: Prior Verbal Notification: Recipient Understood Notice: Yes Recipient Signature: Med Rec Note Co-signed by Attending: Coverage Notice Comment: [facility] Reviewer: [id number] Dale Alonso Notice Issued Date-Time: 03/06/2020 13:37 Notice Type: IM Discharge Notice Notice Delivered To: Family Member Relationship to Patient: Spouse It Risk Analyst Name: Isabela Mao Delivery Method: HAND - Hand Delivered Vita Days: Prior Verbal Notification: Recipient Understood Notice: Yes Recipient Signature: Yes Med Rec Note Co-signed by Attending: Coverage Notice Comment: DC IMM signed by and placed on the chart. did not want a coopy. Reviewer: [id number] Winters Notice Issued Date-Time: 02/21/2020 14:30 Notice Type: Patient Choice Letter Notice Delivered To: Patient Relationship to Patient: It Risk Analyst Name: Delivery Method: HAND - Hand Delivered Vita Days: Prior Verbal Notification: Recipient Understood Notice: Yes Recipient Signature: Yes Med Rec Note Co-signed by Attending: Coverage Notice Comment[facility] AND SNF REHAB Reviewer: [email or web address] Dale Saini Notice Issued Date-Time: 02/18/2020 8:30 Notice Type: Medicare Outpatient Observation Notice Notice Delivered To: Patient Relationship to Patient: It Risk Analyst Name: Delivery Method: HAND - Hand Delivered Vita Days: Prior Verbal Notification: Recipient Understood Notice: Yes Recipient Signature: Yes Med Rec Note Co-signed by Attending: Coverage Notice Comment: MICHELL EXPLAINED ORIGINAL PROVIDED. COPY PLACED ON CHART. Reviewer: [id number] Winters Notice Issued Date-Time: 02/21/2020 14:50 Notice Type: IM Discharge Notice Notice Delivered To: Patient Relationship to Patient: It Risk Analyst Name: Delivery Method: HAND - Hand Delivered Vita Days: Prior Verbal Notification: Recipient Understood Notice: Yes Recipient Signature: Yes Med Rec Note Co-signed by Attending: Coverage Notice Comment: Reviewer: [id number] Winters Notice Issued Date-Time: 03/02/2020 14:37 Notice Type: IM Discharge Notice Notice Delivered To: Patient Relationship to Patient: It Risk Analyst Name: Delivery Method: HAND - Hand Delivered Vita Days: Prior Verbal Notification: Recipient Understood Notice: Yes Recipient Signature: Yes Med Rec Note Co-signed by Attending: Coverage Notice Comment: Last DP export: 03/07/20 4:26 p Patient Name: ZAYRA MAO Page [id number] at 1146 All edits/amendments must be made on the electronic document DICTATION DATE: 03/09/20 1146 INSTALLATIONS INSPECTOR: SUJIT 03/09/20 1146 RPT#: [id number] DC DATE: STATUS: ADM IN [facility] [place] [address] END OF REPORT
--- NOTE | 2020-03-09 12:30 | NUR ---
PATIENT HAS HR OF OF 13O. PER TEJAS WALDRON RECEIVED ORDER FOR TELEMETRY. TELEMETRY PLACED AND PATIENT IN UNCONTROLLED AFIB. DR DAMON ON UNIT. PATIENT THEN 90 CONTROLLED AFIB. NO NEW ORDERS RECEIVED. WILL CONTINUE WITH PLAN OF CARE. SR UPX 2 BED IN LOW POSITION AND CALL LIGHT IN REACH.
--- NOTE | 2020-03-09 15:02 | MORECARE ---
CASE MANAGEMENT DISCHARGE SUMMARY PATIENT: ZAYRA MAO UNIT: [id number] ADM DATE: 02/19/20 AGE: 79 : 38 SEX: M ROOM/BED: D.0052 AUTHOR: ALMAS,DOC PHYSICIAN: REFERRING PHYSICIAN: LUMA BOCANEGRA MD DATE OF SERVICE: 03/09/20 Discharge Plan Patient Name: ZAYRA MAO Facility: [facility]:[place] : 1940 Planned Disposition: [facility] Facility Anticipated Discharge Date: 02/22/20 Discharge Date: Expected LOS: 3 Initial Reviewer: [email or web address] Initial Review Date: 02/19/2020 Generated: 03/09/20 4:02 pm Comments DCP- Discharge Planning Updated by [id number]: Emilee Lilly on 03/09/20 1:[address] Patient is Covid-19 Negative. I have informed Iman liaison for [facility]. He is in ucaf however and not stable to discharge today and Iman is aware. CM will continue to follow and assist with discharge planning/needs. DCP- Discharge Planning Updated by [id number]: Emilee Lilly on 03/09/20 10:[address] Updated clinical faxed to [facility] per request. DCP- Discharge Planning Updated by [id number]: Emilee Lilly on 03/07/20 4:[address] I spoke with patient's daughter today to talk to her about alternatives to different SNF. I informed her that both [facility] still be fairly close to [place]. She states she will speak to his about those 2 and call me back. I then received a call that [facility] will accept the patient when his Covid19 test is resulted and negative. I called the daughter back and she agrees with [facility] for discharge placement. Pratibha Caprice - DTR - [phone] DCP- Discharge Planning Updated by [id number]: Kaleigh Guzmán on 03/07/20 12:[address] Received call back from Iman with [facility]. States they will accept patient to SNF if/when negative COVID result received. Notified RAJI Hebert. DCP- Discharge Planning Updated by [id number]: Kaleigh Guzmán on 03/07/20 11:[address] DCM was notified by RAJI Hebert, that Iman, Clinical Liaison with [facility], called and notified her that [facility] had decided not to accept patient to SNF. Emilee states she asked Iman if [facility], another [facility] facility, would accept patient and Iman told her that [facility] had declined the patient as well. DCM spoke with Iman about denial. Voiced dissatisfaction and frustration with facility requesting Negative COVID result prior to admission to facility and now declining patient before the test can even result. DCM also called Padilla Patel, Senior SILK SCREEN REPAIRER with [facility], notified Padilla of above information and voiced dissatisfaction / frustration with facilities process of accepting patient. Padilla states he will follow up with Iman and the facility assistant about this. States he or Iman will call DCM back with follow up. DCM notified RAJI Hebert of status of declination. DCM will continue to follow. DCP- Discharge Planning Updated by [id number]: Kaleigh Guzmán on 03/06/20 1:[address] CM received communication from [facility] stating they will not accept the patient without a COVID test being done due to "fever and cough". CM notified Ashley May. DCP- Discharge Planning Updated by [id number]: Ani Alonso on 03/06/20 12:[address] CM met with the patient and his at bedside. Patient has an diplomatic interpreter via face-time in order to communicate with both. informed the patient has chosen [facility] and she is in agreement with this. DC IMM signed per the . CM e-faxed additional information to [facility] and also talked with Joy via phone. Joy states they were worried about the patient's H/H and may not accept without a Covid-19 test. Made Joy aware that the patient does not meet criteria for Covid-19 testing. Made aware of planned DC 03/07. Await CB. DCP- Discharge Planning Updated by [id number]: Ty Winters on 03/02/20 3:[address] Patient Name: ZAYRA MAO Encounter No: [id number] : 1940 Primary Insurance: [employer] CHOICE PPO MCR ADVANT Anticipated DC Date: 02-22-2020 Planned Disposition: [facility] Facility External Planned Provider: [facility] follow-up note: CM RECEIVED DISCHARGE ORDER, SPOKE TO PT IN ROOM WHO INFORMED CM THAT HE IS GOING HOME AND WOULD LIKE HOME HEALTH DISCUSSED. IMPORTANT MESSAGE FROM MEDICARE PROVIDED AND EXPLAINED. CM LATER SPOKE TO PT'S NURSE WHO INFORMED CM THAT PT'S IS NOT ABLE TO TAKE CARE OF PT AT HOME. CM MET WITH PT, DISCUSSED IN WRITING, AVAILABLE REHAB IN [facility] PT IS NOT ABLE TO TOLERATE THREE HOURS OF PROGRESSIVE THERAPY PER DAY. PT'S ON VIDEO PHONE. PT AND SPOUSE DISCUSSED LIST PROVIDED BY CM. PT REPORTS HIS IS ARGUING WITH HIM AND WANTS TO SPEAK TO CM. CM ATTEMPTED TO CALL VIDEO PHONE, , COULD NOT GET ANSWER. PT CALLED CM AND THROUGH SWITCHBOARD OPERATOR SUPERVISOR, SPOUSE WAS UPSET THAT PT SIGNED FORM WITHOUT HER BEING TOLD. CM PROVIDED IMPORTANT MESSAGE FROM MEDICARE INFORMATION VIA PHONE. CM DISCUSSED [facility] FACILITY REHAB OPTIONS, INFORMED THAT THERE IS NO CURRENT VISITATION AT THEM EITHER. SHE CONSENTED TO REFERRALS TO THE [facility] AND [facility]. CHOICE COMPLETED. CM CONTACTED [facility] OF THE [facility], THEY ARE IN NETWORK WITH PT'S INSURANCE. CM FAXED REFERRAL TO THE [facility] VIA [facility] AT [phone]. CM WAITING ADMISSION DETERMINATION FROM THE [facility]. TY WINTERS, CASE MANAGEMENT Ty Winters VTP- Discharge Planning Updated by [id number]: Ty Winters on 02/21/20 2:[address] Patient Name: ZAYRA MAO Encounter No: [id number] : 1940 Primary Insurance: [employer] CHOICE PPO MCR ADVANT Anticipated DC Date: 02-22-2020 Planned Disposition: Home with Home Health External Planned Provider[facility] follow-up note: CM RECEIVED INPATIENT REHAB PRESCREENING ORDER, MET WITH PT IN ROOM TO DISCUSS REHAB OPTIONS, LOCATIONS AND PROVIDERS. ALL COMMUNICATION DONE IN WRITING, PT'S SPOUSE VIDEO CONFERENCED IN WITH PT DURING CONVERSATION. PT DECLINED INPATIENT REHAB AND [facility] REHAB SERVICES. PT WANTS TO GO HOME WITH HOME HEALTH. PT'S PROVIDED CM WITH [facility] IN [employer] PHONE NUMBER, . CHOICE COMPLETED. IMPORTANT MESSAGE FROM MEDICARE PROVIDED AND EXPLAINED. CM CALLED AND SPOKE TO LYN OF [facility], , PROVIDED HOME HEALTH REFERRAL, CM FAXED REFERRAL TO [facility] AT [phone]. FOR DISCHARGE HOME WITH HOME HEALTH, NOTIFY [facility] AT [phone], FAX DISCHARGE INFORMATION TO [facility] AT [phone]. FAMILY TO TRANSPORT HOME. Ty Winters, CASE MANAGEMENT DCP- Discharge Planning Updated by [id number]: Ty Winters on 02/20/20 2:[address] Patient Name: ZAYRA MAO Admission Status: Elective Accout number: [id number] Admission Date: 02-19-2020 : 1940 Admission Diagnosis: Attending: EITAN OLSON Current LOS: 1 Anticipated DC Date: Planned Disposition: Home Primary Insurance: [employer] PPO [facility] Discharge Planning Comments: CM MET WITH PT IN ROOM TO DISCUSS DISCHARGE PLANNING AND NEEDS. CM COMMUNICATED IN WRITING, PT VERBALLY RESPONDED. PT REPORTS LIVING AT HOME INDEPENDENTLY WITH HIS . PT HAS A ROLLATOR WALKER FROM [employer]. PT HAS A NURSE FROM HIS INSURANCE COMPANY THAT COMES OUT TO CHECK ON HIM. CM DISCUSSED AVAILABILITY OF HOME HEALTH, REHAB SERVICES AND MEDICAL EQUIPMENT. PT DENIES DISCHARGE NEEDS, REPORTS HIS WILL PICK HIM UP FOR DISCHARGE HOME PT PLANS TO DISCHARGE HOME WITH , HAS NO ANTICIPATED DISCHARGE NEEDS. FAMILY TO TRANSPORT HOME AT DISCHARGE. CM TO FOLLOW AND ASSIST IF NEEDED. Antique Clock Repairer: Ty Winters DCP- Discharge Planning Updated by [id number]: Kaleigh Saini on 02/18/20 2:[address] [facility] EXPLAINED ORIGINAL PROVIDED. COPY PLACED ON CHART. DCPIA - Discharge Planning Initial Assessment Updated by [id number]: Ty Winters on 02/20/20 3:47 pm * Is the patient Alert and Oriented? Yes * How many steps to enter\\exit or inside your home? RAMP * PCP DR. OCTAVIA GALLAGHER * [facility] [place] * Preadmission Environment Home with Family * ADLs Independent * Equipment Rolling Walker * Other Equipment ROLLATOR WALKER FROM [employer] * List name and contact numbers for known caregivers / representatives who currently or will assist patient after discharge: ISABELA MAO, SPOUSE, OR VIDEO/SWITCHBOARD OPERATOR SUPERVISOR PHONE [phone] PRATIBHA BHAT, DTR, * Verbal permission to speak to the caregivers and representatives has been obtained from the patient. N/A * Community resources currently utilized None * Please name any agencies selected above. NONE * Additional services required to return to the preadmission environment? No * Can the patient safely return to the preadmission environment? Yes * Has this patient been hospitalized within the prior 30 days at any hospital? Yes Coverage Notice Reviewer: [id number] Dale Winters Notice Issued Date-Time: 03/02/2020 15:25 Notice Type: Patient Choice Letter Notice Delivered To: Family Member Relationship to Patient: Spouse Fabrication Specialist Name: JOSE LUIS MAO Delivery Method: PHONE - Phone Vita Days: Prior Verbal Notification: Recipient Understood Notice: Yes Recipient Signature: Med Rec Note Co-signed by Attending: Coverage Notice Comment: [facility] Reviewer: [id number] Dale Alonso Notice Issued Date-Time: 03/06/2020 13:37 Notice Type: IM Discharge Notice Notice Delivered To: Family Member Relationship to Patient: Spouse Fabrication Specialist Name: Isabela Mao Delivery Method: HAND - Hand Delivered Vita Days: Prior Verbal Notification: Recipient Understood Notice: Yes Recipient Signature: Yes Med Rec Note Co-signed by Attending: Coverage Notice Comment: DC IMM signed by and placed on the chart. did not want a coopy. Reviewer: [id number] Dale Winters Notice Issued Date-Time: 02/21/2020 14:30 Notice Type: Patient Choice Letter Notice Delivered To: Patient Relationship to Patient: Fabrication Specialist Name: Delivery Method: HAND - Hand Delivered Vita Days: Prior Verbal Notification: Recipient Understood Notice: Yes Recipient Signature: Yes Med Rec Note Co-signed by Attending: Coverage Notice Comment: [facility] AND SNF REHAB Reviewer: [email or web address] Dale Saini Notice Issued Date-Time: 02/18/2020 8:30 Notice Type: Medicare Outpatient Observation Notice Notice Delivered To: Patient Relationship to Patient: Fabrication Specialist Name: Delivery Method: HAND - Hand Delivered Vita Days: Prior Verbal Notification: Recipient Understood Notice: Yes Recipient Signature: Yes Med Rec Note Co-signed by Attending: Coverage Notice Comment: MICHELL EXPLAINED ORIGINAL PROVIDED. COPY PLACED ON CHART. Reviewer: [id number] Dale Winters Notice Issued Date-Time: 02/21/2020 14:50 Notice Type: IM Discharge Notice Notice Delivered To: Patient Relationship to Patient: Fabrication Specialist Name: Delivery Method: HAND - Hand Delivered Vita Days: Prior Verbal Notification: Recipient Understood Notice: Yes Recipient Signature: Yes Med Rec Note Co-signed by Attending: Coverage Notice Comment: Reviewer: [id number] - Ty Winters Notice Issued Date-Time: 03/02/2020 14:37 Notice Type: IM Discharge Notice Notice Delivered To: Patient Relationship to Patient: Fabrication Specialist Name: Delivery Method: HAND - Hand Delivered Vita Days: Prior Verbal Notification: Recipient Understood Notice: Yes Recipient Signature: Yes Med Rec Note Co-signed by Attending: Coverage Notice Comment: Last DP export: 03/09/20 10:46 a Patient Name: ZAYRA MAO Page [phone] at 1502 All edits/amendments must be made on the electronic document DICTATION DATE: 03/09/201501 ADMINISTRATIVE MEDICAL DIRECTOR: SJUIT 03/09/20 1502 RPT#: [id number] DC DATE: STATUS: ADM IN [facility] [address] [place] [address] END OF REPORT
--- NOTE | 2020-03-09 15:28 | NUR ---
PATIENT LAYING IN BED ON BACK WITH EYES CLOSED AND BREATHING EVENLY. RECEIVED PHONE CALL AND FAX THAT PATIENT IS COVID NEGATIVE. PATIENT WAS TO DC TO [facility] BUT PATIENT DEVELOPED AFIB. WILL TRANSFER TO PCU ROOM.
--- NOTE | 2020-03-09 16:33 | NUR ---
OT NOTE: PT COMPLETED SIDE ROLLING WITH MOD A. PT COMPLETED FACE WASHING AND HAIR GROOMING WITH SETUP. PT UPRIGHT IN BED. [phone] THANK YOU,MEHDI CHENG
--- NOTE | 2020-03-09 17:33 | NUR ---
NEGATIVE COVID RESULTS REPORTED. PATIENT TRANSFERRED TO ROOM 2018. REPORT GIVEN TO KAYODE BERNARD AND CARE TRANSFERRED.
--- NOTE | 2020-03-09 17:34 | NUR ---
REPORT RECEVIED FROM YOEL LEIVA AND TRANSFERED TO ROOM 2108.
[2020-03-09 21:20] VITALS: BP 109/57
--- NOTE | 2020-03-09 23:09 | NUR ---
INITIALROUNDS COMPLETED AT 1915 HRS. PT DENIED ANY DISCOMFORT. ASSESSMENT COMPLETED AT 2010 HRS. VSS. UCAL PER CM HR 110. ALERT AND ORIENTED TO PERSON, PLACE AND TIME. WHITE. PT IS DEAF. O2 3LNC. IV TO RFA SL. TAVAREZ DRAINING CONCENTRATED URINE. LUNGS DIMINISHED IN BASES BILAT. PALPABLE PERIPHERAL PULSES. MEPILEX TO COCCYX CLEAN, DRY AND INTACT. PT ON 1ST STEP AIR OVERLAY MATTESS. PM FSBS 188. HUMALOG 2 UNITS GIVEN SUB-Q TO UPPER R ARM PER S/S. PM MEDS GIVEN. PT CURRENTLY RESTING WITH EYES CLOSED. RESP EVEN AND REGULAR. SR UP X2, CALL LIGHT WITHIN REACH AND BED ALARM ON.
--- NOTE | 2020-03-10 00:20 | NUR ---
PT REPOSITIONED IN BED FOR COMFORT. NO DISTRESS NOTED. CALL LIGHT WITHIN REACH.
[2020-03-10 01:30] VITALS: BP 120/57
--- NOTE | 2020-03-10 02:14 | NUR ---
PT RESTING WITH EYES CLOSED. RESP EVEN AND REGULAR. SR UP X2, CALL LIGHT WITHIN REACH.
--- NOTE | 2020-03-10 04:13 | NUR ---
PT REPOSITONED IN BED FOR COMFORT. DENIES ANY DISCOMFORT. TAVAREZ EMPTIED OF 700CC OF BLOOD TINGED URINE. SR UP X2,CALL LIGHT WITHIN REACH.
[2020-03-10 04:43] VITALS: BP 105/59
[2020-03-10 05:10] LABS: BASOPHILS 0.5 % (0-2); EOSINOPHILS 2.2 % (0-7); HEMATOCRIT 26.7 % (42.0-54.0); HEMOGLOBIN 8.7 g/dL (13.5-17.5); IMMATURE GRANULOCYTES 0.3 % (0-5); LYMPHOCYTES 13.7 % (15-50); MCH 31.5 pg (26.0-34.0); MCHC 32.6 g/dL (31.0-37.0); MCV 96.7 fL (80.0-100.0); MEAN PLATELET VOLUME 9.7 fL (7.4-10.4); MONOCYTES 11.3 % (2-11); PLATELET COUNT 74 10x3/uL (130-400); RBC 2.76 10x6/uL (4.20-6.10); RDW 20.7 % (11.5-14.5); WBC 5.9 10x3/uL (4.8-10.8)
[2020-03-10 05:41] LABS: ALBUMIN 3.7 g/dL (3.4-5.0); ANION GAP 12.8 mmol/L (8-16); BILIRUBIN - DIRECT 0.54 mg/dL (0.00-0.30); BILIRUBIN - INDIRECT 2.01 mg/dL (0.00-1.00); BILIRUBIN - TOTAL 2.55 mg/dL (0.2-1.3); CALCIUM 9.3 mg/dL (8.5-10.1); CARBON DIOXIDE 25.9 mmol/L (21.0-32.0); CREATININE - SERUM 1.1 mg/dL (0.6-1.3); MAGNESIUM - SERUM 2.4 mg/dL (1.8-2.4); POTASSIUM - SERUM 4.7 mmol/L (3.5-5.1); PROTEIN - SERUM 6.9 g/dL (6.4-8.2)
--- NOTE | 2020-03-10 06:30 | NUR ---
VSS THROUGHOUT NIGHT. CAF/UCAF PER CM. PT DENIED ANY DISCOMFORT. NEEDS MET, WILL CONTINUW TO MONITOR.
--- NOTE | 2020-03-10 07:00 | NUR ---
RECEIVED REPORT. ASSUMED CARE OF PATIENT. PATIENT RESTING IN BED WITH EYES OPEN. RESP EVEN AND UNLABORED. CALL LIGHT WITHIN REACH. 1ST STEP OVERLAY PATENT. NO DISTRESS.
--- NOTE | 2020-03-10 07:43 | NUR ---
DIET REQUEST PLACED AT THIS TIME.
[2020-03-10 10:20] VITALS: BP 112/58
--- NOTE | 2020-03-10 10:40 | NUR ---
PATIENT CONTINUES IN CONTROLLED AFIB AFTER RECEIVING LANOXIN 500MCG IV PUSH. PATIENT ALSO STARTED ON ORAL BETAPACE.
--- NOTE | 2020-03-10 11:29 | NUR ---
FSBS 197. 2 UNITS HUMALOG ADMINISTERED PER SLIDING SCALE.
--- NOTE | 2020-03-10 12:28 | NUR ---
QUICK START COMPLETED AT THIS TIME. NO DISTRESS. PATIENT STATES THAT HIS PAIN IS 8/10 AND THAT WHEN HE TRIES TO TAKE A DEEP BREATH THE PAIN WORSENS.
[2020-03-10 14:18] VITALS: BP 126/66
--- NOTE | 2020-03-10 14:32 | NUR ---
INCONTINENT CARE PROVIDED. PATIENT TURNED AND REPOSITIONED. NO DISTRESS.
--- NOTE | 2020-03-10 15:23 | NUR ---
NOTIFIED IR THAT PATIENT HAS TO HAVE AN SNAPPER ON HERE FOR THE PROCEDURE. WAITING FOR IR TO CALL AND LET THIS A&P MECHANIC KNOW OF A TIME TO SCHEDULE THE SNAPPER ON FOR THE PROCEDURE. FEEDER ASSOCIATE AWARE.
--- NOTE | 2020-03-10 16:07 | NUR ---
IR CALLED AND REPORTS THAT PROCEDURE IS SCHEDULED AT 1130 IN THE AM AND TO PLEASE HAVE MULTIFOLD OPERATOR AVAILABLE.
--- NOTE | 2020-03-10 16:35 | NUR ---
FSBS 121. NO INSULIN PER SLIDING SCALE.
[2020-03-10 16:46] VITALS: BP 108/61
--- NOTE | 2020-03-10 19:15 | NUR ---
RECEIVED REPORT, WILL ASSUME CARE OF PT, SLEEPING, NO DISTRESS NOTICED AT THIS TIME, BED IS LOW, SRX2, CALL LIGHT IN REACH, WILL CONTINUE PLAN OF CARE
[2020-03-10 20:01] VITALS: BP 114/54
[2020-03-11] VITALS (10 sets, daily range): BP systolic 95–116; BP diastolic 46–68
--- NOTE | 2020-03-11 02:42 | NUR ---
I have reviewed this patient and I concur with the Shift Assessment completed by the Licensed Practical Nurse today this shift.
[2020-03-11 05:12] LABS: BASOPHILS 0.3 % (0-2); EOSINOPHILS 3.8 % (0-7); HEMATOCRIT 26.1 % (42.0-54.0); HEMOGLOBIN 8.4 g/dL (13.5-17.5); IMMATURE GRANULOCYTES 0.3 % (0-5); MCH 30.8 pg (26.0-34.0); MCHC 32.2 g/dL (31.0-37.0); MCV 95.6 fL (80.0-100.0); MEAN PLATELET VOLUME 9.3 fL (7.4-10.4); MONOCYTES 16.9 % (2-11); NEUTROPHILS 71.7 % (40-80); RBC 2.73 10x6/uL (4.20-6.10); RDW 20.9 % (11.5-14.5); WBC 5.9 10x3/uL (4.8-10.8)
[2020-03-11 05:18] LABS: PLATELET COUNT 98 10x3/uL (130-400)
[2020-03-11 05:23] LABS: APTT 31.3 SECONDS (22.8-39.4); INR 1.39 (0.85-1.17); PLATELET ESTIMATE DECREASED
[2020-03-11 05:47] LABS: ALBUMIN 3.7 g/dL (3.4-5.0); ANION GAP 10.7 mmol/L (8-16); BILIRUBIN - TOTAL 2.35 mg/dL (0.2-1.3); CALCIUM 9.4 mg/dL (8.5-10.1); CARBON DIOXIDE 26.9 mmol/L (21.0-32.0); CREATININE - SERUM 1.1 mg/dL (0.6-1.3); POTASSIUM - SERUM 4.6 mmol/L (3.5-5.1); PROTEIN - SERUM 6.9 g/dL (6.4-8.2)
--- NOTE | 2020-03-11 07:10 | NUR ---
RECEIVED REPORT. ASSUMED CARE OF PATIENT. PATIENT RESTING IN BED WITH EYES CLOSED. RESP EVEN AND UNLABORED. CON AFIB ON TELEMTRY, RATE 77. 1ST STEP OVERLAY AND TRAPEZE TO BED PATENT. CALL LIGHT WITHIN REACH. PATIENT NPO FOR THORACENTESIS AT 1130 TODAY.
--- NOTE | 2020-03-11 11:01 | NUR ---
FSBS 147. NO INSULIN PER SLIDING SCALE. WAITING FOR AUTOMOTIVE MACHINIST AT THIS TIME. PROCEDURE SCHEDULED AT 1130.
--- NOTE | 2020-03-11 11:30 | NUR ---
TOOL PROFILING MACHINE SET UP OPERATOR HERE. PATIENT SIGNED CONSENT FORMS. PATIENT LEFT UNIT IN STABLE CONDITION FOR THORACENTESIS. TOOL PROFILING MACHINE SET UP OPERATOR WITH PATIENT DURING PROCEDURE.
--- NOTE | 2020-03-11 12:35 | NUR ---
RECEIVED PATIENT BACK FROM IR. 2000ML DRAINED FROM LEFT LUNG. PATIENT ALERT/OREINTED. NEW ACCOUNTS CLERK AT BEDSIDE. PATIENT NOW CONSUMING NOON MEAL. NO DISTRESS.
--- NOTE | 2020-03-11 12:50 | NUR ---
SPOKE WITH PATIENTS VIA CLOTH FINISHING RANGE BACK TENDER SERVICES ON THE TELEPHONE AND WAS ABLE TO NOTIFY PATIENTS THAT HIS PROCEDURE WAS COMPLETE AND HE DID VERY WELL AND IS BACK IN HIS ROOM NOW. PATIENTS THANKED THIS NURSE FOR LETTING HER KNOW.
--- NOTE | 2020-03-11 13:27 | NUR ---
INCONTINENT CARE PROVIDED TO PATIENT. TURNED AND REPOSITIONED. NO DISTRESS. CALL LIGHT WITHIN REACH.
--- NOTE | 2020-03-11 16:11 | NUR ---
FSBS 181. 2 UNITS HUMALOG ADMINISTERED PER SLIDING SCALE.
[2020-03-12 04:00] VITALS: BP 106/58
[2020-03-12 06:24] LABS: BASOPHILS 0.7 % (0-2); EOSINOPHILS 3.2 % (0-7); HEMATOCRIT 24.7 % (42.0-54.0); HEMOGLOBIN 7.9 g/dL (13.5-17.5); IMMATURE GRANULOCYTES 0.2 % (0-5); LYMPHOCYTES 9.4 % (15-50); MCH 30.4 pg (26.0-34.0); MEAN PLATELET VOLUME 9.5 fL (7.4-10.4); MONOCYTES 14.7 % (2-11); NEUTROPHILS 71.8 % (40-80); PLATELET COUNT 110 10x3/uL (130-400); RDW 21.1 % (11.5-14.5); WBC 5.6 10x3/uL (4.8-10.8)
[2020-03-12 06:44] LABS: ALBUMIN 3.7 g/dL (3.4-5.0); ALKALINE PHOSPHATASE 199 U/L (30-120); ALT (SGPT) 23 U/L (10-68); BILIRUBIN - TOTAL 2.04 mg/dL (0.2-1.3); CALC OSMOLALITY 284 mosm/kg (275-300); CALCIUM 9.1 mg/dL (8.5-10.1); CARBON DIOXIDE 26.7 mmol/L (21.0-32.0); CHLORIDE - SERUM 102 mmol/L (98-107); GLUCOSE 122 mg/dL (74-106); POTASSIUM - SERUM 4.7 mmol/L (3.5-5.1); PROTEIN - SERUM 6.5 g/dL (6.4-8.2); SODIUM 135 mmol/L (136-145); UREA NITROGEN 51 mg/dL (7-18); eGFR NON AFRICAN AMERICAN 76 mL/min (90-120)
--- NOTE | 2020-03-12 06:46 | NUR ---
I have reviewed this patient and I concur with the Shift Assessment completed by the Licensed Practical Nurse today this shift
[2020-03-12 08:00] VITALS: BP 115/67
--- NOTE | 2020-03-12 08:15 | NUR ---
PT RESTING COMFORTABLY IN BED WITH EYES CLOSED. BEDSIDE RAILS X2, CALL LIGHT IN REACH, RT FA IV SL. NAD NOTED,W ILL CONTINUE PLAN OF CARE.
[2020-03-12] MEDS ORDERED: BETAPACE 120 M120 MG PO (09:23)
[2020-03-12] MEDS ORDERED: MIDODRINE HCL5 MG PO (09:23)
--- NOTE | 2020-03-12 09:51 | NUR ---
AM MEDS GIVEN AT THIS TIME. PT IN BED, RESTING COMFORTABLY. DENIES ANY NEEDS AT THIS TIME. CALL LIGHT IN REACH, NAD NOTED,W ILL CONTINUE TO MONITOR.
--- NOTE | 2020-03-12 10:00 | MORECARE ---
CASE MANAGEMENT DISCHARGE SUMMARY PATIENT: ZAYRA MAO UNIT: [id number] ADM DATE: 02/19/20 AGE: 79 : 38 SEX: M ROOM/BED: D.210 AUTHOR: ALMAS,DOC PHYSICIAN: REFERRING PHYSICIAN: LUMA BOCANEGRA MD DATE OF SERVICE: 03/12/20 Discharge Plan Patient Name: ZAYRA MAO Facility: [facility]:[place] : 1940 Planned Disposition: Alf Facility Anticipated Discharge Date: 02/22/20 Discharge Date: Expected LOS: 3 Initial Reviewer: [email or web address] Initial Review Date: 02/19/2020 Generated: 03/12/20 11:00 am Comments DCP- Discharge Planning Updated by [id number]: Emilee Lilly on 03/12/20 8:[address] Received discharge order. IMM given and read by patient and signed. I called his daughter, Pratibha, and informed. She will notify his . I informed Iman liaison for the [facility]. He will discharge to [facility] skilled (Medicare) bed via ambulance today. DCP- Discharge Planning Updated by [id number]: Emilee Lilly on 03/09/20 1:[address] Patient is Covid-19 Negative. I have informed chad Valerioison for [facility]. He is in ucaf however and not stable to discharge today and Iman is aware. CM will continue to follow and assist with discharge planning/needs. DCP- Discharge Planning Updated by [id number]: Emilee Lilly on 03/09/20 10:[address] Updated clinical faxed to [facility] per request. DCP- Discharge Planning Updated by [id number]: Emilee Lilly on 03/07/20 4:[address] I spoke with patient's daughter today to talk to her about alternatives to different SNF. I informed her that both [facility] and [facility] would still be fairly close to [place]. She states she will speak to his about those 2 and call me back. I then received a call that [facility] will accept the patient when his Covid19 test is resulted and negative. I called the daughter back and she agrees with [facility] for discharge placement. Pratibha TAYLORR - [phone] DCP- Discharge Planning Updated by [id number]: Kaleigh Guzmán on 03/07/20 12:[address] Received call back from Iman with [facility]. States they will accept patient to SNF if/when negative COVID result received. Notified RAJI Hebert. DCP- Discharge Planning Updated by [id number]: Kaleigh Guzmán on 03/07/20 11:[address] DCM was notified by RAJI Hebert, that Iman, Clinical Liaison with [facility], called and notified her that [facility] had decided not to accept patient to SNF. Emilee states she asked Iman if [facility], another [facility] facility, would accept patient and Iman told her that [facility] had declined the patient as well. DCM spoke with Iman about denial. Voiced dissatisfaction and frustration with facility requesting Negative COVID result prior to admission to facility and now declining patient before the test can even result. DCM also called Padilla Patel, Senior BODY PRESSER with [facility], notified Padilla of above information and voiced dissatisfaction / frustration with facilities process of accepting patient. Padilla states he will follow up with Iman and the automotive sales professional about this. States he or Iman will call DCM back with follow up. DCM notified RAJI Hebert of status of declination. DCM will continue to follow. DCP- Discharge Planning Updated by [id number]: Kaleigh Guzmán on 03/06/20 1:[address] CM received communication from [facility] stating they will not accept the patient without a COVID test being done due to "fever and cough". CM notified Ashley Olvera. DCP- Discharge Planning Updated by [id number]: Ani Alonso on 03/06/20 12:[address] CM met with the patient and his at bedside. Patient has an production graphic designer via face-time in order to communicate with both. informed the patient has chosen [facility] and she is in agreement with this. DC IMM signed per the . CM e-faxed additional information to [facility] and also talked with Joy via phone. Joy states they were worried about the patient's H/H and may not accept without a Covid-19 test. Made Joy aware that the patient does not meet criteria for Covid-19 testing. Made aware of planned DC 03/07. Await CB. DCP- Discharge Planning Updated by [id number]: Ty Winters on 03/02/20 3:[address] Patient Name: ZAYRA MAO Encounter No: [id number] : 1940 Primary Insurance: [employer] CHOICE PPO MCR ADVANT Anticipated DC Date: 02-22-2020 Planned Disposition: Alf Facility External Planned Provider: [facility] follow-up note: CM RECEIVED DISCHARGE ORDER, SPOKE TO PT IN ROOM WHO INFORMED CM THAT HE IS GOING HOME AND WOULD LIKE HOME HEALTH DISCUSSED. IMPORTANT MESSAGE FROM MEDICARE PROVIDED AND EXPLAINED. CM LATER SPOKE TO PT'S NURSE WHO INFORMED CM THAT PT'S IS NOT ABLE TO TAKE CARE OF PT AT HOME. CM MET WITH PT, DISCUSSED IN WRITING, AVAILABLE REHAB IN NURSING HOME PT IS NOT ABLE TO TOLERATE THREE HOURS OF PROGRESSIVE THERAPY PER DAY. PT'S ON VIDEO PHONE. PT AND SPOUSE DISCUSSED LIST PROVIDED BY CM. PT REPORTS HIS IS ARGUING WITH HIM AND WANTS TO SPEAK TO CM. CM ATTEMPTED TO CALL VIDEO PHONE, , COULD NOT GET ANSWER. PT CALLED CM AND THROUGH COMPOUNDING ASSISTANT, SPOUSE WAS UPSET THAT PT SIGNED FORM WITHOUT HER BEING TOLD. CM PROVIDED IMPORTANT MESSAGE FROM MEDICARE INFORMATION VIA PHONE. CM DISCUSSED NURSING HOME FACILITY REHAB OPTIONS, INFORMED THAT THERE IS NO CURRENT VISITATION AT THEM EITHER. SHE CONSENTED TO REFERRALS TO THE [facility]. CHOICE COMPLETED. CM CONTACTED [facility] OF THE [facility], THEY ARE IN NETWORK WITH PT'S INSURANCE. CM FAXED REFERRAL TO THE [facility] VIA [facility] AT [phone]. CM WAITING ADMISSION DETERMINATION FROM THE [facility]. TY WINTERS, CASE MANAGEMENT Ty Winters DCP- Discharge Planning Updated by [id number]: Ty Winters on 02/21/20 2:[address] Patient Name: ZAYRA MAO Encounter No: [id number] : 1940 Primary Insurance: [employer] CHOICE PPO MCR ADVANT Anticipated DC Date: 02-22-2020 Planned Disposition: Home with Home Health External Planned Provider: [facility] DCP follow-up note: CM RECEIVED INPATIENT REHAB PRESCREENING ORDER, MET WITH PT IN ROOM TO DISCUSS REHAB OPTIONS, LOCATIONS AND PROVIDERS. ALL COMMUNICATION DONE IN WRITING, PT'S SPOUSE VIDEO CONFERENCED IN WITH PT DURING CONVERSATION. PT DECLINED INPATIENT REHAB AND NURSING HOME REHAB SERVICES. PT WANTS TO GO HOME WITH HOME HEALTH. PT'S PROVIDED CM WITH [facility] IN [place] PHONE NUMBER, . CHOICE COMPLETED. IMPORTANT MESSAGE FROM MEDICARE PROVIDED AND EXPLAINED. CM CALLED AND SPOKE TO LYN OF [facility], , PROVIDED HOME HEALTH REFERRAL, CM FAXED REFERRAL TO [facility] AT [phone]. FOR DISCHARGE HOME WITH HOME HEALTH, NOTIFY [facility] AT [phone], FAX DISCHARGE INFORMATION TO [facility] AT [phone]. FAMILY TO TRANSPORT HOME. Ty Winters, CASE MANAGEMENT DCP- Discharge Planning Updated by [id number]: Ty Winters on 02/20/20 2:[address] Patient Name: ZAYRA MAO Admission Status: Elective Accout number: [id number] Admission Date: 02-19-2020 : 1940 Admission Diagnosis: Attending: EITAN OLSON Current LOS: 1 Anticipated DC Date: Planned Disposition: Home Primary Insurance: [employer] PPO MCR ADVANT Discharge Planning Comments: CM MET WITH PT IN ROOM TO DISCUSS DISCHARGE PLANNING AND NEEDS. CM COMMUNICATED IN WRITING, PT VERBALLY RESPONDED. PT REPORTS LIVING AT HOME INDEPENDENTLY WITH HIS . PT HAS A ROLLATOR WALKER FROM [facility]. PT HAS A NURSE FROM HIS INSURANCE COMPANY THAT COMES OUT TO CHECK ON HIM. CM DISCUSSED AVAILABILITY OF HOME HEALTH, REHAB SERVICES AND MEDICAL EQUIPMENT. PT DENIES DISCHARGE NEEDS, REPORTS HIS WILL PICK HIM UP FOR DISCHARGE HOME PT PLANS TO DISCHARGE HOME WITH , HAS NO ANTICIPATED DISCHARGE NEEDS. FAMILY TO TRANSPORT HOME AT DISCHARGE. CM TO FOLLOW AND ASSIST IF NEEDED. Transcript Evaluator: Ty Winters DCP- Discharge Planning Updated by [id number]: Kaleigh Saini on 02/18/20 2:[address] GAL[facility] EXPLAINED ORIGINAL PROVIDED. COPY PLACED ON CHART. DCPIA - Discharge Planning Initial Assessment Updated by [id number]: Ty Winters on 02/20/20 3:47 pm * Is the patient Alert and Oriented? Yes * How many steps to enter\\exit or inside your home? RAMP * PCP DR. OCTAVIA GALLAGHER * [facility] [place] * Preadmission Environment Home with Family * ADLs Independent * Equipment Rolling Walker * Other Equipment ROLLATOR WALKER FROM [employer] * List name and contact numbers for known caregivers / representatives who currently or will assist patient after discharge: ISABELA MAO, SPOUSE, OR VIDEO/COMPOUNDING ASSISTANT PHONE [phone] PRATIBHA BHAT, DTR, * Verbal permission to speak to the caregivers and representatives has been obtained from the patient. N/A * Community resources currently utilized None * Please name any agencies selected above. NONE * Additional services required to return to the preadmission environment? No * Can the patient safely return to the preadmission environment? Yes * Has this patient been hospitalized within the prior 30 days at any hospital? Yes Coverage Notice Reviewer: [id number] Dale Saini Notice Issued Date-Time: 02/18/2020 8:30 Notice Type: Medicare Outpatient Observation Notice Notice Delivered To: Patient Relationship to Patient: O And M Supervisor Name: Delivery Method: HAND - Hand Delivered Vita Days: Prior Verbal Notification: Recipient Understood Notice: Yes Recipient Signature: Yes Med Rec Note Co-signed by Attending: Coverage Notice Comment: MICHELL EXPLAINED ORIGINAL PROVIDED. COPY PLACED ON CHART. Reviewer: [id number] Winters Notice Issued Date-Time: 02/21/2020 14:50 Notice Type: IM Discharge Notice Notice Delivered To: Patient Relationship to Patient: O And M Supervisor Name: Delivery Method: HAND - Hand Delivered Vita Days: Prior Verbal Notification: Recipient Understood Notice: Yes Recipient Signature: Yes Med Rec Note Co-signed by Attending: Coverage Notice Comment: Reviewer: JESSIE Winters Notice Issued Date-Time: 02/21/2020 14:30 Notice Type: Patient Choice Letter Notice Delivered To: Patient Relationship to Patient: O And M Supervisor Name: Delivery Method: HAND - Hand Delivered Vita Days: Prior Verbal Notification: Recipient Understood Notice: Yes Recipient Signature: Yes Med Rec Note Co-signed by Attending: Coverage Notice Comment: ACCEPTANCE: [facility] REFUSAL: INPATIENT REHAB AND SNF REHAB Reviewer: JESSIE Winters Notice Issued Date-Time: 03/02/2020 14:37 Notice Type: IM Discharge Notice Notice Delivered To: Patient Relationship to Patient: O And M Supervisor Name: Delivery Method: HAND - Hand Delivered Vita Days: Prior Verbal Notification: Recipient Understood Notice: Yes Recipient Signature: Yes Med Rec Note Co-signed by Attending: Coverage Notice Comment: Reviewer: [id number] - Ty Winters Notice Issued Date-Time: 03/02/2020 15:25 Notice Type: Patient Choice Letter Notice Delivered To: Family Member Relationship to Patient: Spouse O And M Supervisor Name: JOSE LUIS MAO Delivery Method: PHONE - Phone Vita Days: Prior Verbal Notification: Recipient Understood Notice: Yes Recipient Signature: Med Rec Note Co-signed by Attending: Coverage Notice Comment: [facility] Reviewer: [id number] Dale Alonso Notice Issued Date-Time: 03/06/2020 13:37 Notice Type: IM Discharge Notice Notice Delivered To: Family Member Relationship to Patient: Spouse O And M Supervisor Name: Isabela Mao Delivery Method: HAND - Hand Delivered Vita Days: Prior Verbal Notification: Recipient Understood Notice: Yes Recipient Signature: Yes Med Rec Note Co-signed by Attending: Coverage Notice Comment: DC IMM signed by and placed on the chart. did not want a coopy. Reviewer: [id number] - Emilee Lilly Notice Issued Date-Time: 03/12/2020 9:56 Notice Type: IM Discharge Notice Notice Delivered To: Patient Relationship to Patient: Self O And M Supervisor Name: Delivery Method: HAND - Hand Delivered Vita Days: Prior Verbal Notification: Recipient Understood Notice: Yes Recipient Signature: Yes Med Rec Note Co-signed by Attending: Coverage Notice Comment: IMM given, patient read and understands, signed, given, copy placed in MR Last DP export: 03/09/20 2:02 p Patient Name: ZAYRA MAO Page [phone] at 1000 All edits/amendments must be made on the electronic document DICTATION DATE: 03/12/20 1000 ENTERPRISE ACCOUNT EXECUTIVE: SUJIT 03/12/20 1000 RPT#: [id number] DC DATE: STATUS: ADM IN [facility] [address] [place] [address] END OF REPORT
--- NOTE | 2020-03-12 10:32 | NUR ---
FIRST UNIT OF PRBCS STARTED INFUSING AT THIS TIME. VITAL SIGNS STABLE. PT RESTING COMFORTABLY IN BED, DENIES ANY NEEDS.
--- NOTE | 2020-03-12 10:47 | NUR ---
PT TOLERATING BLOOD INFUSION WELL. RATE BUMPED UP TO 125CC/HR. WILL CONTINUE TO MONITOR.
--- NOTE | 2020-03-12 13:40 | NUR ---
FIRST UNIT OF BLOOD DONE INFUSING. 20MG OF LASIX GIVEN AND 2ND BAG OF PRBC STARTED INFUSING. VITAL SIGNS STABLE. PT DENIES ANY NEEDS AT THIS TIME, CALL LIGHT IN REACH, NAD NOTED, WILL CONTINUE TO MONITOR.
[2020-03-12 14:03] VITALS: BP 109/60
--- NOTE | 2020-03-12 15:26 | NUR ---
OT NOTE: (AM) PT COMPLETED SUPINE TO SIT WITH MIN/MOD A. PT COMPLETED EOB SITTING TOLERANCE WITH CGA AT TIMES TO MAINTAIN POSITION, PT COMPLETED FACE HYGIENE AT EOB WITH SET UP. (PM) HARDING ASKED NURSING IF PT WAS ABLE TO PARTICIPATED WITH THERAPY WHILE INFUSION. NURSING STATED YES. PT REQUIRED MIN/MOD A WITH SUPINE TO SIT. PT COMPLETED TRUNK STABILITY AXS AT EOB WITH MIN A. PT COMPLETED HAND HYGIENE WITH SET UP. [phone] THANK YOU,MEHDI CHENG
--- NOTE | 2020-03-12 16:17 | NUR ---
REPORT CALLED TO NITA AT THE [facility]. PT FINISHING UP BLOOD AND THEN HE WILL BE LEAVING VIA AMBULANCE.
--- NOTE | 2020-03-12 16:32 | NUR ---
PROVIDED VERBAL AND WRITTEN DISCHARGE TEACHING TO PT, D/C RT FA IV WITH CATHETER TIP INTACT.[facility] CALLED. JT STATED THAT IT WILL BE AROUND 30-45MIN BEFORE THEY CAN COME GET PT. EMPTIED 300CC OUT OF [place]AV[place] CATHETER AT THIS TIME.
--- NOTE | 2020-03-12 18:06 | NUR ---
PT LEFT UNIT VIA [facility] WITH ALL BELONGINGS, NAD NOTED.
--- NOTE | 2020-03-13 07:37 | MORECARE ---
CASE MANAGEMENT DISCHARGE SUMMARY PATIENT: AZYRA MAO UNIT: [id number] ADM DATE: 02/19/20 AGE: 79 : 39 SEX: M ROOM/BED: D.210 AUTHOR: ALMAS,DOC PHYSICIAN: REFERRING PHYSICIAN: LUMA BOCANEGRA MD DATE OF SERVICE: 03/13/20 Discharge Plan Patient Name: ZAYRA MAO Facility: [facility]:[place] : 1940 Planned Disposition: Usp Facility Anticipated Discharge Date: 02/22/20 Discharge Date: 03/12/2020 Expected LOS: 3 Initial Reviewer: [id number] Initial Review Date: 02/19/2020 Generated: 03/13/20 8:36 am Comments DCP- Discharge Planning Updated by [email or web address]: Emilee Lilly on 03/12/20 8:[address] Received discharge order. IMM given and read by patient and signed. I called his daughter, Pratibha, and informed. She will notify his . I informed Iman liaison for the [facility]. He will discharge to [facility] skilled (Medicare) bed via ambulance today. DCP- Discharge Planning Updated by [id number]: Emilee Lilly on 03/09/20 1:[address] Patient is Covid-19 Negative. I have informed chad Valerioison for [facility]. He is in ucaf however and not stable to discharge today and Iman is aware. CM will continue to follow and assist with discharge planning/needs. DCP- Discharge Planning Updated by [id number]: Emilee Lilly on 03/09/20 10:[address] Updated clinical faxed to [facility] per request. DCP- Discharge Planning Updated by [email or web address]: Emilee Lilly on 03/07/20 4:[address] I spoke with patient's daughter today to talk to her about alternatives to different SNF. I informed her that both [facility] and [facility] would still be fairly close to [place]. She states she will speak to his about those 2 and call me back. I then received a call that [facility] will accept the patient when his Covid19 test is resulted and negative. I called the daughter back and she agrees with [facility] for discharge placement. Pratibha Bhat - DTR - [phone] DCP- Discharge Planning Updated by [id number]: Kaleigh Guzmán on 03/07/20 12:[address] Received call back from Iman with The [facility]. States they will accept patient to SNF if/when negative COVID result received. Notified RAJI Hebert. DCP- Discharge Planning Updated by [email or web address]: Kaleigh Guzmán on 03/07/20 11:[address] DCM was notified by RAJI Hebert, that Iman, Clinical Liaison with [facility], called and notified her that [facility] had decided not to accept patient to SNF. Emilee states she asked Iman if [facility], another [facility] facility, would accept patient and Iman told her that [facility] had declined the patient as well. DCM spoke with Iman about denial. Voiced dissatisfaction and frustration with facility requesting Negative COVID result prior to admission to facility and now declining patient before the test can even result. DCM also called Padilla Patel, Senior METER SETTER with [facility], notified Padilla of above information and voiced dissatisfaction / frustration with facilities process of accepting patient. Padilla states he will follow up with Iman and the facility examiner about this. States he or Iman will call DCM back with follow up. DCM notified RAJI Hebert of status of declination. DCM will continue to follow. DCP- Discharge Planning Updated by [email or web address]: Kaleigh Guzmán on 03/06/20 1:[address] CM received communication from [facility] stating they will not accept the patient without a COVID test being done due to "fever and cough". CM notified Ashley Olvera. DCP- Discharge Planning Updated by [id number]: Ani Alonso on 03/06/20 12:[address] CM met with the patient and his at bedside. Patient has an safety engineer via face-time in order to communicate with both. informed the patient has chosen [facility] and she is in agreement with this. DC IMM signed per the . CM e-faxed additional information to [facility] and also talked with Joy via phone. Joy states they were worried about the patient's H/H and may not accept without a Covid-19 test. Made Joy aware that the patient does not meet criteria for Covid-19 testing. Made aware of planned DC 03/07. Await CB. DCP- Discharge Planning Updated by [id number]: Ty Winters on 03/02/20 3:[address] Patient Name: ZAYRA MAO Encounter No: [id number] : 1940 Primary Insurance: HUMANA CHOICE PPO MCR ADVANT Anticipated DC Date: 02-22-2020 Planned Disposition: Usp Facility External Planned Provider: DCP follow-up note: CM RECEIVED DISCHARGE ORDER, SPOKE TO PT IN ROOM WHO INFORMED CM THAT HE IS GOING HOME AND WOULD LIKE HOME HEALTH DISCUSSED. IMPORTANT MESSAGE FROM MEDICARE PROVIDED AND EXPLAINED. CM LATER SPOKE TO PT'S NURSE WHO INFORMED CM THAT PT'S IS NOT ABLE TO TAKE CARE OF PT AT HOME. CM MET WITH PT, DISCUSSED IN WRITING, AVAILABLE REHAB IN LONG-TERM PT IS NOT ABLE TO TOLERATE THREE HOURS OF PROGRESSIVE THERAPY PER DAY. PT'S ON VIDEO PHONE. PT AND SPOUSE DISCUSSED LIST PROVIDED BY CM. PT REPORTS HIS IS ARGUING WITH HIM AND WANTS TO SPEAK TO CM. CM ATTEMPTED TO CALL VIDEO PHONE, , COULD NOT GET ANSWER. PT CALLED CM AND THROUGH VAMP STRAP IRONER, SPOUSE WAS UPSET THAT PT SIGNED FORM WITHOUT HER BEING TOLD. CM PROVIDED IMPORTANT MESSAGE FROM MEDICARE INFORMATION VIA PHONE. CM DISCUSSED LONG-TERM FACILITY REHAB OPTIONS, INFORMED THAT THERE IS NO CURRENT VISITATION AT THEM EITHER. SHE CONSENTED TO REFERRALS TO [facility] AND [facility]. CHOICE COMPLETED. CM CONTACTED [facility], THEY ARE IN NETWORK WITH PT'S INSURANCE. CM FAXED REFERRAL TO [facility] VIA [facility] AT [phone]. CM WAITING ADMISSION DETERMINATION FROM THE [facility]. TY WINTERS, CASE MANAGEMENT Ty Winters DCP- Discharge Planning Updated by [id number]: Ty Winters on 02/21/20 2:[address] Patient Name: ZAYRA MAO Encounter No: [id number] : 1940 Primary Insurance: HUMANA CHOICE PPO MCR ADVANT Anticipated DC Date: 02-22-2020 Planned Disposition: Home with Home Health External [facility] DCP follow-up note: CM RECEIVED INPATIENT REHAB PRESCREENING ORDER, MET WITH PT IN ROOM TO DISCUSS REHAB OPTIONS, LOCATIONS AND PROVIDERS. ALL COMMUNICATION DONE IN WRITING, PT'S SPOUSE VIDEO CONFERENCED IN WITH PT DURING CONVERSATION. PT DECLINED INPATIENT REHAB AND LONG-TERM REHAB SERVICES. PT WANTS TO GO HOME WITH HOME HEALTH. PT'S PROVIDED CM WITH [facility] IN [place] PHONE NUMBER, . CHOICE COMPLETED. IMPORTANT MESSAGE FROM MEDICARE PROVIDED AND EXPLAINED. CM CALLED AND SPOKE TO LYN OF [facility], , PROVIDED HOME HEALTH REFERRAL, CM FAXED REFERRAL TO [facility] AT [phone]. FOR DISCHARGE HOME WITH HOME HEALTH, NOTIFY [facility] AT [phone], FAX DISCHARGE INFORMATION TO [facility] AT [phone]. FAMILY TO TRANSPORT HOME. Ty Winters, CASE MANAGEMENT DCP- Discharge Planning Updated by [id number]: Ty Winters on 02/20/20 2:[address] Patient Name: ZAYRA MAO Admission Status: Elective Accout number: [id number] Admission Date: 02-19-2020 : 1940 Admission Diagnosis: Attending: EITAN OLSON Current LOS: 1 Anticipated DC Date: Planned Disposition: Home Primary Insurance: HUMANA CHOICE PPO MCR ADVANT Discharge Planning Comments: CM MET WITH PT IN ROOM TO DISCUSS DISCHARGE PLANNING AND NEEDS. CM COMMUNICATED IN WRITING, PT VERBALLY RESPONDED. PT REPORTS LIVING AT HOME INDEPENDENTLY WITH HIS . PT HAS A ROLLATOR WALKER FROM [employer]. PT HAS A NURSE FROM HIS INSURANCE COMPANY THAT COMES OUT TO CHECK ON HIM. CM DISCUSSED AVAILABILITY OF HOME HEALTH, REHAB SERVICES AND MEDICAL EQUIPMENT. PT DENIES DISCHARGE NEEDS, REPORTS HIS WILL PICK HIM UP FOR DISCHARGE HOME PT PLANS TO DISCHARGE HOME WITH , HAS NO ANTICIPATED DISCHARGE NEEDS. FAMILY TO TRANSPORT HOME AT DISCHARGE. CM TO FOLLOW AND ASSIST IF NEEDED. Supervisor Printing And Stamping: Ty Winters DCP- Discharge Planning Updated by [id number]: Kaleigh Saini on 02/18/20 2:[address] GAL[facility]ZA EXPLAINED ORIGINAL PROVIDED. COPY PLACED ON CHART. DCPIA - Discharge Planning Initial Assessment Updated by [id number]: Ty Winters on 02/20/20 3:47 pm * Is the patient Alert and Oriented? Yes * How many steps to enter\\exit or inside your home? RAMP * PCP DR. OCTAVIA GALLAGHER * [facility] [place] * Preadmission Environment Home with Family * ADLs Independent * Equipment Rolling Walker * Other Equipment ROLLATOR WALKER FROM [employer] * List name and contact numbers for known caregivers / representatives who currently or will assist patient after discharge: ISABELA MAO, SPOUSE, OR VIDEO/VAMP STRAP IRONER PHONE [phone] PRATIBHA BHAT, DTR, * Verbal permission to speak to the caregivers and representatives has been obtained from the patient. N/A * Community resources currently utilized None * Please name any agencies selected above. NONE * Additional services required to return to the preadmission environment? No * Can the patient safely return to the preadmission environment? Yes * Has this patient been hospitalized within the prior 30 days at any hospital? Yes Coverage Notice Reviewer: [id number] Dale Saini Notice Issued Date-Time: 02/18/2020 8:30 Notice Type: Medicare Outpatient Observation Notice Notice Delivered To: Patient Relationship to Patient: Agricultural And Forestry Supervisor Name: Delivery Method: HAND - Hand Delivered Vita Days: Prior Verbal Notification: Recipient Understood Notice: Yes Recipient Signature: Yes Med Rec Note Co-signed by Attending: Coverage Notice Comment: MICHELL EXPLAINED ORIGINAL PROVIDED. COPY PLACED ON CHART. Reviewer: [id number] Winters Notice Issued Date-Time: 02/21/2020 14:50 Notice Type: IM Discharge Notice Notice Delivered To: Patient Relationship to Patient: Agricultural And Forestry Supervisor Name: Delivery Method: HAND - Hand Delivered Vita Days: Prior Verbal Notification: Recipient Understood Notice: Yes Recipient Signature: Yes Med Rec Note Co-signed by Attending: Coverage Notice Comment: Reviewer: [id number] Winters Notice Issued Date-Time: 02/21/2020 14:30 Notice Type: Patient Choice Letter Notice Delivered To: Patient Relationship to Patient: Agricultural And Forestry Supervisor Name: Delivery Method: HAND - Hand Delivered Vita Days: Prior Verbal Notification: Recipient Understood Notice: Yes Recipient Signature: Yes Med Rec Note Co-signed by Attending: Coverage Notice Comment: ACCEPTANCE: [facility] REFUSAL: INPATIENT REHAB AND SNF REHAB Reviewer: [id number] Winters Notice Issued Date-Time: 03/02/2020 14:37 Notice Type: IM Discharge Notice Notice Delivered To: Patient Relationship to Patient: Agricultural And Forestry Supervisor Name: Delivery Method: HAND - Hand Delivered Vita Days: Prior Verbal Notification: Recipient Understood Notice: Yes Recipient Signature: Yes Med Rec Note Co-signed by Attending: Coverage Notice Comment: Reviewer: [id number] - Ty Winters Notice Issued Date-Time: 03/02/2020 15:25 Notice Type: Patient Choice Letter Notice Delivered To: Family Member Relationship to Patient: Spouse Agricultural And Forestry Supervisor Name: JOSE LUIS MAO Delivery Method: PHONE - Phone Vita Days: Prior Verbal Notification: Recipient Understood Notice: Yes Recipient Signature: Med Rec Note Co-signed by Attending: Coverage Notice Comment: [facility] Reviewer: [id number] Dale Alonso Notice Issued Date-Time: 03/06/2020 13:37 Notice Type: IM Discharge Notice Notice Delivered To: Family Member Relationship to Patient: Spouse Agricultural And Forestry Supervisor Name: Isabela Mao Delivery Method: HAND - Hand Delivered Vita Days: Prior Verbal Notification: Recipient Understood Notice: Yes Recipient Signature: Yes Med Rec Note Co-signed by Attending: Coverage Notice Comment: DC IMM signed by and placed on the chart. did not want a coopy. Reviewer: [id number] - Emilee Lilly Notice Issued Date-Time: 03/12/2020 9:56 Notice Type: IM Discharge Notice Notice Delivered To: Patient Relationship to Patient: Self Agricultural And Forestry Supervisor Name: Delivery Method: HAND - Hand Delivered Vita Days: Prior Verbal Notification: Recipient Understood Notice: Yes Recipient Signature: Yes Med Rec Note Co-signed by Attending: Coverage Notice Comment: IMM given, patient read and understands, signed, given, copy placed in MR Last DP export: 03/12/20 9:00 a Patient Name: ZAYRA MAO Page [id number] at 0737 All edits/amendments must be made on the electronic document DICTATION DATE: 03/13/20735 EXECUTIVE PRODUCER: SUJIT 03/13/2036 RPT#: [id number] DC DATE:03/12/20 STATUS: DIS IN [place] [address] [place] [address] END OF REPORT
== END 2020-03-12 18:06 | DRG 371 ==
LOC: D.ICU 05:16 → D.SP 05:16 → D.ICU 18:00 → D.M2 02-18 17:14 → D.SP 02-19 10:10 → D.M2 03-07 09:08
PROVIDERS: Family Medicine; General Practice; Internal Medicine; Internal Medicine Hematology & Oncology; Internal Medicine Nephrology; Radiology Diagnostic Radiology; Radiology Vascular & Interventional Radiology; ADMIT Family Medicine; ATTEND Family Medicine
PROC: 0W9G3ZZ Drainage of Peritoneal Cavity, Percutaneous Approach (ICD-10-PCS; principal; 2020-02-23 09:30)
PROC: 0W9G3ZZ Drainage of Peritoneal Cavity, Percutaneous Approach (ICD-10-PCS; 2020-03-01)
PROC: 0JBC3ZX Excision of Pelvic Region Subcutaneous Tissue and Fascia, Percutaneous Approach, Diagnostic (ICD-10-PCS; 2020-03-01 13:15)
PROC: 0W9B3ZZ Drainage of Left Pleural Cavity, Percutaneous Approach (ICD-10-PCS; 2020-03-06)
DX: K65.9 Peritonitis, unspecified (principal); I50.33 Acute on chronic diastolic (congestive) heart failure; J96.21 Acute and chronic respiratory failure with hypoxia; R18.8 Other ascites; N17.9 Acute kidney failure, unspecified; E44.0 Moderate protein-calorie malnutrition; E87.1 Hypo-osmolality and hyponatremia; K74.60 Unspecified cirrhosis of liver; K72.10 Chronic hepatic failure without coma; I11.0 Hypertensive heart disease with heart failure; E11.9 Type 2 diabetes mellitus without complications; D47.2 Monoclonal gammopathy; Z68.26 Body mass index [BMI] 26.0-26.9, adult; J44.9 Chronic obstructive pulmonary disease, unspecified; D50.9 Iron deficiency anemia, unspecified

== ENCOUNTER 2020-05-19 05:03 | Inpatient (IN) | payer MEDICARE ==
[~2020-05-19] VITALS: Ht 180.3 cm; Wt 85.3 kg
[~2020-05-19 05:03] MED LIST changes: +BETAPACE 120 M120 MG PO; +MIDODRINE HCL5 MG PO
[2020-05-19 06:47] LABS: BASOPHILS 0.2 % (0-2); EOSINOPHILS 0.2 % (0-7); HEMATOCRIT 29.7 % (42.0-54.0); HEMOGLOBIN 9.4 g/dL (13.5-17.5); IMMATURE GRANULOCYTES 0.2 % (0-5); LYMPHOCYTES 9.6 % (15-50); MCHC 31.6 g/dL (31.0-37.0); MEAN PLATELET VOLUME 9.3 fL (7.4-10.4); MONOCYTES 11.6 % (2-11); NEUTROPHILS 78.2 % (40-80); PLATELET COUNT 119 10x3/uL (130-400); RBC 2.94 10x6/uL (4.20-6.10); RDW 16.4 % (11.5-14.5); WBC 12.3 10x3/uL (4.8-10.8)
[2020-05-19 06:51] LABS: CALC OSMOLALITY 280 mosm/kg (275-300); CALCIUM 9.8 mg/dL (8.5-10.1); CARBON DIOXIDE 34.8 mmol/L (21.0-32.0); CHLORIDE - SERUM 100 mmol/L (98-107); CREATININE - SERUM 1.7 mg/dL (0.6-1.3); GLUCOSE 102 mg/dL (74-106); POTASSIUM - SERUM 3.6 mmol/L (3.5-5.1); SODIUM 138 mmol/L (136-145); UREA NITROGEN 27 mg/dL (7-18); eGFR NON AFRICAN AMERICAN 41 mL/min (90-120)
[2020-05-19 06:54] LABS: APTT 30.4 SECONDS (22.8-39.4); INR 1.32 (0.85-1.17); PROTIME 16.3 SECONDS (11.6-15.0)
[2020-05-19 07:08] LABS: ALKALINE PHOSPHATASE 483 U/L (30-120); ALT (SGPT) 73 U/L (10-68); BILIRUBIN - TOTAL 1.61 mg/dL (0.2-1.3); CKMB 0.2 U/L (0.0-3.6); CREATINE KINASE 39 UL (21-232); PRO BNP 3510 pg/mL (0-450); PROTEIN - SERUM 6.7 g/dL (6.4-8.2); TROPONIN-I 0.019 ng/mL (0.000-0.060)
--- NOTE | 2020-05-19 07:45 | NUR ---
HEMANTH PARKS CALLED AT THIS TIME
--- NOTE | 2020-05-19 07:52 | NUR ---
PT LAYING IN BED. RESPIRATIOSN ARE EVEN AND UNLABORED NO DISTRESS NOTED. EYES ARE CLOSED AT THIS TIME. WILL CONTINUE TO MONITOR.
[2020-05-19 07:59] VITALS: BP 96/44
[2020-05-19 08:55] VITALS: BP 102/43
[2020-05-19 10:03] VITALS: BP 100/45
--- NOTE | 2020-05-19 11:38 | NUR ---
PT TRANSPORTE TO FLOOR AT THIS TIME. ROOM WAS NOT CLEAN
[2020-05-19 13:15] VITALS: BP 96/45
[2020-05-19 14:12] VITALS: BP 96/45; BMI 26.2
--- NOTE | 2020-05-19 16:15 | NUR ---
TWIN PLACED ON ISOLATION DUE TO COVID SCREEN WITH REPORT CALLED TO [facility] FOR TRANSFER.
--- NOTE | 2020-05-19 17:00 | NUR ---
PATIENT REPORT CALLED TO [facility] AND TRANSFERED TO 2127
--- NOTE | 2020-05-19 20:15 | NUR ---
TRANS PATIENT FROM ROOM 2128 TO ROOM 2107. PATIENT DENIES NEEDS AT THIS TIME. BED IN LOWEST POSITION AND CALL LIGHT WITHIN REACH. ENCOURAGED THE PATIENT TO CALL IF HE HAS NEEDS. WILL CONTINUE TO MONITOR.
[2020-05-19 20:30] VITALS: BP 104/46
[2020-05-20 00:55] VITALS: BP 105/49
[2020-05-20 04:30] VITALS: BP 106/53
[2020-05-20 06:02] LABS: BASOPHILS 0.3 % (0-2); EOSINOPHILS 3.7 % (0-7); HEMATOCRIT 28.3 % (42.0-54.0); HEMOGLOBIN 8.7 g/dL (13.5-17.5); IMMATURE GRANULOCYTES 0.2 % (0-5); LYMPHOCYTES 9.2 % (15-50); MCH 31.3 pg (26.0-34.0); MCHC 30.7 g/dL (31.0-37.0); MCV 101.8 fL (80.0-100.0); MEAN PLATELET VOLUME 9.3 fL (7.4-10.4); MONOCYTES 16.2 % (2-11); NEUTROPHILS 70.4 % (40-80); RBC 2.78 10x6/uL (4.20-6.10); RDW 16.2 % (11.5-14.5)
[2020-05-20 06:21] LABS: PLATELET COUNT 95 10x3/uL (130-400); WBC 5.7 10x3/uL (4.8-10.8)
[2020-05-20 06:33] LABS: ANION GAP 5.7 mmol/L (8-16); CALCIUM 9.1 mg/dL (8.5-10.1); CREATININE - SERUM 1.4 mg/dL (0.6-1.3); MAGNESIUM - SERUM 1.8 mg/dL (1.8-2.4); PHOSPHOROUS 3.3 mg/dL (2.5-4.9); POTASSIUM - SERUM 3.7 mmol/L (3.5-5.1)
[2020-05-20 06:48] LABS: PLATELET ESTIMATE NORMAL
--- NOTE | 2020-05-20 07:26 | NUR ---
PT AWAKE AND ORIENTED, LYING IN BED WATCHING TV. ASSISTED WITH SCOOTNIG UP AND FINDING EXTRA PILLOWS. NO COMPLAINTS OR CONCERNS AT THIS TIME. CL IN REACH, SRXW
[2020-05-20 10:01] VITALS: BP 110/43
--- NOTE | 2020-05-20 10:33 | NUR ---
PT AWAKE AND ORIENTED, REQUESTED CRACKING MACHINE OPERATOR, WELCOME CENTER ATTENDANT ACLLED THE COMPANY AND THEY STATED SOMEONE WOULD BE OUT AROUDN [id number] AM. WAS ON PHONE, SHE STATES SHE WILL BE IN AT THAT SAME TIME. 7TH GRADE SOCIAL STUDIES TEACHER TEXTED DR. DAMON TO INFORM HIM IF HE WANTED TO SPEAK TO PT WIH THE CRACKING MACHINE OPERATOR PRESENT HE WOULD ALSO NEED TO BE HERE AROUND THEN. CL IN REACH, SRX2.
--- NOTE | 2020-05-20 11:59 | NUR ---
I have reviewed this patient and I concur with the Shift Assessment completed by the Licensed Practical Nurse today this shift.
[2020-05-20 14:10] VITALS: BP 120/48
[2020-05-20 18:22] VITALS: BP 103/47
--- NOTE | 2020-05-20 19:00 | NUR ---
REPORT RECEIVED, WILL CONTINUE POC. PATIENT IS AAOX4, LYING IN SEMI-FOWLERS POSITION. NO S/S OF DISTRESS OBSERVED, RR EVEN AND UNLABORED ON 5L. PATIENT DENIES NEEDS AT THIS TIME. CL IN REACH, BED LOCKED AND LOWERED. WILL CTM.
[2020-05-20 20:30] VITALS: BP 115/61
[2020-05-21 04:30] VITALS: BP 113/78
--- NOTE | 2020-05-21 04:37 | NUR ---
PIV TO LEFT HAND INFILTRATED. DC'D IV WITH CATH TIP INTACT. GAUZE APPLIED. PATIENT ALSO HAS PIV TO LEFT WRIST BUT HE SAYS IT'S TOO PAINFUL WHEN FLUIDS ARE INFUSING, FLUSHES WITH EASE BUT UNALBE TO USE DUE TO PATIENT DISCOMFORT. PATIENT DOES NOT HAVE GOOD VEINS, BUT WILL ATTEMPT TO START NEW IV.
[2020-05-21 06:43] LABS: BASOPHILS 0.5 % (0-2); EOSINOPHILS 5.1 % (0-7); HEMOGLOBIN 9.4 g/dL (13.5-17.5); IMMATURE GRANULOCYTES 0.3 % (0-5); MCH 31.2 pg (26.0-34.0); MCHC 31.3 g/dL (31.0-37.0); MEAN PLATELET VOLUME 8.9 fL (7.4-10.4); MONOCYTES 19.4 % (2-11); NEUTROPHILS 57.7 % (40-80); PLATELET COUNT 101 10x3/uL (130-400); RBC 3.01 10x6/uL (4.20-6.10); RDW 15.8 % (11.5-14.5)
[2020-05-21 06:57] LABS: MCV 99.7 fL (80.0-100.0); WBC 3.8 10x3/uL (4.8-10.8)
[2020-05-21 07:02] LABS: ALBUMIN 1.9 g/dL (3.4-5.0); ANION GAP 4.4 mmol/L (8-16); BILIRUBIN - TOTAL 1.02 mg/dL (0.2-1.3); CALCIUM 8.8 mg/dL (8.5-10.1); CARBON DIOXIDE 34.3 mmol/L (21.0-32.0); CREATININE - SERUM 1.3 mg/dL (0.6-1.3); POTASSIUM - SERUM 3.7 mmol/L (3.5-5.1)
[2020-05-21 09:00] VITALS: BP 133/80
[2020-05-21 09:37] LABS: INR 1.18 (0.85-1.17)
[2020-05-21 11:00] VITALS: BP 135/59
[2020-05-21 13:29] VITALS: Ht 180.3 cm; Wt 85.3 kg
[2020-05-21 16:35] LABS: PROTEIN - BODY FLUID 3.6 G/DL
--- NOTE | 2020-05-21 17:32 | NUR ---
I have reviewed this patient and I concur with the Shift Assessment completed by the Licensed Practical Nurse today this shift.
--- NOTE | 2020-05-21 18:17 | NUR ---
PT AWAKE AND ORIENTED THORUGHOUT THE DAY. SHAPING MACHINE TENDER ARIVED SHORTLY AFTER TWOPM AND WAS ABLE TO TRANSLATE THROUGH HIS PROCEDURE. PT VERY PLEASED WITH THIS. HAS HAD FEW COMPLAINTS THROUGHOUT THE DAY. TOLERATED PROCEDURE WELL AND IS CURRENTLY RESTING. CL IN REACH, SRX2.
[2020-05-21 19:27] LABS: EOS BF 2 %; MACROPHAGES BF 5 %; MESOTHELIALS BF 4 %; NEUT - BF 60 %
--- NOTE | 2020-05-21 19:45 | NUR ---
REPORT RECEIVED AN ROUNDING COMPLETE. PATIENT LAYING IN BED IN LOW FOWLERS POSITION. WEARING NASAL CANNULA WIHT 02 AT 2L. ON CELL PHONE FACETIMING WITH HIS , ASKED FOR ICE WATER WHICH HE WAS GIVEN. RIGHT FOREARM PIV HAS FLUIDS RUNNING AT THIS TIME, PIV SHOWS NO S/SX OF INFILTRATION. NO S/SX OF DISTRESS NOTED. CALL LIGHT WIHTIN REACH AND BED IN LOWEST LOCKED POSITION.
[2020-05-21 21:21] VITALS: BP 116/60
[2020-05-22 01:04] VITALS: BP 122/66
[2020-05-22 04:00] VITALS: BP 125/60
[2020-05-22 06:16] LABS: HEMOGLOBIN 9.2 g/dL (13.5-17.5); MCH 31.1 pg (26.0-34.0); MCHC 31.7 g/dL (31.0-37.0); PLATELET COUNT 102 10x3/uL (130-400); RBC 2.96 10x6/uL (4.20-6.10); RDW 15.6 % (11.5-14.5); WBC 2.9 10x3/uL (4.8-10.8)
[2020-05-22 06:28] LABS: ALBUMIN 1.8 g/dL (3.4-5.0); ANION GAP 3.3 mmol/L (8-16); BILIRUBIN - TOTAL 0.92 mg/dL (0.2-1.3); CALCIUM 8.8 mg/dL (8.5-10.1); CARBON DIOXIDE 33.4 mmol/L (21.0-32.0); CREATININE - SERUM 1.1 mg/dL (0.6-1.3); POTASSIUM - SERUM 3.7 mmol/L (3.5-5.1); PROTEIN - SERUM 6.1 g/dL (6.4-8.2)
[2020-05-22 07:29] LABS: EOSINOPHILS 3 % (0-7); LYMPHOCYTES 13 % (15-50); MONOCYTES 15 % (2-11); NEUTROPHILS 66 % (40-80); PLATELET ESTIMATE DECREASED
[2020-05-22 09:00] VITALS: BP 129/85
[2020-05-22 11:00] VITALS: BP 108/45
--- NOTE | 2020-05-22 12:18 | MORECARE ---
CASE MANAGEMENT DISCHARGE SUMMARY PATIENT: ZAYRA MAO LG UNIT: [id number] ADM DATE: 05/19/20 AGE: 79 : 39 SEX: M ROOM/BED: D.2107 AUTHOR: FREDY COBURN PHYSICIAN: REFERRING PHYSICIAN: MISAEL DAMON MD DATE OF SERVICE: 05/22/20 Discharge Plan Patient Name: [facility]RA [facility] [facility] 1940 Planned Disposition: Anticipated Discharge Date: Discharge Date: Expected LOS: Initial Reviewer: [id number] Initial Review Date: 05/19/2020 Generated: 05/22/20 1:18 pm Patient Name: ZAYRA MAO Page [id number] at 1218 All edits/amendments must be made on the electronic document DICTATION DATE: 05/22/20 1218 SILK SCREEN PRINTING RACKER: SUJIT 05/22/20 1218 RPT#: [id number] DC DATE: STATUS: ADM IN [facility] [address] [place] [address] END OF REPORT
[2020-05-22 15:00] VITALS: BP 111/57
--- NOTE | 2020-05-22 16:51 | MORECARE ---
CASE MANAGEMENT DISCHARGE SUMMARY PATIENT: ZAYRA MAO LG UNIT: [id number] ADM DATE: 05/19/20 AGE: 79 : 39 SEX: M ROOM/BED: D.2107 AUTHOR: FREDY COBURN PHYSICIAN: REFERRING PHYSICIAN: MISAEL DAMON MD DATE OF SERVICE: 05/22/20 Discharge Plan Patient Name: [facility]AYRA MAO [facility] [facility] 1940 Planned Disposition: Anticipated Discharge Date: Discharge Date: Expected LOS: Initial Reviewer: [id number] Initial Review Date: 05/19/2020 Generated: 05/22/20 5:51 pm Comments DCP- Discharge Planning Updated by [id number]: Ani Alonso on 05/22/20 3:[address] Received a message from [facility] that the patient's is planning on taking the patient home with Hospice. 05/[address] for Sign Language to discuss Home Hospice. Last DP export: 05/22/20 11:18 a Patient Name: ZAYRA MAO Page 67584 at 1651 All edits/amendments must be made on the electronic document DICTATION DATE: 05/22/201650 MEDICAL RECORD SPECIALIST: SUJIT 05/22/201650 RPT#: [id number] DC DATE: STATUS: ADM IN [facility] [address] [place] [address] END OF REPORT
--- NOTE | 2020-05-22 19:18 | NUR ---
ASSISTED PT TO HAVE DRINK BED LOW AND LOCKED NO OTHER NEEDS MADE KNOWN
[2020-05-22 20:00] VITALS: BP 114/55
[2020-05-23] VITALS: BP 116/52
[2020-05-23 04:00] VITALS: BP 105/57
[2020-05-23 05:37] LABS: BASOPHILS 1.3 % (0-2); EOSINOPHILS 5.7 % (0-7); HEMATOCRIT 30.2 % (42.0-54.0); HEMOGLOBIN 9.4 g/dL (13.5-17.5); LYMPHOCYTES 29.2 % (15-50); MCH 30.6 pg (26.0-34.0); MCHC 31.1 g/dL (31.0-37.0); MCV 98.4 fL (80.0-100.0); MEAN PLATELET VOLUME 8.9 fL (7.4-10.4); MONOCYTES 25.2 % (2-11); NEUTROPHILS 38.6 % (40-80); PLATELET COUNT 100 10x3/uL (130-400); RBC 3.07 10x6/uL (4.20-6.10); RDW 15.5 % (11.5-14.5)
[2020-05-23 06:08] LABS: ALBUMIN 1.7 g/dL (3.4-5.0); ALKALINE PHOSPHATASE 480 U/L (30-120); ALT (SGPT) 46 U/L (10-68); BILIRUBIN - TOTAL 0.71 mg/dL (0.2-1.3); CALC OSMOLALITY 276 mosm/kg (275-300); CALCIUM 8.5 mg/dL (8.5-10.1); CARBON DIOXIDE 31.2 mmol/L (21.0-32.0); CHLORIDE - SERUM 105 mmol/L (98-107); GLUCOSE 99 mg/dL (74-106); POTASSIUM - SERUM 3.9 mmol/L (3.5-5.1); PROTEIN - SERUM 5.5 g/dL (6.4-8.2); SODIUM 137 mmol/L (136-145); UREA NITROGEN 20 mg/dL (7-18); eGFR NON AFRICAN AMERICAN 76 mL/min (90-120)
--- NOTE | 2020-05-23 07:30 | NUR ---
REPORT RECIEVED. PT SITTING SEMI FOWLERS IN BED. RR EVEN AND UNLABORED ON RA. HE HAS A R FA PIV INFUSING NS @ 100. HE HAS A TAVAREZ DRAINING URINE. BED LOCKED AND IN LOWEST POSITION, CALL LIGHT WITHIN REACH. WILL CTM
--- NOTE | 2020-05-23 09:24 | MORECARE ---
CASE MANAGEMENT DISCHARGE SUMMARY PATIENT: ZAYRA MAO LG UNIT: [id number] ADM DATE: 05/19/20 AGE: 79 : 39 SEX: M ROOM/BED: D.2107 AUTHOR: FREDY COBURN PHYSICIAN: REFERRING PHYSICIAN: MISAEL DAMON MD DATE OF SERVICE: 05/23/20 Discharge Plan Patient Name: ZAYRA MAO [facility] [facility] 1940 Planned Disposition: Anticipated Discharge Date: Discharge Date: Expected LOS: Initial Reviewer: [id number] Initial Review Date: 05/19/2020 Generated: 05/23/20 10:23 am Comments DCP- Discharge Planning Updated by [id number]: Ani Alonso on 05/23/20 8:[address] CM had a message from patient's nurse to call patient's daughter at #[phone]. There was no answer, a VM was left with my contact number. DCP- Discharge Planning Updated by [id number]: Ani Alonso on 05/22/20 3:[address] Received a message from [facility] that the patient's is planning on taking the patient home with Hospice. 05/[address] mender for Sign Language to discuss Home Hospice. Last DP export: 05/22/20 3:51 p Patient Name: ZAYRA MAO Page 36093 at 0924 All edits/amendments must be made on the electronic document DICTATION DATE: 05/23/20923 FIELD TEST ENGINEER: SUJIT 05/23/20923 RPT#: [id number] DC DATE: STATUS: ADM IN [facility] [address] [place] [address] END OF REPORT
[2020-05-23 11:08] VITALS: BP 115/63
--- NOTE | 2020-05-23 12:27 | NUR ---
Nutrition Follow-up: Nursing reports pt ate well this AM; 100% recorded on door. S/p thoracentesis on 05/21 (-2450 mL). Noted plans to d/c soon on home hospice. Diet: Regular, Mech Soft, Chopped Meats Wt: 188# (05/21) Last recorded BM: 05/21 Labs noted: Alb 1.7 Meds noted: Glucotrol, vitamin B12, Protonix, Humalog, NS @ 100, electrolyte protocol -Encourage PO intake and honor food preferences within diet restrictions. -Monitor wt; noted daily wts ordered. -RD following.
[2020-05-23 13:09] VITALS: BP 105/53
--- NOTE | 2020-05-23 13:29 | MORECARE ---
CASE MANAGEMENT DISCHARGE SUMMARY PATIENT: ZAYRA MAO UNIT: [id number] ADM DATE: 05/19/20 AGE: 79 : 39 SEX: M ROOM/BED: D.2107 AUTHOR: FREDY COBURN PHYSICIAN: REFERRING PHYSICIAN: MISAEL DAMON MD DATE OF SERVICE: 05/23/20 Discharge Plan Patient Name: ZAYRA MAO [facility] [facility] 1940 Planned Disposition: Anticipated Discharge Date: Discharge Date: Expected LOS: Initial Reviewer: [id number] Initial Review Date: 05/19/2020 Generated: 05/23/20 2:28 pm Comments DCP- Discharge Planning Updated by [email or web address]: Ani Alonso on 05/23/20 12:[address] CM had a message from patient's nurse to call patient's daughter at #[phone]. There was no answer, a VM was left with my contact number. CM met with patient who states his family is taking him home on Hospice. The patient's does not know the name of the hospice. CM called the daughter's number, left a VM to please call back with the name of the hospice company. CM will call the hospice agencies in to inquire of same. Per the patient, the hospice company is delivering a hospital bed today. DCP- Discharge Planning Updated by [email or web address]: Ani Alonso on 05/22/20 3:[address] Received a message from [facility] that the patient's is planning on taking the patient home with Hospice. 05/23 will require an oakes machine operator for Sign Language to discuss Home Hospice. Last DP export: 05/23/20 8:24 am Patient Name: ZAYRA MAO Page 58858 at 1324 All edits/amendments must be made on the electronic document DICTATION DATE: 05/23/208 STATION COOK: SUJIT 05/23/20 1328 RPT#: [id number] DC DATE: STATUS: ADM IN [facility] [address] [place] [address] END OF REPORT
--- NOTE | 2020-05-23 13:36 | MORECARE ---
CASE MANAGEMENT DISCHARGE SUMMARY PATIENT: ZAYRA MAO UNIT: [id number] ADM DATE: 05/19/20 AGE: 79 : 39 SEX: M ROOM/BED: D.2107 AUTHOR: FERDY COBURN PHYSICIAN: REFERRING PHYSICIAN: MISAEL DAMON MD DATE OF SERVICE: 05/23/20 Discharge Plan Patient Name: ZAYRA MAO [facility] [facility] 1940 Planned Disposition: Anticipated Discharge Date: Discharge Date: Expected LOS: Initial Reviewer: [id number] Initial Review Date: 05/19/2020 Generated: 05/23/20 2:36 pm Comments DCP- Discharge Planning Updated by [id number]: Ani Alonso on 05/23/20 12:[address] CM had a message from patient's nurse to call patient's daughter at #[phone]. There was no answer, a VM was left with my contact number. [phone] ; CM met with patient who states his family is taking him home on Hospice. The patient's does not know the name of the hospice. CM called the daughter's number, left a VM to please call back with the name of the hospice company. CM will call the hospice agencies in to inquire of same. Per the patient, the hospice company is delivering a hospital bed today. DCP- Discharge Planning Updated by [email or web address]: Ani Alonso on 05/22/20 3:[address] Received a message from [facility] that the patient's is planning on taking the patient home with Hospice. 05/23 will require an conference interpreter for Sign Language to discuss Home Hospice. Last DP export: 05/23/20 12:29 pm Patient Name: ZAYRA MAO Page 93967 at 1336 All edits/amendments must be made on the electronic document DICTATION DATE: 05/23/20 1336 PLANT SUPERINTENDENT: SUJIT 05/23/20 1336 RPT#: [id number] DC DATE: STATUS: ADM IN [facility] [address] [place] [address] END OF REPORT
[2020-05-23 14:10] LABS: ACID FAST SMEAR Negative (()); AFB SPECIMEN PROCESSING Not Indicated (()); FUNGUS STAIN Final report (())
--- NOTE | 2020-05-23 16:29 | MORECARE ---
CASE MANAGEMENT DISCHARGE SUMMARY PATIENT: ZAYRA MAO LG UNIT: [id number] ADM DATE: 05/19/20 AGE: 79 : 39 SEX: M ROOM/BED: D.2107 AUTHOR: FREDY COBURN PHYSICIAN: REFERRING PHYSICIAN: MISAEL DAOMN MD DATE OF SERVICE: 05/23/20 Discharge Plan Patient Name: ZAYRA MAO Facility: [facility]:[place] : 1940 Planned Disposition: Home with Hospice Anticipated Discharge Date: 05/25/20 Discharge Date: Expected LOS: 6 Initial Reviewer: [email or web address] Initial Review Date: 05/19/2020 Generated: 05/23/20 5:28 pm Comments DCP- Discharge Planning Updated by [email or web address]: Ani Alonso on 05/23/20 12:[address] CM had a message from patient's nurse to call patient's daughter at #[phone]. There was no answer, a VM was left with my contact number. 1300 ; CM met with patient who states his family is taking him home on Hospice. The patient's does not know the name of the hospice. CM called the daughter's number, left a VM to please call back with the name of the hospice company. CM will call the hospice agencies in to inquire of same. Per the patient, the hospice company is delivering a hospital bed today. DCP- Discharge Planning Updated by [id number]: Ani Alonso on 05/22/20 3:[address] Received a message from [facility] that the patient's is planning on taking the patient home with Hospice. 05/23 will require an inking machine tender for Sign Language to discuss Home Hospice. Last DP export: 05/23/20 12:36 pm Patient Name: ZAYRA MAO Page [id number] at 2317 All edits/amendments must be made on the electronic document DICTATION DATE: 05/23/201627 TEXTILE EXAMINER: SUJIT 05/23/201627 RPT#: [id number] DC DATE: STATUS: ADM IN [facility] [address] [place] [address] END OF REPORT
--- NOTE | 2020-05-23 16:37 | MORECARE ---
CASE MANAGEMENT DISCHARGE SUMMARY PATIENT: ZAYAR MAO UNIT: [id number] ADM DATE: 05/19/20 AGE: 79 : 39 SEX: M ROOM/BED: D.2107 AUTHOR: FREDY COBURN PHYSICIAN: REFERRING PHYSICIAN: MISAEL DAMON MD DATE OF SERVICE: 05/23/20 Discharge Plan Patient Name: ZAYRA MAO Facility: [facility]:[place] : 1940 Planned Disposition: Home with Hospice Anticipated Discharge Date: 05/25/20 Discharge Date: Expected LOS: 6 Initial Reviewer: [id number] Initial Review Date: 05/19/2020 Generated: 05/23/20 5:36 pm Comments DCP- Discharge Planning Updated by [email or web address]: Ani Alonso on 05/23/20 3:[address] CM had a message from patient's nurse to call patient's daughter at #[phone]. There was no answer, a VM was left with my contact number. 1300 ; CM met with patient who states his family is taking him home on Hospice. The patient's does not know the name of the hospice. CM called the daughter's number, left a VM to please call back with the name of the hospice company. CM will call the hospice agencies in to inquire of same. Per the patient, the hospice company is delivering a hospital bed today. 1630: CM left another message on the daughter's phone. Await . RAJI has contacted all the Hospices in [place] and [facility] in an effort to locate the hospice the family is using, but none say they have him as a client. DCP- Discharge Planning Updated by [id number]: Ani Alonso on 05/22/20 3:[address] Received a message from [facility] that the patient's is planning on taking the patient home with Hospice. 05/23 will require an plate maker zinc for Sign Language to discuss Home Hospice. Last DP export: 05/23/20 3:29 pm Patient Name: ZAYRA MAO Page [id number] at 1637 All edits/amendments must be made on the electronic document DICTATION DATE: 05/23/201635 FARM REPORTER: SUJIT 05/23/201635 RPT#: [id number] DC DATE: STATUS: ADM IN [facility] [address] [place] [address] END OF REPORT
[2020-05-23 20:00] VITALS: BP 121/48
[2020-05-24] VITALS: BP 104/49
--- NOTE | 2020-05-24 03:52 | NUR ---
I have reviewed this patient and I concur with the Shift Assessment completed by the Licensed Practical Nurse today this shift.
[2020-05-24 04:00] VITALS: BP 115/55
[2020-05-24 07:45] LABS: ALBUMIN 1.6 g/dL (3.4-5.0); ALKALINE PHOSPHATASE 428 U/L (30-120); ALT (SGPT) 43 U/L (10-68); BILIRUBIN - TOTAL 0.72 mg/dL (0.2-1.3); CALC OSMOLALITY 274 mosm/kg (275-300); CALCIUM 8.6 mg/dL (8.5-10.1); CARBON DIOXIDE 29.8 mmol/L (21.0-32.0); CHLORIDE - SERUM 103 mmol/L (98-107); GLUCOSE 109 mg/dL (74-106); PROTEIN - SERUM 5.7 g/dL (6.4-8.2); SODIUM 136 mmol/L (136-145); UREA NITROGEN 18 mg/dL (7-18); eGFR NON AFRICAN AMERICAN 76 mL/min (90-120)
[2020-05-24 07:47] LABS: POTASSIUM - SERUM 4.6 mmol/L (3.5-5.1)
[2020-05-24 07:49] LABS: HEMATOCRIT 28.6 % (42.0-54.0); HEMOGLOBIN 9.1 g/dL (13.5-17.5); MCH 31.4 pg (26.0-34.0); MCHC 31.8 g/dL (31.0-37.0); MCV 98.6 fL (80.0-100.0); MEAN PLATELET VOLUME 9.2 fL (7.4-10.4); PLATELET COUNT 109 10x3/uL (130-400); RDW 15.7 % (11.5-14.5)
[2020-05-24 07:51] LABS: WBC 4.3 10x3/uL (4.8-10.8)
[2020-05-24 09:46] VITALS: BP 133/67
[2020-05-24 10:06] LABS: EOSINOPHILS 3 % (0-7); LYMPHOCYTES 32 % (15-50); MONOCYTES 15 % (2-11); NEUTROPHILS 50 % (40-80); PLATELET ESTIMATE NORMAL
--- NOTE | 2020-05-24 10:12 | MORECARE ---
CASE MANAGEMENT DISCHARGE SUMMARY PATIENT: ZAYRA MAO UNIT: [id number] ADM DATE: 05/19/20 AGE: 79 : 39 SEX: M ROOM/BED: D.2105 AUTHOR: FREDY COBURN PHYSICIAN: REFERRING PHYSICIAN: MISAEL DAMON MD DATE OF SERVICE: 05/24/20 Discharge Plan Patient Name: ZAYRA MAO Facility: [facility]:[place] : 1940 Planned Disposition: Home with Hospice Anticipated Discharge Date: 05/25/20 Discharge Date: Expected LOS: 6 Initial Reviewer: [id number] Initial Review Date: 05/19/2020 Generated: 05/24/20 11:12 am Comments DCP- Discharge Planning Updated by [email or web address]: Ani Alonso on 05/24/20 9:[address] Hospice is ready for patient to DC home when OK with MD. Spoke with Dr. Isaac and he OK with the DC. RAJI contracted patient's daughter, Nora, at the corrected number #[phone]. Per Nora, the hospice that is being used is [facility] #[phone]. CM contacted Victoria with [facility] to verify same. Hospice has delivered a hospital bed, pressure mattress, O2, over bed table. hospice will order an overhead trapeze, and Nebulizer. DCP- Discharge Planning Updated by [id number]: Ani Alonso on 05/23/20 3:[address] CM had a message from patient's nurse to call patient's daughter at #[phone]. There was no answer, a VM was left with my contact number. 1300 ; RAJI met with patient who states his family is taking him home on Hospice. The patient's does not know the name of the hospice. CM called the daughter's number, left a VM to please call back with the name of the hospice company. CM will call the hospice agencies in to inquire of same. Per the patient, the hospice company is delivering a hospital bed today. 1630: CM left another message on the daughter's phone. Await CB. RAJI has contacted all the Hospices in [place] and [facility] in an effort to locate the hospice the family is using, but none say they have him as a client. DCP- Discharge Planning Updated by [id number]: Ani Alonso on 05/22/20 3:[address] Received a message from [facility] that the patient's is planning on taking the patient home with Hospice. 05/23 will require an reinforcing bar setter for Sign Language to discuss Home Hospice. Last DP export: 05/23/20 3:37 pm Patient Name: ZAYRA MAO Page 22537 at 1012 All edits/amendments must be made on the electronic document DICTATION DATE: 05/24/20 1012 AMBULATORY TECHNOLOGIST: SUJIT 05/24/20 1012 RPT#: [id number] DC DATE: STATUS: ADM IN [facility] [address] [place] [address] END OF REPORT
[2020-05-24 12:00] VITALS: BP 123/59
[2020-05-24] MEDS ORDERED: BACTRIM DS TAB1 EAC1 PO (12:02)
--- NOTE | 2020-05-24 13:37 | NUR ---
PRATIBHA, PT DAUGHTER CALLED AND UPDATED ON PLAN FOR DISCHARGE. PT WILL TRANSFER HOME BY AMBULANCE.
--- NOTE | 2020-05-24 16:21 | MORECARE ---
CASE MANAGEMENT DISCHARGE SUMMARY PATIENT: ZAYRA MAO UNIT: [id number] ADM DATE: 05/19/20 AGE: 79 : 39 SEX: M ROOM/BED: D.2107 AUTHOR: ALMAS,DOC PHYSICIAN: REFERRING PHYSICIAN: MISAEL DAMON MD DATE OF SERVICE: 05/24/20 Discharge Plan Patient Name: ZAYRA MAO Facility: [facility]:[place] : 1940 Planned Disposition: Home with Hospice Anticipated Discharge Date: 05/25/20 Discharge Date: Expected LOS: 6 Initial Reviewer: [id number] Initial Review Date: 05/19/2020 Generated: 05/24/20 5:20 pm Comments DCP- Discharge Planning Updated by [id number]: Ani Alonso on 05/24/20 3:[address] Phone call from Victoria, with [facility], request report be called to O/C nurse @[phone]. This information was given to the patient's nurse, Reymundo. CM notified patient and patient's daughter, Heather of planed DC today, home with Hospice. CM read the DC IMM to patient's daughter and she agrees for the patient to sign. . Hospice is ready for patient to DC home when OK with MD. Spoke with Dr. Isaac and he OK with the DC. RAJI contracted patient's daughter, Nora, at the corrected number #[phone]. Per Nora, the hospice that is being used is [facility] #[phone]. CM contacted Victoria with [facility] to verify same. Hospice has delivered a hospital bed, pressure mattress, O2, over bed table. hospice will order an overhead trapeze, and Nebulizer. DCP- Discharge Planning Updated by [id number]: Ani Alonso on 05/23/20 3:[address] CM had a message from patient's nurse to call patient's daughter at #[phone]. There was no answer, a VM was left with my contact number. 1300 ; CM met with patient who states his family is taking him home on Hospice. The patient's does not know the name of the hospice. CM called the daughter's number, left a VM to please call back with the name of the hospice company. CM will call the hospice agencies in to inquire of same. Per the patient, the hospice company is delivering a hospital bed today. 1630: CM left another message on the daughter's phone. Await CB. CM has contacted all the Hospices in [place] and [facility] in an effort to locate the hospice the family is using, but none say they have him as a client. DCP- Discharge Planning Updated by [email or web address]: Ani Alonso on 05/22/20 3:[address] Received a message from [facility] that the patient's is planning on taking the patient home with Hospice. 05/23 will require an otr refrigerated cdl truck driver for Sign Language to discuss Home Hospice. Coverage Notice Reviewer: [id number] - Ani Alonso Notice Issued Date-Time: 05/24/2020 15:24 Notice Type: IM Discharge Notice Notice Delivered To: Patient Relationship to Patient: Self Dedicated Owner Operator Name: ZAYRA MAO Delivery Method: HAND - Hand Delivered Vita Days: Prior Verbal Notification: Recipient Understood Notice: Yes Recipient Signature: Yes Med Rec Note Co-signed by Attending: Coverage Notice Comment: DC IMM signed by patient, per daughter's permission. Explained to daughter prior to signature. Original to chart. Last DP export: 05/24/20 9:12 am Patient Name: ZAYRA MAO Page [id number] at 1621 All edits/amendments must be made on the electronic document DICTATION DATE: 05/24/201619 CONSULTING GROUP ANALYST: SUJIT 05/24/20 1620 RPT#: [id number] DC DATE: STATUS: ADM IN [facility] [address] [place] [address] END OF REPORT
--- NOTE | 2020-05-24 16:49 | MORECARE ---
CASE MANAGEMENT DISCHARGE SUMMARY PATIENT: ZAYRA MAO UNIT: [id number] ADM DATE: 05/19/20 AGE: 79 : 39 SEX: M ROOM/BED: D.2107 AUTHOR: ALMAS,DOC PHYSICIAN: REFERRING PHYSICIAN: MISAEL DAMON MD DATE OF SERVICE: 05/24/20 Discharge Plan Patient Name: ZAYRA MAO Facility: [facility]:[place] : 1940 Planned Disposition: Home with Hospice Anticipated Discharge Date: 05/25/20 Discharge Date: Expected LOS: 6 Initial Reviewer: [email or web address] Initial Review Date: 05/19/2020 Generated: 05/24/20 5:48 pm Comments DCP- Discharge Planning Updated by [id number]: Ani Alonso on 05/24/20 3:[address] Phone call from Victoria, with [facility], request report be called to O/C nurse @[phone]. This information was given to the patient's nurse, Reymundo. CM notified patient and patient's daughter, Heather of planed DC today, home with Hospice. CM read the DC IMM to patient's daughter and she agrees for the patient to sign. . Hospice is ready for patient to DC home when OK with MD. Spoke with Dr. Isaac and he OK with the DC. RAJI contracted patient's daughter, Nora, at the corrected number #[phone]. Per Nora, the hospice that is being used is [facility] #[phone]. CM contacted Victoria with [facility] to verify same. Hospice has delivered a hospital bed, pressure mattress, O2, over bed table. hospice will order an overhead trapeze, and Nebulizer. DCP- Discharge Planning Updated by [id number]: Ani Alonso on 05/23/20 3:[address] CM had a message from patient's nurse to call patient's daughter at #[phone]. There was no answer, a VM was left with my contact number. 1300 ; CM met with patient who states his family is taking him home on Hospice. The patient's does not know the name of the hospice. CM called the daughter's number, left a VM to please call back with the name of the hospice company. CM will call the hospice agencies in to inquire of same. Per the patient, the hospice company is delivering a hospital bed today. 1630: CM left another message on the daughter's phone. Await CB. CM has contacted all the Hospices in [place] and [facility] in an effort to locate the hospice the family is using, but none say they have him as a client. DCP- Discharge Planning Updated by [id number]: Ani Alonso on 05/22/20 3:[address] Received a message from [facility] that the patient's is planning on taking the patient home with Hospice. 05/23 will require an product assembler for Sign Language to discuss Home Hospice. Coverage Notice Reviewer: [email or web address] - Ani Alonso Notice Issued Date-Time: 05/24/2020 15:24 Notice Type: IM Discharge Notice Notice Delivered To: Patient Relationship to Patient: Self River Rafting Guide Name: ZAYRA MAO Delivery Method: HAND - Hand Delivered Vita Days: Prior Verbal Notification: Recipient Understood Notice: Yes Recipient Signature: Yes Med Rec Note Co-signed by Attending: Coverage Notice Comment: DC IMM signed by patient, per daughter's permission. Explained to daughter prior to signature. Original to chart. Last DP export: 05/24/20 3:21 pm Patient Name: ZAYRA MAO Page [id number] at 1649 All edits/amendments must be made on the electronic document DICTATION DATE: 05/24/201648 SENIOR DIRECTOR OF STRATEGY: SUJIT 05/24/201648 RPT#: [id number] DC DATE: STATUS: ADM IN [facility] [address] [place] [address] END OF REPORT
--- NOTE | 2020-05-24 17:10 | NUR ---
REPORT CALLED TO MANSI RN WITH [facility]. PT JUST LEFT WITH [facility].
== END 2020-05-24 17:11 | disposition home health service (06) | DRG 177 ==
LOC: D.ER 05:03 → D.M2 09:07 → D.MS 09:07 → D.ER 10:38 → D.M2 17:56
PROVIDERS: Family Medicine; General Practice; Internal Medicine Pulmonary Disease; ADMIT Family Medicine; ATTEND Family Medicine
PROC: 0W9B3ZZ Drainage of Left Pleural Cavity, Percutaneous Approach (ICD-10-PCS; principal; 2020-05-21 14:30)
DX: J69.0 Pneumonitis due to inhalation of food and vomit (principal); J96.21 Acute and chronic respiratory failure with hypoxia; I50.33 Acute on chronic diastolic (congestive) heart failure; J44.0 Chronic obstructive pulmonary disease with (acute) lower respiratory infection; N17.9 Acute kidney failure, unspecified; J98.11 Atelectasis; I13.0 Hypertensive heart and chronic kidney disease with heart failure and stage 1 through stage 4 chronic kidney disease, or unspecified chronic kidney disease; C90.30 Solitary plasmacytoma not having achieved remission; J90 Pleural effusion, not elsewhere classified; D53.9 Nutritional anemia, unspecified; E11.65 Type 2 diabetes mellitus with hyperglycemia; E11.40 Type 2 diabetes mellitus with diabetic neuropathy, unspecified; K74.60 Unspecified cirrhosis of liver; N40.0 Benign prostatic hyperplasia without lower urinary tract symptoms; F41.9 Anxiety disorder, unspecified; G89.29 Other chronic pain; M54.9 Dorsalgia, unspecified; D47.2 Monoclonal gammopathy; E11.22 Type 2 diabetes mellitus with diabetic chronic kidney disease; N18.9 Chronic kidney disease, unspecified; D63.1 Anemia in chronic kidney disease; D69.6 Thrombocytopenia, unspecified; Z66 Do not resuscitate; H91.90 Unspecified hearing loss, unspecified ear